=== PATIENT | male | born 1955 | race Hispanic/Latino ===

== ENCOUNTER 2017-12-15 16:59 | Emergency (ER) | payer OTHER ==
[2017-12-15 17:26] VITALS: BP 116/72
--- NOTE | 2017-12-15 19:16 | Emergency Department Report ---
Blank Doc - Documentation Documentation: Patient is a 62-year-old male who is presenting with cough cold congestion for several weeks. Patient states he is out of breath over his O2 sat is within normal limits. Patient also is asking for catheter so he can straight cath himself. He states he has a large prostate but he hasn't urinated today. Patient will have x-ray to rule out atypical pneumonia regarding the catheters patient will be referred to urology
--- NOTE | 2017-12-15 20:05 | Emergency Department Report ---
HPI - General Chief Complaint: Upper Respiratory Infection Time Seen by Provider: 12/15/17 19:04 - HPI HPI: Patient is a 62-year-old male who is presenting with cough cold congestion for several weeks. Patient states he is out of breath . O2 sat is within normal limits. Patient also is asking for catheter so he can straight cath himself. He states he has a large prostate but he has urinated today without any difficulties. Patient reports flulike symptoms for 4 days to include cough sore throats. Pain is 4 out of 10. No relief with over-the- counter medication. He said he is taking lots Imodium right ear for diarrhea and complaining of body aches. Denies any nausea or vomiting or fever or chills. Patient has a history of COPD, asthma. He has a history of hepatitis C. Denies any chest pain and reports shortness of breath with exertion that is not unusual due to asthma and COPD. He said he takes a breathing machine at home. He has no diarrhea today and denies any abdominal pain. Denies any back pain. Denies any urinary burning frequency or urgency. Denies any nausea or vomiting. ED Past Medical Hx - Past Medical History Previous Medical History?: Yes Hx Liver Disease: Yes (Hepatitis C) Hx Asthma: Yes Hx COPD: Yes Additional medical history: BPH - Surgical History Past Surgical History?: No - Family History Family history: hypertension - Social History Smoking Status: Former Smoker Substance Use Type: Cocaine, Non Opiate Pain, Other ED Review of Systems ROS: Stated complaint: FLU LIKE SYMPTOMS Other details as noted in HPI Comment: All other systems reviewed and negative Constitutional: other (she requested straight cath.). denies: chills, fever Eyes: denies: eye pain, eye discharge ENT: throat pain, congestion. denies: ear pain, dental pain, hearing loss Respiratory: cough, shortness of breath, SOB with exertion. denies: orthopnea, SOB at rest, stridor, wheezing Cardiovascular: denies: chest pain, palpitations, edema, syncope Gastrointestinal: denies: abdominal pain, nausea, vomiting, diarrhea, constipation, hematemesis, melena, hematochezia Genitourinary: denies: urgency, dysuria, frequency, hematuria, discharge, testicular pain, testicular mass Musculoskeletal: myalgia. denies: back pain, joint swelling, arthralgia Skin: denies: rash Neurological: denies: headache, numbness, paresthesias, confusion, abnormal gait , vertigo Physical Exam - Physical Exam Vital Signs: Vital Signs 12/15/17 17:23 Temperature 98 F Pulse Rate 103 H Respiratory 16 Rate Blood Pressure 116/72 O2 Sat by Pulse 95 Oximetry General: This is a 62-year-old male well-nourished well-developed in no acute distress. Physical Exam: Head: Normocephalic atraumatic Ears:BIateral TM congested without erythema and loss of bony landmarks. Mj EAC with normal exam. No mastoid bone tenderness. Mouth: Moist, no pharyngeal erythema or exudate . No tonsillar erythema or exudate. UVULA midline and oral airways patent. No peritonsillar abscess Neck: Nontender to palpate, supple, normal range of motion. No adenopathy. No c- spine tenderness. Nose: Bilateral nasal mucosa congested with clear drainage. Maxillary and frontal sinuses tender to palpate. Eyes: Sclerae and conjunctiva without injection. Bilateral pupils equal and reactive to light. Bilateral lids are normal. Normal accommodation.BEOMI Lungs: Clear to auscultate bilaterally, no rhonchi wheezes or rales. Normal work of breathing and no chest wall tenderness CV: S1, S2. Regular rate and rhythm negative murmur. Capillary refill is less than 3 seconds Skin: Clean dry and intact, no rashes or lesions Psych: Normal mood and behavior ED Course Vital Signs 12/15/17 17:23 Temperature 98 F Pulse Rate 103 H Respiratory 16 Rate Blood Pressure 116/72 O2 Sat by Pulse 95 Oximetry Critical care attestation.: If time is entered above; I have spent that time in minutes in the direct care of this critically ill patient, excluding procedure time. ED Disposition Condition: Stable Referrals: PRIMARY CARE, [Primary Care Provider] - 3-5 Days
[2017-12-15] MEDS ORDERED: DUONEB *Not for PRN Use IH ONE (21:24)
[2017-12-15] MEDS ORDERED: DELTASONE PO ONE (21:24)
--- NOTE | 2017-12-15 21:59 | XRay Report ---
FINAL REPORT PROCEDURE: Chest. TECHNIQUE: PA and lateral views. HISTORY: Cough and chills. COMPARISON: No prior studies are available for comparison. FINDINGS: The heart and mediastinum appear normal. The left lung is clear and mildly hyperinflated. There is some lucency in the left lung apex consistent with cystic disease. There is some volume loss in the right lung. The trachea is shifted slightly to the right. There is abnormal opacity in the right upper lobe which could represent pneumonia. There are some cystic cavities in the right upper lobe as well. I do not see a definite mass lesion. A neoplastic process is not entirely excluded however. The right lower lobe and right middle lobe are grossly clear. There are no pleural effusions. There is extensive pleural thickening surrounding the right upper lobe. The soft tissues are unremarkable. The regional skeleton appears intact. IMPRESSION: Abnormal right upper lobe as discussed above. Probable emphysema.
== END 2017-12-16 07:10 | disposition left against medical advice (07) ==
LOC: ED 16:59
DX: R05 Cough (principal); R09.81 Nasal congestion
CPT/HCPCS: 71046; 99283

== ENCOUNTER 2017-12-17 18:56 | Emergency (ER) | payer OTHER | END 2017-12-18 | disposition left against medical advice (07) | LOC: ED 18:56 | DX: Z53.21 Procedure and treatment not carried out due to patient leaving prior to being seen by health care provider (principal) ==

== ENCOUNTER 2017-12-20 08:56 | Emergency (ER) | payer OTHER ==
[2017-12-20 09:06] VITALS: BP 133/93
[2017-12-20 09:37] LABS: Basophils # (Auto) 0.1 K/mm3 (0.0-0.1); Basophils % (Auto) 0.6 % (0.0-1.8); Eosinophils # (Auto) 0.3 K/mm3 (0.0-0.4); Eosinophils % (Auto) 2.2 % (0.0-4.3); Hematocrit 32.1 % (35.5-45.6); Hemoglobin 10.5 gm/dl (11.8-15.2); Lymphocytes % (Auto) 8.3 % (13.4-35.0); Mean Corpuscular HGB Conc 33 % (32-34); Mean Corpuscular Hemoglobin 28 pg (28-32); Mean Corpuscular Volume 84 fl (84-94); Monocytes # (Auto) 0.7 K/mm3 (0.0-0.8); Monocytes % (Auto) 5.6 % (0.0-7.3); Platelet Count 404 K/mm3 (140-440); Red Blood Count 3.82 M/mm3 (3.65-5.03); Red Cell Distribution Width 15.9 % (13.2-15.2)
[2017-12-20 09:50] LABS: BUN/Creatinine Ratio 12; Blood Urea Nitrogen 6 mg/dL (9-20); Calcium 7.8 mg/dL (8.4-10.2); Hemolysis Index 32
--- NOTE | 2017-12-20 10:08 | XRay Report ---
Single view chest: Compared to 12/15/17. History: Shortness of breath. Findings: Normal cardiomediastinal silhouette. Trachea is midline. Fibrosis and scarring with interstitial infiltrates right lung with decrease in volume of right lung compared to left. No significant interval change. Impression: No significant interval change.
== END 2017-12-20 09:30 | disposition left against medical advice (07) ==
LOC: ED 08:56
DX: J45.909 Unspecified asthma, uncomplicated (principal); Z53.21 Procedure and treatment not carried out due to patient leaving prior to being seen by health care provider
CPT/HCPCS: 36415; 71046; 80048; 84484; 85025; 93005; 93010

== ENCOUNTER 2018-01-01 01:57 | Inpatient (IN) | payer OTHER ==
[2018-01-01] MEDS ORDERED: MAGNESIUM SULFATE 2GM/50ML 2 GM/50 ML BAG IV ONE ×2 (02:15→04:07)
[2018-01-01 02:46] LABS: Hematocrit 32.7 % (35.5-45.6); Hemoglobin 10.3 gm/dl (11.8-15.2); Mean Corpuscular HGB Conc 32 % (32-34); Mean Corpuscular Hemoglobin 26 pg (28-32); Mean Corpuscular Volume 83 fl (84-94); Platelet Count 433 K/mm3 (140-440); Red Blood Count 3.95 M/mm3 (3.65-5.03)
--- NOTE | 2018-01-01 02:58 | Emergency Department Report ---
HPI - General Chief Complaint: Dyspnea/Respdistress Time Seen by Provider: 01/01/18 02:12 - HPI HPI: 62-year-old male presents to the emergency department by EMS with complaint of shortness of breath. The patient stays with a friend but does not have his own residence at this current time. EMS was called out earlier today for shortness of breath and he was found to have a pulse ox in the 70s on room air. He was given a breathing treatment but refused transport to the hospital at that time. EMS was then called again is prior to presentation for continued shortness of breath and he was found to have a pulse ox in the 60s on room air. The patient has shortness of breath, wheezing, productive cough. He is a former smoker. He is an IV drug user. He has COPD but does not appear to be oxygen dependent. He does not have any inhaler or breathing machine to use at home. He does not have a primary care physician. Patient was given 125 mg of Solu-Medrol IM and placed on a CPAP in route. ED Past Medical Hx - Past Medical History Previous Medical History?: Yes Hx Liver Disease: Yes (Hepatitis C) Hx Asthma: Yes Hx COPD: Yes - Social History Smoking Status: Former Smoker Substance Use Type: Heroin ED Review of Systems ROS: Stated complaint: BERNADETTE Other details as noted in HPI Comment: All other systems reviewed and negative Constitutional: denies: chills, fever Eyes: denies: eye pain, eye discharge, vision change Respiratory: cough, shortness of breath, SOB with exertion, SOB at rest, wheezing Cardiovascular: denies: chest pain, edema Gastrointestinal: denies: abdominal pain, nausea, diarrhea Genitourinary: denies: urgency, dysuria Musculoskeletal: denies: back pain, joint swelling, arthralgia Skin: denies: rash, lesions Neurological: denies: headache, weakness, paresthesias Physical Exam - Physical Exam Vital Signs: Vital Signs 01/01/18 01/01/18 01/01/18 02:00 02:20 02:37 Pulse Rate 129 H 110 H 98 H Respiratory 34 H 26 H Rate Blood Pressure 153/98 132/88 O2 Sat by Pulse 72 L 99 99 Oximetry Physical Exam: GENERAL: Patient is ill-appearing. HENT: Normocephalic. Atraumatic. Patient has moist mucous membranes. EYES: Extraocular motions are intact. Pupils equal reactive to light bilaterally. NECK: Supple. Trachea is midline. CHEST/LUNGS: Rhonchi and some mild wheezing throughout the chest. There is tachypnea and accessory muscle use. There is a productive sounding cough heard. Conversational dyspnea. There is respiratory distress noted. HEART/CARDIOVASCULAR: Regular. There is mild tachycardia. There is no murmur. ABDOMEN: Abdomen is soft, nontender. Patient has normal bowel sounds. There is no abdominal distention. SKIN: Skin is warm and dry. NEURO: The patient is awake, alert, and oriented. Patient is following commands. Withdraws from painful stimuli. MUSCULOSKELETAL: There is no tenderness or deformity. There is no limitation range of motion. There is no evidence of acute injury. ED Course Vital Signs 01/01/18 01/01/18 01/01/18 02:00 02:20 02:37 Pulse Rate 129 H 110 H 98 H Respiratory 34 H 26 H Rate Blood Pressure 153/98 132/88 O2 Sat by Pulse 72 L 99 99 Oximetry - ABG Interpretation Ph: 7.47 PCO2: 33 PO2: 73 Bicarbonate: 24 Interpretation: normal ED Medical Decision Making - Lab Data Result diagrams: 01/11/18 04:13 01/11/18 04:13 - EKG Data -: EKG Interpreted by Me EKG shows normal: sinus rhythm, axis, intervals, QRS complexes, ST-T waves Rate: tachycardia (108 bpm) - EKG Data When compared to previous EKG there are: previous EKG unavailable Interpretation: normal EKG (with mild tachycardia) - Radiology Data Radiology results: report reviewed, image reviewed interpreted by me: Chest x-ray shows infiltrates throughout the entire right lung as well as to the left lower and lingular lobes. There may be some pulmonary vascular congestion as well. No pneumothorax. EXAM: CT ANGIO CHEST HISTORY: SOB, elevated dimer TECHNIQUE: CTA of the chest was performed after the administration of intravenous contrast. Reconstructions were included in the coronal and sagittal planes. PRIORS: Chest radiograph from 12/31/2017. FINDINGS: Pulmonary arteries and thoracic aorta: The study is adequate for diagnostic purposes. No central or segmental pulmonary embolism. The thoracic aorta is normal in caliber. Lungs and airways: There is a small right pleural effusion. Severe bilateral centrilobular and paraseptal emphysema is seen with numerous large subpleural blebs. Extensive bronchiectasis is seen. Honeycombing is seen in the periphery of the lungs. Patchy left lower lobe, lingular, right middle lobe, right upper lobe and right lower lobe opacities are seen. Mediastinum, heart, pericardium: Multiple enlarged mediastinal and right hilar lymph nodes are seen. The largest lymph node is seen in the subcarinal region measuring 2.8 x 2.0 centimeters. No cardiac chamber enlargement. No pericardial effusion. Thoracic inlet, chest wall, axilla: No chest wall masses. The visualized portions of the thyroid gland demonstrate no focal lesion. No axillary lymphadenopathy. Upper abdomen: The visualized structures demonstrate no specific abnormality. Bones: Degenerative changes are seen in the spine. Subacute or chronic left lateral 10th rib fracture is seen. IMPRESSION: 1. No central or segmental pulmonary embolism. 2. Multifocal bilateral pulmonary consolidative opacities concerning for multifocal pneumonia. 3. Small right pleural effusion. 4. Severe centrilobular and paraseptal emphysema with numerous large subpleural blebs. Additional chronic fibrotic process is suspected. 5. Enlarged mediastinal lymph nodes may be reactive. Transcribed By: MG Dictated By: CHUCK HOUGH MD Electronically Authenticated By: CHUCK HOUGH MD Signed Date/Time: 01/01/18 5053 - Medical Decision Making Patient came in for shortness of breath and hypoxia. Previous diagnosis of pneumonia but it seems to have worsened. He gets hypoxia without BiPAP. Labs show a leukocytosis of 21,000. He was given breathing treatments, antibiotics. Elevated d-dimer so CT angiography was done that did not show any PE but did show multifocal pneumonia as well as some signs of emphysema. Admitted to the hospital for further evaluation and treatment and accepted for admission by the hospitalist, Dr Johnson. - Differential Diagnosis Pneumonia, CHF, COPD, RI, PE Critical Care Time: No Critical care attestation.: If time is entered above; I have spent that time in minutes in the direct care of this critically ill patient, excluding procedure time. ED Disposition Clinical Impression: Respiratory distress, Hypoxia, Acute respiratory failure with hypoxia Sepsis Qualifiers: Sepsis type: sepsis due to unspecified organism Qualified Code(s): A41.9 - Sepsis, unspecified organism Pneumonia Qualifiers: Pneumonia type: due to unspecified organism Laterality: unspecified laterality Lung location: unspecified part of lung Qualified Code(s): J18.9 - Pneumonia, unspecified organism Leukocytosis Qualifiers: Leukocytosis type: unspecified Qualified Code(s): D72.829 - Elevated white blood cell count, unspecified Disposition: 09 OP ADMIT IP TO THIS HOSP Is pt being admited?: Yes Condition: Serious Time of Disposition: 05:24
[2018-01-01] MEDS ORDERED: ROCEPHIN/NS 1 GM/50 ML 1 GM/50 ML BAG IV ONE (03:00)
[2018-01-01 03:01] LABS: BUN/Creatinine Ratio 22; Blood Urea Nitrogen 13 mg/dL (9-20); Calcium 8.3 mg/dL (8.4-10.2); Hemolysis Index 14
[2018-01-01] MEDS ORDERED: ZITHROMAX 500 MG in NACL 0.9% 250ML 250 ML IV ONE (03:01)
[2018-01-01 03:03] LABS: INR 1.07 (0.87-1.13)
[2018-01-01 03:04] LABS: Partial Thromboplastin Time 29.7 Sec. (24.2-36.6)
--- NOTE | 2018-01-01 03:11 | XRay Report ---
FINAL REPORT PROCEDURE: XR CHEST 1V AP TECHNIQUE: Chest radiograph anteroposterior view. CPT 08538 HISTORY: Dyspnea COMPARISON: 12/15/2017 FINDINGS: Heart: Normal. Mediastinum/Vessels: Normal. Lungs/Pleural space: There are right lung infiltrates which have improved since the prior study. There are infiltrates at the left lung base which are new.. There are no effusions or pneumothoraces. Bony thorax: No acute osseous abnormality. Life support devices: None. IMPRESSION: The heart size is normal. There are right lung infiltrates which have improved since the prior study. There are infiltrates at the left lung base which are new.. There are no effusions or pneumothoraces.
[2018-01-01] MEDS ORDERED: cefTRIAXone 1 GM in NACL 0.9% 20 ML IV ONE (03:15)
[2018-01-01 03:30] LABS: Bilirubin,Urine NEG (Negative); Blood,Urine NEG (Negative); Color,Urine Yellow (Yellow); Mucus,Urine FEW /HPF; Protein,Urine <15 mg/dL mg/dL (Negative)
[2018-01-01 04:21] LABS: Band Neutrophils # (Manual) 0.2 K/mm3; Basophils % (Manual) 0 % (0.0-1.8); Eosinophils % (Manual) 1.5 % (0.0-4.3); Monocytes % (Manual) 2.5 % (0.0-7.3); Total Cells Counted 200
[2018-01-01 04:22] LABS: Anisocytosis 1+
[2018-01-01 04:23] LABS: Platelet Estimate Consistent w Auto
[2018-01-01] MEDS ORDERED: PROVENTIL IH ONE (04:28)
[2018-01-01] MEDS ORDERED: NORCO 5/325 PO PRN (06:20)
[2018-01-01] MEDS ORDERED: ZOFRAN IV PRN (06:20)
[2018-01-01] MEDS ORDERED: SODIUM CHLORIDE FLUSH SYRINGE 10 ML IV PRN (06:20)
--- NOTE | 2018-01-01 06:26 | History and Physical Report ---
History of Present Illness Date of examination: 01/01/18 Chief complaint: Couldn't breath History of present illness: 62-year-old man with past medical history significant for COPD on home oxygen, asthma, hep C emphysema presented to the emergency department he couldn't breathe since last night. Patient called EMS yesterday and his saturation was in the 70s but patient refused to come to the hospital. Patient is complaining on and off fever, cough productive of clear sputum. At presentation patient was saturating in the 50s and 60s, patient was put on BiPAP and currently he is saturating in the low 90s. Patient had right-sided pneumonia recently and was given by mouth antibiotics. Chest x-ray in the hospital showed right-sided infiltrates unchanged from previous one and new left -sided infiltrates. WBC count was 21,000, lactic acid level was 3.6, d-dimer was 2356, CTA was done and result is pending. Patient needs to be admitted to ICU. REVIEW OF SYSTEMS: GENERAL: no weight change, no fatigue,+ fever HEAD: no head ache EYES: no blurry vision, no acute visual loss EARS: no hearing loss, no discharge, no earache NOSE: no stuffiness, no sneezing, no discharge MOUTH, THROAT AND NECK: no bleeding gums, no sore throat, no swollen neck CARDIAC: no palpitations, no dyspnea on exertion, no orthopnea, no PND, no edema , no chest pain RESPIRATORY: as stated in the HPI. GI: no decreased appetite, no nausea, no vomiting, no dysphagia, no diarrhea, no constipation, no abdominal pain URINARY: no change in frequency, no urgency, no polyuria, no hematuria, no incontinence MUSCULOSKELETAL: no muscle weakness, no pain, no joint stiffness NEUROLOGIC: no loss of sensation/numbness, no tingling, no tremors, no weakness/ paralysis HEMATOLOGIC: no anemia, no easy bruising SKIN: no rashes ENDOCRINE: no heat/cold intolerance, no polyuria, no polydipsia, no thyroid problems. PSYCHIATRIC: no anxiety, no depression, no suicidal ideations Past History Past Medical History: COPD, other (hep C) Past Surgical History: No surgical history Social history: full code. denies: smoking, alcohol abuse, prescription drug abuse, IV drug use Family history: no significant family history Medications and Allergies Allergies Allergy/AdvReac Type Severity Reaction Status Date / Time No Known Allergies Allergy Verified 12/20/17 09:01 Active Meds: Active Medications Acetaminophen (Tylenol) 650 mg PO Q4H PRN PRN Reason: Pain MILD(1-3)/Fever >100.5/BLACK Acetaminophen/Hydrocodone Bitart ([place] 5/325) 2 each PO Q6H PRN PRN Reason: Pain, Moderate (4-6) Heparin Sodium (Porcine) (Heparin) 5,000 unit SUB-Q Q8HR TAD Vancomycin HCl (Vancomycin/Ns 1 Gm/250 Ml) 1 gm in 250 mls @ 166.667 mls/hr IV Q12H TAD Piperacillin Sod/Tazobactam Sod (Zosyn/Ns 3.375gm/50ml) 3.375 gm in 50 mls @ 100 mls/hr IV Q8HR TAD; Protocol Ondansetron HCl (Zofran) 4 mg IV Q8H PRN PRN Reason: Nausea And Vomiting Pantoprazole Sodium (Protonix) 20 mg PO QDAY TAD Sodium Chloride (Sodium Chloride Flush Syringe 10 Ml) 10 ml IV BID TAD Sodium Chloride (Sodium Chloride Flush Syringe 10 Ml) 10 ml IV PRN PRN PRN Reason: LINE FLUSH Exam - Physical Exam Narrative exam: In respiratory distress. The patient appeared well nourished and normally developed. Vital signs as documented. Head exam is unremarkable. No scleral icterus . Neck is without jugular venous distension, thyromegaly, or carotid bruits. Lungs are bibasilar crepitations. Cardiac exam reveals regular rate and Rhythm. First and second heart sounds normal. No murmurs, rubs or gallops. Abdominal exam reveals normal bowel sounds, no masses, no organomegaly and no aortic enlargement. Extremities are nonedematous and both femoral and pedal pulses are normal. 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 No focal weakness. - Constitutional Vitals: Temp Pulse Resp BP Pulse Ox 96 H 32 H 144/102 99 01/01/18 05:15 01/01/18 05:15 01/01/18 05:15 01/01/18 05:15 Results - Labs CBC & Chem 7: 01/01/18 02:25 01/01/18 02:25 Labs: Laboratory Last Values WBC 21.6 K/mm3 (4.5-11.0) H 01/01/18 02:25 RBC 3.95 M/mm3 (3.65-5.03) 01/01/18 02:25 Hgb 10.3 gm/dl (11.8-15.2) L 01/01/18 02:25 Hct 32.7 % (35.5-45.6) L 01/01/18 02:25 MCV 83 fl (84-94) L 01/01/18 02:25 MCH 26 pg (28-32) L 01/01/18 02:25 MCHC 32 % (32-34) 01/01/18 02:25 RDW 18.0 % (13.2-15.2) H 01/01/18 02:25 Plt Count 433 K/mm3 (140-440) 01/01/18 02:25 Add Manual Diff Complete 01/01/18 02:25 Total Counted 200 01/01/18 02:25 Seg Neuts % (Manual) 87.5 % (40.0-70.0) H 01/01/18 02:25 Band Neutrophils % 1.0 % 01/01/18 02:25 Lymphocytes % (Manual) 7.5 % (13.4-35.0) L 01/01/18 02:25 Reactive Lymphs % (Man) 0 % 01/01/18 02:25 Monocytes % (Manual) 2.5 % (0.0-7.3) 01/01/18 02:25 Eosinophils % (Manual) 1.5 % (0.0-4.3) 01/01/18 02:25 Basophils % (Manual) 0 % (0.0-1.8) 01/01/18 02:25 Metamyelocytes % 0 % 01/01/18 02:25 Myelocytes % 0 % 01/01/18 02:25 Promyelocytes % 0 % 01/01/18 02:25 Blast Cells % 0 % 01/01/18 02:25 Nucleated RBC % Not Reportable 01/01/18 02:25 Seg Neutrophils # Man 18.9 K/mm3 (1.8-7.7) H 01/01/18 02:25 Band Neutrophils # 0.2 K/mm3 01/01/18 02:25 Lymphocytes # (Manual) 1.6 K/mm3 (1.2-5.4) 01/01/18 02:25 Abs React Lymphs (Man) 0.0 K/mm3 01/01/18 02:25 Monocytes # (Manual) 0.5 K/mm3 (0.0-0.8) 01/01/18 02:25 Eosinophils # (Manual) 0.3 K/mm3 (0.0-0.4) 01/01/18 02:25 Basophils # (Manual) 0.0 K/mm3 (0.0-0.1) 01/01/18 02:25 Metamyelocytes # 0.0 K/mm3 01/01/18 02:25 Myelocytes # 0.0 K/mm3 01/01/18 02:25 Promyelocytes # 0.0 K/mm3 01/01/18 02:25 Blast Cells # 0.0 K/mm3 01/01/18 02:25 WBC Morphology Not Reportable 01/01/18 02:25 Hypersegmented Neuts Not Reportable 01/01/18 02:25 Hyposegmented Neuts Not Reportable 01/01/18 02:25 Hypogranular Neuts Not Reportable 01/01/18 02:25 Smudge Cells Not Reportable 01/01/18 02:25 Toxic Granulation Not Reportable 01/01/18 02:25 Toxic Vacuolation Not Reportable 01/01/18 02:25 Dohle Bodies Not Reportable 01/01/18 02:25 Pelger-Huet Anomaly Not Reportable 01/01/18 02:25 Salazar Rods Not Reportable 01/01/18 02:25 Platelet Estimate Consistent w auto 01/01/18 02:25 Clumped Platelets Not Reportable 01/01/18 02:25 Plt Clumps, EDTA Not Reportable 01/01/18 02:25 Large Platelets Not Reportable 01/01/18 02:25 Giant Platelets Not Reportable 01/01/18 02:25 Platelet Satelliting Not Reportable 01/01/18 02:25 Plt Morphology Comment Not Reportable 01/01/18 02:25 RBC Morphology Not Reportable 01/01/18 02:25 Dimorphic RBCs Not Reportable 01/01/18 02:25 Polychromasia Not Reportable 01/01/18 02:25 Hypochromasia Not Reportable 01/01/18 02:25 Poikilocytosis Not Reportable 01/01/18 02:25 Anisocytosis 1+ 01/01/18 02:25 Microcytosis Not Reportable 01/01/18 02:25 Macrocytosis Not Reportable 01/01/18 02:25 Spherocytes Not Reportable 01/01/18 02:25 Pappenheimer Bodies Not Reportable 01/01/18 02:25 Sickle Cells Not Reportable 01/01/18 02:25 Target Cells Not Reportable 01/01/18 02:25 Tear Drop Cells Not Reportable 01/01/18 02:25 Ovalocytes Not Reportable 01/01/18 02:25 Helmet Cells Not Reportable 01/01/18 02:25 [place] Bodies Not Reportable 01/01/18 02:25 Donner Rings Not Reportable 01/01/18 02:25 Adan Cells Not Reportable 01/01/18 02:25 Bite Cells Not Reportable 01/01/18 02:25 Crenated Cell Not Reportable 01/01/18 02:25 Elliptocytes Not Reportable 01/01/18 02:25 Acanthocytes (Spur) Not Reportable 01/01/18 02:25 Rouleaux Not Reportable 01/01/18 02:25 Hemoglobin C Crystals Not Reportable 01/01/18 02:25 Schistocytes Not Reportable 01/01/18 02:25 Malaria parasites Not Reportable 01/01/18 02:25 Abdullahi Bodies Not Reportable 01/01/18 02:25 Hem Pathologist Commnt No 01/01/18 02:25 PT 14.5 Sec. (12.2-14.9) 01/01/18 02:25 INR 1.07 (0.87-1.13) 01/01/18 02:25 APTT 29.7 Sec. (24.2-36.6) 01/01/18 02:25 D-Dimer 2358.22 ng/mlDDU (0-234) H 01/01/18 03:31 POC ABG pH 7.474 (7.35-7.45) H 01/01/18 03:17 POC ABG pCO2 33.2 (35-45) L 01/01/18 03:17 POC ABG pO2 73 (80-105) L 01/01/18 03:17 POC ABG HCO3 24.3 01/01/18 03:17 POC ABG Total CO2 25 01/01/18 03:17 POC ABG O2 Sat 96 01/01/18 03:17 POC ABG Base Excess 1 01/01/18 03:17 FiO2 75 % 01/01/18 03:17 Sodium 135 mmol/L (137-145) L 01/01/18 02:25 Potassium 3.9 mmol/L (3.6-5.0) 01/01/18 02:25 Chloride 99.2 mmol/L (98-107) 01/01/18 02:25 Carbon Dioxide 21 mmol/L (22-30) L 01/01/18 02:25 Anion Gap 19 mmol/L 01/01/18 02:25 BUN 13 mg/dL (9-20) 01/01/18 02:25 Creatinine 0.6 mg/dL (0.8-1.5) L 01/01/18 02:25 Estimated GFR > 60 ml/min 01/01/18 02:25 BUN/Creatinine Ratio 22 % 01/01/18 02:25 Glucose 103 mg/dL (75-100) H 01/01/18 02:25 Lactic Acid 3.60 mmol/L (0.7-2.0) H* 01/01/18 02:36 Calcium 8.3 mg/dL (8.4-10.2) L 01/01/18 02:25 Magnesium 2.20 mg/dL (1.7-2.3) 01/01/18 02:25 Troponin T < 0.010 ng/mL (0.00-0.029) 01/01/18 02:25 NT-Pro-B Natriuret Pep 1069 pg/mL (0-900) H 01/01/18 02:25 Urine Color Yellow (Yellow) 01/01/18 Unknown Urine Turbidity Clear (Clear) 01/01/18 Unknown Urine pH 7.0 (5.0-7.0) 01/01/18 Unknown Ur Specific [place] 1.013 (1.003-1.030) 01/01/18 Unknown Urine Protein <15 mg/dl mg/dL (Negative) 01/01/18 Unknown Urine Glucose (UA) Neg mg/dL (Negative) 01/01/18 Unknown Urine Ketones Neg mg/dL (Negative) 01/01/18 Unknown Urine Blood Neg (Negative) 01/01/18 Unknown Urine Nitrite Neg (Negative) 01/01/18 Unknown Urine Bilirubin Neg (Negative) 01/01/18 Unknown Urine Urobilinogen 4.0 mg/dL (<2.0) 01/01/18 Unknown Ur Leukocyte Esterase Neg (Negative) 01/01/18 Unknown Urine WBC (Auto) 4.0 /HPF (0.0-6.0) 01/01/18 Unknown Urine RBC (Auto) 2.0 /HPF (0.0-6.0) 01/01/18 Unknown Urine Mucus Few /HPF 01/01/18 Unknown Assessment and Plan Assessment and plan: Acute on chronic hypoxic respiratory failure COPD Bilateral pneumonia, recent treatment with antibiotics Sepsis Lactic acidosis GERD Hep C - Patient is on IV vancomycin, Zosyn, DuoNeb's, Solu-Medrol, nebulizer, BiPAP, IV fluids, snack bar cashier consult placed - Patient is on pantoprazole for GERD - Follow CTA DVT prophylaxis - Heparin Disposition - Admit to ICU Advance Directives: Yes VTE prophylaxis?: Chemical Plan of care discussed with patient/family: Yes
[2018-01-01] MEDS: PROTONIX PO SCH ×2 (06:34→11:21)
[2018-01-01] MEDS ORDERED: VANCOMYCIN/NS 1 GM/250 ML 1 GM/250 ML BAG IV SCH (07:00)
[2018-01-01] MEDS: DUONEB *Not for PRN Use IH SCH ×4 (09:05→20:32)
[2018-01-01] MEDS: VANCOMYCIN/0.45 NS 1 GM/250 ML 1 GM/250 ML BAG IV SCH ×2 (09:35→20:25)
[2018-01-01] MEDS: NACL 0.9% 1000 ML 1,000 ML IV SCH ×2 (09:35→21:15)
[2018-01-01] MEDS: SODIUM CHLORIDE FLUSH SYRINGE 10 ML IV SCH ×2 (11:30→23:18)
--- NOTE | 2018-01-01 11:49 | Consultation ---
History of Present Illness Consult date: 01/01/18 Requesting physician: ROBBI COURTNEY Reason for consult: pneumonia, other (Multifocal CAP) History of present illness: PULMONARY/CCM CONSULT NOTE (Full dictation # [id number]) Please see dictated notes for full details Past History Past Medical History: COPD, other (hep C) Past Surgical History: No surgical history Social history: full code. denies: smoking, alcohol abuse, prescription drug abuse, IV drug use Family history: no significant family history Medications and Allergies Allergies Allergy/AdvReac Type Severity Reaction Status Date / Time No Known Allergies Allergy Verified 12/20/17 09:01 Active Meds: Active Medications Acetaminophen (Tylenol) 650 mg PO Q4H PRN PRN Reason: Pain MILD(1-3)/Fever >100.5/BLACK Acetaminophen/Hydrocodone Bitart ([place] 5/325) 2 each PO Q6H PRN PRN Reason: Pain, Moderate (4-6) Albuterol (Proventil) 2.5 mg IH Q4HRT PRN PRN Reason: Shortness Of Breath Albuterol/Ipratropium (Duoneb *Not For Prn Use*) 1 ampul IH QIDRT [facility] Last Admin: 01/01/18 09:05 Dose: 1 ampul Heparin Sodium (Porcine) (Heparin) 5,000 unit SUB-Q Q8HR [facility] Sodium Chloride (Nacl 0.9% 1000 Ml) 1,000 mls @ 100 mls/hr IV DIRECT [facility] Last Admin: 01/01/18 09:35 Dose: 100 mls/hr Vancomycin HCl (Vancomycin/0.45 Ns 1 Gm/250 Ml) 1 gm in 250 mls @ 167.007 mls/ hr IV Q12H [facility] Last Admin: 01/01/18 09:35 Dose: 167.007 mls/hr Piperacillin Sod/Tazobactam Sod (Zosyn/Ns 4.5gm/100ml) 4.5 gm in 100 mls @ 200 mls/hr IV Q8HR [facility] Methylprednisolone Sodium Succinate (Solu-Medrol) 60 mg IV TID [facility] Last Admin: 01/01/18 11:23 Dose: 60 mg Ondansetron HCl (Zofran) 4 mg IV Q8H PRN PRN Reason: Nausea And Vomiting Pantoprazole Sodium (Protonix) 20 mg PO QDAY [facility] Last Admin: 01/01/18 11:21 Dose: 20 mg Sodium Chloride (Sodium Chloride Flush Syringe 10 Ml) 10 ml IV BID [facility] Last Admin: 01/01/18 11:30 Dose: 10 ml Sodium Chloride (Sodium Chloride Flush Syringe 10 Ml) 10 ml IV PRN PRN PRN Reason: LINE FLUSH Physical Examination Vital signs: Vital Signs Pulse Ox 79 L 01/01/18 01:52 Results - Laboratory Findings CBC and BMP: 01/01/18 02:25 01/01/18 02:25 ABG POC ABG pH 7.474 (7.35-7.45) H 01/01/18 03:17 POC ABG pCO2 33.2 (35-45) L 01/01/18 03:17 POC ABG pO2 73 (80-105) L 01/01/18 03:17 POC ABG HCO3 24.3 01/01/18 03:17 POC ABG Total CO2 25 01/01/18 03:17 POC ABG O2 Sat 96 01/01/18 03:17 PT/INR, D-dimer PT 14.5 Sec. (12.2-14.9) 01/01/18 02:25 INR 1.07 (0.87-1.13) 01/01/18 02:25 D-Dimer 2358.22 ng/mlDDU (0-234) H 01/01/18 03:31 Abnormal lab findings: Abnormal Labs 01/01/18 01/01/18 01/01/18 02:25 02:25 02:25 WBC 21.6 H Hgb 10.3 L Hct 32.7 L MCV 83 L MCH 26 L RDW 18.0 H Seg Neuts % (Manual) 87.5 H Lymphocytes % (Manual) 7.5 L Seg Neutrophils # Man 18.9 H D-Dimer POC ABG pH POC ABG pCO2 POC ABG pO2 Sodium 135 L Carbon Dioxide 21 L Creatinine 0.6 L Glucose 103 H Lactic Acid Calcium 8.3 L NT-Pro-B Natriuret Pep 1069 H 01/01/18 01/01/18 01/01/18 02:36 03:17 03:31 WBC Hgb Hct MCV MCH RDW Seg Neuts % (Manual) Lymphocytes % (Manual) Seg Neutrophils # Man D-Dimer 2358.22 H POC ABG pH 7.474 H POC ABG pCO2 33.2 L POC ABG pO2 73 L Sodium Carbon Dioxide Creatinine Glucose Lactic Acid 3.60 H* Calcium NT-Pro-B Natriuret Pep
--- NOTE | 2018-01-01 12:43 | Event Note ---
Date: 01/01/18 Patient seen and examined, admitted with acute on chronic respiratory failure. Will cont current Mx as dictated in HPI. will follow CTA chest
--- NOTE | 2018-01-01 13:40 | Cat Scan Report ---
FINAL REPORT EXAM: CT ANGIO CHEST HISTORY: SOB, elevated dimer TECHNIQUE: CTA of the chest was performed after the administration of intravenous contrast. Reconstructions were included in the coronal and sagittal planes. PRIORS: Chest radiograph from 12/31/2017. FINDINGS: Pulmonary arteries and thoracic aorta: The study is adequate for diagnostic purposes. No central or segmental pulmonary embolism. The thoracic aorta is normal in caliber. Lungs and airways: There is a small right pleural effusion. Severe bilateral centrilobular and paraseptal emphysema is seen with numerous large subpleural blebs. Extensive bronchiectasis is seen. Honeycombing is seen in the periphery of the lungs. Patchy left lower lobe, lingular, right middle lobe, right upper lobe and right lower lobe opacities are seen. Mediastinum, heart, pericardium: Multiple enlarged mediastinal and right hilar lymph nodes are seen. The largest lymph node is seen in the subcarinal region measuring 2.8 x 2.0 centimeters. No cardiac chamber enlargement. No pericardial effusion. Thoracic inlet, chest wall, axilla: No chest wall masses. The visualized portions of the thyroid gland demonstrate no focal lesion. No axillary lymphadenopathy. Upper abdomen: The visualized structures demonstrate no specific abnormality. Bones: Degenerative changes are seen in the spine. Subacute or chronic left lateral 10th rib fracture is seen. IMPRESSION: 1. No central or segmental pulmonary embolism. 2. Multifocal bilateral pulmonary consolidative opacities concerning for multifocal pneumonia. 3. Small right pleural effusion. 4. Severe centrilobular and paraseptal emphysema with numerous large subpleural blebs. Additional chronic fibrotic process is suspected. 5. Enlarged mediastinal lymph nodes may be reactive.
[2018-01-01] MEDS ORDERED: ZOSYN/NS 3.375GM/50ML 3.375 GM/50 ML BAG IV SCH (14:00)
[2018-01-01] MEDS: HEPARIN SUB-Q SCH ×2 (15:01→22:17)
[2018-01-01] MEDS: ZOSYN/NS 4.5GM/100ML 4.5 GM/100 ML VIAL IV SCH ×2 (15:03→22:12)
[2018-01-01] MEDS: PULMICORT IH SCH (19:39)
[2018-01-01] MEDS: BROVANA NEBU IH SCH ×3 (19:39→20:34)
[2018-01-01] MEDS ORDERED: APLISOL ID ONE (20:00)
[2018-01-01] MEDS ORDERED: AMIDATE IV ONE (21:10)
[2018-01-01] MEDS ORDERED: QUELICIN ONE (21:10)
--- NOTE | 2018-01-01 21:17 | Consultation ---
PULMONARY AND CRITICAL CARE CONSULTATION CONSULTING PHYSICIAN: MD Naina. REASON FOR CONSULTATION: Bilateral pneumonia, acute hypoxemic respiratory failure. CHIEF COMPLAINT AND HISTORY OF PRESENT ILLNESS: The patient is a 62-year-old male with a past medical history according to him significant for an abnormal right lung that he was told about in the past and pneumonia. He stated he was treated recently at [facility] about a month ago for the similar symptoms. He was brought into the Emergency Room yesterday secondary to shortness of breath. The EMS was called out. His O2 sats were found to be in the 70s on room air. He was given a breathing treatment. He refused transportation at that time. However, they were called to come back to his house after he again developed increasing shortness of breath, at this time, his O2 sats were in the 60s. He was wheezing. He had a mostly clear phlegm producing cough. Denied any gross or streaky hemoptysis. He does have a 20+ pack year tobacco smoking history, but quit smoking 5 years ago. He apparently is also reported as an IV drug user. Evaluation in the ER was consistent with COPD exacerbation, severe acute hypoxemic respiratory failure with likely a chronic component as the records also mention that he had earlier been thus discharged home on oxygen at a prior admission. He was placed on high flow nasal cannula oxygen at about 80% FIO2, actually 85% FIO2 after he had refused or not tolerated BiPAP and was transferred to the intensive care unit. When I stopped by to see him in the intensive care unit, he was resting peacefully. Still had an intermittent cough. He tells me he has been tested for tuberculosis in the past, but it was negative. This really is as much of the history of presentation as I have, except he denied any night sweats or chills. He denied any new rash, lumps, bumps, lymphadenopathy on his body. He did admit to bilateral lower extremity swelling which he noticed about a few days ago, but is improved now. This is as much again of the history of presentation as I have. PAST MEDICAL HISTORY: COPD, hepatitis C, adult failure to thrive. PAST SURGICAL HISTORY: He denies any. MEDICATIONS: He was on at the time I stopped by to see him, according to the medication administration record were reviewed, pertinent medications included the following: Percocet 2 tablets p.o. q.6h. p.r.n. moderate pain, DuoNeb treatments nebulized q.i.d., heparin 5000 units subcutaneous q.8h., Solu-Medrol 60 mg IV t.i.d. scheduled, Protonix 20 mg p.o. daily, Zofran 4 mg IV q.8h. p.r.n. nausea and vomiting, Zosyn 4.5 grams IV q.8h., as well as vancomycin 1 gram IV q.12 hours. ALLERGIES: No known drug allergies. DIET: He states he has lost about 15 pounds in the past month, unintentionally. FAMILY AND SOCIAL HISTORY: It seems like he has an unclear home leaving standard. He tells us that he is staying with a friend, but refuses to give an address, I think there is an element of homelessness. Otherwise, family history noncontributory. He does have a 20+ pack year tobacco smoking history, but quit smoking 5 years ago. Denies alcohol and then he has the IV drug use history. REVIEW OF SYSTEMS: No loss of consciousness. No new onset seizures. No new onset focal weakness. Denies gross hematochezia or melena. Denies gross hematuria or dysuria. No hematemesis. No palpitations. Complete 13-system review of system was obtained. Pertinent positives and/or negatives are as in body of history above, otherwise they are noncontributory. PHYSICAL EXAMINATION: VITAL SIGNS: On examination, the first temperature I see on him was 97.7 degrees Fahrenheit, pulse was 129 at presentation, respiratory rate 26, blood pressure 153/98, oxygen sats were 72%, presumably on room air. GENERAL: He is an elderly looking male, looks unkempt. He is normocephalic. He is atraumatic. Talking to me in interrupted by coughing spells, in mild to moderate respiratory distress. HEAD, EYES, EARS, NOSE, AND THROAT: He is anicteric, no conjunctival erythema. Oropharynx is a Mallampati #2 oropharynx. Oropharynx is dry. Grossly, no palpable lymph nodes in the supraclavicular or submandibular lymph node chains. No gross jugular venous distention, no thyromegaly. LUNGS: Auscultation of both lung cerda significant for inspiratory rales in the left base, but also really throughout the whole right lung, slightly prolonged expiratory phase. No active wheezing. HEART: Heart sounds 1 and 2 are heard. They were regular in rate and rhythm at the time of my evaluation. No rubs, no murmurs. ABDOMEN: Soft, flat. Bowel sounds are positive, nontender. EXTREMITIES: Without overt digital clubbing, cyanosis, no pedal edema. Dorsalis pedis pulses are palpable bilaterally. NEUROLOGIC: Pupils are equal, round, about 4 mm, reactive to light. Extraocular muscle movements are intact. He moves all 4 extremities. Pulses spontaneously. SKIN: The skin is of Normal turgor. No cellulitis, no rash. LABORATORY DATA: From my review are as follows: White cell count 21,600, hemoglobin 10.3, hematocrit 32.7, platelet count 433, no significant band forms reported. INR 1.07, D-dimer 2358. Arterial blood gas showed a pH of 7.47, pCO2 of 33, pO2 of 73 that was on 75% high flow nasal cannula through the Vapotherm system. Serum sodium 135, potassium 3.9, chloride 99, bicarbonate 21, BUN 13, creatinine 0.6, glucose was 103. Lactic acid level elevated at 3.6 at presentation. Troponin within normal limits. BNP 1069. Urinalysis was unremarkable. Repeat lactate level is now 1.8. Blood cultures no growth to date. Chest x-ray was done. I have reviewed the chest x-ray. I have also reviewed the radiologist's interpretation. Essentially, chronic looking interstitial markings, I cannot rule out superimposed pneumonia, mostly involving the right lung with some obvious fibrotic changes in both lung cerda with traction of the hilum towards the right. No gross pneumothorax. CT angiogram of his chest was done. I have reviewed that he has a significant AP window adenopathy. He has pretracheal lymph nodes. He has a patulous esophagus, this is all of the mediastinal views and he has a right pleural effusion. Lung windows shows severe honeycombing involving the bases bilaterally, really the whole lungs, severe bullous emphysema involving the left upper lobe regions in particular. No gross filling defects consistent with pulmonary emboli, but a lost of bullous/cavitations in the right upper lobe region in particular. ASSESSMENT: 1. Acute likely on chronic hypoxemic respiratory failure. 2. Really if there is a pneumonia, he has a healthcare-associated pneumonia with his history of recent hospitalizations. 3. Diffuse proliferative lung disease. 4. Leukocytosis. 5. Anemia. 6. Hyponatremia, mild. 7. Sepsis syndrome with lactic acidosis. 8. Elevated D-dimer. 9. Elevated BNP. 10. Adult failure to thrive. PLAN: I have a strong feeling that this gentleman has been significantly worked up. I do not want to reproduce or order unnecessary testing. In the interim, I will be trying to get records from, in particular [facility] where he was recently hospitalized according to him, but from our standpoint, we will: 1. Continue supplemental oxygen during the day via the high flow nasal cannula system and at night on BiPAP to keep O2 sats greater than or equal to about %. Aspiration precautions will be maintained. Sputum will be sent for Gram stain cultures and sensitivities. I will place a PPD skin test, with no immediate intent for isolation or airborne precautions, I should say. 2. We will continue empiric healthcare-associated pneumonia coverage. Anti-infectives will ultimately be deescalated based on results of clinical and microbiologic data. 3. I will get a 2D echocardiogram to better understand his cardiac function, especially in light of the elevated BNP and to see if there is going to be any benefit for diuretics in this gentleman. 4. I will complete the venous thromboembolic disorder workup by getting bilateral lower extremity Dopplers, especially with his history of leg swelling. 5. He is up and he has been placed on GI and DVT prophylaxis and that is appropriate. 6. We will continue systemic steroids. I will reduce the dose, make it a q.8h. administration. I will also be adding long acting bronchodilators as well as inhaled corticosteroids for COPD. Flu and pneumonia vaccination will be per protocol. Thank you very much for the consult Dr. Johnson. We will watch him in the ICU overnight and see if his O2 sats improved. If they continued to worsen, he remains a full code at this point in time. We will follow along. We will make further recommendations as picture progresses/becomes clearer. At this time, we spent about 35-40 minutes of critical care time without overlap and excluding any procedural time that may be necessary. JOB# [id number] MELVIN/LILIYA ROSENBAUM
[2018-01-02 04:36] LABS: Hematocrit 25.9 % (35.5-45.6); Hemoglobin 8.4 gm/dl (11.8-15.2); Mean Corpuscular HGB Conc 33 % (32-34); Mean Corpuscular Hemoglobin 27 pg (28-32); Mean Corpuscular Volume 82 fl (84-94); Platelet Count 258 K/mm3 (140-440); Red Blood Count 3.14 M/mm3 (3.65-5.03); Red Cell Distribution Width 17.4 % (13.2-15.2)
[2018-01-02 04:39] LABS: Alanine Aminotransferase 10 units/L (7-56); Albumin 1.7 g/dL (3.9-5); BUN/Creatinine Ratio 40; Blood Urea Nitrogen 20 mg/dL (9-20); Calcium 7.5 mg/dL (8.4-10.2); Hemolysis Index 5
[2018-01-02 06:08] LABS: Anisocytosis 1+; Band Neutrophils # (Manual) 0.3 K/mm3; Basophils % (Manual) 0 % (0.0-1.8); Eosinophils % (Manual) 0 % (0.0-4.3); Hypochromasia 1+; Monocytes % (Manual) 0 % (0.0-7.3); Total Cells Counted 100
[2018-01-02 06:09] LABS: Ovalocytes Few
[2018-01-02] MEDS: ZOSYN/NS 4.5GM/100ML 4.5 GM/100 ML VIAL IV SCH ×3 (06:35→22:33)
[2018-01-02] MEDS: HEPARIN SUB-Q SCH ×3 (06:35→22:42)
[2018-01-02] MEDS: NACL 0.9% 1000 ML 1,000 ML IV SCH ×2 (06:42→20:47)
[2018-01-02] MEDS: DUONEB *Not for PRN Use IH SCH ×4 (09:51→19:29)
[2018-01-02] MEDS: PULMICORT IH SCH ×2 (09:52→19:28)
[2018-01-02] MEDS: BROVANA NEBU IH SCH ×2 (09:52→19:28)
[2018-01-02] MEDS: PROTONIX PO SCH (10:38)
--- NOTE | 2018-01-02 10:38 | Progress Note ---
Assessment and Plan Acute on chronic hypoxic respiratory failure - from COPD exacerbation and bilateral pneumonia - on IV vancomycin, Zosyn, DuoNeb's, Solu-Medrol, nebulizer - Enroller following Severe COPD with exacerbation - Will provide scheduled nebulizers and breathing treatment - Placed on empiric steroid and antibiotic - will follow sputum culture, chest x-ray/CTA chest showed bilateral infiltrates - Continue to Provide high flow supplemental oxygen with Vapotherm to keep oxygen with saturation above 92% - We'll place on sliding scale of insulin as patient will be on empiric steroid Bilateral pneumonia, recent treatment with antibiotics - Continue empiric antibiotics for now, follow culture Sepsis, due to bilateral pneumonia - Continue abx, trend lactate Lactic acidosis, due to sepsis - IV fluid, treat underlying cause History of GERD - pantoprazole for GERD History of hepatitis C - UDS negative - We'll follow LFT DVT prophylaxis - Heparin Brief history: 62-year-old man with past medical history significant for COPD on home oxygen, hep C presented to the emergency with worsening shortness of breath. At presentation patient was saturating in the 50s and 60s, patient was put on BiPAP. Patient had right-sided pneumonia recently and was given by mouth antibiotics. Chest x-ray in the hospital showed right-sided infiltrates unchanged from previous one and new left-sided infiltrates. WBC count was 21, 000, lactic acid level was 3.6, d-dimer was 2356, CTA was done and showed multifocal bilateral pneumonia. Patient was admitted to ICU. Radiological test: Chest x-ray: Right lung infiltrates which have improved since the prior study, there are infiltrates in the left lung base which are new, no effusions or pneumothorax CTA chest: Difficult bilateral pulmonary consultation concerning for multifocal pneumonia, small right pleural effusion, severe centrilobular and paraseptal emphysema with numerous large subpleural blebs, and large mediastinal lymph node may be reactive. Lower extremity venous Doppler, negative for any acute DVT Hospitalist Physical exam: GENERAL: Lean and thin white male lying on bed appeared to be in no discomfort. HEENT: Normocephalic. Atraumatic. No conjunctival congestion or icterus. Patient has moist mucous membranes. NECK: Supple. Trachea midline. CHEST/LUNGS: Diminished breath sound auscultated bilaterally with rhonchi. HEART/CARDIOVASCULAR: Regular in rate and rhythm. S1 and S2 positive. ABDOMEN: Abdomen is soft, nontender. Patient has normal bowel sounds. SKIN: There is no rash. Warm and dry. NEURO: No focal motor deficit. Follows command. MUSCULOSKELETAL: No joint effusion or tenderness. EXTRIMITY: No edema, no cyanosis or clubbing. PSYCH: Cooperative. Subjective Date of service: 01/02/18 Interval history: Patient seen and examined Complains of difficulty breathing He states that he wants to get out of here, and needed help to arrange home oxygen for him so that he can leave the hospital Objective - Constitutional Vitals: Vital Signs - 12hr 01/01/18 01/01/18 01/01/18 22:41 22:51 23:00 Temperature Pulse Rate 84 82 77 Pulse Rate [ Right Dorsalis Pedis] Respiratory 13 27 H 26 H Rate Blood Pressure 128/88 128/88 130/89 O2 Sat by Pulse 93 96 95 Oximetry 01/01/18 01/01/18 01/01/18 23:11 23:21 23:27 Temperature Pulse Rate 80 81 82 Pulse Rate [ Right Dorsalis Pedis] Respiratory 18 27 H 22 Rate Blood Pressure 130/89 130/89 130/89 O2 Sat by Pulse 94 92 96 Oximetry 01/01/18 01/01/18 01/01/18 23:31 23:41 23:43 Temperature Pulse Rate 79 75 75 Pulse Rate [ Right Dorsalis Pedis] Respiratory 23 18 24 Rate Blood Pressure 130/89 130/89 O2 Sat by Pulse 96 96 95 Oximetry 01/01/18 01/02/18 01/02/18 23:51 00:00 00:11 Temperature 97.9 F Pulse Rate 84 71 75 Pulse Rate [ Right Dorsalis Pedis] Respiratory 21 24 23 Rate Blood Pressure 130/89 133/91 133/91 O2 Sat by Pulse 97 96 98 Oximetry 01/02/18 01/02/18 01/02/18 00:21 00:31 00:41 Temperature Pulse Rate 76 80 77 Pulse Rate [ Right Dorsalis Pedis] Respiratory 22 17 20 Rate Blood Pressure 133/91 133/91 133/91 O2 Sat by Pulse 96 96 98 Oximetry 01/02/18 01/02/18 01/02/18 00:51 01:00 01:11 Temperature Pulse Rate 77 76 76 Pulse Rate [ Right Dorsalis Pedis] Respiratory 19 20 21 Rate Blood Pressure 133/91 130/89 130/89 O2 Sat by Pulse 98 99 97 Oximetry 01/02/18 01/02/18 01/02/18 01:21 01:31 01:41 Temperature Pulse Rate 76 73 79 Pulse Rate [ Right Dorsalis Pedis] Respiratory 20 20 20 Rate Blood Pressure 130/89 130/89 130/89 O2 Sat by Pulse 97 98 98 Oximetry 01/02/18 01/02/18 01/02/18 01:51 02:00 02:11 Temperature Pulse Rate 64 71 65 Pulse Rate [ Right Dorsalis Pedis] Respiratory 20 22 21 Rate Blood Pressure 130/89 125/80 125/80 O2 Sat by Pulse 98 99 99 Oximetry 01/02/18 01/02/18 01/02/18 02:21 02:31 02:41 Temperature Pulse Rate 74 73 74 Pulse Rate [ Right Dorsalis Pedis] Respiratory 19 19 20 Rate Blood Pressure 125/80 125/80 125/80 O2 Sat by Pulse 98 99 99 Oximetry 01/02/18 01/02/18 01/02/18 02:51 03:00 03:11 Temperature Pulse Rate 66 62 66 Pulse Rate [ Right Dorsalis Pedis] Respiratory 19 18 22 Rate Blood Pressure 125/80 120/72 120/72 O2 Sat by Pulse 99 99 100 Oximetry 01/02/18 01/02/18 01/02/18 03:21 03:31 03:41 Temperature Pulse Rate 66 60 79 Pulse Rate [ Right Dorsalis Pedis] Respiratory 18 19 24 Rate Blood Pressure 120/72 120/72 120/72 O2 Sat by Pulse 98 99 96 Oximetry 01/02/18 01/02/18 01/02/18 03:51 04:00 04:11 Temperature 97.1 F L Pulse Rate 69 70 70 Pulse Rate [ Right Dorsalis Pedis] Respiratory 21 21 19 Rate Blood Pressure 120/72 124/80 124/80 O2 Sat by Pulse 94 95 95 Oximetry 01/02/18 01/02/18 01/02/18 04:21 04:31 04:41 Temperature Pulse Rate 75 74 63 Pulse Rate [ Right Dorsalis Pedis] Respiratory 19 20 19 Rate Blood Pressure 124/80 124/80 124/80 O2 Sat by Pulse 95 94 96 Oximetry 01/02/18 01/02/18 01/02/18 04:51 05:00 05:11 Temperature Pulse Rate 62 65 69 Pulse Rate [ Right Dorsalis Pedis] Respiratory 20 19 18 Rate Blood Pressure 124/80 120/78 120/78 O2 Sat by Pulse 97 98 97 Oximetry 01/02/18 01/02/18 01/02/18 05:21 05:31 05:41 Temperature Pulse Rate 68 63 71 Pulse Rate [ Right Dorsalis Pedis] Respiratory 19 17 20 Rate Blood Pressure 120/78 120/78 120/78 O2 Sat by Pulse 97 97 96 Oximetry 01/02/18 01/02/18 01/02/18 05:51 06:01 06:11 Temperature Pulse Rate 68 66 72 Pulse Rate [ Right Dorsalis Pedis] Respiratory 19 20 20 Rate Blood Pressure 120/78 122/76 122/76 O2 Sat by Pulse 96 94 96 Oximetry 01/02/18 01/02/18 01/02/18 06:21 06:31 06:41 Temperature Pulse Rate 63 94 H 91 H Pulse Rate [ Right Dorsalis Pedis] Respiratory 19 34 H 33 H Rate Blood Pressure 122/76 122/76 122/76 O2 Sat by Pulse 96 80 L 74 L Oximetry 01/02/18 01/02/18 01/02/18 06:51 07:00 07:11 Temperature Pulse Rate 91 H 87 82 Pulse Rate [ Right Dorsalis Pedis] Respiratory 21 26 H 23 Rate Blood Pressure 122/76 134/88 134/88 O2 Sat by Pulse 76 L 76 L 71 L Oximetry 01/02/18 01/02/18 01/02/18 07:21 07:31 07:41 Temperature Pulse Rate 84 83 85 Pulse Rate [ Right Dorsalis Pedis] Respiratory 31 H 26 H 26 H Rate Blood Pressure 134/88 134/88 134/88 O2 Sat by Pulse 73 L 78 L 78 L Oximetry 01/02/18 01/02/18 01/02/18 07:51 08:00 08:01 Temperature Pulse Rate 89 82 Pulse Rate [ 92 H Right Dorsalis Pedis] Respiratory 21 19 14 Rate Blood Pressure 134/88 136/91 O2 Sat by Pulse 75 L 90 77 L Oximetry 01/02/18 01/02/18 08:02 08:11 Temperature 97.5 F L Pulse Rate 87 Pulse Rate [ Right Dorsalis Pedis] Respiratory 13 Rate Blood Pressure 136/91 O2 Sat by Pulse 85 Oximetry - Labs CBC & Chem 7: 01/02/18 03:44 01/02/18 03:44 Labs: Abnormal lab results 01/01/18 01/02/18 01/02/18 Range/Units 14:01 03:44 03:44 RBC 3.14 L (3.65-5.03) M/mm3 Hgb 8.4 L (11.8-15.2) gm/dl Hct 25.9 L D (35.5-45.6) % MCV 82 L (84-94) fl MCH 27 L (28-32) pg RDW 17.4 H (13.2-15.2) % Seg Neuts % (Manual) 91.0 H (40.0-70.0) % Lymphocytes % (Manual) 6.0 L (13.4-35.0) % Seg Neutrophils # Man 10.0 H (1.8-7.7) K/mm3 Lymphocytes # (Manual) 0.7 L (1.2-5.4) K/mm3 Creatinine 0.5 L (0.8-1.5) mg/dL Glucose 137 H (75-100) mg/dL Calcium 7.5 L (8.4-10.2) mg/dL C-Reactive Protein 20.70 H (0.00-1.30) mg/dL Total Protein 5.5 L (6.3-8.2) g/dL Albumin 1.7 L (3.9-5) g/dL
[2018-01-02] MEDS: SODIUM CHLORIDE FLUSH SYRINGE 10 ML IV SCH ×2 (10:39→22:47)
[2018-01-02] MEDS: VANCOMYCIN/0.45 NS 1 GM/250 ML 1 GM/250 ML BAG IV SCH ×2 (10:40→20:31)
--- NOTE | 2018-01-02 11:15 | Progress Note ---
Assessment and Plan Acute hypoxic respiratory failure Health care associated pneumonia right upper lobe cavitary lung disease/bronchiectasis Sepsis/Lactic acidosis Protein calorie malnutrition Diffuse proliferative lung disease Polysubstance abuse -Supplemental oxygen to keep O2 sats 88-90 -Steroids -VTE prophylaxis -Bronchodilators -Airway clearance - will follow sputum culture -with his history place PPD...patient states he was recently at [facility] for similar problems and was in airborne isolation and sputum was negative. Will obtain records - IV fluids -PPI, history of GERD and currently on steroids -Home oxygen evaluation prior to discharge Subjective Date of service: 01/02/18 Principal diagnosis: Acute hypoxic respiratory failure, health care associated pneumonia, sepsis Interval history: F/UP for acute hypoxic respiratory failure on high flow oxygen, health managed care analyst pneumonia, sepsis 62-year-old man with past medical history significant for COPD on home oxygen, hep C presented to the emergency with worsening shortness of breath. At presentation patient was saturating in the 50s and 60s, patient was put on BiPAP. Patient had right-sided pneumonia recently and was given by mouth antibiotics. Chest x-ray in the hospital showed right-sided infiltrates unchanged from previous one and new left-sided infiltrates. WBC count was 21, 000, lactic acid level was 3.6, d-dimer was 2356, CTA was done and showed multifocal bilateral pneumonia. Patient was admitted to ICU Chest x-ray: Right lung infiltrates which have improved since the prior study, there are infiltrates in the left lung base which are new, no effusions or pneumothorax CTA chest: Difficult bilateral pulmonary consultation concerning for multifocal pneumonia, small right pleural effusion, severe centrilobular and paraseptal emphysema with numerous large subpleural blebs, and large mediastinal lymph node may be reactive. Lower extremity venous Doppler, negative for any acute DVT Patient seen and examined. Vitals, labs, medications, chart reviewed. Discussed with RN Objective - Exam Narrative Exam: In moderate respiratory distress, on high flow oxygen. The patient appeared chronically ill looking Vital signs as documented. Head exam is unremarkable. No scleral icterus . Neck is without jugular venous distension, thyromegaly, or carotid bruits. Lungs are bibasilar crepitations. Cardiac exam reveals regular rate and Rhythm. First and second heart sounds normal. No murmurs, rubs or gallops. Abdominal exam reveals normal bowel sounds, no masses, no organomegaly and no aortic enlargement. Extremities are nonedematous and both femoral and pedal pulses are normal. SHELF STOCKER: Alert and oriented 3. No focal weakness. Vital Signs - 12hr 01/01/18 01/01/18 01/01/18 23:21 23:27 23:31 Temperature Pulse Rate 81 82 79 Pulse Rate [ Right Dorsalis Pedis] Respiratory 27 H 22 23 Rate Blood Pressure 130/89 130/89 130/89 O2 Sat by Pulse 92 96 96 Oximetry 01/01/18 01/01/18 01/01/18 23:41 23:43 23:51 Temperature Pulse Rate 75 75 84 Pulse Rate [ Right Dorsalis Pedis] Respiratory 18 24 21 Rate Blood Pressure 130/89 130/89 O2 Sat by Pulse 96 95 97 Oximetry 01/02/18 01/02/18 01/02/18 00:00 00:11 00:21 Temperature 97.9 F Pulse Rate 71 75 76 Pulse Rate [ Right Dorsalis Pedis] Respiratory 24 23 22 Rate Blood Pressure 133/91 133/91 133/91 O2 Sat by Pulse 96 98 96 Oximetry 01/02/18 01/02/18 01/02/18 00:31 00:41 00:51 Temperature Pulse Rate 80 77 77 Pulse Rate [ Right Dorsalis Pedis] Respiratory 17 20 19 Rate Blood Pressure 133/91 133/91 133/91 O2 Sat by Pulse 96 98 98 Oximetry 01/02/18 01/02/18 01/02/18 01:00 01:11 01:21 Temperature Pulse Rate 76 76 76 Pulse Rate [ Right Dorsalis Pedis] Respiratory 20 21 20 Rate Blood Pressure 130/89 130/89 130/89 O2 Sat by Pulse 99 97 97 Oximetry 01/02/18 01/02/18 01/02/18 01:31 01:41 01:51 Temperature Pulse Rate 73 79 64 Pulse Rate [ Right Dorsalis Pedis] Respiratory 20 20 20 Rate Blood Pressure 130/89 130/89 130/89 O2 Sat by Pulse 98 98 98 Oximetry 01/02/18 01/02/18 01/02/18 02:00 02:11 02:21 Temperature Pulse Rate 71 65 74 Pulse Rate [ Right Dorsalis Pedis] Respiratory 22 21 19 Rate Blood Pressure 125/80 125/80 125/80 O2 Sat by Pulse 99 99 98 Oximetry 01/02/18 01/02/18 01/02/18 02:31 02:41 02:51 Temperature Pulse Rate 73 74 66 Pulse Rate [ Right Dorsalis Pedis] Respiratory 19 20 19 Rate Blood Pressure 125/80 125/80 125/80 O2 Sat by Pulse 99 99 99 Oximetry 01/02/18 01/02/18 01/02/18 03:00 03:11 03:21 Temperature Pulse Rate 62 66 66 Pulse Rate [ Right Dorsalis Pedis] Respiratory 18 22 18 Rate Blood Pressure 120/72 120/72 120/72 O2 Sat by Pulse 99 100 98 Oximetry 01/02/18 01/02/18 01/02/18 03:31 03:41 03:51 Temperature Pulse Rate 60 79 69 Pulse Rate [ Right Dorsalis Pedis] Respiratory 19 24 21 Rate Blood Pressure 120/72 120/72 120/72 O2 Sat by Pulse 99 96 94 Oximetry 01/02/18 01/02/18 01/02/18 04:00 04:11 04:21 Temperature 97.1 F L Pulse Rate 70 70 75 Pulse Rate [ Right Dorsalis Pedis] Respiratory 21 19 19 Rate Blood Pressure 124/80 124/80 124/80 O2 Sat by Pulse 95 95 95 Oximetry 01/02/18 01/02/18 01/02/18 04:31 04:41 04:51 Temperature Pulse Rate 74 63 62 Pulse Rate [ Right Dorsalis Pedis] Respiratory 20 19 20 Rate Blood Pressure 124/80 124/80 124/80 O2 Sat by Pulse 94 96 97 Oximetry 01/02/18 01/02/18 01/02/18 05:00 05:11 05:21 Temperature Pulse Rate 65 69 68 Pulse Rate [ Right Dorsalis Pedis] Respiratory 19 18 19 Rate Blood Pressure 120/78 120/78 120/78 O2 Sat by Pulse 98 97 97 Oximetry 01/02/18 01/02/18 01/02/18 05:31 05:41 05:51 Temperature Pulse Rate 63 71 68 Pulse Rate [ Right Dorsalis Pedis] Respiratory 17 20 19 Rate Blood Pressure 120/78 120/78 120/78 O2 Sat by Pulse 97 96 96 Oximetry 01/02/18 01/02/18 01/02/18 06:01 06:11 06:21 Temperature Pulse Rate 66 72 63 Pulse Rate [ Right Dorsalis Pedis] Respiratory 20 20 19 Rate Blood Pressure 122/76 122/76 122/76 O2 Sat by Pulse 94 96 96 Oximetry 01/02/18 01/02/18 01/02/18 06:31 06:41 06:51 Temperature Pulse Rate 94 H 91 H 91 H Pulse Rate [ Right Dorsalis Pedis] Respiratory 34 H 33 H 21 Rate Blood Pressure 122/76 122/76 122/76 O2 Sat by Pulse 80 L 74 L 76 L Oximetry 01/02/18 01/02/18 01/02/18 07:00 07:11 07:21 Temperature Pulse Rate 87 82 84 Pulse Rate [ Right Dorsalis Pedis] Respiratory 26 H 23 31 H Rate Blood Pressure 134/88 134/88 134/88 O2 Sat by Pulse 76 L 71 L 73 L Oximetry 01/02/18 01/02/18 01/02/18 07:31 07:41 07:51 Temperature Pulse Rate 83 85 89 Pulse Rate [ Right Dorsalis Pedis] Respiratory 26 H 26 H 21 Rate Blood Pressure 134/88 134/88 134/88 O2 Sat by Pulse 78 L 78 L 75 L Oximetry 01/02/18 01/02/18 01/02/18 08:00 08:01 08:02 Temperature 97.5 F L Pulse Rate 82 Pulse Rate [ 92 H Right Dorsalis Pedis] Respiratory 19 14 Rate Blood Pressure 136/91 O2 Sat by Pulse 90 77 L Oximetry 01/02/18 08:11 Temperature Pulse Rate 87 Pulse Rate [ Right Dorsalis Pedis] Respiratory 13 Rate Blood Pressure 136/91 O2 Sat by Pulse 85 Oximetry CBC and BMP: 01/02/18 03:44 01/02/18 03:44 ABG, PT/INR, D-dimer: ABG POC ABG pH 7.474 (7.35-7.45) H 01/01/18 03:17 POC ABG pCO2 33.2 (35-45) L 01/01/18 03:17 POC ABG pO2 73 (80-105) L 01/01/18 03:17 POC ABG HCO3 24.3 01/01/18 03:17 POC ABG Total CO2 25 01/01/18 03:17 POC ABG O2 Sat 96 01/01/18 03:17 PT/INR, D-dimer PT 14.5 Sec. (12.2-14.9) 01/01/18 02:25 INR 1.07 (0.87-1.13) 01/01/18 02:25 D-Dimer 2358.22 ng/mlDDU (0-234) H 01/01/18 03:31 Abnormal lab findings: Abnormal Labs 01/01/18 01/01/18 01/01/18 02:25 02:25 02:25 WBC 21.6 H RBC Hgb 10.3 L Hct 32.7 L MCV 83 L MCH 26 L RDW 18.0 H Seg Neuts % (Manual) 87.5 H Lymphocytes % (Manual) 7.5 L Seg Neutrophils # Man 18.9 H Lymphocytes # (Manual) D-Dimer POC ABG pH POC ABG pCO2 POC ABG pO2 Sodium 135 L Carbon Dioxide 21 L Creatinine 0.6 L Glucose 103 H Lactic Acid Calcium 8.3 L C-Reactive Protein NT-Pro-B Natriuret Pep 1069 H Total Protein Albumin 01/01/18 01/01/18 01/01/18 02:36 03:17 03:31 WBC RBC Hgb Hct MCV MCH RDW Seg Neuts % (Manual) Lymphocytes % (Manual) Seg Neutrophils # Man Lymphocytes # (Manual) D-Dimer 2358.22 H POC ABG pH 7.474 H POC ABG pCO2 33.2 L POC ABG pO2 73 L Sodium Carbon Dioxide Creatinine Glucose Lactic Acid 3.60 H* Calcium C-Reactive Protein NT-Pro-B Natriuret Pep Total Protein Albumin 01/01/18 01/02/18 01/02/18 14:01 03:44 03:44 WBC RBC 3.14 L Hgb 8.4 L Hct 25.9 L D MCV 82 L MCH 27 L RDW 17.4 H Seg Neuts % (Manual) 91.0 H Lymphocytes % (Manual) 6.0 L Seg Neutrophils # Man 10.0 H Lymphocytes # (Manual) 0.7 L D-Dimer POC ABG pH POC ABG pCO2 POC ABG pO2 Sodium Carbon Dioxide Creatinine 0.5 L Glucose 137 H Lactic Acid Calcium 7.5 L C-Reactive Protein 20.70 H NT-Pro-B Natriuret Pep Total Protein 5.5 L Albumin 1.7 L
--- NOTE | 2018-01-02 12:53 | Vascular Lab Report ---
LOWER EXTREMITY VENOUS DUPLEX: REASON FOR EXAM: Bilateral lower extremity pain and hypoxia. COMMENTS ON THE RIGHT: All veins visualized are freely compressible without evidence of internal echogenicity. Flow is spontaneous and phasic throughout. COMMENTS ON THE LEFT: All veins visualized are freely compressible without evidence of internal echogenicity. Flow is spontaneous and phasic throughout. IMPRESSION: No evidence of acute or chronic deep venous thrombosis in either lower extremity.
[2018-01-03] MEDS: ZOSYN/NS 4.5GM/100ML 4.5 GM/100 ML VIAL IV SCH ×3 (05:51→23:06)
[2018-01-03] MEDS: HEPARIN SUB-Q SCH ×3 (05:51→23:07)
[2018-01-03] MEDS: NACL 0.9% 1000 ML 1,000 ML IV SCH (06:32)
[2018-01-03] MEDS: DUONEB *Not for PRN Use IH SCH ×4 (07:47→20:25)
[2018-01-03] MEDS: BROVANA NEBU IH SCH ×2 (07:47→20:28)
[2018-01-03] MEDS: PULMICORT IH SCH ×2 (07:47→20:25)
[2018-01-03] MEDS ORDERED: MORPHINE IV PRN (08:07)
[2018-01-03] MEDS: VANCOMYCIN/0.45 NS 1 GM/250 ML 1 GM/250 ML BAG IV SCH ×2 (09:19→20:28)
[2018-01-03] MEDS: PROTONIX PO SCH (09:23)
[2018-01-03] MEDS: NORVASC PO SCH (09:23)
[2018-01-03] MEDS: HABITROL TD SCH (09:24)
[2018-01-03] MEDS: SODIUM CHLORIDE FLUSH SYRINGE 10 ML IV SCH ×2 (09:25→23:07)
--- NOTE | 2018-01-03 10:21 | Progress Note ---
Assessment and Plan Acute on chronic hypoxic respiratory failure - from COPD exacerbation and bilateral pneumonia - on IV vancomycin, Zosyn, DuoNeb's, Solu-Medrol, nebulizer - [place] following, placed on BiPAP today Severe COPD with exacerbation - Will provide scheduled nebulizers and breathing treatment - Placed on empiric steroid and antibiotic - will follow sputum culture, chest x-ray/CTA chest showed bilateral infiltrates - Continue to support respiratory effort with BiPAP - We'll place on sliding scale of insulin as patient will be on empiric steroid Bilateral pneumonia, recent treatment with antibiotics - Continue empiric antibiotics for now, follow culture Sepsis, due to bilateral pneumonia - Continue abx, trend lactate Lactic acidosis, due to sepsis - IV fluid, treat underlying cause History of GERD - pantoprazole for GERD History of hepatitis C - normal LFT DVT prophylaxis - Heparin Brief history: 62-year-old man with past medical history significant for COPD on home oxygen, hep C presented to the emergency with worsening shortness of breath. At presentation patient was saturating in the 50s and 60s, patient was put on BiPAP. Patient had right-sided pneumonia recently and was given by mouth antibiotics. Chest x-ray in the hospital showed right-sided infiltrates unchanged from previous one and new left-sided infiltrates. WBC count was 21, 000, lactic acid level was 3.6, d-dimer was 2356, CTA was done and showed multifocal bilateral pneumonia. Patient was admitted to ICU. Radiological test: Chest x-ray: Right lung infiltrates which have improved since the prior study, there are infiltrates in the left lung base which are new, no effusions or pneumothorax CTA chest: Difficult bilateral pulmonary consultation concerning for multifocal pneumonia, small right pleural effusion, severe centrilobular and paraseptal emphysema with numerous large subpleural blebs, and large mediastinal lymph node may be reactive. Lower extremity venous Doppler, negative for any acute DVT Hospitalist Physical exam: GENERAL: Lean and thin white male lying on bed appeared to be in moderate discomfort. HEENT: Normocephalic. Atraumatic. No conjunctival congestion or icterus. Patient with BiPAP mask NECK: Supple. Trachea midline. CHEST/LUNGS: Diminished breath sound auscultated bilaterally with rhonchi. HEART/CARDIOVASCULAR: Regular in rate and rhythm. S1 and S2 positive. ABDOMEN: Abdomen is soft, nontender. Patient has normal bowel sounds. SKIN: There is no rash. Warm and dry. NEURO: No focal motor deficit. Follows command. MUSCULOSKELETAL: No joint effusion or tenderness. EXTRIMITY: No edema, no cyanosis or clubbing. PSYCH: Cooperative. Subjective Date of service: 01/03/18 Principal diagnosis: Acute hypoxic respiratory failure, health care associated pneumonia, sepsis Interval history: Patient seen and examined Placed on BiPAP this morning with 100% FiO2 Continue to have difficulty breathing Objective - Constitutional Vitals: Vital Signs - 12hr 01/02/18 01/02/18 01/02/18 22:00 22:42 22:51 Temperature Pulse Rate 81 86 82 Pulse Rate [ Anterior Bilateral Throughout] Pulse Rate [ From Monitor] Pulse Rate [ Posterior Left Lower Lobe] Pulse Rate [ Right Dorsalis Pedis] Respiratory 31 H 25 H Rate Respiratory Rate [Anterior Bilateral Throughout] Respiratory Rate [Posterior Left Lower Lobe] Blood Pressure 147/100 147/100 O2 Sat by Pulse 95 94 Oximetry 01/02/18 01/03/18 01/03/18 23:00 00:00 00:15 Temperature 97.1 F L Pulse Rate 90 63 Pulse Rate [ Anterior Bilateral Throughout] Pulse Rate [ 63 From Monitor] Pulse Rate [ Posterior Left Lower Lobe] Pulse Rate [ Right Dorsalis Pedis] Respiratory 24 25 H 25 H Rate Respiratory Rate [Anterior Bilateral Throughout] Respiratory Rate [Posterior Left Lower Lobe] Blood Pressure 139/117 153/94 O2 Sat by Pulse 94 95 95 Oximetry 01/03/18 01/03/18 01/03/18 01:00 03:00 04:00 Temperature 97.6 F Pulse Rate 74 70 68 Pulse Rate [ Anterior Bilateral Throughout] Pulse Rate [ From Monitor] Pulse Rate [ Posterior Left Lower Lobe] Pulse Rate [ Right Dorsalis Pedis] Respiratory 28 H 21 20 Rate Respiratory Rate [Anterior Bilateral Throughout] Respiratory Rate [Posterior Left Lower Lobe] Blood Pressure 151/97 146/92 152/94 O2 Sat by Pulse 95 98 94 Oximetry 01/03/18 01/03/18 01/03/18 05:00 05:58 06:00 Temperature Pulse Rate 63 62 Pulse Rate [ Anterior Bilateral Throughout] Pulse Rate [ 61 From Monitor] Pulse Rate [ Posterior Left Lower Lobe] Pulse Rate [ Right Dorsalis Pedis] Respiratory 20 22 24 Rate Respiratory Rate [Anterior Bilateral Throughout] Respiratory Rate [Posterior Left Lower Lobe] Blood Pressure 157/95 152/101 O2 Sat by Pulse 98 97 94 Oximetry 01/03/18 01/03/18 01/03/18 07:00 07:48 08:00 Temperature 97.5 F L Pulse Rate 68 93 H 84 Pulse Rate [ Anterior Bilateral Throughout] Pulse Rate [ From Monitor] Pulse Rate [ Posterior Left Lower Lobe] Pulse Rate [ 86 Right Dorsalis Pedis] Respiratory 20 38 H 43 H Rate Respiratory Rate [Anterior Bilateral Throughout] Respiratory Rate [Posterior Left Lower Lobe] Blood Pressure 146/92 146/92 155/108 O2 Sat by Pulse 97 91 94 Oximetry 01/03/18 01/03/18 01/03/18 08:01 08:03 09:00 Temperature Pulse Rate 84 Pulse Rate [ 87 Anterior Bilateral Throughout] Pulse Rate [ From Monitor] Pulse Rate [ 87 70 Posterior Left Lower Lobe] Pulse Rate [ Right Dorsalis Pedis] Respiratory 29 H Rate Respiratory 43 H Rate [Anterior Bilateral Throughout] Respiratory 36 H 40 H Rate [Posterior Left Lower Lobe] Blood Pressure 157/112 O2 Sat by Pulse 74 L Oximetry 01/03/18 01/03/18 09:23 10:00 Temperature Pulse Rate 85 82 Pulse Rate [ Anterior Bilateral Throughout] Pulse Rate [ From Monitor] Pulse Rate [ Posterior Left Lower Lobe] Pulse Rate [ Right Dorsalis Pedis] Respiratory 28 H Rate Respiratory Rate [Anterior Bilateral Throughout] Respiratory Rate [Posterior Left Lower Lobe] Blood Pressure 157/112 157/112 O2 Sat by Pulse 77 L Oximetry - Labs CBC & Chem 7: 01/02/18 03:44 01/02/18 03:44
--- NOTE | 2018-01-03 11:31 | Progress Note ---
Assessment and Plan Acute hypoxic respiratory failure Health care associated pneumonia Right upper lobe cavitary lung disease/bronchiectasis Sepsis/Lactic acidosis Protein calorie malnutrition Diffuse proliferative lung disease Polysubstance abuse -Supplemental oxygen to keep O2 sats 88-90 -Steroids, antibiotics -HIV screen -VTE prophylaxis -Bronchodilators -Airway clearance - will follow sputum culture -with his history place PPD...patient states he was recently at [facility] for similar problems and was in airborne isolation and sputum was negative. Will obtain records - IV fluids -PPI, history of GERD and currently on steroids -Home oxygen evaluation prior to discharge Subjective Date of service: 01/03/18 Principal diagnosis: Acute hypoxic respiratory failure, health care associated pneumonia, sepsis Interval history: F/UP for acute hypoxic respiratory failure on high flow oxygen, health care rep pneumonia, sepsis 62-year-old man with past medical history significant for COPD on home oxygen, hep C presented to the emergency with worsening shortness of breath. At presentation patient was saturating in the 50s and 60s, patient was put on BiPAP. Patient had right-sided pneumonia recently and was given by mouth antibiotics. Chest x-ray in the hospital showed right-sided infiltrates unchanged from previous one and new left-sided infiltrates. WBC count was 21, 000, lactic acid level was 3.6, d-dimer was 2356, CTA was done and showed multifocal bilateral pneumonia. Patient was admitted to ICU Chest x-ray: Right lung infiltrates which have improved since the prior study, there are infiltrates in the left lung base which are new, no effusions or pneumothorax CTA chest: Difficult bilateral pulmonary consultation concerning for multifocal pneumonia, small right pleural effusion, severe centrilobular and paraseptal emphysema with numerous large subpleural blebs, and large mediastinal lymph node may be reactive. Lower extremity venous Doppler, negative for any acute DVT Patient seen and examined. Vitals, labs, medications, chart reviewed. Discussed with RN He states he was in [facility] in the 90s and had a positive PPD, negative chest Xray and was treated for LTBI. Remains hypoxic with coughing or minimal movement No hemotysis Objective - Exam Narrative Exam: In moderate respiratory distress, on high flow oxygen. The patient appeared chronically ill looking Vital signs as documented. Head exam is unremarkable. No scleral icterus . Neck is without jugular venous distension, thyromegaly, or carotid bruits. Lungs are bibasilar crepitations. Cardiac exam reveals regular rate and Rhythm. First and second heart sounds normal. No murmurs, rubs or gallops. Abdominal exam reveals normal bowel sounds, no masses, no organomegaly and no aortic enlargement. Extremities are nonedematous and both femoral and pedal pulses are normal. 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 No focal weakness. Vital Signs - 12hr 01/02/18 01/02/18 01/02/18 22:42 22:51 23:00 Temperature Pulse Rate 86 82 90 Pulse Rate [ Anterior Bilateral Throughout] Pulse Rate [ From Monitor] Pulse Rate [ Posterior Left Lower Lobe] Pulse Rate [ Right Dorsalis Pedis] Respiratory 25 H 24 Rate Respiratory Rate [Anterior Bilateral Throughout] Respiratory Rate [Posterior Left Lower Lobe] Blood Pressure 147/100 139/117 O2 Sat by Pulse 94 94 Oximetry 01/03/18 01/03/18 01/03/18 00:00 00:15 01:00 Temperature 97.1 F L Pulse Rate 63 74 Pulse Rate [ Anterior Bilateral Throughout] Pulse Rate [ 63 From Monitor] Pulse Rate [ Posterior Left Lower Lobe] Pulse Rate [ Right Dorsalis Pedis] Respiratory 25 H 25 H 28 H Rate Respiratory Rate [Anterior Bilateral Throughout] Respiratory Rate [Posterior Left Lower Lobe] Blood Pressure 153/94 151/97 O2 Sat by Pulse 95 95 95 Oximetry 01/03/18 01/03/18 01/03/18 03:00 04:00 05:00 Temperature 97.6 F Pulse Rate 70 68 63 Pulse Rate [ Anterior Bilateral Throughout] Pulse Rate [ From Monitor] Pulse Rate [ Posterior Left Lower Lobe] Pulse Rate [ Right Dorsalis Pedis] Respiratory 21 20 20 Rate Respiratory Rate [Anterior Bilateral Throughout] Respiratory Rate [Posterior Left Lower Lobe] Blood Pressure 146/92 152/94 157/95 O2 Sat by Pulse 98 94 98 Oximetry 01/03/18 01/03/18 01/03/18 05:58 06:00 07:00 Temperature Pulse Rate 62 68 Pulse Rate [ Anterior Bilateral Throughout] Pulse Rate [ 61 From Monitor] Pulse Rate [ Posterior Left Lower Lobe] Pulse Rate [ Right Dorsalis Pedis] Respiratory 22 24 20 Rate Respiratory Rate [Anterior Bilateral Throughout] Respiratory Rate [Posterior Left Lower Lobe] Blood Pressure 152/101 146/92 O2 Sat by Pulse 97 94 97 Oximetry 03/11/18 03/11/18 03/11/18 07:48 08:00 08:01 Temperature 97.5 F L Pulse Rate 93 H 84 Pulse Rate [ Anterior Bilateral Throughout] Pulse Rate [ From Monitor] Pulse Rate [ 87 Posterior Left Lower Lobe] Pulse Rate [ 86 Right Dorsalis Pedis] Respiratory 38 H 43 H Rate Respiratory Rate [Anterior Bilateral Throughout] Respiratory 36 H Rate [Posterior Left Lower Lobe] Blood Pressure 146/92 155/108 O2 Sat by Pulse 91 94 Oximetry 01/03/18 01/03/18 01/03/18 08:03 09:00 09:23 Temperature Pulse Rate 84 85 Pulse Rate [ 87 Anterior Bilateral Throughout] Pulse Rate [ From Monitor] Pulse Rate [ 70 Posterior Left Lower Lobe] Pulse Rate [ Right Dorsalis Pedis] Respiratory 29 H Rate Respiratory 43 H Rate [Anterior Bilateral Throughout] Respiratory 40 H Rate [Posterior Left Lower Lobe] Blood Pressure 157/112 157/112 O2 Sat by Pulse 74 L Oximetry 01/03/18 01/03/18 10:00 11:00 Temperature Pulse Rate 82 92 H Pulse Rate [ Anterior Bilateral Throughout] Pulse Rate [ From Monitor] Pulse Rate [ Posterior Left Lower Lobe] Pulse Rate [ Right Dorsalis Pedis] Respiratory 28 H 26 H Rate Respiratory Rate [Anterior Bilateral Throughout] Respiratory Rate [Posterior Left Lower Lobe] Blood Pressure 157/112 161/119 O2 Sat by Pulse 77 L 80 L Oximetry CBC and BMP: 01/05/18 05:35 01/05/18 05:35 ABG, PT/INR, D-dimer: ABG POC ABG pH 7.474 (7.35-7.45) H 01/01/18 03:17 POC ABG pCO2 33.2 (35-45) L 01/01/18 03:17 POC ABG pO2 73 (80-105) L 01/01/18 03:17 POC ABG HCO3 24.3 01/01/18 03:17 POC ABG Total CO2 25 01/01/18 03:17 POC ABG O2 Sat 96 01/01/18 03:17 PT/INR, D-dimer PT 14.5 Sec. (12.2-14.9) 01/01/18 02:25 INR 1.07 (0.87-1.13) 01/01/18 02:25 D-Dimer 2358.22 ng/mlDDU (0-234) H 01/01/18 03:31 Abnormal lab findings: Abnormal Labs 01/01/18 01/01/18 01/01/18 02:25 02:25 02:25 WBC 21.6 H RBC Hgb 10.3 L Hct 32.7 L MCV 83 L MCH 26 L RDW 18.0 H Seg Neuts % (Manual) 87.5 H Lymphocytes % (Manual) 7.5 L Seg Neutrophils # Man 18.9 H Lymphocytes # (Manual) D-Dimer POC ABG pH POC ABG pCO2 POC ABG pO2 Sodium 135 L Carbon Dioxide 21 L Creatinine 0.6 L Glucose 103 H Lactic Acid Calcium 8.3 L C-Reactive Protein NT-Pro-B Natriuret Pep 1069 H Total Protein Albumin 01/01/18 01/01/18 01/01/18 02:36 03:17 03:31 WBC RBC Hgb Hct MCV MCH RDW Seg Neuts % (Manual) Lymphocytes % (Manual) Seg Neutrophils # Man Lymphocytes # (Manual) D-Dimer 2358.22 H POC ABG pH 7.474 H POC ABG pCO2 33.2 L POC ABG pO2 73 L Sodium Carbon Dioxide Creatinine Glucose Lactic Acid 3.60 H* Calcium C-Reactive Protein NT-Pro-B Natriuret Pep Total Protein Albumin 01/01/18 01/02/18 01/02/18 14:01 03:44 03:44 WBC RBC 3.14 L Hgb 8.4 L Hct 25.9 L D MCV 82 L MCH 27 L RDW 17.4 H Seg Neuts % (Manual) 91.0 H Lymphocytes % (Manual) 6.0 L Seg Neutrophils # Man 10.0 H Lymphocytes # (Manual) 0.7 L D-Dimer POC ABG pH POC ABG pCO2 POC ABG pO2 Sodium Carbon Dioxide Creatinine 0.5 L Glucose 137 H Lactic Acid Calcium 7.5 L C-Reactive Protein 20.70 H NT-Pro-B Natriuret Pep Total Protein 5.5 L Albumin 1.7 L
[2018-01-03] MEDS: MORPHINE IV PRN (20:29)
[2018-01-04] MEDS: MORPHINE IV PRN ×5 (00:02→21:32)
[2018-01-04] MEDS: PROVENTIL IH PRN (02:29)
[2018-01-04] MEDS: ZOSYN/NS 4.5GM/100ML 4.5 GM/100 ML VIAL IV SCH ×3 (06:27→21:46)
[2018-01-04] MEDS: HEPARIN SUB-Q SCH ×3 (06:28→21:32)
[2018-01-04] MEDS: BROVANA NEBU IH SCH ×2 (08:28→19:32)
[2018-01-04] MEDS: DUONEB *Not for PRN Use IH SCH ×4 (08:28→20:00)
[2018-01-04] MEDS: PULMICORT IH SCH ×2 (08:28→19:32)
[2018-01-04] MEDS: HABITROL TD SCH (10:21)
[2018-01-04] MEDS: NORVASC PO SCH (10:21)
[2018-01-04] MEDS: PROTONIX PO SCH (10:21)
[2018-01-04] MEDS: VANCOMYCIN/0.45 NS 1 GM/250 ML 1 GM/250 ML BAG IV SCH ×2 (10:26→19:38)
[2018-01-04] MEDS: SODIUM CHLORIDE FLUSH SYRINGE 10 ML IV SCH ×2 (10:31→21:55)
[2018-01-04 10:48] LABS: BUN/Creatinine Ratio 36; Blood Urea Nitrogen 18 mg/dL (9-20); Calcium 8.3 mg/dL (8.4-10.2); Hemolysis Index 54
--- NOTE | 2018-01-04 11:28 | Progress Note ---
Assessment and Plan Acute on chronic hypoxic respiratory failure - from COPD exacerbation and bilateral pneumonia - on IV vancomycin, Zosyn, DuoNeb's, Solu-Medrol, nebulizer - [employer] following, placed on BiPAP, now on 70% Fio2 Severe COPD with exacerbation - Will provide scheduled nebulizers and breathing treatment - Placed on empiric steroid and antibiotic - will follow sputum culture, chest x-ray/CTA chest showed bilateral infiltrates - Continue to support respiratory effort with BiPAP - We'll cont on sliding scale of insulin as patient will be on empiric steroid Bilateral pneumonia, recent treatment with antibiotics - Continue empiric antibiotics for now, follow culture Sepsis, due to bilateral pneumonia - Continue abx, trend lactate Lactic acidosis, due to sepsis - IV fluid, treat underlying cause History of GERD - pantoprazole for GERD History of hepatitis C - normal LFT DVT prophylaxis - Heparin Brief history: 62-year-old man with past medical history significant for COPD on home oxygen, hep C presented to the emergency with worsening shortness of breath. At presentation patient was saturating in the 50s and 60s, patient was put on BiPAP. Patient had right-sided pneumonia recently and was given by mouth antibiotics. Chest x-ray in the hospital showed right-sided infiltrates unchanged from previous one and new left-sided infiltrates. WBC count was 21, 000, lactic acid level was 3.6, d-dimer was 2356, CTA was done and showed multifocal bilateral pneumonia. Patient was admitted to ICU. Radiological test: Chest x-ray: Right lung infiltrates which have improved since the prior study, there are infiltrates in the left lung base which are new, no effusions or pneumothorax CTA chest: Difficult bilateral pulmonary consultation concerning for multifocal pneumonia, small right pleural effusion, severe centrilobular and paraseptal emphysema with numerous large subpleural blebs, and large mediastinal lymph node may be reactive. Lower extremity venous Doppler, negative for any acute DVT Hospitalist Physical exam: GENERAL: Lean and thin white male lying on bed appeared to be in moderate discomfort. HEENT: Normocephalic. Atraumatic. No conjunctival congestion or icterus. Patient with BiPAP mask NECK: Supple. Trachea midline. CHEST/LUNGS: Diminished breath sound auscultated bilaterally with rhonchi. HEART/CARDIOVASCULAR: Regular in rate and rhythm. S1 and S2 positive. ABDOMEN: Abdomen is soft, nontender. Patient has normal bowel sounds. SKIN: There is no rash. Warm and dry. NEURO: No focal motor deficit. Follows command. MUSCULOSKELETAL: No joint effusion or tenderness. EXTRIMITY: No edema, no cyanosis or clubbing. PSYCH: Cooperative. Subjective Date of service: 01/04/18 Principal diagnosis: Acute hypoxic respiratory failure, health care associated pneumonia, sepsis Interval history: Patient seen and examined Still on continuous BiPAP this morning with 70% FiO2 Continue to have difficulty breathing will transfer to telemetry today Objective - Constitutional Vitals: Vital Signs - 12hr 01/03/18 01/04/18 01/04/18 23:51 00:00 00:02 Temperature 97.6 F Pulse Rate 93 H Pulse Rate [ From Monitor] Pulse Rate [ Posterior Left Lower Lobe] Respiratory 30 H 32 H Rate Respiratory Rate [Posterior Left Lower Lobe] Blood Pressure 153/99 O2 Sat by Pulse 84 Oximetry 01/04/18 01/04/18 01/04/18 01:00 02:00 02:30 Temperature Pulse Rate 85 82 Pulse Rate [ From Monitor] Pulse Rate [ 93 H Posterior Left Lower Lobe] Respiratory 21 22 Rate Respiratory 26 H Rate [Posterior Left Lower Lobe] Blood Pressure 142/98 151/104 O2 Sat by Pulse 94 93 Oximetry 01/04/18 01/04/18 01/04/18 03:00 04:00 05:00 Temperature 97.8 F Pulse Rate 87 79 81 Pulse Rate [ 88 From Monitor] Pulse Rate [ Posterior Left Lower Lobe] Respiratory 23 21 Rate Respiratory Rate [Posterior Left Lower Lobe] Blood Pressure 152/102 146/98 150/101 O2 Sat by Pulse 96 97 95 Oximetry 01/04/18 01/04/18 01/04/18 06:01 07:00 08:23 Temperature Pulse Rate 88 86 97 H Pulse Rate [ From Monitor] Pulse Rate [ Posterior Left Lower Lobe] Respiratory 24 20 Rate Respiratory Rate [Posterior Left Lower Lobe] Blood Pressure 150/101 167/102 146/105 O2 Sat by Pulse 87 86 91 Oximetry 01/04/18 10:21 Temperature Pulse Rate 91 H Pulse Rate [ From Monitor] Pulse Rate [ Posterior Left Lower Lobe] Respiratory Rate Respiratory Rate [Posterior Left Lower Lobe] Blood Pressure 156/104 O2 Sat by Pulse Oximetry - Labs CBC & Chem 7: 01/04/18 17:16 01/04/18 10:03 Labs: Abnormal lab results 03/12/18 Range/Units 10:03 Sodium 134 L (137-145) mmol/L Carbon Dioxide 19 L (22-30) mmol/L Creatinine 0.5 L (0.8-1.5) mg/dL Glucose 111 H (75-100) mg/dL Calcium 8.3 L (8.4-10.2) mg/dL
--- NOTE | 2018-01-04 12:36 | Progress Note ---
Assessment and Plan Acute likely on chronic hypoxemic respiratory failure. Healthcare-associated pneumonia Diffuse proliferative lung disease. Leukocytosis. Anemia. Hyponatremia, mild. Sepsis syndrome with elevated lactic acidosis. Elevated D-dimer. Elevated BNP. Adult failure to thrive. - continue HFNC with BIPAP qhs - continue to wean FiO2 for sats > 90% (increased to 75% FiO2 now) - continue empiric AB's but consult ID for de-escalation and other input - still awaiting records from prior hospital but has had TB worked up before per patient and been treated for latent TB - continue GI & VTE prophylaxuis - PT/OT as tolerated - continue other care per attedning / other consultants ....LTAC evaluation appropriate as i suspect this will be a prolonged recovery prior to reaching FiO2 levels that he can be discharged on ....OK to trtansfer to telemetry floor if bed available next to nursing station ....35' Subjective Date of service: 01/04/18 Principal diagnosis: Acute hypoxic respiratory failure, health care associated pneumonia, sepsis Interval history: Patient seen today for: Acute hypoxic respiratory failure, health care associated pneumonia, sepsis Seen and examined at bedside; 24-hour events reviewed; nursing and respiratory care staff consulted; no adverse overnight events reported to me; remains on HFNC at 70%; denies acute chest pains; still SOB; No hemoptysis; No N/V/F/C Objective Vital Signs - 12hr 01/04/18 01/04/18 01/04/18 01:00 02:00 02:30 Temperature Pulse Rate 85 82 Pulse Rate [ From Monitor] Pulse Rate [ 93 H Posterior Left Lower Lobe] Respiratory 21 22 Rate Respiratory 26 H Rate [Posterior Left Lower Lobe] Blood Pressure 142/98 151/104 O2 Sat by Pulse 94 93 Oximetry 01/04/18 01/04/18 01/04/18 03:00 04:00 05:00 Temperature 97.8 F Pulse Rate 87 79 81 Pulse Rate [ 88 From Monitor] Pulse Rate [ Posterior Left Lower Lobe] Respiratory 23 21 Rate Respiratory Rate [Posterior Left Lower Lobe] Blood Pressure 152/102 146/98 150/101 O2 Sat by Pulse 96 97 95 Oximetry 01/04/18 01/04/18 01/04/18 06:01 07:00 08:23 Temperature Pulse Rate 88 86 97 H Pulse Rate [ From Monitor] Pulse Rate [ Posterior Left Lower Lobe] Respiratory 24 20 Rate Respiratory Rate [Posterior Left Lower Lobe] Blood Pressure 150/101 167/102 146/105 O2 Sat by Pulse 87 86 91 Oximetry 01/04/18 01/04/18 01/04/18 10:21 11:00 11:08 Temperature Pulse Rate 91 H Pulse Rate [ From Monitor] Pulse Rate [ 98 H 100 H Posterior Left Lower Lobe] Respiratory Rate Respiratory 28 H 28 H Rate [Posterior Left Lower Lobe] Blood Pressure 156/104 O2 Sat by Pulse Oximetry Constitutional: alert, appears uncomfortable Eyes: non-icteric ENT: oropharynx moist, other (mallampatti 2) Neck: supple, no lymphadenopathy, no JVD, other (no thyromegaly) Effort: very labored Ascultation: Bilateral: diminished breath sounds, rhonchi Percussion: Bilateral: not dull Cardiovascular: regular rate and rhythm, other (no rubs/murmurs) Gastrointestinal: normoactive bowel sounds, soft, non-tender, non-distended, other (no HSM) Integumentary: rash Extremities: no cyanosis, no edema, pink and warm, pulses normal Neurologic: normal mental status, non-focal exam, pupils equal and round, CN II- XII normal Psychiatric: anxious CBC and BMP: 01/05/18 05:35 01/05/18 05:35 ABG, PT/INR, D-dimer: ABG POC ABG pH 7.474 (7.35-7.45) H 01/01/18 03:17 POC ABG pCO2 33.2 (35-45) L 01/01/18 03:17 POC ABG pO2 73 (80-105) L 01/01/18 03:17 POC ABG HCO3 24.3 01/01/18 03:17 POC ABG Total CO2 25 01/01/18 03:17 POC ABG O2 Sat 96 01/01/18 03:17 PT/INR, D-dimer PT 14.5 Sec. (12.2-14.9) 01/01/18 02:25 INR 1.07 (0.87-1.13) 01/01/18 02:25 D-Dimer 2358.22 ng/mlDDU (0-234) H 01/01/18 03:31 Abnormal lab findings: Abnormal Labs 01/01/18 01/01/18 01/01/18 02:25 02:25 02:25 WBC 21.6 H RBC Hgb 10.3 L Hct 32.7 L MCV 83 L MCH 26 L RDW 18.0 H Seg Neuts % (Manual) 87.5 H Lymphocytes % (Manual) 7.5 L Seg Neutrophils # Man 18.9 H Lymphocytes # (Manual) D-Dimer POC ABG pH POC ABG pCO2 POC ABG pO2 Sodium 135 L Carbon Dioxide 21 L Creatinine 0.6 L Glucose 103 H Lactic Acid Calcium 8.3 L C-Reactive Protein NT-Pro-B Natriuret Pep 1069 H Total Protein Albumin 01/01/18 01/01/18 01/01/18 02:36 03:17 03:31 WBC RBC Hgb Hct MCV MCH RDW Seg Neuts % (Manual) Lymphocytes % (Manual) Seg Neutrophils # Man Lymphocytes # (Manual) D-Dimer 2358.22 H POC ABG pH 7.474 H POC ABG pCO2 33.2 L POC ABG pO2 73 L Sodium Carbon Dioxide Creatinine Glucose Lactic Acid 3.60 H* Calcium C-Reactive Protein NT-Pro-B Natriuret Pep Total Protein Albumin 01/01/18 01/02/18 01/02/18 14:01 03:44 03:44 WBC RBC 3.14 L Hgb 8.4 L Hct 25.9 L D MCV 82 L MCH 27 L RDW 17.4 H Seg Neuts % (Manual) 91.0 H Lymphocytes % (Manual) 6.0 L Seg Neutrophils # Man 10.0 H Lymphocytes # (Manual) 0.7 L D-Dimer POC ABG pH POC ABG pCO2 POC ABG pO2 Sodium Carbon Dioxide Creatinine 0.5 L Glucose 137 H Lactic Acid Calcium 7.5 L C-Reactive Protein 20.70 H NT-Pro-B Natriuret Pep Total Protein 5.5 L Albumin 1.7 L 01/04/18 10:03 WBC RBC Hgb Hct MCV MCH RDW Seg Neuts % (Manual) Lymphocytes % (Manual) Seg Neutrophils # Man Lymphocytes # (Manual) D-Dimer POC ABG pH POC ABG pCO2 POC ABG pO2 Sodium 134 L Carbon Dioxide 19 L Creatinine 0.5 L Glucose 111 H Lactic Acid Calcium 8.3 L C-Reactive Protein NT-Pro-B Natriuret Pep Total Protein Albumin CT scan - chest: image reviewed Allied health notes reviewed: nursing
[2018-01-04 18:35] LABS: Hemoglobin TNR gm/dl (11.8-15.2); Red Blood Count TNR M/mm3 (3.65-5.03)
[2018-01-04 18:39] LABS: Basophils # (Auto) TNR K/mm3 (0.0-0.1); Basophils % (Auto) TNR % (0.0-1.8); Eosinophils # (Auto) TNR K/mm3 (0.0-0.4); Eosinophils % (Auto) TNR % (0.0-4.3); Hematocrit TNR % (35.5-45.6); Lymphocytes # (Auto) TNR K/mm3 (1.2-5.4); Lymphocytes % (Auto) TNR % (13.4-35.0); Mean Corpuscular HGB Conc TNR % (32-34); Mean Corpuscular Hemoglobin TNR pg (28-32); Mean Corpuscular Volume TNR fl (84-94); Mean Platelet Volume TNR fl (6-12); Monocytes # (Auto) TNR K/mm3 (0.0-0.8); Monocytes % (Auto) TNR % (0.0-7.3); Platelet Count TNR K/mm3 (140-440); Red Cell Distribution Width TNR % (13.2-15.2)
[2018-01-05] MEDS: MORPHINE IV PRN ×3 (02:12→13:27)
[2018-01-05] MEDS: HEPARIN SUB-Q SCH ×3 (05:58→22:36)
[2018-01-05 06:03] LABS: Hematocrit 31.2 % (35.5-45.6); Hemoglobin 9.7 gm/dl (11.8-15.2); Mean Corpuscular HGB Conc 31 % (32-34); Mean Corpuscular Volume 82 fl (84-94); Platelet Count 287 K/mm3 (140-440); Red Cell Distribution Width 17.8 % (13.2-15.2)
[2018-01-05] MEDS: ZOSYN/NS 4.5GM/100ML 4.5 GM/100 ML VIAL IV SCH ×3 (06:09→22:34)
[2018-01-05 06:13] LABS: Mean Corpuscular Hemoglobin 25 pg (28-32)
[2018-01-05 06:29] LABS: BUN/Creatinine Ratio 40; Blood Urea Nitrogen 20 mg/dL (9-20); Calcium 8.5 mg/dL (8.4-10.2); Hemolysis Index 4
[2018-01-05 06:57] LABS: Band Neutrophils # (Manual) 1.4 K/mm3; Basophils % (Manual) 0 % (0.0-1.8); Eosinophils % (Manual) 0 % (0.0-4.3); Total Cells Counted 100
[2018-01-05 06:58] LABS: Anisocytosis 1+; Hypochromasia 1+
[2018-01-05] MEDS: NORVASC PO SCH (09:24)
[2018-01-05] MEDS: PROTONIX PO SCH (09:24)
[2018-01-05] MEDS: HABITROL TD SCH (09:25)
[2018-01-05] MEDS: DUONEB *Not for PRN Use IH SCH ×4 (10:06→19:47)
[2018-01-05] MEDS: PULMICORT IH SCH ×2 (10:07→19:47)
[2018-01-05] MEDS: BROVANA NEBU IH SCH ×2 (10:07→19:47)
--- NOTE | 2018-01-05 10:08 | Consultation ---
History of Present Illness Consult date: 01/05/18 Consult reason: atrial fibrillation History of present illness: This is a 62yr old male who is admitted with COPD exacerbation, Pneumonia and acute respiratory failure. A cardiac consultation is requested for rapid atrial fibrillation that has since spontaneously reverted to a sinus rhythm. Patient is currently on Bipap therapy. He denies chest pain. There is no reported history of arrhythmias. Past History Past Medical History: COPD Social history: full code Family history: no significant family history Medications and Allergies Allergies Allergy/AdvReac Type Severity Reaction Status Date / Time No Known Allergies Allergy Verified 12/20/17 09:01 Active Meds: Active Medications Acetaminophen (Tylenol) 650 mg PO Q4H PRN PRN Reason: Pain MILD(1-3)/Fever >100.5/BLACK Acetaminophen/Hydrocodone Bitart ([place] 5/325) 2 each PO Q6H PRN PRN Reason: Pain, Moderate (4-6) Albuterol (Proventil) 2.5 mg IH Q4HRT PRN PRN Reason: Shortness Of Breath Last Admin: 01/04/18 02:29 Dose: 2.5 mg Albuterol/Ipratropium (Duoneb *Not For Prn Use*) 1 ampul IH QIDRT [facility] Last Admin: 01/04/18 20:00 Dose: Not Given Amlodipine Besylate (Norvasc) 10 mg PO QDAY [facility] Last Admin: 01/05/18 09:24 Dose: 10 mg Arformoterol Tartrate (Brovana Nebu) 15 mcg IH Q12HRT [facility] Last Admin: 01/04/18 19:32 Dose: 15 mcg Budesonide (Pulmicort) 0.5 mg IH Q12HRT [facility] Last Admin: 01/04/18 19:32 Dose: 0.5 mg Heparin Sodium (Porcine) (Heparin) 5,000 unit SUB-Q Q8HR [facility] Last Admin: 01/05/18 05:58 Dose: 5,000 unit Vancomycin HCl (Vancomycin/0.45 Ns 1 Gm/250 Ml) 1 gm in 250 mls @ 167.007 mls/ hr IV Q12H [facility] Stop: 01/07/18 23:59 Last Admin: 01/04/18 19:38 Dose: 167 mls/hr Piperacillin Sod/Tazobactam Sod (Zosyn/Ns 4.5gm/100ml) 4.5 gm in 100 mls @ 200 mls/hr IV Q8HR [facility] Stop: 01/07/18 23:59 Last Admin: 01/05/18 06:09 Dose: 200 mls/hr Methylprednisolone Sodium Succinate (Solu-Medrol) 60 mg IV Q8H [facility] Last Admin: 01/05/18 05:56 Dose: 60 mg Morphine Sulfate (Morphine) 2 mg IV Q3H PRN PRN Reason: Pain, Moderate (4-6) Last Admin: 01/05/18 09:24 Dose: 2 mg Nicotine (Habitrol) 14 mg TD QDAY [facility] Last Admin: 01/05/18 09:25 Dose: 14 mg Ondansetron HCl (Zofran) 4 mg IV Q8H PRN PRN Reason: Nausea And Vomiting Pantoprazole Sodium (Protonix) 20 mg PO QDAY [facility] Last Admin: 01/05/18 09:24 Dose: 20 mg Sodium Chloride (Sodium Chloride Flush Syringe 10 Ml) 10 ml IV BID [facility] Last Admin: 01/04/18 21:55 Dose: 10 ml Sodium Chloride (Sodium Chloride Flush Syringe 10 Ml) 10 ml IV PRN PRN PRN Reason: LINE FLUSH Physical Examination Vital Signs Pulse Ox 79 L 01/01/18 01:52 General appearance: mild distress HEENT: Positive: PERRL Cardiac: Positive: Tachycardia Neuro: Positive: Grossly Intact Results 01/05/18 05:35 01/05/18 05:35 CBC 01/04/18 01/05/18 Range/Units 17:16 05:35 WBC TNR 15.9 H RBC TNR 3.80 Hgb TNR 9.7 L Hct TNR 31.2 L Plt Count TNR 287 Lymph # TNR Coffee # TNR Eos # TNR Baso # TNR Comprehensive Metabolic Panel 01/04/18 01/05/18 Range/Units 10:03 05:35 Sodium 134 L 140 (137-145) mmol/L Potassium 3.7 3.8 (3.6-5.0) mmol/L Chloride 98.8 98.9 (98-107) mmol/L Carbon Dioxide 19 L 31 H D (22-30) mmol/L BUN 18 20 (9-20) mg/dL Creatinine 0.5 L 0.5 L (0.8-1.5) mg/dL Glucose 111 H 134 H (75-100) mg/dL Calcium 8.3 L 8.5 (8.4-10.2) mg/dL Assessment and Plan Acute respiratory failure Pneumonia COPD exacerbation Paroxysmal Atrial fibrillation spontaneously reverted to sinus rhythm
[2018-01-05] MEDS: VANCOMYCIN/0.45 NS 1 GM/250 ML 1 GM/250 ML BAG IV SCH ×2 (10:50→21:00)
[2018-01-05] MEDS: CARDIZEM CD PO SCH (12:04)
[2018-01-05] MEDS: SODIUM CHLORIDE FLUSH SYRINGE 10 ML IV SCH ×2 (13:30→22:20)
--- NOTE | 2018-01-05 18:05 | Consultation ---
History of Present Illness - Reason for Consult Consult date: 01/05/18 cavitary pneumonia, r/o TB Requesting physician: DEIRDRE RIOS - History of Present Illness 62 years old male with history for COPD on home oxygen, asthma, hep C, emphysema and treated latetnt TB in 2000; admitted on 01/01/2018 due to 24 hours history of progressive shortness of breath. Patient reports his been coughing for about 6 weeks. He denies any sick contacts, recent travels, upper respiratory symptoms. Upon arrival of EMS the day of admission, his saturation was in the 70s but patient refused to come to the hospital. Patient is complaining on and off fever. Of note, patient came to the ED on 12/15/2017 was found to have pneumonia and was sent home on oral antibiotics. In the ED, initial temperature 99.7, heart rate 129, respiration 26, O2 sat 79% , blood pressure 153/98. Initial white count 21.6. Hemoglobin 10.3. Platelets 433. Creatinine 0.6. D-dimer was 2356. Lactic acid 3.6. CRP 20. Patient was saturating in the 50s and 60s, patient was put on BiPAP. Chest x- ray showed new left lung infiltrate. Right lung infiltrate improving. CTA showed multifocal bilateral consolidation with a small right pleural effusion. Also demonstrated severe centri-lobular emphysema and enlargement mediastinum, numerous large subpleural blebs and extensive bronchiectasis. Microbiology: Blood cultures: 01/01 ngtd Respiratory cultures: 01/01 Staph Current Antimicrobials: Vancomycin 01/01 Zosyn 01/01 Previous Antimicrobials: Past History Past Medical History: COPD Past Surgical History: No surgical history Social history: full code Family history: no significant family history Medications and Allergies Allergies Allergy/AdvReac Type Severity Reaction Status Date / Time No Known Allergies Allergy Verified 12/20/17 09:01 Active Meds: Active Medications Acetaminophen (Tylenol) 650 mg PO Q4H PRN PRN Reason: Pain MILD(1-3)/Fever >100.5/BLACK Acetaminophen/Hydrocodone Bitart ([place] 5/325) 2 each PO Q6H PRN PRN Reason: Pain, Moderate (4-6) Albuterol (Proventil) 2.5 mg IH Q4HRT PRN PRN Reason: Shortness Of Breath Last Admin: 01/04/18 02:29 Dose: 2.5 mg Albuterol/Ipratropium (Duoneb *Not For Prn Use*) [address] [facility] Last Admin: 01/05/18 17:02 Dose: 1 ampul Arformoterol Tartrate (Brovana Nebu) [address] [facility] Last Admin: 01/05/18 10:07 Dose: 15 mcg Budesonide (Pulmicort) 0.[address] [facility] Last Admin: 01/05/18 10:07 Dose: 0.5 mg Diltiazem HCl (Cardizem Cd) [address] [facility] Last Admin: 01/05/18 12:04 Dose: 120 mg Heparin Sodium (Porcine) (Heparin) 5,000 unit SUB-Q Q8HR [facility] Last Admin: 01/05/18 13:20 Dose: 5,000 unit Vancomycin HCl (Vancomycin/0.45 Ns 1 Gm/250 Ml) 1 gm in 250 mls @ 167.007 mls/ hr IV Q12H [facility] Stop: 01/07/18 23:59 Last Admin: 01/05/18 10:50 Dose: 167 mls/hr Piperacillin Sod/Tazobactam Sod (Zosyn/Ns 4.5gm/100ml) 4.5 gm in 100 mls @ 200 mls/hr IV Q8HR [facility] Stop: 01/07/18 23:59 Last Admin: 01/05/18 13:21 Dose: 200 mls/hr Methylprednisolone Sodium Succinate (Solu-Medrol) [address] [facility] Last Admin: 01/05/18 12:03 Dose: 60 mg Morphine Sulfate (Morphine) 2 mg IV Q3H PRN PRN Reason: Pain, Moderate (4-6) Last Admin: 01/05/18 13:27 Dose: 2 mg Nicotine (Habitrol) [address] [facility] Last Admin: 01/05/18 09:25 Dose: 14 mg Ondansetron HCl (Zofran) 4 mg IV Q8H PRN PRN Reason: Nausea And Vomiting Pantoprazole Sodium (Protonix) [address] [facility] Last Admin: 01/05/18 09:24 Dose: 20 mg Sodium Chloride (Sodium Chloride Flush Syringe 10 Ml) [address] [facility] Last Admin: 01/05/18 13:30 Dose: 10 ml Sodium Chloride (Sodium Chloride Flush Syringe 10 Ml) 10 ml IV PRN PRN PRN Reason: LINE FLUSH Review of Systems All systems: negative (as per HPI drinks of 10 point review of systems negative) Physical Examination - Physical Exam Narrative exam: General appearance: Alert in moderate respiratory distress Eyes: anicteric sclerae, moist conjunctivae; no lid-lag; PERRLA HENT: Atraumatic; oropharynx clear. Neck: Trachea midline; supple, no thyromegaly or lymphadenopathy Lungs: distant BS with scattered crackles CV: ` Tachycardic Abdomen: Soft, non-tender. Extremities: No peripheral edema or extremity lymphadenopathy Skin: Normal temperature, turgor and texture; no rash, ulcers or subcutaneous nodules Psych: Appropriate affect, alert and oriented to person, place and time. Neuro: alert and oriented x 3. Moving all extermities Lines: No CVL / PICC - Constitutional Vitals: Vital Signs Temp Pulse Resp BP Pulse Ox 98.4 F 100 H 20 138/74 91 01/05/18 04:20 01/05/18 16:00 01/05/18 16:00 01/05/18 04:20 01/05/18 13:53 Temperature -Last 24 Hours Temperature 98.4 F Temperature 98.7 F Temperature 97.8 F Results - Labs CBC & Chem 7: 01/05/18 05:35 01/05/18 05:35 Labs: Abnormal lab results 01/05/18 01/05/18 Range/Units 05:35 05:35 WBC 15.9 H (4.5-11.0) K/mm3 Hgb 9.7 L (11.8-15.2) gm/dl Hct 31.2 L (35.5-45.6) % MCV 82 L (84-94) fl MCH 25 L (28-32) pg MCHC 31 L (32-34) % RDW 17.8 H (13.2-15.2) % Seg Neuts % (Manual) 83.0 H (40.0-70.0) % Lymphocytes % (Manual) 4.0 L (13.4-35.0) % Seg Neutrophils # Man 13.2 H (1.8-7.7) K/mm3 Lymphocytes # (Manual) 0.6 L (1.2-5.4) K/mm3 Carbon Dioxide 31 H D (22-30) mmol/L Creatinine 0.5 L (0.8-1.5) mg/dL Glucose 134 H (75-100) mg/dL Assessment and Plan Assessment: 1) Sepsis: Present on admission, manifested by tachycardia, leukocytosis, increased lactate. Etiology most likely pneumonia. 2) Acute on chronic respiratory failure 3) Bilateral multifocal pneumonia/bronchiectasis: Likely necrotizing pneumonia due to a Staph. Doubt TB, however will rule it out in view of history of latent TB. -Sputum + Staph -CTA showed multifocal bilateral consolidation with a small right pleural effusion. Also demonstrated severe centri-lobular emphysema and enlargement mediastinum, numerous large subpleural blebs and extensive bronchiectasis. 4) History for COPD on home oxygen 5) Hep C 6) history of treated latetnt TB in 2000 Plan: -follow-up blood cultures and respiratory cultures -obtain C-reactive protein (CRP) -contact isolation until MRSA is r/o -airborne isolation until TB is r/o -Quantiferon TB gold STAT -HIV test -AFB in sputum x 3 -Continue vancomycin and Zosyn Thank you for your consultation, will follow up with you. Vika Rice MD Infectious Diseases Specialist [facility] M [phone] O [phone]
--- NOTE | 2018-01-05 20:30 | Progress Note ---
Assessment and Plan Acute hypoxic respiratory failure Health care associated pneumonia Right upper lobe cavitary lung disease/bronchiectasis Sepsis/Lactic acidosis Protein calorie malnutrition Diffuse proliferative lung disease Polysubstance abuse -Supplemental oxygen to keep O2 sats 88-90 -Steroids, antibiotics -VTE prophylaxis -Bronchodilators -Airway clearance - will follow sputum culture - IV fluids -PPI, history of GERD and currently on steroids -Home oxygen evaluation prior to discharge Subjective Date of service: 01/05/18 Principal diagnosis: Acute hypoxic respiratory failure, health care associated pneumonia, sepsis Interval history: F/UP for acute hypoxic respiratory failure on high flow oxygen, health care associated pneumonia, sepsis, bronchiectasis and bullous lung disease Patient seen and examined. Vitals, labs, medications, chart reviewed. ID consult note reviewed Discussed with RN Remains hypoxic with coughing or minimal movement No hemotysis Objective - Exam Narrative Exam: In moderate respiratory distress, on high flow oxygen. The patient appeared chronically ill looking Vital signs as documented. Head exam is unremarkable. No scleral icterus . Neck is without jugular venous distension, thyromegaly, or carotid bruits. Lungs are bibasilar crepitations. Cardiac exam reveals regular rate and Rhythm. First and second heart sounds normal. No murmurs, rubs or gallops. Abdominal exam reveals normal bowel sounds, no masses, no organomegaly and no aortic enlargement. Extremities are nonedematous and both femoral and pedal pulses are normal. NATURAL SCIENCES DEPARTMENT CHAIR: Alert and oriented 3. No focal weakness. Vital Signs - 12hr 01/05/18 01/05/18 01/05/18 10:00 11:46 13:51 Temperature 97.4 F L Pulse Rate 112 H Pulse Rate [ 112 H From Monitor] Pulse Rate [ 87 Posterior Left Lower Lobe] Pulse Rate [ 76 Posterior Right Lower Lobe] Respiratory 28 H 22 Rate Respiratory 20 Rate [Posterior Left Lower Lobe] Respiratory 20 Rate [Posterior Right Lower Lobe] Blood Pressure 126/79 O2 Sat by Pulse Oximetry 01/05/18 01/05/18 01/05/18 13:53 16:00 16:01 Temperature 97.8 F Pulse Rate 73 Pulse Rate [ From Monitor] Pulse Rate [ 95 H Posterior Left Lower Lobe] Pulse Rate [ 100 H Posterior Right Lower Lobe] Respiratory 20 Rate Respiratory 24 Rate [Posterior Left Lower Lobe] Respiratory 20 Rate [Posterior Right Lower Lobe] Blood Pressure 138/81 O2 Sat by Pulse 91 79 L Oximetry 01/05/18 19:26 Temperature 98.2 F Pulse Rate 93 H Pulse Rate [ From Monitor] Pulse Rate [ Posterior Left Lower Lobe] Pulse Rate [ Posterior Right Lower Lobe] Respiratory 18 Rate Respiratory Rate [Posterior Left Lower Lobe] Respiratory Rate [Posterior Right Lower Lobe] Blood Pressure 138/77 O2 Sat by Pulse 68 L Oximetry Constitutional: alert, appears uncomfortable Eyes: non-icteric ENT: oropharynx moist, other (mallampatti 2) Neck: supple, no lymphadenopathy, no JVD, other (no thyromegaly) Effort: very labored Ascultation: Bilateral: diminished breath sounds, rhonchi Percussion: Bilateral: not dull Cardiovascular: regular rate and rhythm, other (no rubs/murmurs) Gastrointestinal: normoactive bowel sounds, soft, non-tender, non-distended, other (no HSM) Integumentary: rash Extremities: no cyanosis, no edema, pink and warm, pulses normal Neurologic: normal mental status, non-focal exam, pupils equal and round, CN II- XII normal Psychiatric: anxious CBC and BMP: 01/12/18 07:00 01/12/18 07:00 ABG, PT/INR, D-dimer: ABG POC ABG pH 7.474 (7.35-7.45) H 01/01/18 03:17 POC ABG pCO2 33.2 (35-45) L 01/01/18 03:17 POC ABG pO2 73 (80-105) L 01/01/18 03:17 POC ABG HCO3 24.3 01/01/18 03:17 POC ABG Total CO2 25 01/01/18 03:17 POC ABG O2 Sat 96 01/01/18 03:17 PT/INR, D-dimer PT 14.5 Sec. (12.2-14.9) 01/01/18 02:25 INR 1.07 (0.87-1.13) 01/01/18 02:25 D-Dimer 2358.22 ng/mlDDU (0-234) H 01/01/18 03:31 Abnormal lab findings: Abnormal Labs 01/01/18 01/01/18 01/01/18 02:25 02:25 02:25 WBC 21.6 H RBC Hgb 10.3 L Hct 32.7 L MCV 83 L MCH 26 L MCHC RDW 18.0 H Seg Neuts % (Manual) 87.5 H Lymphocytes % (Manual) 7.5 L Seg Neutrophils # Man 18.9 H Lymphocytes # (Manual) D-Dimer POC ABG pH POC ABG pCO2 POC ABG pO2 Sodium 135 L Carbon Dioxide 21 L Creatinine 0.6 L Glucose 103 H Lactic Acid Calcium 8.3 L C-Reactive Protein NT-Pro-B Natriuret Pep 1069 H Total Protein Albumin 01/01/18 01/01/18 01/01/18 02:36 03:17 03:31 WBC RBC Hgb Hct MCV MCH MCHC RDW Seg Neuts % (Manual) Lymphocytes % (Manual) Seg Neutrophils # Man Lymphocytes # (Manual) D-Dimer 2358.22 H POC ABG pH 7.474 H POC ABG pCO2 33.2 L POC ABG pO2 73 L Sodium Carbon Dioxide Creatinine Glucose Lactic Acid 3.60 H* Calcium C-Reactive Protein NT-Pro-B Natriuret Pep Total Protein Albumin 01/01/18 01/02/18 01/02/18 14:01 03:44 03:44 WBC RBC 3.14 L Hgb 8.4 L Hct 25.9 L D MCV 82 L MCH 27 L MCHC RDW 17.4 H Seg Neuts % (Manual) 91.0 H Lymphocytes % (Manual) 6.0 L Seg Neutrophils # Man 10.0 H Lymphocytes # (Manual) 0.7 L D-Dimer POC ABG pH POC ABG pCO2 POC ABG pO2 Sodium Carbon Dioxide Creatinine 0.5 L Glucose 137 H Lactic Acid Calcium 7.5 L C-Reactive Protein 20.70 H NT-Pro-B Natriuret Pep Total Protein 5.5 L Albumin 1.7 L 01/04/18 01/05/18 01/05/18 10:03 05:35 05:35 WBC 15.9 H RBC Hgb 9.7 L Hct 31.2 L MCV 82 L MCH 25 L MCHC 31 L RDW 17.8 H Seg Neuts % (Manual) 83.0 H Lymphocytes % (Manual) 4.0 L Seg Neutrophils # Man 13.2 H Lymphocytes # (Manual) 0.6 L D-Dimer POC ABG pH POC ABG pCO2 POC ABG pO2 Sodium 134 L Carbon Dioxide 19 L 31 H D Creatinine 0.5 L 0.5 L Glucose 111 H 134 H Lactic Acid Calcium 8.3 L C-Reactive Protein NT-Pro-B Natriuret Pep Total Protein Albumin Allied health notes reviewed: nursing
--- NOTE | 2018-01-06 05:26 | Progress Note ---
Assessment and Plan Assessment and plan: Acute on chronic hypoxic respiratory failure - from COPD exacerbation and bilateral pneumonia - on IV vancomycin, Zosyn, DuoNeb's, Solu-Medrol, nebulizer - Embosser Operator following, now off BiPAP, now on 70% Fio2 but on high flow oxygen - Placed on Isolation Severe COPD with exacerbation - Will provide scheduled nebulizers and breathing treatment - Placed on empiric steroid and antibiotic - will follow sputum culture, chest x-ray/CTA chest showed bilateral infiltrates - Continue to support respiratory effort with BiPAP - We'll cont on sliding scale of insulin as patient will be on empiric steroid Bilateral pneumonia, recent treatment with antibiotics - Continue empiric antibiotics for now, follow culture - POSSIBLE NARCOTIZING PNA, r/o TB - Culture growing staff Aurus possible MRSA- Start contact isolation Sepsis, due to bilateral pneumonia - Continue abx, trend lactate Lactic acidosis, due to sepsis - IV fluid, treat underlying cause Sepsis - Continue abx Severe-Moderate Protien calorie Malnutrition - Windows And Doors Installer consult History of GERD - pantoprazole for GERD History of hepatitis C - normal LFT Hx of latent TB in 2000 DVT prophylaxis - Heparin The high probability of a clinically significant, sudden or life threatening deterioration of the [pulmonary] system(s) required my full and direct attention , intervention and personal management. The aggregate critical care time was [35 ] minutes. This time is in addition to time spent performing reported procedures but includes the following: [x] Data Review and interpretation [x] Patient assessment and monitoring of vital signs [x] Documentation [x] Medication orders and management History Interval history: Patient seen and examined, this morning, still in moderate respiratory distress. Hospitalist Physical - Physical exam Narrative exam: GENERAL: Cachetic and thin white male lying on bed appeared to be in moderate discomfort. HEENT: Normocephalic. Atraumatic. No conjunctival congestion or icterus. Patient with BiPAP mask NECK: Supple. Trachea midline. CHEST/LUNGS: Diminished breath sound auscultated bilaterally with rhonchi, increased wob. HEART/CARDIOVASCULAR: Regular in rate and rhythm. S1 and S2 positive. ABDOMEN: Abdomen is soft, nontender. Patient has normal bowel sounds. SKIN: Warm and dry. NEURO: No focal motor deficit. Follows command. MUSCULOSKELETAL: No joint effusion or tenderness. EXTRIMITY: No edema, no cyanosis or clubbing. PSYCH: Cooperative. - Constitutional Vitals: Temp Pulse Resp BP Pulse Ox 98.1 F 78 18 133/81 93 01/06/18 04:02 01/06/18 04:02 01/06/18 04:02 01/06/18 04:02 01/06/18 04:02 General appearance: Present: mild distress Results - Labs CBC & Chem 7: 01/05/18 05:35 01/05/18 05:35 Labs: Laboratory Last Values WBC 15.9 K/mm3 (4.5-11.0) H 01/05/18 05:35 RBC 3.80 M/mm3 (3.65-5.03) 01/05/18 05:35 Hgb 9.7 gm/dl (11.8-15.2) L 01/05/18 05:35 Hct 31.2 % (35.5-45.6) L 01/05/18 05:35 MCV 82 fl (84-94) L 01/05/18 05:35 MCH 25 pg (28-32) L 01/05/18 05:35 MCHC 31 % (32-34) L 01/05/18 05:35 RDW 17.8 % (13.2-15.2) H 01/05/18 05:35 Plt Count 287 K/mm3 (140-440) 01/05/18 05:35 Lymph % (Auto) TNR 01/04/18 17:16 Nicholas % (Auto) TNR 01/04/18 17:16 Eos % (Auto) TNR 01/04/18 17:16 Baso % (Auto) TNR 01/04/18 17:16 Lymph # TNR 01/04/18 17:16 Nicholas # TNR 01/04/18 17:16 Eos # TNR 01/04/18 17:16 Baso # TNR 01/04/18 17:16 Add Manual Diff Complete 01/05/18 05:35 Total Counted 100 01/05/18 05:35 Seg Neutrophils % Director Distribution 01/05/18 05:35 Seg Neuts % (Manual) 83.0 % (40.0-70.0) H 01/05/18 05:35 Band Neutrophils % 9.0 % 01/05/18 05:35 Lymphocytes % (Manual) 4.0 % (13.4-35.0) L 01/05/18 05:35 Reactive Lymphs % (Man) 0 % 01/05/18 05:35 Monocytes % (Manual) 4.0 % (0.0-7.3) 01/05/18 05:35 Eosinophils % (Manual) 0 % (0.0-4.3) 01/05/18 05:35 Basophils % (Manual) 0 % (0.0-1.8) 01/05/18 05:35 Metamyelocytes % 0 % 01/05/18 05:35 Myelocytes % 0 % 01/05/18 05:35 Promyelocytes % 0 % 01/05/18 05:35 Blast Cells % 0 % 01/05/18 05:35 Nucleated RBC % Not Reportable 01/05/18 05:35 Seg Neutrophils # TNR 01/04/18 17:16 Seg Neutrophils # Man 13.2 K/mm3 (1.8-7.7) H 01/05/18 05:35 Band Neutrophils # 1.4 K/mm3 01/05/18 05:35 Lymphocytes # (Manual) 0.6 K/mm3 (1.2-5.4) L 01/05/18 05:35 Abs React Lymphs (Man) 0.0 K/mm3 01/05/18 05:35 Monocytes # (Manual) 0.6 K/mm3 (0.0-0.8) 01/05/18 05:35 Eosinophils # (Manual) 0.0 K/mm3 (0.0-0.4) 01/05/18 05:35 Basophils # (Manual) 0.0 K/mm3 (0.0-0.1) 01/05/18 05:35 Metamyelocytes # 0.0 K/mm3 01/05/18 05:35 Myelocytes # 0.0 K/mm3 01/05/18 05:35 Promyelocytes # 0.0 K/mm3 01/05/18 05:35 Blast Cells # 0.0 K/mm3 01/05/18 05:35 WBC Morphology Not Reportable 01/05/18 05:35 Hypersegmented Neuts Not Reportable 01/05/18 05:35 Hyposegmented Neuts Not Reportable 01/05/18 05:35 Hypogranular Neuts Not Reportable 01/05/18 05:35 Smudge Cells Not Reportable 01/05/18 05:35 Toxic Granulation Not Reportable 01/05/18 05:35 Toxic Vacuolation Not Reportable 01/05/18 05:35 Dohle Bodies Not Reportable 01/05/18 05:35 Pelger-Huet Anomaly Not Reportable 01/05/18 05:35 Salazar Rods Not Reportable 01/05/18 05:35 Platelet Estimate Appears normal 01/05/18 05:35 Clumped Platelets Not Reportable 01/05/18 05:35 Plt Clumps, EDTA Not Reportable 01/05/18 05:35 Large Platelets Not Reportable 01/05/18 05:35 Giant Platelets Not Reportable 01/05/18 05:35 Platelet Satelliting Not Reportable 01/05/18 05:35 Plt Morphology Comment Not Reportable 01/05/18 05:35 RBC Morphology Not Reportable 01/05/18 05:35 Dimorphic RBCs Not Reportable 01/05/18 05:35 Polychromasia Not Reportable 01/05/18 05:35 Hypochromasia 1+ 01/05/18 05:35 Poikilocytosis Not Reportable 01/05/18 05:35 Anisocytosis 1+ 01/05/18 05:35 Microcytosis Not Reportable 01/05/18 05:35 Macrocytosis Not Reportable 01/05/18 05:35 Spherocytes Not Reportable 01/05/18 05:35 Pappenheimer Bodies Not Reportable 01/05/18 05:35 Sickle Cells Not Reportable 01/05/18 05:35 Target Cells Not Reportable 01/05/18 05:35 Tear Drop Cells Not Reportable 01/05/18 05:35 Ovalocytes Not Reportable 01/05/18 05:35 Helmet Cells Not Reportable 01/05/18 05:35 [place] Bodies Not Reportable 01/05/18 05:35 Marlow Rings Not Reportable 01/05/18 05:35 Adan Cells Not Reportable 01/05/18 05:35 Bite Cells Not Reportable 01/05/18 05:35 Crenated Cell Not Reportable 01/05/18 05:35 Elliptocytes Not Reportable 01/05/18 05:35 Acanthocytes (Spur) Not Reportable 01/05/18 05:35 Rouleaux Not Reportable 01/05/18 05:35 Hemoglobin C Crystals Not Reportable 01/05/18 05:35 Schistocytes Not Reportable 01/05/18 05:35 Malaria parasites Not Reportable 01/05/18 05:35 Abdullahi Bodies Not Reportable 01/05/18 05:35 Hem Pathologist Commnt No 01/05/18 05:35 PT 14.5 Sec. (12.2-14.9) 01/01/18 02:25 INR 1.07 (0.87-1.13) 01/01/18 02:25 APTT 29.7 Sec. (24.2-36.6) 01/01/18 02:25 D-Dimer 2358.22 ng/mlDDU (0-234) H 01/01/18 03:31 POC ABG pH 7.474 (7.35-7.45) H 01/01/18 03:17 POC ABG pCO2 33.2 (35-45) L 01/01/18 03:17 POC ABG pO2 73 (80-105) L 01/01/18 03:17 POC ABG HCO3 24.3 01/01/18 03:17 POC ABG Total CO2 25 01/01/18 03:17 POC ABG O2 Sat 96 01/01/18 03:17 POC ABG Base Excess 1 01/01/18 03:17 FiO2 75 % 01/01/18 03:17 Sodium 140 mmol/L (137-145) 01/05/18 05:35 Potassium 3.8 mmol/L (3.6-5.0) 01/05/18 05:35 Chloride 98.9 mmol/L (98-107) 01/05/18 05:35 Carbon Dioxide 31 mmol/L (22-30) H D 01/05/18 05:35 Anion Gap 14 mmol/L 01/05/18 05:35 BUN 20 mg/dL (9-20) 01/05/18 05:35 Creatinine 0.5 mg/dL (0.8-1.5) L 01/05/18 05:35 Estimated GFR > 60 ml/min 01/05/18 05:35 BUN/Creatinine Ratio 40 % 01/05/18 05:35 Glucose 134 mg/dL (75-100) H 01/05/18 05:35 Lactic Acid 1.80 mmol/L (0.7-2.0) 01/01/18 06:43 Calcium 8.5 mg/dL (8.4-10.2) 01/05/18 05:35 Magnesium 2.20 mg/dL (1.7-2.3) 01/01/18 02:25 Total Bilirubin 0.30 mg/dL (0.1-1.2) 01/02/18 03:44 AST 17 units/L (5-40) 01/02/18 03:44 ALT 10 units/L (7-56) 01/02/18 03:44 Alkaline Phosphatase 110 units/L (35-129) 01/02/18 03:44 Troponin T < 0.010 ng/mL (0.00-0.029) 01/01/18 02:25 C-Reactive Protein 2.40 mg/dL (0.00-1.30) H 01/05/18 19:56 NT-Pro-B Natriuret Pep 1069 pg/mL (0-900) H 01/01/18 02:25 Total Protein 5.5 g/dL (6.3-8.2) L 01/02/18 03:44 Albumin 1.7 g/dL (3.9-5) L 01/02/18 03:44 Albumin/Globulin Ratio 0.4 % 01/02/18 03:44 Urine Color Yellow (Yellow) 01/01/18 Unknown Urine Turbidity Clear (Clear) 01/01/18 Unknown Urine pH 7.0 (5.0-7.0) 01/01/18 Unknown Ur Specific [place] 1.013 (1.003-1.030) 01/01/18 Unknown Urine Protein <15 mg/dl mg/dL (Negative) 01/01/18 Unknown Urine Glucose (UA) Neg mg/dL (Negative) 01/01/18 Unknown Urine Ketones Neg mg/dL (Negative) 01/01/18 Unknown Urine Blood Neg (Negative) 01/01/18 Unknown Urine Nitrite Neg (Negative) 01/01/18 Unknown Urine Bilirubin Neg (Negative) 01/01/18 Unknown Urine Urobilinogen 4.0 mg/dL (<2.0) 01/01/18 Unknown Ur Leukocyte Esterase Neg (Negative) 01/01/18 Unknown Urine WBC (Auto) 4.0 /HPF (0.0-6.0) 01/01/18 Unknown Urine RBC (Auto) 2.0 /HPF (0.0-6.0) 01/01/18 Unknown Urine Mucus Few /HPF 01/01/18 Unknown Vancomycin Trough 12.0 ug/mL (5.0-20.0) 01/03/18 19:01
[2018-01-06] MEDS: ZOSYN/NS 4.5GM/100ML 4.5 GM/100 ML VIAL IV SCH ×3 (05:33→23:10)
[2018-01-06] MEDS: HEPARIN SUB-Q SCH ×3 (06:50→23:02)
[2018-01-06] MEDS: PULMICORT IH SCH ×2 (09:34→22:20)
[2018-01-06] MEDS: DUONEB *Not for PRN Use IH SCH ×4 (09:34→22:21)
[2018-01-06] MEDS: BROVANA NEBU IH SCH ×2 (09:34→22:20)
--- NOTE | 2018-01-06 10:49 | Progress Note ---
Assessment and Plan Acute respiratory failure Pneumonia COPD exacerbation Paroxysmal Atrial fibrillation triggered by respiratory insufficiency spontaneously reverted to sinus rhythm CHADS-VASc score is zero Recommendations: Continue diltiazem for suppression of Afib. No indication for anticoagulation. Subjective Date of service: 01/06/18 Principal diagnosis: Acute hypoxic respiratory failure, health care associated pneumonia, sepsis Interval history: No reported events on telemetry overnight. Sinus rhythm on telemetry. Objective Vital Signs Temp Pulse Pulse Pulse Pulse Pulse Resp 01/06/18 07:35 98.5 F 66 20 01/06/18 04:02 98.1 F 78 18 01/06/18 01:21 87 26 H 01/05/18 23:44 98.3 F 87 18 01/05/18 22:00 81 98 H 24 01/05/18 21:09 83 24 01/05/18 19:57 88 01/05/18 19:47 82 01/05/18 19:26 98.2 F 93 H 18 01/05/18 16:01 97.8 F 73 20 01/05/18 16:00 95 H 100 H 01/05/18 13:53 01/05/18 13:51 87 76 01/05/18 11:46 97.4 F L 22 Resp Resp Resp BP Pulse Ox 01/06/18 07:35 135/79 89 01/06/18 04:02 133/81 93 01/06/18 01:21 93 01/05/18 23:44 127/81 84 01/05/18 22:00 96 01/05/18 21:09 93 01/05/18 19:57 20 01/05/18 19:47 20 84 01/05/18 19:26 138/77 68 L 01/05/18 16:01 138/81 79 L 01/05/18 16:00 24 20 01/05/18 13:53 91 01/05/18 13:51 20 20 01/05/18 11:46 126/79 - Physical Examination Cardiac: Positive: Reg Rate and Rhythm - Allied health notes Allied health notes reviewed: nursing
[2018-01-06] MEDS: HABITROL TD SCH (11:14)
[2018-01-06] MEDS: VANCOMYCIN/0.45 NS 1 GM/250 ML 1 GM/250 ML BAG IV SCH (11:14)
[2018-01-06] MEDS: SODIUM CHLORIDE FLUSH SYRINGE 10 ML IV SCH (11:15)
[2018-01-06] MEDS: PROTONIX PO SCH (11:15)
[2018-01-06] MEDS: CARDIZEM CD PO SCH (11:16)
[2018-01-06] MEDS ORDERED: XANAX PO PRN (12:52)
[2018-01-06] MEDS ORDERED: IMODIUM PO PRN (12:52)
--- NOTE | 2018-01-06 12:54 | Progress Note ---
Assessment and Plan Acute likely on chronic hypoxemic respiratory failure. Healthcare-associated pneumonia Diffuse proliferative lung disease. Leukocytosis. Anemia. Hyponatremia, mild. Sepsis syndrome with elevated lactic acidosis. Elevated D-dimer. Elevated BNP. Adult failure to thrive. - still awaiting records from prior hospital but has had TB worked up before per patient and been treated for latent TB (will search for records with the alternate name he has provided me) - continue HFNC with BIPAP qhs - continue to wean FiO2 for sats > 90% (increased to 75% FiO2 now) - continue empiric AB's per ID finput - continue GI & VTE prophylaxuis - PT/OT as tolerated - continue other care per attending / other consultants ....LTAC evaluation appropriate as i suspect this will be a prolonged recovery prior to reaching FiO2 levels that he can be discharged on ....wtacjh closely as can decompensate acutely ....35' Subjective Date of service: 01/06/18 Principal diagnosis: Acute hypoxic respiratory failure, health care associated pneumonia, sepsis Interval history: Patient seen today for: Acute hypoxic respiratory failure, health care associated pneumonia, sepsis Seen and examined at bedside; 24-hour events reviewed; nursing and respiratory care staff consulted; no adverse overnight events reported to me; remains with significant hypoxemia and SOB; interrupted sentences when he gets agitated; states that he has been ruled out for TB recently but used a different name; No acute chest pains or palpitations Objective Vital Signs - 12hr 01/06/18 01/06/18 01/06/18 01:21 04:02 07:35 Temperature 98.1 F 98.5 F Pulse Rate 87 78 66 Respiratory 26 H 18 20 Rate Blood Pressure 133/81 135/79 O2 Sat by Pulse 93 93 89 Oximetry 01/06/18 11:16 Temperature Pulse Rate 88 Respiratory Rate Blood Pressure 143/84 O2 Sat by Pulse Oximetry Constitutional: alert, appears uncomfortable Eyes: non-icteric ENT: oropharynx moist, other (mallampatti 2) Neck: supple, no lymphadenopathy, no JVD, other (no thyromegaly) Effort: very labored Ascultation: Bilateral: diminished breath sounds, rales (inspiratory) Percussion: Bilateral: not dull Cardiovascular: regular rate and rhythm, other (no rubs/murmurs) Gastrointestinal: normoactive bowel sounds, soft, non-tender, non-distended, other (no HSM) Integumentary: rash Extremities: no cyanosis, no edema, pink and warm, pulses normal Neurologic: normal mental status, non-focal exam, pupils equal and round, CN II- XII normal Psychiatric: anxious CBC and BMP: 01/08/18 08:33 01/08/18 08:33 ABG, PT/INR, D-dimer: ABG POC ABG pH 7.474 (7.35-7.45) H 01/01/18 03:17 POC ABG pCO2 33.2 (35-45) L 01/01/18 03:17 POC ABG pO2 73 (80-105) L 01/01/18 03:17 POC ABG HCO3 24.3 01/01/18 03:17 POC ABG Total CO2 25 01/01/18 03:17 POC ABG O2 Sat 96 01/01/18 03:17 PT/INR, D-dimer PT 14.5 Sec. (12.2-14.9) 01/01/18 02:25 INR 1.07 (0.87-1.13) 01/01/18 02:25 D-Dimer 2358.22 ng/mlDDU (0-234) H 01/01/18 03:31 Abnormal lab findings: Abnormal Labs 01/01/18 01/01/18 01/01/18 02:25 02:25 02:25 WBC 21.6 H RBC Hgb 10.3 L Hct 32.7 L MCV 83 L MCH 26 L MCHC RDW 18.0 H Seg Neuts % (Manual) 87.5 H Lymphocytes % (Manual) 7.5 L Seg Neutrophils # Man 18.9 H Lymphocytes # (Manual) D-Dimer POC ABG pH POC ABG pCO2 POC ABG pO2 Sodium 135 L Carbon Dioxide 21 L Creatinine 0.6 L Glucose 103 H Lactic Acid Calcium 8.3 L C-Reactive Protein NT-Pro-B Natriuret Pep 1069 H Total Protein Albumin 01/01/18 01/01/18 01/01/18 02:36 03:17 03:31 WBC RBC Hgb Hct MCV MCH MCHC RDW Seg Neuts % (Manual) Lymphocytes % (Manual) Seg Neutrophils # Man Lymphocytes # (Manual) D-Dimer 2358.22 H POC ABG pH 7.474 H POC ABG pCO2 33.2 L POC ABG pO2 73 L Sodium Carbon Dioxide Creatinine Glucose Lactic Acid 3.60 H* Calcium C-Reactive Protein NT-Pro-B Natriuret Pep Total Protein Albumin 01/01/18 01/02/18 01/02/18 14:01 03:44 03:44 WBC RBC 3.14 L Hgb 8.4 L Hct 25.9 L D MCV 82 L MCH 27 L MCHC RDW 17.4 H Seg Neuts % (Manual) 91.0 H Lymphocytes % (Manual) 6.0 L Seg Neutrophils # Man 10.0 H Lymphocytes # (Manual) 0.7 L D-Dimer POC ABG pH POC ABG pCO2 POC ABG pO2 Sodium Carbon Dioxide Creatinine 0.5 L Glucose 137 H Lactic Acid Calcium 7.5 L C-Reactive Protein 20.70 H NT-Pro-B Natriuret Pep Total Protein 5.5 L Albumin 1.7 L 01/04/18 01/05/18 01/05/18 10:03 05:35 05:35 WBC 15.9 H RBC Hgb 9.7 L Hct 31.2 L MCV 82 L MCH 25 L MCHC 31 L RDW 17.8 H Seg Neuts % (Manual) 83.0 H Lymphocytes % (Manual) 4.0 L Seg Neutrophils # Man 13.2 H Lymphocytes # (Manual) 0.6 L D-Dimer POC ABG pH POC ABG pCO2 POC ABG pO2 Sodium 134 L Carbon Dioxide 19 L 31 H D Creatinine 0.5 L 0.5 L Glucose 111 H 134 H Lactic Acid Calcium 8.3 L C-Reactive Protein NT-Pro-B Natriuret Pep Total Protein Albumin 01/05/18 19:56 WBC RBC Hgb Hct MCV MCH MCHC RDW Seg Neuts % (Manual) Lymphocytes % (Manual) Seg Neutrophils # Man Lymphocytes # (Manual) D-Dimer POC ABG pH POC ABG pCO2 POC ABG pO2 Sodium Carbon Dioxide Creatinine Glucose Lactic Acid Calcium C-Reactive Protein 2.40 H NT-Pro-B Natriuret Pep Total Protein Albumin Chest x-ray: image reviewed (bibasilar predominant fibrosis) Allied health notes reviewed: nursing
--- NOTE | 2018-01-06 15:48 | Progress Note ---
Assessment and Plan Assessment: 1) Sepsis: not better. Etiology most likely pneumonia. CRP=2.4 2) Acute on chronic respiratory failure: worsening 3) Bilateral multifocal pneumonia/bronchiectasis: Likely necrotizing pneumonia due to a Staph. Doubt TB, however will rule it out in view of history of latent TB. -Sputum + Staph -CTA showed multifocal bilateral consolidation with a small right pleural effusion. Also demonstrated severe centri-lobular emphysema and enlargement mediastinum, numerous large subpleural blebs and extensive bronchiectasis. 4) History for COPD on home oxygen 5) Hep C 6) history of treated latetnt TB in 2000 Plan: -follow-up blood cultures and respiratory cultures -contact isolation until MRSA is r/o -airborne isolation until TB is r/o -Quantiferon TB gold STAT - pending -HIV test - pending -AFB in sputum x 3 - pending -Continue vancomycin and Zosyn for now -close monitoring - may need to be transferred to ICU Thank you for your consultation, will follow up with you. Viak Rice MD Infectious Diseases Specialist [facility] M [phone] O [phone] Subjective Date of service: 01/06/18 Principal diagnosis: Acute hypoxic respiratory failure, health care associated pneumonia, sepsis Interval history: C/o worsening SOB, on NR mask 100%, No fever. Microbiology: Blood cultures: 01/01 ngtd Respiratory cultures: 01/01 Staph Current Antimicrobials: Vancomycin 01/01 Zosyn 01/01 Previous Antimicrobials: Objective - Exam Narrative Exam: General appearance: Alert in moderate respiratory distress anxious on NRM Eyes: anicteric sclerae, moist conjunctivae; no lid-lag; PERRLA HENT: Atraumatic; oropharynx clear. Neck: Trachea midline; supple, no thyromegaly or lymphadenopathy Lungs: distant BS with scattered crackles CV: tachycardic Abdomen: Soft, non-tender. Extremities: No peripheral edema or extremity lymphadenopathy Skin: Normal temperature, turgor and texture; no rash, ulcers or subcutaneous nodules Psych: Appropriate affect, alert and oriented to person, place and time. Neuro: alert and oriented x 3. Moving all extermities Lines: No CVL / PICC - Constitutional Vitals: Vital Signs Temp Pulse Resp BP Pulse Ox 98.5 F 88 20 143/84 89 01/06/18 07:35 01/06/18 11:16 01/06/18 07:35 01/06/18 11:16 01/06/18 07:35 Temperature -Last 24 Hours Temperature 98.5 F Temperature 98.1 F Temperature 98.3 F Temperature 98.2 F Temperature 97.8 F - Labs CBC & Chem 7: 01/05/18 05:35 01/05/18 05:35 Labs: Abnormal lab results 01/05/18 Range/Units 19:56 C-Reactive Protein 2.40 H (0.00-1.30) mg/dL
[2018-01-06] MEDS: FLAGYL PO SCH ×2 (17:15→23:03)
[2018-01-06] MEDS ORDERED: ATIVAN ONE (19:53)
[2018-01-06] MEDS ORDERED: ATIVAN IV PRN (19:54)
[2018-01-06] MEDS ORDERED: HALDOL IM STA (20:50)
[2018-01-06] MEDS ORDERED: DUONEB *Not for PRN Use IH (21:16)
--- NOTE | 2018-01-06 21:23 | Emergency Department Report ---
HPI - General Chief Complaint: Dyspnea/Respdistress Time Seen by Provider: 01/01/18 02:12 - HPI HPI: I was asked by hospitalist Dr. Arroyo to intubate patient. I evaluated Mr. Carlos. He was in severe respiratory distress with profound hypoxia. 54% on room air. Procedure note endotracheal intubation Consent unnecessary due to emergent conditions. However patient did consent to intubation. I used a Errol 4-0 blade. I passed 7.5 ETT through the vocal cords under direct visualization. Positive color change. Oxygenation did improve. Equal breath sounds auscultated. ED Past Medical Hx - Past Medical History Previous Medical History?: Yes Hx Congestive Heart Failure: No Hx Diabetes: No Hx Liver Disease: Yes (Hepatitis C) Hx Asthma: No Hx COPD: Yes Hx Tuberculosis: Yes (x 3) Hx HIV: No - Social History Smoking Status: Former Smoker ED Review of Systems ROS: Stated complaint: BERNADETTE Other details as noted in HPI Constitutional: denies: chills, fever Eyes: denies: eye pain, eye discharge, vision change Respiratory: cough, shortness of breath, SOB with exertion, SOB at rest, wheezing Cardiovascular: denies: chest pain, edema Gastrointestinal: denies: abdominal pain, nausea, diarrhea Genitourinary: denies: urgency, dysuria Musculoskeletal: denies: back pain, joint swelling, arthralgia Skin: denies: rash, lesions Neurological: denies: headache, weakness, paresthesias Physical Exam - Physical Exam Vital Signs: Vital Signs 01/01/18 01/01/18 01/01/18 01:52 02:00 02:16 Temperature Pulse Rate 127 H 117 H Respiratory 26 H 24 Rate Blood Pressure 153/98 153/98 Blood Pressure [Right] O2 Sat by Pulse 79 L 91 99 Oximetry 01/01/18 01/01/18 01/01/18 02:20 02:37 02:45 Temperature Pulse Rate 110 H 98 H 108 H Respiratory 34 H 26 H 21 Rate Blood Pressure 132/88 107/70 Blood Pressure [Right] O2 Sat by Pulse 99 99 99 Oximetry 01/01/18 01/01/18 01/01/18 03:00 03:07 03:15 Temperature Pulse Rate 110 H 107 H Respiratory 36 H 24 24 Rate Blood Pressure 116/66 108/73 Blood Pressure [Right] O2 Sat by Pulse 97 100 Oximetry 01/01/18 01/01/18 01/01/18 03:31 03:45 04:00 Temperature Pulse Rate 108 H 105 H 105 H Respiratory 32 H 27 H 32 H Rate Blood Pressure 101/67 107/74 112/77 Blood Pressure [Right] O2 Sat by Pulse 96 99 94 Oximetry 01/01/18 01/01/18 01/01/18 04:15 04:30 04:45 Temperature Pulse Rate 97 H 92 H 89 Respiratory 28 H 23 21 Rate Blood Pressure 116/83 122/82 128/91 Blood Pressure [Right] O2 Sat by Pulse 100 99 98 Oximetry 01/01/18 01/01/18 01/01/18 05:00 05:15 05:52 Temperature Pulse Rate 87 96 H Respiratory 27 H 32 H Rate Blood Pressure 128/91 144/102 144/102 Blood Pressure [Right] O2 Sat by Pulse 100 99 97 Oximetry 01/01/18 01/01/18 01/01/18 06:00 06:15 06:31 Temperature Pulse Rate 94 H 92 H 88 Respiratory 33 H 28 H 25 H Rate Blood Pressure 118/77 130/96 130/96 Blood Pressure [Right] O2 Sat by Pulse 92 94 99 Oximetry 01/01/18 01/01/18 01/01/18 06:45 07:01 07:11 Temperature Pulse Rate 114 H 93 H 89 Respiratory 39 H 27 H 27 H Rate Blood Pressure 130/96 130/96 130/96 Blood Pressure [Right] O2 Sat by Pulse 72 L 93 97 Oximetry 01/01/18 01/01/18 01/01/18 07:21 07:30 07:31 Temperature 97.7 F Pulse Rate 90 85 91 H Respiratory 29 H 26 H 20 Rate Blood Pressure 130/96 125/93 Blood Pressure 134/91 [Right] O2 Sat by Pulse 98 97 97 Oximetry 01/01/18 01/01/18 01/01/18 07:40 07:52 08:01 Temperature Pulse Rate 84 86 102 H Respiratory 23 22 Rate Blood Pressure 125/93 Blood Pressure [Right] O2 Sat by Pulse 98 83 L Oximetry ED Course Vital Signs 01/01/18 01/01/18 01/01/18 01:52 02:00 02:16 Temperature Pulse Rate 127 H 117 H Respiratory 26 H 24 Rate Blood Pressure 153/98 153/98 Blood Pressure [Right] O2 Sat by Pulse 79 L 91 99 Oximetry 01/01/18 01/01/18 01/01/18 02:20 02:37 02:45 Temperature Pulse Rate 110 H 98 H 108 H Respiratory 34 H 26 H 21 Rate Blood Pressure 132/88 107/70 Blood Pressure [Right] O2 Sat by Pulse 99 99 99 Oximetry 01/01/18 01/01/18 01/01/18 03:00 03:07 03:15 Temperature Pulse Rate 110 H 107 H Respiratory 36 H 24 24 Rate Blood Pressure 116/66 108/73 Blood Pressure [Right] O2 Sat by Pulse 97 100 Oximetry 01/01/18 01/01/18 01/01/18 03:31 03:45 04:00 Temperature Pulse Rate 108 H 105 H 105 H Respiratory 32 H 27 H 32 H Rate Blood Pressure 101/67 107/74 112/77 Blood Pressure [Right] O2 Sat by Pulse 96 99 94 Oximetry 01/01/18 01/01/18 01/01/18 04:15 04:30 04:45 Temperature Pulse Rate 97 H 92 H 89 Respiratory 28 H 23 21 Rate Blood Pressure 116/83 122/82 128/91 Blood Pressure [Right] O2 Sat by Pulse 100 99 98 Oximetry 01/01/18 01/01/18 01/01/18 05:00 05:15 05:52 Temperature Pulse Rate 87 96 H Respiratory 27 H 32 H Rate Blood Pressure 128/91 144/102 144/102 Blood Pressure [Right] O2 Sat by Pulse 100 99 97 Oximetry 01/01/18 01/01/18 01/01/18 06:00 06:15 06:31 Temperature Pulse Rate 94 H 92 H 88 Respiratory 33 H 28 H 25 H Rate Blood Pressure 118/77 130/96 130/96 Blood Pressure [Right] O2 Sat by Pulse 92 94 99 Oximetry 01/01/18 01/01/18 01/01/18 06:45 07:01 07:11 Temperature Pulse Rate 114 H 93 H 89 Respiratory 39 H 27 H 27 H Rate Blood Pressure 130/96 130/96 130/96 Blood Pressure [Right] O2 Sat by Pulse 72 L 93 97 Oximetry 01/01/18 01/01/18 01/01/18 07:21 07:30 07:31 Temperature 97.7 F Pulse Rate 90 85 91 H Respiratory 29 H 26 H 20 Rate Blood Pressure 130/96 125/93 Blood Pressure 134/91 [Right] O2 Sat by Pulse 98 97 97 Oximetry 01/01/18 01/01/18 01/01/18 07:40 07:52 08:01 Temperature Pulse Rate 84 86 102 H Respiratory 23 22 Rate Blood Pressure 125/93 Blood Pressure [Right] O2 Sat by Pulse 98 83 L Oximetry ED Medical Decision Making - Lab Data Result diagrams: 01/05/18 05:35 01/05/18 05:35 Critical care attestation.: If time is entered above; I have spent that time in minutes in the direct care of this critically ill patient, excluding procedure time. ED Disposition Clinical Impression: Acute respiratory failure with hypoxia Disposition: OP ADMIT IP TO THIS HOSP Is pt being admited?: Yes Does the pt Need Aspirin: No Condition: Serious
--- NOTE | 2018-01-06 21:36 | Event Note ---
Date: 01/06/18 Code met was called at 2030 hrs Patient very tachypneic and Hypoxic. Dx Acute resp failure Intubaated under supervision of Dr Taylor Patient to be transferred to CCU Duonebs q3 prn ordered IV Solumedrol 125 one dose given
--- NOTE | 2018-01-06 21:59 | XRay Report ---
FINAL REPORT PROCEDURE: XR CHEST 1V AP TECHNIQUE: Chest radiograph anteroposterior view. CPT 82971 HISTORY: intubation COMPARISON: 01/01/2018 FINDINGS: Heart: Normal. Mediastinum/Vessels: Normal. Lungs/Pleural space: Extensive pneumonia involving bilateral lungs are identified predominantly mid and lower portions. Left lung involvement appears to have increased in the interval. Emphysematous changes are noted with bullous formation involving predominantly bilateral upper lobes.. There are no obvious pleural effusions. Bony thorax: No acute osseous abnormality. Life support devices: An endotracheal tube is identified terminating about 5.7 centimeters above the clement.. IMPRESSION: Extensive bilateral pneumonia. Interval increase in left lung consolidation Endotracheal tube is terminating about 5.7 centimeters above the clement..
[2018-01-06] MEDS: DIPRIVAN 10 MG/ML 1,000 MG/100 ML BOTTLE IV SCH (22:10)
[2018-01-06] MEDS ORDERED: ARTIFICIAL TEARS OPHTH OINT OU PRN (22:24)
[2018-01-06] MEDS ORDERED: VASELINE LIP THERAPY TP PRN (22:24)
--- NOTE | 2018-01-06 22:50 | Progress Note ---
Assessment and Plan Assessment and plan: Acute on chronic hypoxic respiratory failure - from COPD exacerbation and bilateral pneumonia - on IV vancomycin, Zosyn, DuoNeb's, Solu-Medrol, nebulizer - Railroad Signal And Switch Operator following, now off BiPAP, now on 70% Fio2 but on high flow oxygen - Placed on Isolation Severe COPD with exacerbation - Will provide scheduled nebulizers and breathing treatment - Placed on empiric steroid and antibiotic - will follow sputum culture, chest x-ray/CTA chest showed bilateral infiltrates - Continue to support respiratory effort with BiPAP - We'll cont on sliding scale of insulin as patient will be on empiric steroid Bilateral pneumonia, recent treatment with antibiotics - Continue empiric antibiotics for now, follow culture - POSSIBLE NARCOTIZING PNA, r/o TB - Culture growing staff Aurus possible MRSA- Start contact isolation Sepsis, due to bilateral pneumonia - Continue abx, trend lactate Lactic acidosis, due to sepsis - IV fluid, treat underlying cause Sepsis - Continue abx Severe-Moderate Protien calorie Malnutrition - Senior Project Engineer consult History of GERD - pantoprazole for GERD History of hepatitis C - normal LFT Hx of latent TB in 2000 DVT prophylaxis - Heparin The high probability of a clinically significant, sudden or life threatening deterioration of the [pulmonary] system(s) required my full and direct attention , intervention and personal management. The aggregate critical care time was [35 ] minutes. This time is in addition to time spent performing reported procedures but includes the following: [x] Data Review and interpretation [x] Patient assessment and monitoring of vital signs [x] Documentation [x] Medication orders and management History Interval history: Patient seen and examined, this morning, still in moderate respiratory distress. Now on NRB. very upset about not having his diarrhea treated. also asking for anxiety meds Hospitalist Physical - Physical exam Narrative exam: GENERAL: Cachetic and thin white male lying on bed appeared to be in moderate discomfort. HEENT: Normocephalic. Atraumatic. No conjunctival congestion or icterus. Patient with BiPAP mask NECK: Supple. Trachea midline. CHEST/LUNGS: Diminished breath sound auscultated bilaterally with rhonchi, increased wob. HEART/CARDIOVASCULAR: Regular in rate and rhythm. S1 and S2 positive. ABDOMEN: Abdomen is soft, nontender. Patient has normal bowel sounds. SKIN: Warm and dry. NEURO: No focal motor deficit. Follows command. MUSCULOSKELETAL: No joint effusion or tenderness. EXTRIMITY: No edema, no cyanosis or clubbing. PSYCH: Cooperative. - Constitutional Vitals: Temp Pulse Resp BP Pulse Ox 98.3 F 108 H 18 158/97 87 01/06/18 19:43 01/06/18 19:43 01/06/18 19:43 01/06/18 19:43 01/06/18 20:00 General appearance: Present: mild distress Results - Labs CBC & Chem 7: 01/05/18 05:35 01/07/18 03:43 Labs: Laboratory Last Values WBC 15.9 K/mm3 (4.5-11.0) H 01/05/18 05:35 RBC 3.80 M/mm3 (3.65-5.03) 01/05/18 05:35 Hgb 9.7 gm/dl (11.8-15.2) L 01/05/18 05:35 Hct 31.2 % (35.5-45.6) L 01/05/18 05:35 MCV 82 fl (84-94) L 01/05/18 05:35 MCH 25 pg (28-32) L 01/05/18 05:35 MCHC 31 % (32-34) L 01/05/18 05:35 RDW 17.8 % (13.2-15.2) H 01/05/18 05:35 Plt Count 287 K/mm3 (140-440) 01/05/18 05:35 Lymph % (Auto) TNR 01/04/18 17:16 [place] % (Auto) TNR 01/04/18 17:16 Eos % (Auto) TNR 01/04/18 17:16 Baso % (Auto) TNR 01/04/18 17:16 Lymph # TNR 01/04/18 17:16 [place] # TNR 01/04/18 17:16 Eos # TNR 01/04/18 17:16 Baso # TNR 01/04/18 17:16 Add Manual Diff Complete 01/05/18 05:35 Total Counted 100 01/05/18 05:35 Seg Neutrophils % House Furnishings Supervisor 01/05/18 05:35 Seg Neuts % (Manual) 83.0 % (40.0-70.0) H 01/05/18 05:35 Band Neutrophils % 9.0 % 01/05/18 05:35 Lymphocytes % (Manual) 4.0 % (13.4-35.0) L 01/05/18 05:35 Reactive Lymphs % (Man) 0 % 01/05/18 05:35 Monocytes % (Manual) 4.0 % (0.0-7.3) 01/05/18 05:35 Eosinophils % (Manual) 0 % (0.0-4.3) 01/05/18 05:35 Basophils % (Manual) 0 % (0.0-1.8) 01/05/18 05:35 Metamyelocytes % 0 % 01/05/18 05:35 Myelocytes % 0 % 01/05/18 05:35 Promyelocytes % 0 % 01/05/18 05:35 Blast Cells % 0 % 01/05/18 05:35 Nucleated RBC % Not Reportable 01/05/18 05:35 Seg Neutrophils # TNR 01/04/18 17:16 Seg Neutrophils # Man 13.2 K/mm3 (1.8-7.7) H 01/05/18 05:35 Band Neutrophils # 1.4 K/mm3 01/05/18 05:35 Lymphocytes # (Manual) 0.6 K/mm3 (1.2-5.4) L 01/05/18 05:35 Abs React Lymphs (Man) 0.0 K/mm3 01/05/18 05:35 Monocytes # (Manual) 0.6 K/mm3 (0.0-0.8) 01/05/18 05:35 Eosinophils # (Manual) 0.0 K/mm3 (0.0-0.4) 01/05/18 05:35 Basophils # (Manual) 0.0 K/mm3 (0.0-0.1) 01/05/18 05:35 Metamyelocytes # 0.0 K/mm3 01/05/18 05:35 Myelocytes # 0.0 K/mm3 01/05/18 05:35 Promyelocytes # 0.0 K/mm3 01/05/18 05:35 Blast Cells # 0.0 K/mm3 01/05/18 05:35 WBC Morphology Not Reportable 01/05/18 05:35 Hypersegmented Neuts Not Reportable 01/05/18 05:35 Hyposegmented Neuts Not Reportable 01/05/18 05:35 Hypogranular Neuts Not Reportable 01/05/18 05:35 Smudge Cells Not Reportable 01/05/18 05:35 Toxic Granulation Not Reportable 01/05/18 05:35 Toxic Vacuolation Not Reportable 01/05/18 05:35 Dohle Bodies Not Reportable 01/05/18 05:35 Pelger-Huet Anomaly Not Reportable 01/05/18 05:35 Salazar Rods Not Reportable 01/05/18 05:35 Platelet Estimate Appears normal 01/05/18 05:35 Clumped Platelets Not Reportable 01/05/18 05:35 Plt Clumps, EDTA Not Reportable 01/05/18 05:35 Large Platelets Not Reportable 01/05/18 05:35 Giant Platelets Not Reportable 01/05/18 05:35 Platelet Satelliting Not Reportable 01/05/18 05:35 Plt Morphology Comment Not Reportable 01/05/18 05:35 RBC Morphology Not Reportable 01/05/18 05:35 Dimorphic RBCs Not Reportable 01/05/18 05:35 Polychromasia Not Reportable 01/05/18 05:35 Hypochromasia 1+ 01/05/18 05:35 Poikilocytosis Not Reportable 01/05/18 05:35 Anisocytosis 1+ 01/05/18 05:35 Microcytosis Not Reportable 01/05/18 05:35 Macrocytosis Not Reportable 01/05/18 05:35 Spherocytes Not Reportable 01/05/18 05:35 Pappenheimer Bodies Not Reportable 01/05/18 05:35 Sickle Cells Not Reportable 01/05/18 05:35 Target Cells Not Reportable 01/05/18 05:35 Tear Drop Cells Not Reportable 01/05/18 05:35 Ovalocytes Not Reportable 01/05/18 05:35 Helmet Cells Not Reportable 01/05/18 05:35 [place] Bodies Not Reportable 01/05/18 05:35 [place] Rings Not Reportable 01/05/18 05:35 [place] Cells Not Reportable 01/05/18 05:35 Bite Cells Not Reportable 01/05/18 05:35 Crenated Cell Not Reportable 01/05/18 05:35 Elliptocytes Not Reportable 01/05/18 05:35 Acanthocytes (Spur) Not Reportable 01/05/18 05:35 Rouleaux Not Reportable 01/05/18 05:35 Hemoglobin C Crystals Not Reportable 01/05/18 05:35 Schistocytes Not Reportable 01/05/18 05:35 Malaria parasites Not Reportable 01/05/18 05:35 [place] Bodies Not Reportable 01/05/18 05:35 Hem Pathologist Commnt No 01/05/18 05:35 PT 14.5 Sec. (12.2-14.9) 01/01/18 02:25 INR 1.07 (0.87-1.13) 01/01/18 02:25 APTT 29.7 Sec. (24.2-36.6) 01/01/18 02:25 D-Dimer 2358.22 ng/mlDDU (0-234) H 01/01/18 03:31 POC ABG pH 7.474 (7.35-7.45) H 01/01/18 03:17 POC ABG pCO2 33.2 (35-45) L 01/01/18 03:17 POC ABG pO2 73 (80-105) L 01/01/18 03:17 POC ABG HCO3 24.3 01/01/18 03:17 POC ABG Total CO2 25 01/01/18 03:17 POC ABG O2 Sat 96 01/01/18 03:17 POC ABG Base Excess 1 01/01/18 03:17 FiO2 75 % 01/01/18 03:17 Sodium 140 mmol/L (137-145) 01/05/18 05:35 Potassium 3.8 mmol/L (3.6-5.0) 01/05/18 05:35 Chloride 98.9 mmol/L (98-107) 01/05/18 05:35 Carbon Dioxide 31 mmol/L (22-30) H D 01/05/18 05:35 Anion Gap 14 mmol/L 01/05/18 05:35 BUN 20 mg/dL (9-20) 01/05/18 05:35 Creatinine 0.5 mg/dL (0.8-1.5) L 01/05/18 05:35 Estimated GFR > 60 ml/min 01/05/18 05:35 BUN/Creatinine Ratio 40 % 01/05/18 05:35 Glucose 134 mg/dL (75-100) H 01/05/18 05:35 Lactic Acid 1.80 mmol/L (0.7-2.0) 01/01/18 06:43 Calcium 8.5 mg/dL (8.4-10.2) 01/05/18 05:35 Magnesium 2.20 mg/dL (1.7-2.3) 01/01/18 02:25 Total Bilirubin 0.30 mg/dL (0.1-1.2) 01/02/18 03:44 AST 17 units/L (5-40) 01/02/18 03:44 ALT 10 units/L (7-56) 01/02/18 03:44 Alkaline Phosphatase 110 units/L (35-129) 01/02/18 03:44 Troponin T < 0.010 ng/mL (0.00-0.029) 01/01/18 02:25 C-Reactive Protein 2.40 mg/dL (0.00-1.30) H 01/05/18 19:56 NT-Pro-B Natriuret Pep 1069 pg/mL (0-900) H 01/01/18 02:25 Total Protein 5.5 g/dL (6.3-8.2) L 01/02/18 03:44 Albumin 1.7 g/dL (3.9-5) L 01/02/18 03:44 Albumin/Globulin Ratio 0.4 % 01/02/18 03:44 Urine Color Yellow (Yellow) 01/01/18 Unknown Urine Turbidity Clear (Clear) 01/01/18 Unknown Urine pH 7.0 (5.0-7.0) 01/01/18 Unknown Ur Specific [place] 1.013 (1.003-1.030) 01/01/18 Unknown Urine Protein <15 mg/dl mg/dL (Negative) 01/01/18 Unknown Urine Glucose (UA) Neg mg/dL (Negative) 01/01/18 Unknown Urine Ketones Neg mg/dL (Negative) 01/01/18 Unknown Urine Blood Neg (Negative) 01/01/18 Unknown Urine Nitrite Neg (Negative) 01/01/18 Unknown Urine Bilirubin Neg (Negative) 01/01/18 Unknown Urine Urobilinogen 4.0 mg/dL (<2.0) 01/01/18 Unknown Ur Leukocyte Esterase Neg (Negative) 01/01/18 Unknown Urine WBC (Auto) 4.0 /HPF (0.0-6.0) 01/01/18 Unknown Urine RBC (Auto) 2.0 /HPF (0.0-6.0) 01/01/18 Unknown Urine Mucus Few /HPF 01/01/18 Unknown Vancomycin Trough 12.0 ug/mL (5.0-20.0) 01/03/18 19:01
[2018-01-06] MEDS: fentaNYL DRIP Premix 2,000 MCG/100 ML BAG IV SCH (23:02)
[2018-01-07 01:26] LABS: Creatine Kinase MB 3.7 ng/mL (0.0-4.0)
[2018-01-07] MEDS: PROVENTIL IH PRN (01:36)
--- NOTE | 2018-01-07 03:06 | XRay Report ---
FINAL REPORT EXAM: XR CHEST 1V AP HISTORY: follow up respiratory failure TECHNIQUE: A portable semi-erect view the chest was obtained and compared to the study 01/06/2018. FINDINGS: There is stable extensive airspace disease in both lungs with slight sparing of the left apex. The heart size is normal. Underlying congestion cannot be excluded. There are bullous changes in the right upper lobe. The tip of the ET tube is in good position above the clement there are EKG leads overlying the chest wall. The bones soft tissues are unchanged IMPRESSION: Emphysema with bullous changes in the right upper lobe. Stable bilateral pneumonic infiltrates. Underlying congestion cannot be excluded.
[2018-01-07 04:44] LABS: BUN/Creatinine Ratio 60; Blood Urea Nitrogen 24 mg/dL (9-20); Calcium 7.6 mg/dL (8.4-10.2); Hemolysis Index 48
[2018-01-07] MEDS: HEPARIN SUB-Q SCH ×3 (05:54→23:18)
[2018-01-07] MEDS: DIPRIVAN 10 MG/ML 1,000 MG/100 ML BOTTLE IV SCH ×3 (05:55→20:35)
[2018-01-07] MEDS: ZOSYN/NS 4.5GM/100ML 4.5 GM/100 ML VIAL IV SCH ×3 (05:56→23:23)
[2018-01-07] MEDS ORDERED: KCL 40 MEQ in NACL 0.9% 500 ML 500 ML IV SCH (08:00)
[2018-01-07] MEDS: DUONEB *Not for PRN Use IH SCH ×4 (08:02→21:53)
[2018-01-07] MEDS: BROVANA NEBU IH SCH ×2 (08:02→21:53)
[2018-01-07] MEDS: PULMICORT IH SCH ×2 (08:02→21:52)
[2018-01-07] MEDS: VANCOMYCIN/0.45 NS 1 GM/250 ML 1 GM/250 ML BAG IV SCH ×3 (08:07→21:10)
[2018-01-07] MEDS: SODIUM CHLORIDE FLUSH SYRINGE 10 ML IV SCH ×3 (08:08→23:55)
[2018-01-07] MEDS: FLAGYL PO SCH ×3 (08:08→23:42)
[2018-01-07] MEDS: fentaNYL DRIP Premix 2,000 MCG/100 ML BAG IV SCH ×2 (08:31→23:19)
[2018-01-07 08:55] LABS: Hematocrit 28.5 % (35.5-45.6); Hemoglobin 8.9 gm/dl (11.8-15.2); Mean Corpuscular HGB Conc 31 % (32-34); Mean Corpuscular Volume 82 fl (84-94); Platelet Count 197 K/mm3 (140-440); Red Blood Count 3.48 M/mm3 (3.65-5.03); Red Cell Distribution Width 18.6 % (13.2-15.2)
[2018-01-07 08:59] LABS: Mean Corpuscular Hemoglobin 26 pg (28-32)
[2018-01-07 09:11] LABS: Creatine Kinase MB 4.8 ng/mL (0.0-4.0)
--- NOTE | 2018-01-07 09:26 | Progress Note ---
Assessment and Plan Assessment and plan: 62-year-old man with past medical history significant for COPD on home oxygen, asthma, hep C emphysema presented to the emergency department he couldn't breathe since last night. Patient called EMS yesterday and his saturation was in the 70s but patient refused to come to the hospital. Patient is complaining on and off fever, cough productive of clear sputum. At presentation patient was saturating in the 50s and 60s, patient was put on BiPAP and currently he is saturating in the low 90s. Patient had right-sided pneumonia recently and was given by mouth antibiotics. Chest x-ray in the hospital showed right-sided infiltrates unchanged from previous one and new left -sided infiltrates. WBC count was 21,000, lactic acid level was 3.6, d-dimer was 2356, CTA was done and result is pending. Patient needs to be admitted to ICU. He was initially admitted to the intensive care unit and subsequently transferred to the medical floor but unfortunately did not improve and transferred back to the ICU on mechanical ventilation Acute on chronic hypoxic respiratory failure - Bilateral mechanical ventilation. Management per occasional babysitter - From COPD exacerbation and bilateral pneumonia - on IV vancomycin, Zosyn, DuoNeb's, Solu-Medrol, nebulizer - Zoning Administrator following the anxious side - Placed on Isolation Severe COPD with exacerbation - Will provide scheduled nebulizers and breathing treatment - Placed on empiric steroid and antibiotic - will follow sputum culture, chest x-ray/CTA chest showed bilateral infiltrates - Continue to support respiratory effort - We'll cont on sliding scale of insulin as patient will be on empiric steroid Bilateral pneumonia, recent treatment with antibiotics - Continue empiric antibiotics for now, follow culture - POSSIBLE NARCOTIZING PNA, r/o TB - Culture growing staff Aurus possible MRSA- contact isolation Sepsis, due to bilateral pneumonia - Continue abx, trend lactate\ - Rule out tuberculosis, AFB 3 pending, reported to firm goat pending. -Contact isolation for MRSA sputum growing staph aureus awaiting final. Lactic acidosis, due to sepsis - IV fluid, treat underlying cause Sepsis - Continue abx Severe-Moderate Protien calorie Malnutrition - Legislative Aide consult History of GERD - pantoprazole for GERD History of hepatitis C - normal LFT Hx of latent TB in 2000 DVT prophylaxis - Heparin The high probability of a clinically significant, sudden or life threatening deterioration of the [pulmonary] system(s) required my full and direct attention , intervention and personal management. The aggregate critical care time was [35 ] minutes. This time is in addition to time spent performing reported procedures but includes the following: [x] Data Review and interpretation [x] Patient assessment and monitoring of vital signs [x] Documentation [x] Medication orders and management History Interval history: Patient seen and examined, currently on mechanical ventilation following worsening respiratory distress yesterday. Hospitalist Physical - Physical exam Narrative exam: GENERAL: Cachetic on mechanical ventilation HEENT: Normocephalic. Atraumatic. No conjunctival congestion or icterus. NECK: Supple. Trachea midline. CHEST/LUNGS: ETT HEART/CARDIOVASCULAR: Regular in rate and rhythm. S1 and S2 positive. ABDOMEN: Abdomen is soft, nontender. Patient has normal bowel sounds. SKIN: Warm and dry. NEURO: sedated MUSCULOSKELETAL: No joint effusion or tenderness. EXTRIMITY: No edema, no cyanosis or clubbing. PSYCH: SEDATED - Constitutional Vitals: Temp Pulse Resp BP Pulse Ox 97.5 F L 79 18 91/58 93 01/07/18 08:27 01/07/18 08:02 01/07/18 08:02 01/07/18 08:00 01/07/18 08:00 General appearance: Present: mild distress Results - Labs CBC & Chem 7: 01/08/18 08:33 01/07/18 03:43 Labs: Laboratory Last Values WBC 14.8 K/mm3 (4.5-11.0) H 01/07/18 08:40 RBC 3.48 M/mm3 (3.65-5.03) L 01/07/18 08:40 Hgb 8.9 gm/dl (11.8-15.2) L 01/07/18 08:40 Hct 28.5 % (35.5-45.6) L 01/07/18 08:40 MCV 82 fl (84-94) L 01/07/18 08:40 MCH 26 pg (28-32) L 01/07/18 08:40 MCHC 31 % (32-34) L 01/07/18 08:40 RDW 18.6 % (13.2-15.2) H 01/07/18 08:40 Plt Count 197 K/mm3 (140-440) 01/07/18 08:40 Lymph % (Auto) TNR 01/04/18 17:16 Bell % (Auto) TNR 01/04/18 17:16 Eos % (Auto) TNR 01/04/18 17:16 Baso % (Auto) TNR 01/04/18 17:16 Lymph # TNR 01/04/18 17:16 Bell # TNR 01/04/18 17:16 Eos # TNR 01/04/18 17:16 Baso # TNR 01/04/18 17:16 Add Manual Diff Complete 01/05/18 05:35 Total Counted 100 01/05/18 05:35 Seg Neutrophils % Evp Managing Director 01/07/18 08:40 Seg Neuts % (Manual) 83.0 % (40.0-70.0) H 01/05/18 05:35 Band Neutrophils % 9.0 % 01/05/18 05:35 Lymphocytes % (Manual) 4.0 % (13.4-35.0) L 01/05/18 05:35 Reactive Lymphs % (Man) 0 % 01/05/18 05:35 Monocytes % (Manual) 4.0 % (0.0-7.3) 01/05/18 05:35 Eosinophils % (Manual) 0 % (0.0-4.3) 01/05/18 05:35 Basophils % (Manual) 0 % (0.0-1.8) 01/05/18 05:35 Metamyelocytes % 0 % 01/05/18 05:35 Myelocytes % 0 % 01/05/18 05:35 Promyelocytes % 0 % 01/05/18 05:35 Blast Cells % 0 % 01/05/18 05:35 Nucleated RBC % Not Reportable 01/05/18 05:35 Seg Neutrophils # TNR 01/04/18 17:16 Seg Neutrophils # Man 13.2 K/mm3 (1.8-7.7) H 01/05/18 05:35 Band Neutrophils # 1.4 K/mm3 01/05/18 05:35 Lymphocytes # (Manual) 0.6 K/mm3 (1.2-5.4) L 01/05/18 05:35 Abs React Lymphs (Man) 0.0 K/mm3 01/05/18 05:35 Monocytes # (Manual) 0.6 K/mm3 (0.0-0.8) 01/05/18 05:35 Eosinophils # (Manual) 0.0 K/mm3 (0.0-0.4) 01/05/18 05:35 Basophils # (Manual) 0.0 K/mm3 (0.0-0.1) 01/05/18 05:35 Metamyelocytes # 0.0 K/mm3 01/05/18 05:35 Myelocytes # 0.0 K/mm3 01/05/18 05:35 Promyelocytes # 0.0 K/mm3 01/05/18 05:35 Blast Cells # 0.0 K/mm3 01/05/18 05:35 WBC Morphology Not Reportable 01/05/18 05:35 Hypersegmented Neuts Not Reportable 01/05/18 05:35 Hyposegmented Neuts Not Reportable 01/05/18 05:35 Hypogranular Neuts Not Reportable 01/05/18 05:35 Smudge Cells Not Reportable 01/05/18 05:35 Toxic Granulation Not Reportable 01/05/18 05:35 Toxic Vacuolation Not Reportable 01/05/18 05:35 Dohle Bodies Not Reportable 01/05/18 05:35 Pelger-Huet Anomaly Not Reportable 01/05/18 05:35 Salazar Rods Not Reportable 01/05/18 05:35 Platelet Estimate Appears normal 01/05/18 05:35 Clumped Platelets Not Reportable 01/05/18 05:35 Plt Clumps, EDTA Not Reportable 01/05/18 05:35 Large Platelets Not Reportable 01/05/18 05:35 Giant Platelets Not Reportable 01/05/18 05:35 Platelet Satelliting Not Reportable 01/05/18 05:35 Plt Morphology Comment Not Reportable 01/05/18 05:35 RBC Morphology Not Reportable 01/05/18 05:35 Dimorphic RBCs Not Reportable 01/05/18 05:35 Polychromasia Not Reportable 01/05/18 05:35 Hypochromasia 1+ 01/05/18 05:35 Poikilocytosis Not Reportable 01/05/18 05:35 Anisocytosis 1+ 01/05/18 05:35 Microcytosis Not Reportable 01/05/18 05:35 Macrocytosis Not Reportable 01/05/18 05:35 Spherocytes Not Reportable 01/05/18 05:35 Pappenheimer Bodies Not Reportable 01/05/18 05:35 Sickle Cells Not Reportable 01/05/18 05:35 Target Cells Not Reportable 01/05/18 05:35 Tear Drop Cells Not Reportable 01/05/18 05:35 Ovalocytes Not Reportable 01/05/18 05:35 Helmet Cells Not Reportable 01/05/18 05:35 Laura-Hancock Bodies Not Reportable 01/05/18 05:35 [place] Rings Not Reportable 01/05/18 05:35 Adan Cells Not Reportable 01/05/18 05:35 Bite Cells Not Reportable 01/05/18 05:35 Crenated Cell Not Reportable 01/05/18 05:35 Elliptocytes Not Reportable 01/05/18 05:35 Acanthocytes (Spur) Not Reportable 01/05/18 05:35 Rouleaux Not Reportable 01/05/18 05:35 Hemoglobin C Crystals Not Reportable 01/05/18 05:35 Schistocytes Not Reportable 01/05/18 05:35 Malaria parasites Not Reportable 01/05/18 05:35 Abdullahi Bodies Not Reportable 01/05/18 05:35 Hem Pathologist Commnt No 01/05/18 05:35 PT 14.5 Sec. (12.2-14.9) 01/01/18 02:25 INR 1.07 (0.87-1.13) 01/01/18 02:25 APTT 29.7 Sec. (24.2-36.6) 01/01/18 02:25 D-Dimer 2358.22 ng/mlDDU (0-234) H 01/01/18 03:31 POC ABG pH 7.458 (7.35-7.45) H 01/07/18 04:15 POC ABG pCO2 48.7 (35-45) H 01/07/18 04:15 POC ABG pO2 81 (80-105) 01/07/18 04:15 POC ABG HCO3 34.5 01/07/18 04:15 POC ABG Total CO2 36 01/07/18 04:15 POC ABG O2 Sat 96 01/07/18 04:15 POC ABG Base Excess 11 01/07/18 04:15 FiO2 100 % 01/07/18 04:15 Sodium 139 mmol/L (137-145) 01/07/18 03:43 Potassium 3.4 mmol/L (3.6-5.0) L 01/07/18 03:43 Chloride 98.7 mmol/L (98-107) 01/07/18 03:43 Carbon Dioxide 29 mmol/L (22-30) 01/07/18 03:43 Anion Gap 15 mmol/L 01/07/18 03:43 BUN 24 mg/dL (9-20) H 01/07/18 03:43 Creatinine 0.4 mg/dL (0.8-1.5) L 01/07/18 03:43 Estimated GFR > 60 ml/min 01/07/18 03:43 BUN/Creatinine Ratio 60 % 01/07/18 03:43 Glucose 156 mg/dL (75-100) H 01/07/18 03:43 Lactic Acid 1.80 mmol/L (0.7-2.0) 01/01/18 06:43 Calcium 7.6 mg/dL (8.4-10.2) L 01/07/18 03:43 Magnesium 2.20 mg/dL (1.7-2.3) 01/01/18 02:25 Total Bilirubin 0.30 mg/dL (0.1-1.2) 01/02/18 03:44 AST 17 units/L (5-40) 01/02/18 03:44 ALT 10 units/L (7-56) 01/02/18 03:44 Alkaline Phosphatase 110 units/L (35-129) 01/02/18 03:44 Total Creatine Kinase 42 units/L (55-170) L 01/07/18 08:40 CK-MB (CK-2) 4.8 ng/mL (0.0-4.0) H 01/07/18 08:40 CK-MB (CK-2) Rel Index 11.4 (0-4) H 01/07/18 08:40 Troponin T < 0.010 ng/mL (0.00-0.029) 01/01/18 02:25 C-Reactive Protein 2.40 mg/dL (0.00-1.30) H 01/05/18 19:56 NT-Pro-B Natriuret Pep 1069 pg/mL (0-900) H 01/01/18 02:25 Total Protein 5.5 g/dL (6.3-8.2) L 01/02/18 03:44 Albumin 1.7 g/dL (3.9-5) L 01/02/18 03:44 Albumin/Globulin Ratio 0.4 % 01/02/18 03:44 Urine Color Yellow (Yellow) 01/01/18 Unknown Urine Turbidity Clear (Clear) 01/01/18 Unknown Urine pH 7.0 (5.0-7.0) 01/01/18 Unknown Ur Specific [place] 1.013 (1.003-1.030) 01/01/18 Unknown Urine Protein <15 mg/dl mg/dL (Negative) 01/01/18 Unknown Urine Glucose (UA) Neg mg/dL (Negative) 01/01/18 Unknown Urine Ketones Neg mg/dL (Negative) 01/01/18 Unknown Urine Blood Neg (Negative) 01/01/18 Unknown Urine Nitrite Neg (Negative) 01/01/18 Unknown Urine Bilirubin Neg (Negative) 01/01/18 Unknown Urine Urobilinogen 4.0 mg/dL (<2.0) 01/01/18 Unknown Ur Leukocyte Esterase Neg (Negative) 01/01/18 Unknown Urine WBC (Auto) 4.0 /HPF (0.0-6.0) 01/01/18 Unknown Urine RBC (Auto) 2.0 /HPF (0.0-6.0) 01/01/18 Unknown Urine Mucus Few /HPF 01/01/18 Unknown Vancomycin Trough 12.0 ug/mL (5.0-20.0) 01/03/18 19:01 - Imaging and Cardiology Chest x-ray: image reviewed (extensive alveolar disease)
--- NOTE | 2018-01-07 10:10 | Progress Note ---
Assessment and Plan Acute respiratory failure Pneumonia COPD exacerbation Paroxysmal Atrial fibrillation triggered by respiratory insufficiency spontaneously reverted to sinus rhythm CHADS-VASc score is zero. No indication for anticoagulation. Recommend: Continue diltiazem for suppression of Afib. Subjective Date of service: 01/07/18 Principal diagnosis: Acute hypoxic respiratory failure, health care associated pneumonia, sepsis Interval history: Patient transferred to CCU overnight for respiratory distress. Currently, he is intubated on mechanical ventilation. Objective Vital Signs Temp Pulse Pulse Pulse Resp Resp Resp 01/07/18 09:15 76 13 01/07/18 09:00 77 14 01/07/18 08:45 80 14 01/07/18 08:30 78 13 01/07/18 08:27 97.5 F L 01/07/18 08:15 79 17 01/07/18 08:02 79 18 01/07/18 08:00 80 15 01/07/18 07:45 72 13 01/07/18 07:30 72 16 01/07/18 07:15 76 16 01/07/18 07:01 73 16 01/07/18 06:45 74 14 01/07/18 06:30 75 15 01/07/18 06:15 75 14 01/07/18 06:00 76 14 01/07/18 05:45 76 13 01/07/18 05:30 74 12 01/07/18 05:15 76 14 01/07/18 05:00 77 14 01/07/18 04:45 76 17 01/07/18 04:39 75 15 01/07/18 04:15 75 14 01/07/18 04:10 73 01/07/18 04:00 97.0 F L 74 14 01/07/18 03:45 74 14 01/07/18 03:30 73 14 01/07/18 03:15 74 13 01/07/18 03:00 76 15 01/07/18 02:45 76 14 01/07/18 02:30 76 15 01/07/18 02:15 76 15 01/07/18 02:00 74 15 01/07/18 01:52 74 17 01/07/18 01:45 74 12 01/07/18 01:36 72 17 01/07/18 01:30 76 15 01/07/18 01:15 75 16 01/07/18 01:00 75 14 01/07/18 00:45 77 15 01/07/18 00:30 78 14 01/07/18 00:15 77 15 01/07/18 00:00 97.1 F L 83 14 01/06/18 23:45 86 16 01/06/18 23:32 91 H 18 01/06/18 23:30 90 14 01/06/18 23:28 01/06/18 23:15 92 H 17 01/06/18 23:00 100 H 21 01/06/18 22:45 97 H 18 01/06/18 22:30 106 H 18 01/06/18 22:25 97 H 01/06/18 22:15 111 H 21 01/06/18 22:00 128 H 19 01/06/18 21:46 125 H 29 H 01/06/18 21:30 130 H 21 01/06/18 20:00 01/06/18 19:43 98.3 F 108 H 18 01/06/18 17:06 84 26 H 01/06/18 15:50 98 H 98 H 26 H 26 H 01/06/18 15:30 102 H 24 01/06/18 12:50 96 H 98 H 22 26 H 01/06/18 12:30 98 H 26 H 01/06/18 11:16 88 01/06/18 11:11 97.4 F L 85 24 01/06/18 10:10 98 H 96 H 20 22 BP Pulse Ox 01/07/18 09:15 91/59 98 01/07/18 09:00 96/59 98 01/07/18 08:45 89/59 98 01/07/18 08:30 92/56 96 01/07/18 08:27 01/07/18 08:15 90/58 94 01/07/18 08:02 01/07/18 08:00 91/58 93 01/07/18 07:45 98/69 93 01/07/18 07:30 107/69 80 L 01/07/18 07:15 100/70 93 01/07/18 07:01 100/70 93 01/07/18 06:45 103/65 94 01/07/18 06:30 100/70 94 01/07/18 06:15 101/64 93 01/07/18 06:00 102/67 95 03/15/18 05:45 92/60 95 15/18 05:30 88/55 95 1518 05:15 113/73 94 18 05:00 111/70 93 1518 04:45 114/72 95 1518 04:39 95 1518 04:15 114/71 95 18 04:10 107/72 97 01/07/18 04:00 112/73 97 01/07/18 03:45 107/72 97 18 03:30 109/69 97 1518 03:15 108/67 97 01/07/18 03:00 110/71 97 01/07/18 02:45 107/68 97 01/07/18 02:30 111/71 97 01/07/18 02:15 108/71 96 01/07/18 02:00 103/71 99 18 01:52 01/07/18 01:45 103/71 98 01/07/18 01:36 01/07/18 01:30 109/69 98 1518 01:15 106/69 98 18 01:00 106/70 97 1518 00:45 107/67 96 18 00:30 106/75 97 18 00:15 121/76 95 1518 00:00 105/67 96 01/06/18 23:45 105/67 95 14/18 23:32 103/69 95 14/18 23:30 103/69 95 14/18 23:28 91 14/18 23:15 105/68 95 0314/18 23:00 145/89 88 14/18 22:45 114/78 93 0314/18 22:30 130/84 95 14/18 22:25 114/78 94 14/18 22:15 148/92 93 14/18 22:00 202/118 89 0314/18 21:46 202/118 82 L 1418 21:30 91 14/18 20:00 87 1418 19:43 158/97 57 L 18 17:06 129/75 89 03/14/18 15:50 03/14/18 15:30 01/06/18 12:50 01/06/18 12:30 01/06/18 11:16 143/84 01/06/18 11:11 143/84 94 01/06/18 10:10 - Physical Examination General: Other (intubated on mechanical ventilation) Cardiac: Positive: Reg Rate and Rhythm - Labs and Meds Cardiac Enzymes 01/07/18 01/07/18 Range/Units 00:33 08:40 CK-MB (CK-2) 3.7 4.8 H (0.0-4.0) ng/mL CBC 01/07/18 Range/Units 08:40 WBC 14.8 H (4.5-11.0) K/mm3 RBC 3.48 L (3.65-5.03) M/mm3 Hgb 8.9 L (11.8-15.2) gm/dl Hct 28.5 L (35.5-45.6) % Plt Count 197 (140-440) K/mm3 Comprehensive Metabolic Panel 01/07/18 Range/Units 03:43 Sodium 139 (137-145) mmol/L Potassium 3.4 L (3.6-5.0) mmol/L Chloride 98.7 (98-107) mmol/L Carbon Dioxide 29 (22-30) mmol/L BUN 24 H (9-20) mg/dL Creatinine 0.4 L (0.8-1.5) mg/dL Glucose 156 H (75-100) mg/dL Calcium 7.6 L (8.4-10.2) mg/dL - Allied health notes Allied health notes reviewed: nursing
--- NOTE | 2018-01-07 11:07 | Progress Note ---
Assessment and Plan Acute likely on chronic hypoxemic respiratory failure. Healthcare-associated pneumonia Diffuse proliferative lung disease. Leukocytosis. Anemia. Hyponatremia, mild. Sepsis syndrome with elevated lactic acidosis. Elevated D-dimer. Elevated BNP. Adult failure to thrive. - still awaiting records from prior hospital but has had TB worked up before per patient and been treated for latent TB (will search for records with the alternate name he has provided me) - continue full AC support acutely (AC/450/08/03) - continue to wean FiO2 for sats > 90% - continue bronchodilators and pulmonary toilet - continue aspiration precautions / addressed VAP bundle - continue empiric AB's per ID input - continue GI & VTE prophylaxis - continue mobility protocol for pressure ulcer prophylaxis - PT/OT as tolerated - continue other care per attending / other consultants ....LTAC evaluation appropriate as i suspect this will be a prolonged recovery prior to reaching FiO2 levels that he can be discharged on .... he is critically ill on life sustaining interventions including MVS and at high risk for further deterioration including ....35' Subjective Date of service: 01/07/18 Principal diagnosis: Acute hypoxic respiratory failure, health care associated pneumonia, sepsis Interval history: Patient seen today for: Acute hypoxic respiratory failure, health care associated pneumonia, sepsis Seen and examined at bedside; 24-hour events reviewed; nursing and respiratory care staff consulted; decompensated and was intubated overnight; now on MVS; sedated to RASS -1; studies from OSH reveal AFB smears -ve X 2 sets but under another name; No N/V/F/C; no new issues otherwise Objective Vital Signs - 12hr 01/06/18 01/06/18 01/06/18 23:15 23:28 23:30 Temperature Pulse Rate 92 H 90 Pulse Rate [ Anterior Bilateral Throughout] Respiratory 17 14 Rate Respiratory Rate [Anterior Bilateral Throughout] Blood Pressure 105/68 103/69 O2 Sat by Pulse 95 91 95 Oximetry 01/06/18 01/06/18 01/07/18 23:32 23:45 00:00 Temperature 97.1 F L Pulse Rate 91 H 86 83 Pulse Rate [ Anterior Bilateral Throughout] Respiratory 18 16 14 Rate Respiratory Rate [Anterior Bilateral Throughout] Blood Pressure 103/69 105/67 105/67 O2 Sat by Pulse 95 95 96 Oximetry 01/07/18 01/07/18 01/07/18 00:15 00:30 00:45 Temperature Pulse Rate 77 78 77 Pulse Rate [ Anterior Bilateral Throughout] Respiratory 15 14 15 Rate Respiratory Rate [Anterior Bilateral Throughout] Blood Pressure 121/76 106/75 107/67 O2 Sat by Pulse 95 97 96 Oximetry 01/07/18 01/07/18 01/07/18 01:00 01:15 01:30 Temperature Pulse Rate 75 75 76 Pulse Rate [ Anterior Bilateral Throughout] Respiratory 14 16 15 Rate Respiratory Rate [Anterior Bilateral Throughout] Blood Pressure 106/70 106/69 109/69 O2 Sat by Pulse 97 98 98 Oximetry 01/07/18 01/07/18 01/07/18 01:36 01:45 01:52 Temperature Pulse Rate 74 Pulse Rate [ 72 74 Anterior Bilateral Throughout] Respiratory 12 Rate Respiratory 17 17 Rate [Anterior Bilateral Throughout] Blood Pressure 103/71 O2 Sat by Pulse 98 Oximetry 01/07/18 01/07/18 01/07/18 02:00 02:15 02:30 Temperature Pulse Rate 74 76 76 Pulse Rate [ Anterior Bilateral Throughout] Respiratory 15 15 15 Rate Respiratory Rate [Anterior Bilateral Throughout] Blood Pressure 103/71 108/71 111/71 O2 Sat by Pulse 99 96 97 Oximetry 01/07/18 01/07/18 01/07/18 02:45 03:00 03:15 Temperature Pulse Rate 76 76 74 Pulse Rate [ Anterior Bilateral Throughout] Respiratory 14 15 13 Rate Respiratory Rate [Anterior Bilateral Throughout] Blood Pressure 107/68 110/71 108/67 O2 Sat by Pulse 97 97 97 Oximetry 01/07/18 01/07/18 01/07/18 03:30 03:45 04:00 Temperature 97.0 F L Pulse Rate 73 74 74 Pulse Rate [ Anterior Bilateral Throughout] Respiratory 14 14 14 Rate Respiratory Rate [Anterior Bilateral Throughout] Blood Pressure 109/69 107/72 112/73 O2 Sat by Pulse 97 97 97 Oximetry 01/07/18 01/07/18 01/07/18 04:10 04:15 04:39 Temperature Pulse Rate 73 75 75 Pulse Rate [ Anterior Bilateral Throughout] Respiratory 14 15 Rate Respiratory Rate [Anterior Bilateral Throughout] Blood Pressure 107/72 114/71 O2 Sat by Pulse 97 95 95 Oximetry 01/07/18 01/07/18 01/07/18 04:45 05:00 05:15 Temperature Pulse Rate 76 77 76 Pulse Rate [ Anterior Bilateral Throughout] Respiratory 17 14 14 Rate Respiratory Rate [Anterior Bilateral Throughout] Blood Pressure 114/72 111/70 113/73 O2 Sat by Pulse 95 93 94 Oximetry 01/07/18 01/07/18 01/07/18 05:30 05:45 06:00 Temperature Pulse Rate 74 76 76 Pulse Rate [ Anterior Bilateral Throughout] Respiratory 12 13 14 Rate Respiratory Rate [Anterior Bilateral Throughout] Blood Pressure 88/55 92/60 102/67 O2 Sat by Pulse 95 95 95 Oximetry 01/07/18 01/07/18 01/07/18 06:15 06:30 06:45 Temperature Pulse Rate 75 75 74 Pulse Rate [ Anterior Bilateral Throughout] Respiratory 14 15 14 Rate Respiratory Rate [Anterior Bilateral Throughout] Blood Pressure 101/64 100/70 103/65 O2 Sat by Pulse 93 94 94 Oximetry 01/07/18 01/07/18 01/07/18 07:01 07:15 07:30 Temperature Pulse Rate 73 76 72 Pulse Rate [ Anterior Bilateral Throughout] Respiratory 16 16 16 Rate Respiratory Rate [Anterior Bilateral Throughout] Blood Pressure 100/70 100/70 107/69 O2 Sat by Pulse 93 93 80 L Oximetry 01/07/18 01/07/18 01/07/18 07:45 08:00 08:02 Temperature Pulse Rate 72 80 Pulse Rate [ 79 Anterior Bilateral Throughout] Respiratory 13 15 Rate Respiratory 18 Rate [Anterior Bilateral Throughout] Blood Pressure 98/69 91/58 O2 Sat by Pulse 93 93 Oximetry 01/07/18 01/07/18 01/07/18 08:15 08:27 08:30 Temperature 97.5 F L Pulse Rate 79 78 Pulse Rate [ Anterior Bilateral Throughout] Respiratory 17 13 Rate Respiratory Rate [Anterior Bilateral Throughout] Blood Pressure 90/58 92/56 O2 Sat by Pulse 94 96 Oximetry 01/07/18 01/07/18 01/07/18 08:45 09:00 09:15 Temperature Pulse Rate 80 77 76 Pulse Rate [ Anterior Bilateral Throughout] Respiratory 14 14 13 Rate Respiratory Rate [Anterior Bilateral Throughout] Blood Pressure 89/59 96/59 91/59 O2 Sat by Pulse 98 98 98 Oximetry Constitutional: appears uncomfortable, other (sedated to RASS -1) Eyes: non-icteric ENT: oropharynx moist, other (mallampatti 2) Neck: supple, no lymphadenopathy, no JVD, other (no thyromegaly) Effort: mildly labored Ascultation: Bilateral: diminished breath sounds, rales Percussion: Bilateral: not dull Cardiovascular: regular rate and rhythm, other (no rubs/murmurs) Gastrointestinal: normoactive bowel sounds, soft, non-tender, non-distended, other (no HSM) Integumentary: rash Extremities: no cyanosis, no edema, pink and warm, pulses normal Neurologic: normal mental status, non-focal exam, pupils equal and round, CN II- XII normal Psychiatric: other (sedated) CBC and BMP: 01/08/18 08:33 01/08/18 08:33 ABG, PT/INR, D-dimer: ABG POC ABG pH 7.458 (7.35-7.45) H 01/07/18 04:15 POC ABG pCO2 48.7 (35-45) H 01/07/18 04:15 POC ABG pO2 81 (80-105) 01/07/18 04:15 POC ABG HCO3 34.5 01/07/18 04:15 POC ABG Total CO2 36 01/07/18 04:15 POC ABG O2 Sat 96 01/07/18 04:15 PT/INR, D-dimer PT 14.5 Sec. (12.2-14.9) 01/01/18 02:25 INR 1.07 (0.87-1.13) 01/01/18 02:25 D-Dimer 2358.22 ng/mlDDU (0-234) H 01/01/18 03:31 Abnormal lab findings: Abnormal Labs 01/01/18 01/01/18 01/01/18 02:25 02:25 02:25 WBC 21.6 H RBC Hgb 10.3 L Hct 32.7 L MCV 83 L MCH 26 L MCHC RDW 18.0 H Seg Neuts % (Manual) 87.5 H Lymphocytes % (Manual) 7.5 L Seg Neutrophils # Man 18.9 H Lymphocytes # (Manual) D-Dimer POC ABG pH POC ABG pCO2 POC ABG pO2 Sodium 135 L Potassium Carbon Dioxide 21 L BUN Creatinine 0.6 L Glucose 103 H Lactic Acid Calcium 8.3 L Total Creatine Kinase CK-MB (CK-2) CK-MB (CK-2) Rel Index C-Reactive Protein NT-Pro-B Natriuret Pep 1069 H Total Protein Albumin 01/01/18 01/01/18 01/01/18 02:36 03:17 03:31 WBC RBC Hgb Hct MCV MCH MCHC RDW Seg Neuts % (Manual) Lymphocytes % (Manual) Seg Neutrophils # Man Lymphocytes # (Manual) D-Dimer 2358.22 H POC ABG pH 7.474 H POC ABG pCO2 33.2 L POC ABG pO2 73 L Sodium Potassium Carbon Dioxide BUN Creatinine Glucose Lactic Acid 3.60 H* Calcium Total Creatine Kinase CK-MB (CK-2) CK-MB (CK-2) Rel Index C-Reactive Protein NT-Pro-B Natriuret Pep Total Protein Albumin 01/01/18 01/02/18 01/02/18 14:01 03:44 03:44 WBC RBC 3.14 L Hgb 8.4 L Hct 25.9 L D MCV 82 L MCH 27 L MCHC RDW 17.4 H Seg Neuts % (Manual) 91.0 H Lymphocytes % (Manual) 6.0 L Seg Neutrophils # Man 10.0 H Lymphocytes # (Manual) 0.7 L D-Dimer POC ABG pH POC ABG pCO2 POC ABG pO2 Sodium Potassium Carbon Dioxide BUN Creatinine 0.5 L Glucose 137 H Lactic Acid Calcium 7.5 L Total Creatine Kinase CK-MB (CK-2) CK-MB (CK-2) Rel Index C-Reactive Protein 20.70 H NT-Pro-B Natriuret Pep Total Protein 5.5 L Albumin 1.7 L 01/04/18 01/05/18 01/05/18 10:03 05:35 05:35 WBC 15.9 H RBC Hgb 9.7 L Hct 31.2 L MCV 82 L MCH 25 L MCHC 31 L RDW 17.8 H Seg Neuts % (Manual) 83.0 H Lymphocytes % (Manual) 4.0 L Seg Neutrophils # Man 13.2 H Lymphocytes # (Manual) 0.6 L D-Dimer POC ABG pH POC ABG pCO2 POC ABG pO2 Sodium 134 L Potassium Carbon Dioxide 19 L 31 H D BUN Creatinine 0.5 L 0.5 L Glucose 111 H 134 H Lactic Acid Calcium 8.3 L Total Creatine Kinase CK-MB (CK-2) CK-MB (CK-2) Rel Index C-Reactive Protein NT-Pro-B Natriuret Pep Total Protein Albumin 01/05/18 01/06/18 01/07/18 19:56 22:53 00:33 WBC RBC Hgb Hct MCV MCH MCHC RDW Seg Neuts % (Manual) Lymphocytes % (Manual) Seg Neutrophils # Man Lymphocytes # (Manual) D-Dimer POC ABG pH POC ABG pCO2 58.0 H POC ABG pO2 67 L Sodium Potassium Carbon Dioxide BUN Creatinine Glucose Lactic Acid Calcium Total Creatine Kinase 50 L CK-MB (CK-2) CK-MB (CK-2) Rel Index 7.4 H C-Reactive Protein 2.40 H NT-Pro-B Natriuret Pep Total Protein Albumin 01/07/18 01/07/18 01/07/18 03:43 04:15 08:40 WBC RBC Hgb Hct MCV MCH MCHC RDW Seg Neuts % (Manual) Lymphocytes % (Manual) Seg Neutrophils # Man Lymphocytes # (Manual) D-Dimer POC ABG pH 7.458 H POC ABG pCO2 48.7 H POC ABG pO2 Sodium Potassium 3.4 L Carbon Dioxide BUN 24 H Creatinine 0.4 L Glucose 156 H Lactic Acid Calcium 7.6 L Total Creatine Kinase 42 L CK-MB (CK-2) 4.8 H CK-MB (CK-2) Rel Index 11.4 H C-Reactive Protein NT-Pro-B Natriuret Pep Total Protein Albumin 01/07/18 08:40 WBC 14.8 H RBC 3.48 L Hgb 8.9 L Hct 28.5 L MCV 82 L MCH 26 L MCHC 31 L RDW 18.6 H Seg Neuts % (Manual) Lymphocytes % (Manual) Seg Neutrophils # Man Lymphocytes # (Manual) D-Dimer POC ABG pH POC ABG pCO2 POC ABG pO2 Sodium Potassium Carbon Dioxide BUN Creatinine Glucose Lactic Acid Calcium Total Creatine Kinase CK-MB (CK-2) CK-MB (CK-2) Rel Index C-Reactive Protein NT-Pro-B Natriuret Pep Total Protein Albumin Chest x-ray: image reviewed (ETT in good position; chronic fibrotic changes) Allied health notes reviewed: nursing
[2018-01-07] MEDS: HABITROL TD SCH (12:00)
[2018-01-07 14:54] LABS: Basophils # (Auto) 0.1 K/mm3 (0.0-0.1); Monocytes # (Auto) 0.4 K/mm3 (0.0-0.8); Monocytes % (Auto) 2.8 % (0.0-7.3)
[2018-01-07] MEDS: CARDIZEM CD PO SCH (15:22)
[2018-01-07 15:23] LABS: Anisocytosis 1+; Band Neutrophils # (Manual) 0.1 K/mm3; Hypochromasia 1+; Macrocytosis Few; Ovalocytes Few; Platelet Estimate Consistent w Auto; Target Cells Rare
[2018-01-07] MEDS: PROTONIX FEEDTUBE SCH (15:23)
--- NOTE | 2018-01-07 16:46 | Progress Note ---
Assessment and Plan Assessment: 1) Sepsis: not better. Etiology most likely pneumonia. CRP=2.4 2) Acute on chronic respiratory failure: worsening now intubated 3) Bilateral multifocal pneumonia/bronchiectasis: Likely necrotizing pneumonia due to a Staph. Doubt TB, however will rule it out in view of history of latent TB. -Sputum + Staph -CTA showed multifocal bilateral consolidation with a small right pleural effusion. Also demonstrated severe centri-lobular emphysema and enlargement mediastinum, numerous large subpleural blebs and extensive bronchiectasis. 4) History for COPD on home oxygen 5) Hep C 6) history of treated latetnt TB in 2000 Plan: -follow-up blood cultures and respiratory cultures -contact isolation until MRSA is r/o -airborne isolation until TB is r/o -Quantiferon TB gold STAT - pending -HIV test - pending -AFB in sputum x 3 - pending -Continue vancomycin and Zosyn for now - day 7 Thank you for your consultation, will follow up with you. Vika Rice MD Infectious Diseases Specialist [facility] M [phone] O [phone] Subjective Date of service: 01/07/18 Principal diagnosis: Acute hypoxic respiratory failure, health care associated pneumonia, sepsis Interval history: Pt is now intubated on the vent fiO2 90%, p5. No fever. Microbiology: Blood cultures: 01/01 ngtd Respiratory cultures: 01/01 Staph Current Antimicrobials: Vancomycin 01/01 Zosyn 01/01 Previous Antimicrobials: Objective - Exam Narrative Exam: General appearance: sedated on the vent in NAD Eyes: anicteric sclerae, moist conjunctivae; no lid-lag; PERRLA HENT: Atraumatic; oropharynx +ETT +NGT Neck: Trachea midline; supple, no thyromegaly or lymphadenopathy Lungs: distant BS with scattered crackles CV: tachycardic Abdomen: Soft, non-tender. Extremities: No peripheral edema or extremity lymphadenopathy Skin: Normal temperature, turgor and texture; no rash, ulcers or subcutaneous nodules Psych: sedated. Neuro: sedated Lines: - Constitutional Vitals: Vital Signs Temp Pulse Resp BP Pulse Ox 97.1 F L 70 14 88/58 96 01/07/18 12:27 01/07/18 15:00 01/07/18 15:00 01/07/18 15:00 01/07/18 15:00 Temperature -Last 24 Hours Temperature 97.1 F Temperature 97.5 F Temperature 97.0 F Temperature 97.1 F Temperature 98.3 F - Labs CBC & Chem 7: 01/07/18 08:40 01/07/18 03:43 Labs: Abnormal lab results 01/06/18 01/07/18 01/07/18 Range/Units 22:53 00:33 03:43 WBC (4.5-11.0) K/mm3 RBC (3.65-5.03) M/mm3 Hgb (11.8-15.2) gm/dl Hct (35.5-45.6) % MCV (84-94) fl MCH (28-32) pg MCHC (32-34) % RDW (13.2-15.2) % Seg Neuts % (Manual) (40.0-70.0) % Lymphocytes % (Manual) (13.4-35.0) % Seg Neutrophils # (1.8-7.7) K/mm3 Seg Neutrophils # Man (1.8-7.7) K/mm3 Lymphocytes # (Manual) (1.2-5.4) K/mm3 POC ABG pH (7.35-7.45) POC ABG pCO2 58.0 H (35-45) POC ABG pO2 67 L (80-105) Potassium 3.4 L (3.6-5.0) mmol/L BUN 24 H (9-20) mg/dL Creatinine 0.4 L (0.8-1.5) mg/dL Glucose 156 H (75-100) mg/dL Calcium 7.6 L (8.4-10.2) mg/dL Total Creatine Kinase 50 L (55-170) units/L CK-MB (CK-2) (0.0-4.0) ng/mL CK-MB (CK-2) Rel Index 7.4 H (0-4) 01/07/18 01/07/18 01/07/18 Range/Units 04:15 08:40 08:40 WBC 14.8 H (4.5-11.0) K/mm3 RBC 3.48 L (3.65-5.03) M/mm3 Hgb 8.9 L (11.8-15.2) gm/dl Hct 28.5 L (35.5-45.6) % MCV 82 L (84-94) fl MCH 26 L (28-32) pg MCHC 31 L (32-34) % RDW 18.6 H (13.2-15.2) % Seg Neuts % (Manual) 96 H (40.0-70.0) % Lymphocytes % (Manual) 3 L (13.4-35.0) % Seg Neutrophils # 13.7 H (1.8-7.7) K/mm3 Seg Neutrophils # Man 14.2 H (1.8-7.7) K/mm3 Lymphocytes # (Manual) 0.4 L (1.2-5.4) K/mm3 POC ABG pH 7.458 H (7.35-7.45) POC ABG pCO2 48.7 H (35-45) POC ABG pO2 (80-105) Potassium (3.6-5.0) mmol/L BUN (9-20) mg/dL Creatinine (0.8-1.5) mg/dL Glucose (75-100) mg/dL Calcium (8.4-10.2) mg/dL Total Creatine Kinase 42 L (55-170) units/L CK-MB (CK-2) 4.8 H (0.0-4.0) ng/mL CK-MB (CK-2) Rel Index 11.4 H (0-4)
[2018-01-07] MEDS ORDERED: AMIDATE IV ONE (21:00)
[2018-01-07] MEDS ORDERED: QUELICIN ONE (21:00)
[2018-01-07] MEDS ORDERED: VERSED IV ONE (21:00)
--- NOTE | 2018-01-07 21:49 | XRay Report ---
FINAL REPORT EXAM: XR ABDOMEN 1V AP HISTORY: dobbhoff tube placement TECHNIQUE: KUB was performed. Comparison: Chest x-ray 01/07/2018 and 01/06/2018 FINDINGS: A weighted tip feeding tube is present, with the tip past the GE junction in the region of the gastric body. Recommend advancing the feeding tube slowly approximately 11 centimeters with the patient in the right lateral decubitus position and repeating the KUB. There are dense bilateral infiltrates superimposed on emphysema. IMPRESSION: Weighted feeding tube tip projects in the region the gastric body. Should be advanced approximately 11 centimeters with the patient in the right lateral decubitus position and repeat KUB performed. Dense bilateral infiltrates superimposed on emphysema.
--- NOTE | 2018-01-07 22:10 | XRay Report ---
FINAL REPORT PROCEDURE: XR CHEST 1V AP TECHNIQUE: Chest radiograph anteroposterior view. CPT 10804 HISTORY: EET placement COMPARISON: 01/07/2018 FINDINGS: Heart: Normal. Mediastinum/Vessels: Normal. Lungs/Pleural space: Extensive interstitial and alveolar opacification of bilateral lungs is again noted without significant interval change. Emphysematous changes with the bullous formation are again noted involving bilateral upper lobes. Pleural spaces are clear.. Bony thorax: No acute osseous abnormality. Life support devices: Endotracheal tube is noted terminating about 5.6 centimeter above the clement. A feeding tube is terminating in the stomach.. IMPRESSION: Extensive bilateral interstitial and alveolar opacities are again identified without significant interval change consistent with pneumonia. Any superimposed changes of CHF cannot be excluded..
[2018-01-08] MEDS: SODIUM CHLORIDE FLUSH SYRINGE 10 ML IV SCH ×3 (00:32→20:24)
--- NOTE | 2018-01-08 03:08 | XRay Report ---
FINAL REPORT EXAM: XR ABDOMEN 1V AP HISTORY: dobbhobb tube placement TECHNIQUE: An AP view of the upper abdomen was obtained for evaluation of Dobhoff placement. FINDINGS: The tip of the Dobhoff tube is in the mid body of the stomach. The bowel gas pattern otherwise is nondiagnostic. Free air is not seen. The lungs reveal extensive airspace disease bilaterally. IMPRESSION: Tip of the Dobhoff tube in the mid body of the stomach.
[2018-01-08] MEDS: fentaNYL DRIP Premix 2,000 MCG/100 ML BAG IV SCH ×2 (05:33→13:23)
[2018-01-08] MEDS: DIPRIVAN 10 MG/ML 1,000 MG/100 ML BOTTLE IV SCH ×3 (05:35→20:25)
[2018-01-08] MEDS: HEPARIN SUB-Q SCH ×3 (05:47→22:29)
[2018-01-08] MEDS: ZOSYN/NS 4.5GM/100ML 4.5 GM/100 ML VIAL IV SCH ×3 (05:47→21:50)
[2018-01-08] MEDS: FLAGYL PO SCH ×2 (05:49→14:07)
[2018-01-08] MEDS ORDERED: SIMPLE SYRUP FEEDTUBE PRN ×2 (07:46)
[2018-01-08] MEDS ORDERED: PANCREAZE DR 10,500 UNIT FEEDTUBE PRN (07:46)
[2018-01-08] MEDS ORDERED: SODIUM BICARBONATE FEEDTUBE PRN (07:46)
[2018-01-08] MEDS: VANCOMYCIN/0.45 NS 1 GM/250 ML 1 GM/250 ML BAG IV SCH (08:18)
[2018-01-08] MEDS: DUONEB *Not for PRN Use IH SCH ×4 (08:31→20:42)
[2018-01-08] MEDS: BROVANA NEBU IH SCH ×2 (08:31→20:44)
[2018-01-08] MEDS: PULMICORT IH SCH ×2 (08:32→20:42)
[2018-01-08 08:52] LABS: Hematocrit 30.2 % (35.5-45.6); Hemoglobin 9.4 gm/dl (11.8-15.2); Mean Corpuscular HGB Conc 31 % (32-34); Mean Corpuscular Hemoglobin 26 pg (28-32); Mean Corpuscular Volume 84 fl (84-94); Platelet Count 161 K/mm3 (140-440); Red Blood Count 3.59 M/mm3 (3.65-5.03); Red Cell Distribution Width 19.5 % (13.2-15.2)
[2018-01-08 09:01] LABS: BUN/Creatinine Ratio 56; Blood Urea Nitrogen 28 mg/dL (9-20); Calcium 7.8 mg/dL (8.4-10.2); Hemolysis Index 20
--- NOTE | 2018-01-08 09:02 | Progress Note ---
Assessment and Plan Assessment and plan: 62-year-old man with past medical history significant for COPD on home oxygen, asthma, hep C emphysema presented to the emergency department he couldn't breathe since last night. Patient called EMS yesterday and his saturation was in the 70s but patient refused to come to the hospital. Patient is complaining on and off fever, cough productive of clear sputum. At presentation patient was saturating in the 50s and 60s, patient was put on BiPAP and currently he is saturating in the low 90s. Patient had right-sided pneumonia recently and was given by mouth antibiotics. Chest x-ray in the hospital showed right-sided infiltrates unchanged from previous one and new left -sided infiltrates. WBC count was 21,000, lactic acid level was 3.6, d-dimer was 2356, CTA was done and result is pending. Patient needs to be admitted to ICU. He was initially admitted to the intensive care unit and subsequently transferred to the medical floor but unfortunately did not improve and transferred back to the ICU on mechanical ventilation Acute on chronic hypoxic respiratory failure - Bilateral mechanical ventilation. Management per crime scene investigator - From COPD exacerbation and bilateral pneumonia - on IV vancomycin, Zosyn, DuoNeb's, Solu-Medrol, nebulizer - Lamination Spinner following the anxious side - Placed on Isolation Severe COPD with exacerbation - Will provide scheduled nebulizers and breathing treatment - Placed on empiric steroid and antibiotic - will follow sputum culture, chest x-ray/CTA chest showed bilateral infiltrates - Continue to support respiratory effort - We'll cont on sliding scale of insulin as patient will be on empiric steroid Bilateral pneumonia, recent treatment with antibiotics with diffused proliferative lung disease - Continue empiric antibiotics for now, follow culture - POSSIBLE NARCOTIZING PNA, r/o TB - Culture growing staff Aurus possible MRSA- contact isolation Sepsis, due to bilateral pneumonia - Continue abx, trend lactate\ - Rule out tuberculosis, AFB 3 pending, reported to firm goat pending. -Contact isolation for MRSA sputum growing staph aureus awaiting final. Hyponatremia - Likely secondary to the Pneumonia. continue to Monitor. Lactic acidosis, due to sepsis - IV fluid, treat underlying cause Elevated D.dimer Severe-Moderate Protien calorie Malnutrition - Mental Hygienist consult History of GERD - pantoprazole for GERD History of hepatitis C - normal LFT Hx of latent TB in 2000 DVT prophylaxis - Heparin The high probability of a clinically significant, sudden or life threatening deterioration of the [pulmonary] system(s) required my full and direct attention , intervention and personal management. The aggregate critical care time was [35 ] minutes. This time is in addition to time spent performing reported procedures but includes the following: [x] Data Review and interpretation [x] Patient assessment and monitoring of vital signs [x] Documentation [x] Medication orders and management will BENEFIT FROM LTCA. History Interval history: Patient seen and examined, currently on mechanical ventilation due to worsening respiratory failure, self extubated and is reintubated,. Bronch being done. Hospitalist Physical - Physical exam Narrative exam: GENERAL: Cachetic on mechanical ventilation HEENT: Normocephalic. Atraumatic. No conjunctival congestion or icterus. NECK: Supple. Trachea midline. CHEST/LUNGS: ETT HEART/CARDIOVASCULAR: Regular in rate and rhythm. S1 and S2 positive. ABDOMEN: Abdomen is soft, nontender. Patient has normal bowel sounds. SKIN: Warm and dry. NEURO: sedated MUSCULOSKELETAL: No joint effusion or tenderness. EXTRIMITY: No edema, no cyanosis or clubbing. PSYCH: SEDATED - Constitutional Vitals: Temp Pulse Resp BP Pulse Ox 96.8 F L 78 16 123/81 95 01/08/18 08:00 01/08/18 08:39 01/08/18 08:39 01/08/18 08:34 01/08/18 08:34 General appearance: Present: mild distress Results - Labs CBC & Chem 7: 01/08/18 08:33 01/08/18 08:33 Labs: Laboratory Last Values WBC 10.4 K/mm3 (4.5-11.0) 01/08/18 08:33 RBC 3.59 M/mm3 (3.65-5.03) L 01/08/18 08:33 Hgb 9.4 gm/dl (11.8-15.2) L 01/08/18 08:33 Hct 30.2 % (35.5-45.6) L 01/08/18 08:33 MCV 84 fl (84-94) 01/08/18 08:33 MCH 26 pg (28-32) L 01/08/18 08:33 MCHC 31 % (32-34) L 01/08/18 08:33 RDW 19.5 % (13.2-15.2) H 01/08/18 08:33 Plt Count 161 K/mm3 (140-440) 01/08/18 08:33 Lymph % (Auto) TNR 01/04/18 17:16 [place] % (Auto) 2.8 % (0.0-7.3) 01/07/18 08:40 Eos % (Auto) 0.0 % (0.0-4.3) 01/07/18 08:40 Baso % (Auto) TNR 01/04/18 17:16 Lymph # TNR 01/04/18 17:16 [place] # 0.4 K/mm3 (0.0-0.8) 01/07/18 08:40 Eos # 0.0 K/mm3 (0.0-0.4) 01/07/18 08:40 Baso # 0.1 K/mm3 (0.0-0.1) 01/07/18 08:40 Add Manual Diff Complete 01/07/18 08:40 Total Counted 100 01/05/18 05:35 Seg Neutrophils % Clinical Reimbursement Specialist 01/07/18 08:40 Seg Neuts % (Manual) 96 % (40.0-70.0) H 01/07/18 08:40 Band Neutrophils % 1 % 01/07/18 08:40 Lymphocytes % (Manual) 3 % (13.4-35.0) L 01/07/18 08:40 Reactive Lymphs % (Man) 0 % 01/05/18 05:35 Monocytes % (Manual) 4.0 % (0.0-7.3) 01/05/18 05:35 Eosinophils % (Manual) 0 % (0.0-4.3) 01/05/18 05:35 Basophils % (Manual) 0 % (0.0-1.8) 01/05/18 05:35 Metamyelocytes % 0 % 01/05/18 05:35 Myelocytes % 0 % 01/05/18 05:35 Promyelocytes % 0 % 01/05/18 05:35 Blast Cells % 0 % 01/05/18 05:35 Nucleated RBC % Not Reportable 01/07/18 08:40 Seg Neutrophils # 13.7 K/mm3 (1.8-7.7) H 01/07/18 08:40 Seg Neutrophils # Man 14.2 K/mm3 (1.8-7.7) H 01/07/18 08:40 Band Neutrophils # 0.1 K/mm3 01/07/18 08:40 Lymphocytes # (Manual) 0.4 K/mm3 (1.2-5.4) L 01/07/18 08:40 Abs React Lymphs (Man) 0.0 K/mm3 01/05/18 05:35 Monocytes # (Manual) 0.6 K/mm3 (0.0-0.8) 01/05/18 05:35 Eosinophils # (Manual) 0.0 K/mm3 (0.0-0.4) 01/05/18 05:35 Basophils # (Manual) 0.0 K/mm3 (0.0-0.1) 01/05/18 05:35 Metamyelocytes # 0.0 K/mm3 01/05/18 05:35 Myelocytes # 0.0 K/mm3 01/05/18 05:35 Promyelocytes # 0.0 K/mm3 01/05/18 05:35 Blast Cells # 0.0 K/mm3 01/05/18 05:35 WBC Morphology Not Reportable 01/07/18 08:40 Hypersegmented Neuts Not Reportable 01/07/18 08:40 Hyposegmented Neuts Not Reportable 01/07/18 08:40 Hypogranular Neuts Not Reportable 01/07/18 08:40 Smudge Cells Not Reportable 01/07/18 08:40 Toxic Granulation Not Reportable 01/07/18 08:40 Toxic Vacuolation Not Reportable 01/07/18 08:40 Dohle Bodies Not Reportable 01/07/18 08:40 Pelger-Huet Anomaly Not Reportable 01/07/18 08:40 Salazar Rods Not Reportable 01/07/18 08:40 Platelet Estimate Consistent w auto 01/07/18 08:40 Clumped Platelets Not Reportable 01/07/18 08:40 Plt Clumps, EDTA Not Reportable 01/07/18 08:40 Large Platelets Not Reportable 01/07/18 08:40 Giant Platelets Not Reportable 01/07/18 08:40 Platelet Satelliting Not Reportable 01/07/18 08:40 Plt Morphology Comment Not Reportable 01/07/18 08:40 RBC Morphology Not Reportable 01/07/18 08:40 Dimorphic RBCs Not Reportable 01/07/18 08:40 Polychromasia Not Reportable 01/07/18 08:40 Hypochromasia 1+ 01/07/18 08:40 Poikilocytosis Not Reportable 01/07/18 08:40 Anisocytosis 1+ 01/07/18 08:40 Microcytosis Few 01/07/18 08:40 Macrocytosis Few 01/07/18 08:40 Spherocytes Not Reportable 01/07/18 08:40 Pappenheimer Bodies Not Reportable 01/07/18 08:40 Sickle Cells Not Reportable 01/07/18 08:40 Target Cells Rare 01/07/18 08:40 Tear Drop Cells Not Reportable 01/07/18 08:40 Ovalocytes Few 01/07/18 08:40 Helmet Cells Not Reportable 01/07/18 08:40 [place] Bodies Not Reportable 01/07/18 08:40 [place] Rings Not Reportable 01/07/18 08:40 Adan Cells Not Reportable 01/07/18 08:40 Bite Cells Not Reportable 01/07/18 08:40 Crenated Cell Not Reportable 01/07/18 08:40 Elliptocytes Not Reportable 01/07/18 08:40 Acanthocytes (Spur) Not Reportable 01/07/18 08:40 Rouleaux Not Reportable 01/07/18 08:40 Hemoglobin C Crystals Not Reportable 01/07/18 08:40 Schistocytes Not Reportable 01/07/18 08:40 Malaria parasites Not Reportable 01/07/18 08:40 Abdullahi Bodies Not Reportable 01/07/18 08:40 Hem Pathologist Commnt No 01/07/18 08:40 PT 14.5 Sec. (12.2-14.9) 01/01/18 02:25 INR 1.07 (0.87-1.13) 01/01/18 02:25 APTT 29.7 Sec. (24.2-36.6) 01/01/18 02:25 D-Dimer 2358.22 ng/mlDDU (0-234) H 01/01/18 03:31 POC ABG pH 7.458 (7.35-7.45) H 01/07/18 04:15 POC ABG pCO2 48.7 (35-45) H 01/07/18 04:15 POC ABG pO2 81 (80-105) 01/07/18 04:15 POC ABG HCO3 34.5 01/07/18 04:15 POC ABG Total CO2 36 01/07/18 04:15 POC ABG O2 Sat 96 01/07/18 04:15 POC ABG Base Excess 11 01/07/18 04:15 FiO2 100 % 01/07/18 04:15 Sodium 139 mmol/L (137-145) 01/07/18 03:43 Potassium 3.4 mmol/L (3.6-5.0) L 01/07/18 03:43 Chloride 98.7 mmol/L (98-107) 01/07/18 03:43 Carbon Dioxide 29 mmol/L (22-30) 01/07/18 03:43 Anion Gap 15 mmol/L 01/07/18 03:43 BUN 24 mg/dL (9-20) H 01/07/18 03:43 Creatinine 0.4 mg/dL (0.8-1.5) L 01/07/18 03:43 Estimated GFR > 60 ml/min 01/07/18 03:43 BUN/Creatinine Ratio 60 % 01/07/18 03:43 Glucose 156 mg/dL (75-100) H 01/07/18 03:43 Lactic Acid 1.80 mmol/L (0.7-2.0) 01/01/18 06:43 Calcium 7.6 mg/dL (8.4-10.2) L 01/07/18 03:43 Magnesium 2.20 mg/dL (1.7-2.3) 01/01/18 02:25 Total Bilirubin 0.30 mg/dL (0.1-1.2) 01/02/18 03:44 AST 17 units/L (5-40) 01/02/18 03:44 ALT 10 units/L (7-56) 01/02/18 03:44 Alkaline Phosphatase 110 units/L (35-129) 01/02/18 03:44 Total Creatine Kinase 42 units/L (55-170) L 01/07/18 08:40 CK-MB (CK-2) 4.8 ng/mL (0.0-4.0) H 01/07/18 08:40 CK-MB (CK-2) Rel Index 11.4 (0-4) H 01/07/18 08:40 Troponin T < 0.010 ng/mL (0.00-0.029) 01/01/18 02:25 C-Reactive Protein 2.40 mg/dL (0.00-1.30) H 01/05/18 19:56 NT-Pro-B Natriuret Pep 1069 pg/mL (0-900) H 01/01/18 02:25 Total Protein 5.5 g/dL (6.3-8.2) L 01/02/18 03:44 Albumin 1.7 g/dL (3.9-5) L 01/02/18 03:44 Albumin/Globulin Ratio 0.4 % 01/02/18 03:44 Urine Color Yellow (Yellow) 01/01/18 Unknown Urine Turbidity Clear (Clear) 01/01/18 Unknown Urine pH 7.0 (5.0-7.0) 01/01/18 Unknown Ur Specific [place] 1.013 (1.003-1.030) 01/01/18 Unknown Urine Protein <15 mg/dl mg/dL (Negative) 01/01/18 Unknown Urine Glucose (UA) Neg mg/dL (Negative) 01/01/18 Unknown Urine Ketones Neg mg/dL (Negative) 01/01/18 Unknown Urine Blood Neg (Negative) 01/01/18 Unknown Urine Nitrite Neg (Negative) 01/01/18 Unknown Urine Bilirubin Neg (Negative) 01/01/18 Unknown Urine Urobilinogen 4.0 mg/dL (<2.0) 01/01/18 Unknown Ur Leukocyte Esterase Neg (Negative) 01/01/18 Unknown Urine WBC (Auto) 4.0 /HPF (0.0-6.0) 01/01/18 Unknown Urine RBC (Auto) 2.0 /HPF (0.0-6.0) 01/01/18 Unknown Urine Mucus Few /HPF 01/01/18 Unknown Vancomycin Trough 12.0 ug/mL (5.0-20.0) 01/03/18 19:01
--- NOTE | 2018-01-08 10:15 | Progress Note ---
Assessment and Plan Acute respiratory failure Pneumonia COPD exacerbation Paroxysmal Atrial fibrillation triggered by respiratory insufficiency spontaneously reverted to sinus rhythm CHADS-VASc score is zero. No indication for anticoagulation. Subjective Date of service: 01/08/18 Principal diagnosis: Acute hypoxic respiratory failure, health care associated pneumonia, sepsis Interval history: Patient remains intubated on mechanical ventilation. Objective Vital Signs Temp Pulse Pulse Pulse Pulse Pulse Pulse 01/08/18 09:00 83 01/08/18 08:45 81 01/08/18 08:39 78 01/08/18 08:34 80 01/08/18 08:31 81 01/08/18 08:25 81 01/08/18 08:15 78 01/08/18 08:00 96.8 F L 82 01/08/18 07:45 82 01/08/18 07:30 79 01/08/18 07:15 82 01/08/18 07:00 79 01/08/18 06:45 78 01/08/18 06:30 77 01/08/18 06:15 76 01/08/18 06:00 76 01/08/18 05:45 78 01/08/18 05:30 80 01/08/18 05:15 78 01/08/18 05:06 79 01/08/18 05:00 79 01/08/18 04:45 81 01/08/18 04:30 80 01/08/18 04:15 79 01/08/18 04:00 98.4 F 80 01/08/18 03:45 80 01/08/18 03:30 80 01/08/18 03:15 79 01/08/18 03:00 80 01/08/18 02:45 82 01/08/18 02:30 81 01/08/18 02:15 81 01/08/18 02:00 81 01/08/18 01:45 82 01/08/18 01:30 80 01/08/18 01:15 81 01/08/18 01:04 83 01/08/18 01:00 85 01/08/18 00:45 93 H 01/08/18 00:30 86 01/08/18 00:15 87 01/08/18 00:03 90 90 90 90 01/08/18 00:00 91 H 01/07/18 23:57 97.3 F L 01/07/18 23:53 90 01/07/18 23:45 89 01/07/18 23:30 78 01/07/18 23:15 84 01/07/18 23:00 83 01/07/18 22:45 86 01/07/18 22:30 89 01/07/18 22:15 88 01/07/18 22:11 87 01/07/18 22:04 86 01/07/18 22:00 87 112 H 112 H 112 H 01/07/18 21:45 89 01/07/18 21:30 97 H 01/07/18 21:15 113 H 01/07/18 21:00 93 H 01/07/18 20:45 107 H 01/07/18 20:31 96 H 01/07/18 20:19 98.4 F 01/07/18 20:15 124 H 01/07/18 20:00 98.4 F 76 01/07/18 19:45 76 01/07/18 19:30 79 01/07/18 19:15 77 01/07/18 19:00 75 01/07/18 18:45 76 01/07/18 18:30 76 01/07/18 18:15 74 01/07/18 18:00 76 18 17:45 77 01/07/18 17:30 77 01/07/18 17:15 79 01/07/18 17:00 83 01/07/18 16:45 79 18 16:30 79 18 16:15 77 01/07/18 16:00 97.6 F 89 01/07/18 15:45 79 18 15:35 18 15:30 73 1518 15:15 67 18 15:00 70 18 14:45 70 18 14:30 68 18 14:15 73 18 14:00 72 18 13:45 74 18 13:30 74 18 13:15 73 18 13:00 75 76 01/07/18 12:50 73 01/07/18 12:45 77 01/07/18 12:30 74 01/07/18 12:27 97.1 F L 03/15/18 12:15 70 01/07/18 12:00 73 01/07/18 11:45 74 01/07/18 11:31 76 01/07/18 11:15 74 01/07/18 11:00 77 18 10:45 77 18 10:30 75 01/07/18 10:15 76 Pulse Resp Resp BP Pulse Ox 01/08/18 09:00 13 115/79 01/08/18 08:45 16 123/81 97 01/08/18 08:39 16 01/08/18 08:34 123/81 95 01/08/18 08:31 14 123/81 95 01/08/18 08:25 15 01/08/18 08:15 15 123/81 96 01/08/18 08:00 16 123/81 95 01/08/18 07:45 16 117/77 94 01/08/18 07:30 15 117/77 01/08/18 07:15 15 120/79 95 01/08/18 07:00 13 120/79 95 01/08/18 06:45 14 119/76 95 18 06:30 13 119/76 100 01/08/18 06:15 14 126/85 94 01/08/18 06:00 12 126/85 90 01/08/18 05:45 14 108/75 95 01/08/18 05:30 14 108/75 01/08/18 05:15 14 109/78 95 01/08/18 05:06 109/78 93 01/08/18 05:00 15 113/77 91 01/08/18 04:45 14 113/77 94 01/08/18 04:30 14 113/77 94 18 04:15 14 111/76 95 01/08/18 04:00 16 111/76 95 18 03:45 15 111/75 95 01/08/18 03:30 15 111/75 92 18 03:15 13 110/75 93 1618 03:00 14 110/75 93 18 02:45 14 103/74 93 1618 02:30 15 103/74 93 18 02:15 13 103/67 92 18 02:00 15 103/67 91 03/16/18 01:45 16 101/65 93 03/16/18 01:30 17 101/65 03/16/18 01:15 14 93/65 95 16/18 01:04 93/65 93 16/18 01:00 14 93/65 16/18 00:45 15 88/61 93 16/18 00:30 16 88/61 16/18 00:15 14 86/44 91 1618 00:03 90 15 91 1618 00:00 14 87/44 91 1518 23:57 1518 23:53 14 87/50 91 1518 23:45 16 88/49 91 1518 23:30 17 101/64 91 1518 23:15 13 96/62 93 1518 23:00 14 96/63 93 1518 22:45 15 88/60 93 1518 22:30 14 95/62 93 18 22:15 15 97/57 93 1518 22:11 93/60 93 1518 22:04 20 18 22:00 112 H 13 95/61 97 1518 21:45 13 102/63 94 1518 21:30 17 116/74 89 18 21:15 17 173/97 83 L 01/07/18 21:00 15 160/95 91 1518 20:45 19 153/92 79 L 01/07/18 20:31 12 120/72 77 L 01/07/18 20:19 18 20:15 41 H 104/72 93 1518 20:00 15 104/72 94 15/18 19:45 14 92/65 94 1518 19:30 16 110/72 94 15/18 19:15 14 100/66 92 1518 19:00 16 103/65 93 15/18 18:45 13 96/66 92 1518 18:30 14 92/65 93 15/18 18:15 13 99/63 91 0315/18 18:00 15 100/61 91 1518 17:45 13 96/63 91 03/15/18 17:30 15 104/69 89 01/07/18 17:15 15 101/66 91 01/07/18 17:00 14 112/79 90 01/07/18 16:45 15 103/64 92 01/07/18 16:30 15 105/67 92 01/07/18 16:15 16 104/64 89 01/07/18 16:00 19 106/65 82 L 01/07/18 15:45 16 101/64 90 01/07/18 15:35 15 01/07/18 15:30 14 104/64 97 01/07/18 15:15 13 97/61 97 01/07/18 15:00 14 88/58 96 01/07/18 14:45 14 86/58 97 01/07/18 14:30 14 103/64 97 01/07/18 14:15 15 103/65 98 01/07/18 14:00 13 101/62 97 01/07/18 13:45 13 97/64 97 01/07/18 13:30 14 100/63 97 01/07/18 13:15 14 96/62 97 01/07/18 13:00 15 18 102/69 95 01/07/18 12:50 16 01/07/18 12:45 15 113/72 97 01/07/18 12:30 14 111/69 99 01/07/18 12:27 01/07/18 12:15 14 104/68 98 01/07/18 12:00 14 97/61 90 01/07/18 11:45 13 97/59 96 01/07/18 11:31 14 97/59 98 01/07/18 11:15 13 97/59 97 01/07/18 11:00 14 95/63 94 01/07/18 10:45 14 111/69 97 01/07/18 10:30 15 114/72 97 01/07/18 10:15 12 102/68 97 - Physical Examination General: Other (intubated on mechanical ventilation) Cardiac: Positive: Reg Rate and Rhythm - Labs and Meds CBC 01/07/18 01/08/18 Range/Units 08:40 08:33 WBC 10.4 (4.5-11.0) K/mm3 RBC 3.59 L (3.65-5.03) M/mm3 Hgb 9.4 L (11.8-15.2) gm/dl Hct 30.2 L (35.5-45.6) % Plt Count 161 (140-440) K/mm3 [place] # 0.4 (0.0-0.8) K/mm3 Eos # 0.0 (0.0-0.4) K/mm3 Baso # 0.1 (0.0-0.1) K/mm3 Comprehensive Metabolic Panel 01/08/18 Range/Units 08:33 Sodium 146 H D (137-145) mmol/L Potassium 4.3 D (3.6-5.0) mmol/L Chloride 106.7 (98-107) mmol/L Carbon Dioxide 32 H (22-30) mmol/L BUN 28 H (9-20) mg/dL Creatinine 0.5 L (0.8-1.5) mg/dL Glucose 155 H (75-100) mg/dL Calcium 7.8 L (8.4-10.2) mg/dL - Allied health notes Allied health notes reviewed: nursing
[2018-01-08] MEDS: PROTONIX FEEDTUBE SCH (10:22)
[2018-01-08] MEDS: HABITROL TD SCH (10:22)
[2018-01-08] MEDS: CARDIZEM CD PO SCH (10:23)
[2018-01-08] MEDS ORDERED: XYLOCAINE 2% INFILTRATI ONE (11:27)
[2018-01-08] MEDS ORDERED: NACL 0.9% IR ONE (11:29)
--- NOTE | 2018-01-08 12:56 | Progress Note ---
Assessment and Plan Acute likely on chronic hypoxemic respiratory failure. Healthcare-associated pneumonia Diffuse proliferative lung disease. Leukocytosis. Anemia. Hyponatremia, mild. Sepsis syndrome with elevated lactic acidosis. Elevated D-dimer. Elevated BNP. Adult failure to thrive. - still awaiting records from prior hospital but has had TB worked up before per patient and been treated for latent TB (will search for records with the alternate name he has provided me) - continue full AC support acutely (AC/450//) - continue to wean FiO2 for sats > 90% - continue bronchodilators and pulmonary toilet - continue aspiration precautions / addressed VAP bundle - continue empiric AB's per ID input - continue GI & VTE prophylaxis - continue mobility protocol for pressure ulcer prophylaxis - PT/OT as tolerated - continue other care per attending / other consultants ....LTAC evaluation appropriate as i suspect this will be a prolonged recovery prior to reaching FiO2 levels that he can be discharged on .... he is critically ill on life sustaining interventions including MVS and at high risk for further deterioration including ....35' Subjective Date of service: 01/08/18 Principal diagnosis: Acute hypoxic respiratory failure, health care associated pneumonia, sepsis Interval history: Patient seen today for: Acute hypoxic respiratory failure, health care associated pneumonia, sepsis Seen and examined at bedside; 24-hour events reviewed; nursing and respiratory care staff consulted; decompensated and was intubated overnight; now on MVS; sedated to RASS -1; now s/p bronchoscopy; sedated; self extubated and re- intubated overnight; No N/V/F/C Objective Vital Signs - 12hr 01/08/18 01/08/18 01/08/18 01:00 01:04 01:15 Temperature Pulse Rate 85 83 81 Pulse Rate [ Anterior Bilateral Throughout] Respiratory 14 14 Rate Respiratory Rate [Anterior Bilateral Throughout] Blood Pressure 93/65 93/65 93/65 O2 Sat by Pulse 93 95 Oximetry 01/08/18 01/08/18 01/08/18 01:30 01:45 02:00 Temperature Pulse Rate 80 82 81 Pulse Rate [ Anterior Bilateral Throughout] Respiratory 17 16 15 Rate Respiratory Rate [Anterior Bilateral Throughout] Blood Pressure 101/65 101/65 103/67 O2 Sat by Pulse 93 91 Oximetry 01/08/18 01/08/18 01/08/18 02:15 02:30 02:45 Temperature Pulse Rate 81 81 82 Pulse Rate [ Anterior Bilateral Throughout] Respiratory 13 15 14 Rate Respiratory Rate [Anterior Bilateral Throughout] Blood Pressure 103/67 103/74 103/74 O2 Sat by Pulse 92 93 93 Oximetry 01/08/18 01/08/18 01/08/18 03:00 03:15 03:30 Temperature Pulse Rate 80 79 80 Pulse Rate [ Anterior Bilateral Throughout] Respiratory 14 13 15 Rate Respiratory Rate [Anterior Bilateral Throughout] Blood Pressure 110/75 110/75 111/75 O2 Sat by Pulse 93 93 92 Oximetry 01/08/18 01/08/18 01/08/18 03:45 04:00 04:15 Temperature 98.4 F Pulse Rate 80 80 79 Pulse Rate [ Anterior Bilateral Throughout] Respiratory 15 16 14 Rate Respiratory Rate [Anterior Bilateral Throughout] Blood Pressure 111/75 111/76 111/76 O2 Sat by Pulse 95 95 95 Oximetry 01/08/18 01/08/18 01/08/18 04:30 04:45 05:00 Temperature Pulse Rate 80 81 79 Pulse Rate [ Anterior Bilateral Throughout] Respiratory 14 14 15 Rate Respiratory Rate [Anterior Bilateral Throughout] Blood Pressure 113/77 113/77 113/77 O2 Sat by Pulse 94 94 91 Oximetry 01/08/18 01/08/18 01/08/18 05:06 05:15 05:30 Temperature Pulse Rate 79 78 80 Pulse Rate [ Anterior Bilateral Throughout] Respiratory 14 14 Rate Respiratory Rate [Anterior Bilateral Throughout] Blood Pressure 109/78 109/78 108/75 O2 Sat by Pulse 93 95 Oximetry 01/08/18 01/08/18 01/08/18 05:45 06:00 06:15 Temperature Pulse Rate 78 76 76 Pulse Rate [ Anterior Bilateral Throughout] Respiratory 14 12 14 Rate Respiratory Rate [Anterior Bilateral Throughout] Blood Pressure 108/75 126/85 126/85 O2 Sat by Pulse 95 90 94 Oximetry 01/08/18 01/08/18 01/08/18 06:30 06:45 07:00 Temperature Pulse Rate 77 78 79 Pulse Rate [ Anterior Bilateral Throughout] Respiratory 13 14 13 Rate Respiratory Rate [Anterior Bilateral Throughout] Blood Pressure 119/76 119/76 120/79 O2 Sat by Pulse 100 95 95 Oximetry 01/08/18 01/08/18 01/08/18 07:15 07:30 07:45 Temperature Pulse Rate 82 79 82 Pulse Rate [ Anterior Bilateral Throughout] Respiratory 15 15 16 Rate Respiratory Rate [Anterior Bilateral Throughout] Blood Pressure 120/79 117/77 117/77 O2 Sat by Pulse 95 94 Oximetry 01/08/18 01/08/18 01/08/18 08:00 08:15 08:25 Temperature 96.8 F L Pulse Rate 82 78 Pulse Rate [ 81 Anterior Bilateral Throughout] Respiratory 16 15 Rate Respiratory 15 Rate [Anterior Bilateral Throughout] Blood Pressure 123/81 123/81 O2 Sat by Pulse 95 96 Oximetry 01/08/18 01/08/18 01/08/18 08:31 08:34 08:39 Temperature Pulse Rate 81 80 Pulse Rate [ 78 Anterior Bilateral Throughout] Respiratory 14 Rate Respiratory 16 Rate [Anterior Bilateral Throughout] Blood Pressure 123/81 123/81 O2 Sat by Pulse 95 95 Oximetry 01/08/18 01/08/18 01/08/18 08:45 09:00 09:15 Temperature Pulse Rate 81 83 83 Pulse Rate [ Anterior Bilateral Throughout] Respiratory 16 13 14 Rate Respiratory Rate [Anterior Bilateral Throughout] Blood Pressure 123/81 115/79 115/79 O2 Sat by Pulse 97 99 Oximetry 01/08/18 01/08/18 01/08/18 09:31 09:45 10:00 Temperature Pulse Rate 84 87 85 Pulse Rate [ Anterior Bilateral Throughout] Respiratory 14 13 14 Rate Respiratory Rate [Anterior Bilateral Throughout] Blood Pressure 115/79 115/79 118/79 O2 Sat by Pulse 97 97 Oximetry 01/08/18 01/08/18 01/08/18 10:15 10:23 10:31 Temperature Pulse Rate 84 86 86 Pulse Rate [ Anterior Bilateral Throughout] Respiratory 14 13 Rate Respiratory Rate [Anterior Bilateral Throughout] Blood Pressure 118/79 118/79 118/79 O2 Sat by Pulse 96 96 Oximetry 01/08/18 01/08/18 01/08/18 10:45 11:00 11:54 Temperature Pulse Rate 86 87 84 Pulse Rate [ Anterior Bilateral Throughout] Respiratory 13 13 Rate Respiratory Rate [Anterior Bilateral Throughout] Blood Pressure 118/79 113/76 113/76 O2 Sat by Pulse 96 95 Oximetry Constitutional: appears uncomfortable, other (sedated to RASS -1) Eyes: non-icteric ENT: oropharynx moist, other (mallampatti 2) Neck: supple, no lymphadenopathy, no JVD, other (no thyromegaly) Effort: mildly labored Ascultation: Bilateral: diminished breath sounds, rales, rhonchi Percussion: Bilateral: not dull Cardiovascular: regular rate and rhythm, other (no rubs/murmurs) Gastrointestinal: normoactive bowel sounds, soft, non-tender, non-distended, other (no HSM) Integumentary: rash Extremities: no cyanosis, no edema, pink and warm, pulses normal Neurologic: normal mental status, non-focal exam, pupils equal and round, CN II- XII normal Psychiatric: other (sedated) CBC and BMP: 01/08/18 08:33 01/08/18 08:33 ABG, PT/INR, D-dimer: ABG POC ABG pH 7.429 (7.35-7.45) 01/08/18 05:12 POC ABG pCO2 51.8 (35-45) H 01/08/18 05:12 POC ABG pO2 65 (80-105) L 01/08/18 05:12 POC ABG HCO3 34.3 01/08/18 05:12 POC ABG Total CO2 36 01/08/18 05:12 POC ABG O2 Sat 92 01/08/18 05:12 PT/INR, D-dimer PT 14.5 Sec. (12.2-14.9) 01/01/18 02:25 INR 1.07 (0.87-1.13) 01/01/18 02:25 D-Dimer 2358.22 ng/mlDDU (0-234) H 01/01/18 03:31 Abnormal lab findings: Abnormal Labs 01/01/18 01/01/18 01/01/18 02:25 02:25 02:25 WBC 21.6 H RBC Hgb 10.3 L Hct 32.7 L MCV 83 L MCH 26 L MCHC RDW 18.0 H Seg Neuts % (Manual) 87.5 H Lymphocytes % (Manual) 7.5 L Seg Neutrophils # Seg Neutrophils # Man 18.9 H Lymphocytes # (Manual) D-Dimer POC ABG pH POC ABG pCO2 POC ABG pO2 Sodium 135 L Potassium Carbon Dioxide 21 L BUN Creatinine 0.6 L Glucose 103 H Lactic Acid Calcium 8.3 L Total Creatine Kinase CK-MB (CK-2) CK-MB (CK-2) Rel Index C-Reactive Protein NT-Pro-B Natriuret Pep 1069 H Total Protein Albumin 01/01/18 01/01/18 01/01/18 02:36 03:17 03:31 WBC RBC Hgb Hct MCV MCH MCHC RDW Seg Neuts % (Manual) Lymphocytes % (Manual) Seg Neutrophils # Seg Neutrophils # Man Lymphocytes # (Manual) D-Dimer 2358.22 H POC ABG pH 7.474 H POC ABG pCO2 33.2 L POC ABG pO2 73 L Sodium Potassium Carbon Dioxide BUN Creatinine Glucose Lactic Acid 3.60 H* Calcium Total Creatine Kinase CK-MB (CK-2) CK-MB (CK-2) Rel Index C-Reactive Protein NT-Pro-B Natriuret Pep Total Protein Albumin 01/01/18 01/02/18 01/02/18 14:01 03:44 03:44 WBC RBC 3.14 L Hgb 8.4 L Hct 25.9 L D MCV 82 L MCH 27 L MCHC RDW 17.4 H Seg Neuts % (Manual) 91.0 H Lymphocytes % (Manual) 6.0 L Seg Neutrophils # Seg Neutrophils # Man 10.0 H Lymphocytes # (Manual) 0.7 L D-Dimer POC ABG pH POC ABG pCO2 POC ABG pO2 Sodium Potassium Carbon Dioxide BUN Creatinine 0.5 L Glucose 137 H Lactic Acid Calcium 7.5 L Total Creatine Kinase CK-MB (CK-2) CK-MB (CK-2) Rel Index C-Reactive Protein 20.70 H NT-Pro-B Natriuret Pep Total Protein 5.5 L Albumin 1.7 L 01/04/18 01/05/18 01/05/18 10:03 05:35 05:35 WBC 15.9 H RBC Hgb 9.7 L Hct 31.2 L MCV 82 L MCH 25 L MCHC 31 L RDW 17.8 H Seg Neuts % (Manual) 83.0 H Lymphocytes % (Manual) 4.0 L Seg Neutrophils # Seg Neutrophils # Man 13.2 H Lymphocytes # (Manual) 0.6 L D-Dimer POC ABG pH POC ABG pCO2 POC ABG pO2 Sodium 134 L Potassium Carbon Dioxide 19 L 31 H D BUN Creatinine 0.5 L 0.5 L Glucose 111 H 134 H Lactic Acid Calcium 8.3 L Total Creatine Kinase CK-MB (CK-2) CK-MB (CK-2) Rel Index C-Reactive Protein NT-Pro-B Natriuret Pep Total Protein Albumin 01/05/18 01/06/18 01/07/18 19:56 22:53 00:33 WBC RBC Hgb Hct MCV MCH MCHC RDW Seg Neuts % (Manual) Lymphocytes % (Manual) Seg Neutrophils # Seg Neutrophils # Man Lymphocytes # (Manual) D-Dimer POC ABG pH POC ABG pCO2 58.0 H POC ABG pO2 67 L Sodium Potassium Carbon Dioxide BUN Creatinine Glucose Lactic Acid Calcium Total Creatine Kinase 50 L CK-MB (CK-2) CK-MB (CK-2) Rel Index 7.4 H C-Reactive Protein 2.40 H NT-Pro-B Natriuret Pep Total Protein Albumin 01/07/18 01/07/18 01/07/18 03:43 04:15 08:40 WBC RBC Hgb Hct MCV MCH MCHC RDW Seg Neuts % (Manual) Lymphocytes % (Manual) Seg Neutrophils # Seg Neutrophils # Man Lymphocytes # (Manual) D-Dimer POC ABG pH 7.458 H POC ABG pCO2 48.7 H POC ABG pO2 Sodium Potassium 3.4 L Carbon Dioxide BUN 24 H Creatinine 0.4 L Glucose 156 H Lactic Acid Calcium 7.6 L Total Creatine Kinase 42 L CK-MB (CK-2) 4.8 H CK-MB (CK-2) Rel Index 11.4 H C-Reactive Protein NT-Pro-B Natriuret Pep Total Protein Albumin 01/07/18 01/08/18 01/08/18 08:40 05:12 08:33 WBC 14.8 H RBC 3.48 L 3.59 L Hgb 8.9 L 9.4 L Hct 28.5 L 30.2 L MCV 82 L MCH 26 L 26 L MCHC 31 L 31 L RDW 18.6 H 19.5 H Seg Neuts % (Manual) 96 H Lymphocytes % (Manual) 3 L Seg Neutrophils # 13.7 H Seg Neutrophils # Man 14.2 H Lymphocytes # (Manual) 0.4 L D-Dimer POC ABG pH POC ABG pCO2 51.8 H POC ABG pO2 65 L Sodium Potassium Carbon Dioxide BUN Creatinine Glucose Lactic Acid Calcium Total Creatine Kinase CK-MB (CK-2) CK-MB (CK-2) Rel Index C-Reactive Protein NT-Pro-B Natriuret Pep Total Protein Albumin 01/08/18 08:33 WBC RBC Hgb Hct MCV MCH MCHC RDW Seg Neuts % (Manual) Lymphocytes % (Manual) Seg Neutrophils # Seg Neutrophils # Man Lymphocytes # (Manual) D-Dimer POC ABG pH POC ABG pCO2 POC ABG pO2 Sodium 146 H D Potassium Carbon Dioxide 32 H BUN 28 H Creatinine 0.5 L Glucose 155 H Lactic Acid Calcium 7.8 L Total Creatine Kinase CK-MB (CK-2) CK-MB (CK-2) Rel Index C-Reactive Protein NT-Pro-B Natriuret Pep Total Protein Albumin Allied health notes reviewed: nursing
--- NOTE | 2018-01-08 13:02 | Procedure Note ---
Date of procedure: 01/08/18 Pre-op diagnosis: Acute hypoxemic respiratory failure on MVS; Cavitary pneumonia ; R/O Pulm TB Post-op diagnosis: same Procedure: FIBEROPTIC BRONCHOSCOPY WITH BAL (Full dictation # [id number]) Please see dictated notes for full details
--- NOTE | 2018-01-08 13:39 | Progress Note ---
Assessment and Plan Assessment: 1) Sepsis: better. Etiology most likely pneumonia. CRP=2.4 2) Acute on chronic respiratory failure: intubated 3) Bilateral multifocal pneumonia/bronchiectasis: Likely necrotizing pneumonia due to a Staph. Doubt TB, however will rule it out in view of history of latent TB. -Sputum normal resp jones. Corrected report NO Staph seen -CTA showed multifocal bilateral consolidation with a small right pleural effusion. Also demonstrated severe centri-lobular emphysema and enlargement mediastinum, numerous large subpleural blebs and extensive bronchiectasis. 4) History for COPD on home oxygen 5) Hep C 6) history of treated latetnt TB in 2000 Plan: -follow-up BAL -stop contact isolation- no evidence of MRSA -continue airborne isolation until TB is r/o -Quantiferon TB gold STAT - pending -HIV test - pending -AFB in sputum x 3 - pending -stop vancomycin - no evidence of MRSA -continue Zosyn for now - day 8 I am rounding on Thursday Thank you for your consultation, will follow up with you. Vika Rice MD Infectious Diseases Specialist [facility] ([facility] M [phone] O [phone] Subjective Date of service: 01/08/18 Principal diagnosis: Acute hypoxic respiratory failure, health care associated pneumonia, sepsis Interval history: Pt intubated on the vent fiO2 100%, p5. No fever. Microbiology: Blood cultures: 01/01 ngtd Respiratory cultures: 01/01 normal resp jones. Corrected report NO Staph seen Current Antimicrobials: Vancomycin 01/01 Zosyn 01/01 Previous Antimicrobials: Objective - Exam Narrative Exam: General appearance: sedated on the vent in NAD Eyes: anicteric sclerae, moist conjunctivae; no lid-lag; PERRLA HENT: Atraumatic; oropharynx +ETT +NGT Neck: Trachea midline; supple, no thyromegaly or lymphadenopathy Lungs: distant BS with scattered crackles CV: tachycardic Abdomen: Soft, non-tender. Extremities: No peripheral edema or extremity lymphadenopathy Skin: Normal temperature, turgor and texture; no rash, ulcers or subcutaneous nodules Psych: sedated. Neuro: sedated Lines: - Constitutional Vitals: Vital Signs Temp Pulse Resp BP Pulse Ox 96.8 F L 92 H 12 112/68 93 01/08/18 08:00 01/08/18 13:00 01/08/18 13:00 01/08/18 13:00 01/08/18 13:00 Temperature -Last 24 Hours Temperature 96.8 F Temperature 98.4 F Temperature 97.3 F Temperature 98.4 F Temperature 98.4 F Temperature 97.6 F - Labs CBC & Chem 7: 01/08/18 08:33 01/08/18 08:33 Labs: Abnormal lab results 01/07/18 01/08/18 01/08/18 Range/Units 08:40 05:12 08:33 RBC 3.59 L (3.65-5.03) M/mm3 Hgb 9.4 L (11.8-15.2) gm/dl Hct 30.2 L (35.5-45.6) % MCH 26 L (28-32) pg MCHC 31 L (32-34) % RDW 19.5 H (13.2-15.2) % Seg Neuts % (Manual) 96 H (40.0-70.0) % Lymphocytes % (Manual) 3 L (13.4-35.0) % Seg Neutrophils # 13.7 H (1.8-7.7) K/mm3 Seg Neutrophils # Man 14.2 H (1.8-7.7) K/mm3 Lymphocytes # (Manual) 0.4 L (1.2-5.4) K/mm3 POC ABG pCO2 51.8 H (35-45) POC ABG pO2 65 L (80-105) Sodium (137-145) mmol/L Carbon Dioxide (22-30) mmol/L BUN (9-20) mg/dL Creatinine (0.8-1.5) mg/dL Glucose (75-100) mg/dL Calcium (8.4-10.2) mg/dL 01/08/18 Range/Units 08:33 RBC (3.65-5.03) M/mm3 Hgb (11.8-15.2) gm/dl Hct (35.5-45.6) % MCH (28-32) pg MCHC (32-34) % RDW (13.2-15.2) % Seg Neuts % (Manual) (40.0-70.0) % Lymphocytes % (Manual) (13.4-35.0) % Seg Neutrophils # (1.8-7.7) K/mm3 Seg Neutrophils # Man (1.8-7.7) K/mm3 Lymphocytes # (Manual) (1.2-5.4) K/mm3 POC ABG pCO2 (35-45) POC ABG pO2 (80-105) Sodium 146 H D (137-145) mmol/L Carbon Dioxide 32 H (22-30) mmol/L BUN 28 H (9-20) mg/dL Creatinine 0.5 L (0.8-1.5) mg/dL Glucose 155 H (75-100) mg/dL Calcium 7.8 L (8.4-10.2) mg/dL
--- NOTE | 2018-01-08 14:21 | Operative Report ---
PROCEDURE: Fiberoptic bronchoscopy with bronchioalveolar lavage. INDICATIONS: Acute respiratory failure, on mechanical ventilator in a patient with a cavitary pneumonia and suspicions of Mycobacterium pulmonary tuberculosis. CONSENT: This is a 2-physician consent. The patient had been informed earlier but at this point, the patient is intubated. There was a 2-physician consent. COMPLICATIONS: No immediate procedural complications. SEDATION: The patient was on a propofol drip and fentanyl drip during the procedure and also received about 6 mL of topical 2% lidocaine in total at the clement. DESCRIPTION OF PROCEDURE: After informed and witnessed consent as well as premedication, fiberoptic bronchoscope was passed through the Bodai valve and advanced into the distal trachea. There was a lot of architectural distortion from the level of the mid trachea. I could see that the trachea was deviated to the right side. Topical lidocaine was applied at the clement. The right mainstem bronchus was entered. It was difficult to really tell which was which, but I believe I did locate the right upper lobe opening. There were about 3 major divisions upon entering the right upper lobe. The patient was desaturated during this procedure, get into as low as 82, so at various times, I had to come out of the airway. Fiberoptic bronchoscope was wedged in the segment of the right upper lobe and sequential aliquots of bronchoalveolar lavage samples were taken from here. Then, a fiberoptic bronchoscope was advanced into, what I believe was, the right middle lobe and I did again take sequential aliquots of bronchoalveolar lavage samples from here. Minimal secretion within the endobronchial tree. Fiberoptic bronchoscope was withdrawn to the clement and a quick left lung endobronchial survey was done. This was limited. I did not get really good images, but I did not encounter any endobronchial lesion. Fiberoptic bronchoscope was withdrawn back to the clement. A quick secondary survey was done on the right bronchial tree. There was no significant bleeding or exudation noted. Fiberoptic bronchoscope was then withdrawn through the Bodai valve. The patient tolerated the procedure well. No immediate procedural complications. RECOMMENDATIONS: 1. A portable chest x-ray will be ordered to rule out any acute pneumothorax or other event as there was some coughing earlier and during the procedure. 2. Samples will be sent for AFB smears and cultures, cytology, as well as for routine respiratory cultures. JOB# [id number] MELVIN/LILIYA
--- NOTE | 2018-01-08 16:03 | XRay Report ---
FINAL REPORT EXAM: XR CHEST 1V AP HISTORY: Right arm PICC placement TECHNIQUE: Frontal chest x-ray was performed Comparison: Earlier same day, 01/06/2018, CTA chest 01/01/2018 FINDINGS: Patient remains intubated with endotracheal tube tip well above the clement. Feeding tube is present with tip not imaged. Right PICC line has been placed with tip in the region of the cavoatrial junction, in adequate position for use. Extensive bullous emphysema with fibrosis and extensive interstitial and alveolar opacities. Overall, aeration is not significantly changed from earlier same day. IMPRESSION: Interval placement right PICC line with tip at the cavoatrial junction, okay for use. Patient remains intubated. Endotracheal tube tip projects well above the clement. Weighted feeding tube is present with the tip not imaged but well past the GE junction. Extensive bullous emphysema, fibrosis, and consolidative infiltrates. Unchanged aeration.
[2018-01-09] MEDS: FLAGYL PO SCH ×4 (00:08→21:40)
[2018-01-09] MEDS: SODIUM CHLORIDE FLUSH SYRINGE 10 ML IV SCH ×3 (00:09→21:39)
--- NOTE | 2018-01-09 00:56 | XRay Report ---
FINAL REPORT PROCEDURE: XR CHEST 1V AP TECHNIQUE: Chest radiograph anteroposterior view. CPT 98691 HISTORY: ETT PLACEMENT AND FEEDING TUBE PLACEMENT COMPARISON: Earlier the same date FINDINGS: Heart: Normal. Mediastinum/Vessels: Normal. Lungs/Pleural space: Fibrosis with emphysema in both lungs is again noted. Mild scattered infiltrates both lungs. No effusion or pneumothorax.. Bony thorax: No acute osseous abnormality. Life support devices: The endotracheal tube ends 4 centimeter above the clement. A nasogastric tube ends below the hemidiaphragms. Right PICC catheter ends in the SVC. IMPRESSION: Emphysema with fibrosis are identified. Slight infiltrates bilateral lungs. No effusion or pneumothorax. Tubes and lines are properly positioned.
[2018-01-09] MEDS: fentaNYL DRIP Premix 2,000 MCG/100 ML BAG IV SCH ×2 (05:11→16:45)
[2018-01-09] MEDS: ZOSYN/NS 4.5GM/100ML 4.5 GM/100 ML VIAL IV SCH ×3 (05:12→21:30)
[2018-01-09] MEDS: HEPARIN SUB-Q SCH ×3 (05:13→21:25)
[2018-01-09] MEDS: DIPRIVAN 10 MG/ML 1,000 MG/100 ML BOTTLE IV SCH ×2 (05:31→21:28)
[2018-01-09] MEDS: PULMICORT IH SCH ×2 (07:10→19:30)
[2018-01-09] MEDS: BROVANA NEBU IH SCH ×2 (07:10→19:30)
--- NOTE | 2018-01-09 08:42 | XRay Report ---
FINAL REPORT EXAM: XR CHEST 1V AP HISTORY: follow up respiratory failure TECHNIQUE: AP portable view(s) of the chest obtained. PRIORS: 01/08/2018 FINDINGS: Endotracheal tube terminates approximately 7 cm from the clement. Enteric tube projects over the stomach. Right upper extremity PICC is unchanged. The no pneumothorax. Diffuse reticular opacities are unchanged. IMPRESSION: No pneumothorax or significant change compared to 01/08/2018.
[2018-01-09] MEDS: DUONEB *Not for PRN Use IH SCH ×4 (09:09→19:30)
[2018-01-09] MEDS: PROTONIX FEEDTUBE SCH (09:57)
[2018-01-09] MEDS: HABITROL TD SCH (09:57)
[2018-01-09] MEDS: CARDIZEM CD PO SCH (09:58)
--- NOTE | 2018-01-09 12:38 | Progress Note ---
Assessment and Plan Assessment and plan: Acute on chronic hypoxic respiratory failure - Bilateral mechanical ventilation. Management per explosive operator grenade - Etiology is secondary to COPD exacerbation and bilateral pneumonia - on IV vancomycin, Zosyn, DuoNeb's, Solu-Medrol, nebulizer - Continue on Isolation Severe COPD with exacerbation - Continue scheduled nebulizers and breathing treatment - Continue empiric steroid and antibiotic - will follow sputum culture, chest x-ray/CTA chest showed bilateral infiltrates - Continue to support respiratory effort - We'll cont on sliding scale of insulin as patient will be on empiric steroid Bilateral pneumonia - Continue empiric antibiotics for now, follow culture - POSSIBLE NARCOTIZING PNA, r/o TB - Culture growing staff Aurus possible MRSA- contact isolation Sepsis -Etiology secondary to bilateral pneumonia - Continue abx, trend lactate\ - Rule out tuberculosis, AFB 3 pending, reported to firm goat pending. -Contact isolation for MRSA sputum growing staph aureus awaiting final. Hyponatremia - Etiology secondary to SIDH from the Pneumonia. Continue to Monitor. Lactic acidosis, due to sepsis - IV fluid, treat underlying cause Severe-Moderate Protein calorie Malnutrition - Pawn Shop Keeper consulted History of GERD - pantoprazole for GERD History of hepatitis C - normal LFT Hx of latent TB in 2000 DVT prophylaxis - Heparin The high probability of a clinically significant, sudden or life threatening deterioration of the [pulmonary] system(s) required my full and direct attention , intervention and personal management. The aggregate critical care time was [32 ] minutes. This time is in addition to time spent performing reported procedures but includes the following: [x] Data Review and interpretation [x] Patient assessment and monitoring of vital signs [x] Documentation [x] Medication orders and management History Interval history: No new issues overnight Hospitalist Physical - Constitutional Vitals: Temp Pulse Resp BP Pulse Ox 96.8 F L 111 H 13 142/82 87 01/09/18 08:00 01/09/18 12:00 01/09/18 12:00 01/09/18 12:00 01/09/18 12:00 General appearance: Present: no acute distress - EENT Eyes: Present: PERRL, EOM intact ENT: hearing intact, clear oral mucosa, dentition normal - Neck Neck: Present: supple, normal ROM - Respiratory Respiratory effort: normal Respiratory: bilateral: CTA - Cardiovascular Rhythm: regular Heart Sounds: Present: S1 & S2. Absent: gallop, rub - Extremities Extremities: no ischemia, No edema, Full ROM - Abdominal General gastrointestinal: soft, non-tender, non-distended, normal bowel sounds - Integumentary Integumentary: Present: clear, warm, dry - Neurologic Neurologic: CNII-XII intact, moves all extremities Results - Labs CBC & Chem 7: 01/08/18 08:33 01/08/18 08:33 Labs: Laboratory Last Values WBC 10.4 K/mm3 (4.5-11.0) 01/08/18 08:33 RBC 3.59 M/mm3 (3.65-5.03) L 01/08/18 08:33 Hgb 9.4 gm/dl (11.8-15.2) L 01/08/18 08:33 Hct 30.2 % (35.5-45.6) L 01/08/18 08:33 MCV 84 fl (84-94) 01/08/18 08:33 MCH 26 pg (28-32) L 01/08/18 08:33 MCHC 31 % (32-34) L 01/08/18 08:33 RDW 19.5 % (13.2-15.2) H 01/08/18 08:33 Plt Count 161 K/mm3 (140-440) 01/08/18 08:33 Lymph % (Auto) TNR 01/04/18 17:16 [place] % (Auto) 2.8 % (0.0-7.3) 01/07/18 08:40 Eos % (Auto) 0.0 % (0.0-4.3) 01/07/18 08:40 Baso % (Auto) TNR 01/04/18 17:16 Lymph # TNR 01/04/18 17:16 [place] # 0.4 K/mm3 (0.0-0.8) 01/07/18 08:40 Eos # 0.0 K/mm3 (0.0-0.4) 01/07/18 08:40 Baso # 0.1 K/mm3 (0.0-0.1) 01/07/18 08:40 Add Manual Diff Complete 01/07/18 08:40 Total Counted 100 01/05/18 05:35 Seg Neutrophils % Deliverer Outside 01/07/18 08:40 Seg Neuts % (Manual) 96 % (40.0-70.0) H 01/07/18 08:40 Band Neutrophils % 1 % 01/07/18 08:40 Lymphocytes % (Manual) 3 % (13.4-35.0) L 01/07/18 08:40 Reactive Lymphs % (Man) 0 % 01/05/18 05:35 Monocytes % (Manual) 4.0 % (0.0-7.3) 01/05/18 05:35 Eosinophils % (Manual) 0 % (0.0-4.3) 01/05/18 05:35 Basophils % (Manual) 0 % (0.0-1.8) 01/05/18 05:35 Metamyelocytes % 0 % 01/05/18 05:35 Myelocytes % 0 % 01/05/18 05:35 Promyelocytes % 0 % 01/05/18 05:35 Blast Cells % 0 % 01/05/18 05:35 Nucleated RBC % Not Reportable 01/07/18 08:40 Seg Neutrophils # 13.7 K/mm3 (1.8-7.7) H 01/07/18 08:40 Seg Neutrophils # Man 14.2 K/mm3 (1.8-7.7) H 01/07/18 08:40 Band Neutrophils # 0.1 K/mm3 01/07/18 08:40 Lymphocytes # (Manual) 0.4 K/mm3 (1.2-5.4) L 01/07/18 08:40 Abs React Lymphs (Man) 0.0 K/mm3 01/05/18 05:35 Monocytes # (Manual) 0.6 K/mm3 (0.0-0.8) 01/05/18 05:35 Eosinophils # (Manual) 0.0 K/mm3 (0.0-0.4) 01/05/18 05:35 Basophils # (Manual) 0.0 K/mm3 (0.0-0.1) 01/05/18 05:35 Metamyelocytes # 0.0 K/mm3 01/05/18 05:35 Myelocytes # 0.0 K/mm3 01/05/18 05:35 Promyelocytes # 0.0 K/mm3 01/05/18 05:35 Blast Cells # 0.0 K/mm3 01/05/18 05:35 WBC Morphology Not Reportable 01/07/18 08:40 Hypersegmented Neuts Not Reportable 01/07/18 08:40 Hyposegmented Neuts Not Reportable 01/07/18 08:40 Hypogranular Neuts Not Reportable 01/07/18 08:40 Smudge Cells Not Reportable 01/07/18 08:40 Toxic Granulation Not Reportable 01/07/18 08:40 Toxic Vacuolation Not Reportable 01/07/18 08:40 Dohle Bodies Not Reportable 01/07/18 08:40 Pelger-Huet Anomaly Not Reportable 01/07/18 08:40 Salazar Rods Not Reportable 01/07/18 08:40 Platelet Estimate Consistent w auto 01/07/18 08:40 Clumped Platelets Not Reportable 01/07/18 08:40 Plt Clumps, EDTA Not Reportable 01/07/18 08:40 Large Platelets Not Reportable 01/07/18 08:40 Giant Platelets Not Reportable 01/07/18 08:40 Platelet Satelliting Not Reportable 01/07/18 08:40 Plt Morphology Comment Not Reportable 01/07/18 08:40 RBC Morphology Not Reportable 01/07/18 08:40 Dimorphic RBCs Not Reportable 01/07/18 08:40 Polychromasia Not Reportable 01/07/18 08:40 Hypochromasia 1+ 01/07/18 08:40 Poikilocytosis Not Reportable 01/07/18 08:40 Anisocytosis 1+ 01/07/18 08:40 Microcytosis Few 01/07/18 08:40 Macrocytosis Few 01/07/18 08:40 Spherocytes Not Reportable 01/07/18 08:40 Pappenheimer Bodies Not Reportable 01/07/18 08:40 Sickle Cells Not Reportable 01/07/18 08:40 Target Cells Rare 01/07/18 08:40 Tear Drop Cells Not Reportable 01/07/18 08:40 Ovalocytes Few 01/07/18 08:40 Helmet Cells Not Reportable 01/07/18 08:40 [place] Bodies Not Reportable 01/07/18 08:40 [place] Rings Not Reportable 01/07/18 08:40 [place] Cells Not Reportable 01/07/18 08:40 Bite Cells Not Reportable 01/07/18 08:40 Crenated Cell Not Reportable 01/07/18 08:40 Elliptocytes Not Reportable 01/07/18 08:40 Acanthocytes (Spur) Not Reportable 01/07/18 08:40 Rouleaux Not Reportable 01/07/18 08:40 Hemoglobin C Crystals Not Reportable 01/07/18 08:40 Schistocytes Not Reportable 01/07/18 08:40 Malaria parasites Not Reportable 01/07/18 08:40 Abdullahi Bodies Not Reportable 01/07/18 08:40 Hem Pathologist Commnt No 01/07/18 08:40 PT 14.5 Sec. (12.2-14.9) 01/01/18 02:25 INR 1.07 (0.87-1.13) 01/01/18 02:25 APTT 29.7 Sec. (24.2-36.6) 01/01/18 02:25 D-Dimer 2358.22 ng/mlDDU (0-234) H 01/01/18 03:31 POC ABG pH 7.450 (7.35-7.45) 01/09/18 04:50 POC ABG pCO2 51.5 (35-45) H 01/09/18 04:50 POC ABG pO2 59 (80-105) L 01/09/18 04:50 POC ABG HCO3 35.9 01/09/18 04:50 POC ABG Total CO2 37 01/09/18 04:50 POC ABG O2 Sat 91 01/09/18 04:50 POC ABG Base Excess 12 01/09/18 04:50 FiO2 100 % 01/09/18 04:50 Sodium 146 mmol/L (137-145) H D 01/08/18 08:33 Potassium 4.3 mmol/L (3.6-5.0) D 01/08/18 08:33 Chloride 106.7 mmol/L (98-107) 01/08/18 08:33 Carbon Dioxide 32 mmol/L (22-30) H 01/08/18 08:33 Anion Gap 12 mmol/L 01/08/18 08:33 BUN 28 mg/dL (9-20) H 01/08/18 08:33 Creatinine 0.5 mg/dL (0.8-1.5) L 01/08/18 08:33 Estimated GFR > 60 ml/min 01/08/18 08:33 BUN/Creatinine Ratio 56 % 01/08/18 08:33 Glucose 155 mg/dL (75-100) H 01/08/18 08:33 Lactic Acid 1.80 mmol/L (0.7-2.0) 01/01/18 06:43 Calcium 7.8 mg/dL (8.4-10.2) L 01/08/18 08:33 Magnesium 2.20 mg/dL (1.7-2.3) 01/01/18 02:25 Total Bilirubin 0.30 mg/dL (0.1-1.2) 01/02/18 03:44 AST 17 units/L (5-40) 01/02/18 03:44 ALT 10 units/L (7-56) 01/02/18 03:44 Alkaline Phosphatase 110 units/L (35-129) 01/02/18 03:44 Total Creatine Kinase 42 units/L (55-170) L 01/07/18 08:40 CK-MB (CK-2) 4.8 ng/mL (0.0-4.0) H 01/07/18 08:40 CK-MB (CK-2) Rel Index 11.4 (0-4) H 01/07/18 08:40 Troponin T < 0.010 ng/mL (0.00-0.029) 01/01/18 02:25 C-Reactive Protein 2.40 mg/dL (0.00-1.30) H 01/05/18 19:56 NT-Pro-B Natriuret Pep 1069 pg/mL (0-900) H 01/01/18 02:25 Total Protein 5.5 g/dL (6.3-8.2) L 01/02/18 03:44 Albumin 1.7 g/dL (3.9-5) L 01/02/18 03:44 Albumin/Globulin Ratio 0.4 % 01/02/18 03:44 Urine Color Yellow (Yellow) 01/01/18 Unknown Urine Turbidity Clear (Clear) 01/01/18 Unknown Urine pH 7.0 (5.0-7.0) 01/01/18 Unknown Ur Specific [place] 1.013 (1.003-1.030) 01/01/18 Unknown Urine Protein <15 mg/dl mg/dL (Negative) 01/01/18 Unknown Urine Glucose (UA) Neg mg/dL (Negative) 01/01/18 Unknown Urine Ketones Neg mg/dL (Negative) 01/01/18 Unknown Urine Blood Neg (Negative) 01/01/18 Unknown Urine Nitrite Neg (Negative) 01/01/18 Unknown Urine Bilirubin Neg (Negative) 01/01/18 Unknown Urine Urobilinogen 4.0 mg/dL (<2.0) 01/01/18 Unknown Ur Leukocyte Esterase Neg (Negative) 01/01/18 Unknown Urine WBC (Auto) 4.0 /HPF (0.0-6.0) 01/01/18 Unknown Urine RBC (Auto) 2.0 /HPF (0.0-6.0) 01/01/18 Unknown Urine Mucus Few /HPF 01/01/18 Unknown Vancomycin Trough 12.0 ug/mL (5.0-20.0) 01/03/18 19:01 HIV 1&2 Antibody Rapid Non react (Non React) 01/08/18 08:33 HIV P24 Antigen Non react (Non React) 01/08/18 08:33
--- NOTE | 2018-01-09 14:38 | Progress Note ---
Assessment and Plan Acute likely on chronic hypoxemic respiratory failure. Healthcare-associated pneumonia Diffuse proliferative lung disease. Leukocytosis. Anemia. Hyponatremia, mild. Sepsis syndrome with elevated lactic acidosis. Elevated D-dimer. Elevated BNP. Adult failure to thrive. - Await bronchoscopy AFB smears and cultures - continue full AC support acutely (AC/500/08/08) - continue to wean FiO2 for sats > 90% - continue bronchodilators and pulmonary toilet - continue aspiration precautions / addressed VAP bundle - continue empiric AB's per ID input - continue GI & VTE prophylaxis - continue mobility protocol for pressure ulcer prophylaxis - PT/OT as tolerated - continue other care per attending / other consultants ....LTAC evaluation appropriate as i suspect this will be a prolonged recovery prior to reaching FiO2 levels that he can be discharged on .... he is critically ill on life sustaining interventions including MVS and at high risk for further deterioration including ....35' Subjective Date of service: 01/09/18 Principal diagnosis: Acute hypoxic respiratory failure, health care associated pneumonia, sepsis Interval history: Patient seen today for: Acute hypoxic respiratory failure, health care associated pneumonia, sepsis Seen and examined at bedside; 24-hour events reviewed; nursing and respiratory care staff consulted; decompensated and was intubated overnight; now on MVS; poorly oxygenating still; Peep increased to 10 overnight; sedated but still with significant patient-ventilator dys-synchrony Objective Vital Signs - 12hr 01/09/18 01/09/18 01/09/18 02:46 03:00 03:16 Temperature Pulse Rate 95 H 95 H 92 H Pulse Rate [ From Monitor] Respiratory 14 16 15 Rate Blood Pressure 119/80 108/82 108/82 O2 Sat by Pulse 93 92 92 Oximetry 01/09/18 01/09/18 01/09/18 03:28 03:30 03:46 Temperature 99.8 F H Pulse Rate 92 H 90 Pulse Rate [ From Monitor] Respiratory 15 15 Rate Blood Pressure 108/82 108/82 O2 Sat by Pulse 92 92 Oximetry 01/09/18 01/09/18 01/09/18 04:00 04:16 04:30 Temperature Pulse Rate 93 H 92 H 90 Pulse Rate [ From Monitor] Respiratory 16 15 15 Rate Blood Pressure 115/85 115/85 115/85 O2 Sat by Pulse 92 92 92 Oximetry 01/09/18 01/09/18 01/09/18 04:45 04:46 05:00 Temperature Pulse Rate 80 118 H 95 H Pulse Rate [ From Monitor] Respiratory 25 H 16 Rate Blood Pressure 115/85 115/85 110/80 O2 Sat by Pulse 93 93 92 Oximetry 01/09/18 01/09/18 01/09/18 05:16 05:30 05:46 Temperature Pulse Rate 92 H 84 86 Pulse Rate [ From Monitor] Respiratory 17 14 14 Rate Blood Pressure 110/80 110/80 110/80 O2 Sat by Pulse 91 89 88 Oximetry 01/09/18 01/09/18 01/09/18 06:00 06:16 06:30 Temperature Pulse Rate 100 H 113 H 101 H Pulse Rate [ From Monitor] Respiratory 16 12 19 Rate Blood Pressure 110/80 117/82 117/82 O2 Sat by Pulse 85 87 84 Oximetry 01/09/18 01/09/18 01/09/18 06:46 07:00 07:16 Temperature Pulse Rate 92 H 120 H 94 H Pulse Rate [ From Monitor] Respiratory 17 16 13 Rate Blood Pressure 117/82 164/105 164/105 O2 Sat by Pulse 87 74 L 87 Oximetry 01/09/18 01/09/18 01/09/18 07:30 07:46 08:00 Temperature 96.8 F L Pulse Rate 104 H 95 H 88 Pulse Rate [ 92 H From Monitor] Respiratory 15 14 14 Rate Blood Pressure 164/105 164/105 159/92 O2 Sat by Pulse 82 L 84 88 Oximetry 01/09/18 01/09/18 01/09/18 08:16 08:30 08:46 Temperature Pulse Rate 85 89 107 H Pulse Rate [ From Monitor] Respiratory 16 17 22 Rate Blood Pressure 132/80 159/92 159/92 O2 Sat by Pulse 82 L 88 87 Oximetry 01/09/18 01/09/18 01/09/18 09:00 09:16 09:30 Temperature Pulse Rate 96 H 100 H 99 H Pulse Rate [ From Monitor] Respiratory 13 17 17 Rate Blood Pressure 160/90 160/90 154/90 O2 Sat by Pulse 85 85 85 Oximetry 01/09/18 01/09/18 01/09/18 09:46 09:58 10:00 Temperature Pulse Rate 104 H 98 H 104 H Pulse Rate [ 104 H From Monitor] Respiratory 27 H 13 Rate Blood Pressure 154/90 154/90 178/104 O2 Sat by Pulse 92 83 L Oximetry 01/09/18 01/09/18 01/09/18 10:16 10:30 10:46 Temperature Pulse Rate 111 H 113 H 110 H Pulse Rate [ From Monitor] Respiratory 16 16 11 L Rate Blood Pressure 178/104 134/86 134/86 O2 Sat by Pulse 80 L 85 85 Oximetry 01/09/18 01/09/18 01/09/18 11:00 11:16 11:30 Temperature Pulse Rate 111 H 108 H 110 H Pulse Rate [ From Monitor] Respiratory 9 L 14 15 Rate Blood Pressure 135/89 135/89 135/85 O2 Sat by Pulse 86 86 86 Oximetry 01/09/18 01/09/18 01/09/18 11:46 12:00 12:16 Temperature 97.6 F Pulse Rate 109 H 111 H 108 H Pulse Rate [ 111 H From Monitor] Respiratory 9 L 13 9 L Rate Blood Pressure 135/85 142/82 142/82 O2 Sat by Pulse 86 87 87 Oximetry 01/09/18 01/09/18 01/09/18 12:30 12:46 13:00 Temperature Pulse Rate 109 H 111 H 109 H Pulse Rate [ From Monitor] Respiratory 15 9 L 13 Rate Blood Pressure 146/106 146/106 128/86 O2 Sat by Pulse 86 87 89 Oximetry Constitutional: appears uncomfortable, other (sedated to RASS -1) Eyes: non-icteric ENT: oropharynx moist, other (mallampatti 2) Neck: supple, no lymphadenopathy, no JVD, other (no thyromegaly) Effort: mildly labored Ascultation: Bilateral: diminished breath sounds, rales Percussion: Bilateral: not dull Cardiovascular: regular rate and rhythm, other (no rubs/murmurs) Gastrointestinal: normoactive bowel sounds, soft, non-tender, non-distended, other (no HSM) Integumentary: rash Extremities: no cyanosis, no edema, pink and warm, pulses normal Neurologic: normal mental status, non-focal exam, pupils equal and round, CN II- XII normal Psychiatric: other (sedated) CBC and BMP: 01/10/18 06:20 01/10/18 06:20 ABG, PT/INR, D-dimer: ABG POC ABG pH 7.450 (7.35-7.45) 01/09/18 04:50 POC ABG pCO2 51.5 (35-45) H 01/09/18 04:50 POC ABG pO2 59 (80-105) L 01/09/18 04:50 POC ABG HCO3 35.9 01/09/18 04:50 POC ABG Total CO2 37 01/09/18 04:50 POC ABG O2 Sat 91 01/09/18 04:50 PT/INR, D-dimer PT 14.5 Sec. (12.2-14.9) 01/01/18 02:25 INR 1.07 (0.87-1.13) 01/01/18 02:25 D-Dimer 2358.22 ng/mlDDU (0-234) H 01/01/18 03:31 Abnormal lab findings: Abnormal Labs 01/01/18 01/01/18 01/01/18 02:25 02:25 02:25 WBC 21.6 H RBC Hgb 10.3 L Hct 32.7 L MCV 83 L MCH 26 L MCHC RDW 18.0 H Seg Neuts % (Manual) 87.5 H Lymphocytes % (Manual) 7.5 L Seg Neutrophils # Seg Neutrophils # Man 18.9 H Lymphocytes # (Manual) D-Dimer POC ABG pH POC ABG pCO2 POC ABG pO2 Sodium 135 L Potassium Carbon Dioxide 21 L BUN Creatinine 0.6 L Glucose 103 H Lactic Acid Calcium 8.3 L Total Creatine Kinase CK-MB (CK-2) CK-MB (CK-2) Rel Index C-Reactive Protein NT-Pro-B Natriuret Pep 1069 H Total Protein Albumin 01/01/18 01/01/18 01/01/18 02:36 03:17 03:31 WBC RBC Hgb Hct MCV MCH MCHC RDW Seg Neuts % (Manual) Lymphocytes % (Manual) Seg Neutrophils # Seg Neutrophils # Man Lymphocytes # (Manual) D-Dimer 2358.22 H POC ABG pH 7.474 H POC ABG pCO2 33.2 L POC ABG pO2 73 L Sodium Potassium Carbon Dioxide BUN Creatinine Glucose Lactic Acid 3.60 H* Calcium Total Creatine Kinase CK-MB (CK-2) CK-MB (CK-2) Rel Index C-Reactive Protein NT-Pro-B Natriuret Pep Total Protein Albumin 01/01/18 01/02/18 01/02/18 14:01 03:44 03:44 WBC RBC 3.14 L Hgb 8.4 L Hct 25.9 L D MCV 82 L MCH 27 L MCHC RDW 17.4 H Seg Neuts % (Manual) 91.0 H Lymphocytes % (Manual) 6.0 L Seg Neutrophils # Seg Neutrophils # Man 10.0 H Lymphocytes # (Manual) 0.7 L D-Dimer POC ABG pH POC ABG pCO2 POC ABG pO2 Sodium Potassium Carbon Dioxide BUN Creatinine 0.5 L Glucose 137 H Lactic Acid Calcium 7.5 L Total Creatine Kinase CK-MB (CK-2) CK-MB (CK-2) Rel Index C-Reactive Protein 20.70 H NT-Pro-B Natriuret Pep Total Protein 5.5 L Albumin 1.7 L 01/04/18 01/05/18 01/05/18 10:03 05:35 05:35 WBC 15.9 H RBC Hgb 9.7 L Hct 31.2 L MCV 82 L MCH 25 L MCHC 31 L RDW 17.8 H Seg Neuts % (Manual) 83.0 H Lymphocytes % (Manual) 4.0 L Seg Neutrophils # Seg Neutrophils # Man 13.2 H Lymphocytes # (Manual) 0.6 L D-Dimer POC ABG pH POC ABG pCO2 POC ABG pO2 Sodium 134 L Potassium Carbon Dioxide 19 L 31 H D BUN Creatinine 0.5 L 0.5 L Glucose 111 H 134 H Lactic Acid Calcium 8.3 L Total Creatine Kinase CK-MB (CK-2) CK-MB (CK-2) Rel Index C-Reactive Protein NT-Pro-B Natriuret Pep Total Protein Albumin 01/05/18 01/06/18 01/07/18 19:56 22:53 00:33 WBC RBC Hgb Hct MCV MCH MCHC RDW Seg Neuts % (Manual) Lymphocytes % (Manual) Seg Neutrophils # Seg Neutrophils # Man Lymphocytes # (Manual) D-Dimer POC ABG pH POC ABG pCO2 58.0 H POC ABG pO2 67 L Sodium Potassium Carbon Dioxide BUN Creatinine Glucose Lactic Acid Calcium Total Creatine Kinase 50 L CK-MB (CK-2) CK-MB (CK-2) Rel Index 7.4 H C-Reactive Protein 2.40 H NT-Pro-B Natriuret Pep Total Protein Albumin 01/07/18 01/07/18 01/07/18 03:43 04:15 08:40 WBC RBC Hgb Hct MCV MCH MCHC RDW Seg Neuts % (Manual) Lymphocytes % (Manual) Seg Neutrophils # Seg Neutrophils # Man Lymphocytes # (Manual) D-Dimer POC ABG pH 7.458 H POC ABG pCO2 48.7 H POC ABG pO2 Sodium Potassium 3.4 L Carbon Dioxide BUN 24 H Creatinine 0.4 L Glucose 156 H Lactic Acid Calcium 7.6 L Total Creatine Kinase 42 L CK-MB (CK-2) 4.8 H CK-MB (CK-2) Rel Index 11.4 H C-Reactive Protein NT-Pro-B Natriuret Pep Total Protein Albumin 01/07/18 01/08/18 01/08/18 08:40 05:12 08:33 WBC 14.8 H RBC 3.48 L 3.59 L Hgb 8.9 L 9.4 L Hct 28.5 L 30.2 L MCV 82 L MCH 26 L 26 L MCHC 31 L 31 L RDW 18.6 H 19.5 H Seg Neuts % (Manual) 96 H Lymphocytes % (Manual) 3 L Seg Neutrophils # 13.7 H Seg Neutrophils # Man 14.2 H Lymphocytes # (Manual) 0.4 L D-Dimer POC ABG pH POC ABG pCO2 51.8 H POC ABG pO2 65 L Sodium Potassium Carbon Dioxide BUN Creatinine Glucose Lactic Acid Calcium Total Creatine Kinase CK-MB (CK-2) CK-MB (CK-2) Rel Index C-Reactive Protein NT-Pro-B Natriuret Pep Total Protein Albumin 01/08/18 01/09/18 08:33 04:50 WBC RBC Hgb Hct MCV MCH MCHC RDW Seg Neuts % (Manual) Lymphocytes % (Manual) Seg Neutrophils # Seg Neutrophils # Man Lymphocytes # (Manual) D-Dimer POC ABG pH POC ABG pCO2 51.5 H POC ABG pO2 59 L Sodium 146 H D Potassium Carbon Dioxide 32 H BUN 28 H Creatinine 0.5 L Glucose 155 H Lactic Acid Calcium 7.8 L Total Creatine Kinase CK-MB (CK-2) CK-MB (CK-2) Rel Index C-Reactive Protein NT-Pro-B Natriuret Pep Total Protein Albumin Chest x-ray: image reviewed (persistent pulmonary fibrosis and traction deviation to right side) Allied health notes reviewed: nursing
[2018-01-10] MEDS: fentaNYL DRIP Premix 2,000 MCG/100 ML BAG IV SCH ×3 (02:54→17:56)
--- NOTE | 2018-01-10 05:00 | XRay Report ---
FINAL REPORT EXAM: XR CHEST 1V AP HISTORY: follow up respiratory failure TECHNIQUE: AP portable view(s) of the chest obtained. PRIORS: 01/09/2018 FINDINGS: Endotracheal tube terminates approximately 7 cm from the clement. Enteric tube terminates in the region of the stomach. Right upper extremity PICC tip projects over the mid SVC. No mediastinal shift. Cardiac silhouette is not enlarged. No pneumothorax. Bilateral airspace disease and diffuse reticulation are not significantly changed. IMPRESSION: Satisfactory appearance of patient's support apparatus without pneumothorax or significant change compared to 01/09/2018.
[2018-01-10] MEDS: DIPRIVAN 10 MG/ML 1,000 MG/100 ML BOTTLE IV SCH ×3 (05:08→22:00)
[2018-01-10] MEDS: HEPARIN SUB-Q SCH ×3 (05:11→22:00)
[2018-01-10] MEDS: ZOSYN/NS 4.5GM/100ML 4.5 GM/100 ML VIAL IV SCH ×3 (05:14→21:59)
[2018-01-10] MEDS: FLAGYL PO SCH ×3 (05:25→21:59)
[2018-01-10 07:11] LABS: Hematocrit 29.6 % (35.5-45.6); Hemoglobin 9.1 gm/dl (11.8-15.2); Mean Corpuscular HGB Conc 31 % (32-34); Mean Corpuscular Hemoglobin 26 pg (28-32); Mean Corpuscular Volume 85 fl (84-94); Platelet Count 128 K/mm3 (140-440); Red Blood Count 3.47 M/mm3 (3.65-5.03)
[2018-01-10 07:20] LABS: BUN/Creatinine Ratio 66; Blood Urea Nitrogen 46 mg/dL (9-20); Calcium 8.1 mg/dL (8.4-10.2); Hemolysis Index 3
[2018-01-10 07:42] LABS: Red Cell Distribution Width 20.7 % (13.2-15.2)
[2018-01-10] MEDS: BROVANA NEBU IH SCH ×2 (08:17→20:16)
[2018-01-10] MEDS: DUONEB *Not for PRN Use IH SCH ×4 (08:17→20:16)
[2018-01-10] MEDS: PULMICORT IH SCH ×2 (08:17→20:16)
[2018-01-10 08:44] LABS: Anisocytosis 1+; Basophils % (Manual) 0 % (0.0-1.8); Eosinophils % (Manual) 0 % (0.0-4.3); Monocytes % (Manual) 0 % (0.0-7.3); Ovalocytes 1+; Stomatocytes 1+; Total Cells Counted 100
[2018-01-10] MEDS: CARDIZEM CD PO SCH (09:10)
[2018-01-10] MEDS: PROTONIX FEEDTUBE SCH (09:10)
[2018-01-10] MEDS: HABITROL TD SCH (09:11)
[2018-01-10] MEDS: SODIUM CHLORIDE FLUSH SYRINGE 10 ML IV SCH ×2 (09:13→22:00)
--- NOTE | 2018-01-10 11:26 | Progress Note ---
Assessment and Plan Assessment and plan: Acute on chronic hypoxic respiratory failure - Bilateral mechanical ventilation. Management per complaint operator - Etiology is secondary to COPD exacerbation and bilateral pneumonia - on IV vancomycin, Zosyn, DuoNeb's, Solu-Medrol, nebulizer - Continue on Isolation Severe COPD with exacerbation - Continue scheduled nebulizers and breathing treatment - Continue empiric steroid and antibiotic - will follow sputum culture, chest x-ray/CTA chest showed bilateral infiltrates - Continue to support respiratory effort - We'll cont on sliding scale of insulin as patient will be on empiric steroids Bilateral pneumonia -Continue antibiotics per ID - POSSIBLE NARCOTIZING PNA, r/o TB -01/01 Culture grew staff Aureus -01/08 BAL grew Klebsiella pneumoniae Sepsis -Etiology secondary to bilateral pneumonia -Continue abx, trend lactate -Blood cultures no growth to date -Rule out tuberculosis, AFB 3 pending, reported to firm goat pending. -01/08 BAL grew Klebsiella pneumoniae Hyponatremia - Etiology secondary to SIADH from the Pneumonia. Continue to Monitor. Lactic acidosis, due to sepsis - IV fluid, treat underlying cause Severe-Moderate Protein calorie Malnutrition - Photographic Laboratory Supervisor consulted History of GERD - pantoprazole for GERD History of hepatitis C - normal LFT Hx of latent TB in 2000 DVT prophylaxis - Heparin The high probability of a clinically significant, sudden or life threatening deterioration of the [pulmonary] system(s) required my full and direct attention , intervention and personal management. The aggregate critical care time was [32 ] minutes. This time is in addition to time spent performing reported procedures but includes the following: [x] Data Review and interpretation [x] Patient assessment and monitoring of vital signs [x] Documentation [x] Medication orders and management History Interval history: No new issues overnight Hospitalist Physical - Constitutional Vitals: Temp Pulse Resp BP Pulse Ox 98.5 F 112 H 17 114/65 92 01/10/18 08:00 01/10/18 10:00 01/10/18 10:00 01/10/18 10:00 01/10/18 10:00 General appearance: Present: no acute distress - EENT Eyes: Present: PERRL, EOM intact ENT: hearing intact, clear oral mucosa, dentition normal - Neck Neck: Present: supple, normal ROM - Respiratory Respiratory effort: normal Respiratory: bilateral: diminished, rhonchi, wheezing - Cardiovascular Rhythm: regular Heart Sounds: Present: S1 & S2. Absent: gallop, rub - Extremities Extremities: no ischemia, No edema, Full ROM - Abdominal General gastrointestinal: soft, non-tender, non-distended, normal bowel sounds - Integumentary Integumentary: Present: clear, warm, dry - Neurologic Neurologic: CNII-XII intact, moves all extremities Results - Labs CBC & Chem 7: 01/10/18 06:20 01/10/18 06:20 Labs: Laboratory Last Values WBC 15.4 K/mm3 (4.5-11.0) H 01/10/18 06:20 RBC 3.47 M/mm3 (3.65-5.03) L 01/10/18 06:20 Hgb 9.1 gm/dl (11.8-15.2) L 01/10/18 06:20 Hct 29.6 % (35.5-45.6) L 01/10/18 06:20 MCV 85 fl (84-94) 01/10/18 06:20 MCH 26 pg (28-32) L 01/10/18 06:20 MCHC 31 % (32-34) L 01/10/18 06:20 RDW 20.7 % (13.2-15.2) H 01/10/18 06:20 Plt Count 128 K/mm3 (140-440) L 01/10/18 06:20 Lymph % (Auto) TNR 01/04/18 17:16 [place] % (Auto) 2.8 % (0.0-7.3) 01/07/18 08:40 Eos % (Auto) 0.0 % (0.0-4.3) 01/07/18 08:40 Baso % (Auto) TNR 01/04/18 17:16 Lymph # TNR 01/04/18 17:16 [place] # 0.4 K/mm3 (0.0-0.8) 01/07/18 08:40 Eos # 0.0 K/mm3 (0.0-0.4) 01/07/18 08:40 Baso # 0.1 K/mm3 (0.0-0.1) 01/07/18 08:40 Add Manual Diff Complete 01/10/18 06:20 Total Counted 100 01/10/18 06:20 Seg Neutrophils % Paste Thinner 01/10/18 06:20 Seg Neuts % (Manual) 100.0 % (40.0-70.0) H 01/10/18 06:20 Band Neutrophils % 0 % 01/10/18 06:20 Lymphocytes % (Manual) 0 % (13.4-35.0) L 01/10/18 06:20 Reactive Lymphs % (Man) 0 % 01/10/18 06:20 Monocytes % (Manual) 0 % (0.0-7.3) 01/10/18 06:20 Eosinophils % (Manual) 0 % (0.0-4.3) 01/10/18 06:20 Basophils % (Manual) 0 % (0.0-1.8) 01/10/18 06:20 Metamyelocytes % 0 % 01/10/18 06:20 Myelocytes % 0 % 01/10/18 06:20 Promyelocytes % 0 % 01/10/18 06:20 Blast Cells % 0 % 01/10/18 06:20 Nucleated RBC % Not Reportable 01/10/18 06:20 Seg Neutrophils # 13.7 K/mm3 (1.8-7.7) H 01/07/18 08:40 Seg Neutrophils # Man 15.4 K/mm3 (1.8-7.7) H 01/10/18 06:20 Band Neutrophils # 0.0 K/mm3 01/10/18 06:20 Lymphocytes # (Manual) 0.0 K/mm3 (1.2-5.4) L 01/10/18 06:20 Abs React Lymphs (Man) 0.0 K/mm3 01/10/18 06:20 Monocytes # (Manual) 0.0 K/mm3 (0.0-0.8) 01/10/18 06:20 Eosinophils # (Manual) 0.0 K/mm3 (0.0-0.4) 01/10/18 06:20 Basophils # (Manual) 0.0 K/mm3 (0.0-0.1) 01/10/18 06:20 Metamyelocytes # 0.0 K/mm3 01/10/18 06:20 Myelocytes # 0.0 K/mm3 01/10/18 06:20 Promyelocytes # 0.0 K/mm3 01/10/18 06:20 Blast Cells # 0.0 K/mm3 01/10/18 06:20 WBC Morphology Not Reportable 01/10/18 06:20 Hypersegmented Neuts Not Reportable 01/10/18 06:20 Hyposegmented Neuts Not Reportable 01/10/18 06:20 Hypogranular Neuts Not Reportable 01/10/18 06:20 Smudge Cells Not Reportable 01/10/18 06:20 Toxic Granulation Not Reportable 01/10/18 06:20 Toxic Vacuolation Not Reportable 01/10/18 06:20 Dohle Bodies Not Reportable 01/10/18 06:20 Pelger-Huet Anomaly Not Reportable 01/10/18 06:20 Salazar Rods Not Reportable 01/10/18 06:20 Platelet Estimate Appears normal 01/10/18 06:20 Clumped Platelets Not Reportable 01/10/18 06:20 Plt Clumps, EDTA Not Reportable 01/10/18 06:20 Large Platelets Not Reportable 01/10/18 06:20 Giant Platelets Not Reportable 01/10/18 06:20 Platelet Satelliting Not Reportable 01/10/18 06:20 Plt Morphology Comment Not Reportable 01/10/18 06:20 RBC Morphology Not Reportable 01/10/18 06:20 Dimorphic RBCs Not Reportable 01/10/18 06:20 Polychromasia Not Reportable 01/10/18 06:20 Hypochromasia Not Reportable 01/10/18 06:20 Poikilocytosis Not Reportable 01/10/18 06:20 Anisocytosis 1+ 01/10/18 06:20 Microcytosis Not Reportable 01/10/18 06:20 Macrocytosis Not Reportable 01/10/18 06:20 Spherocytes Not Reportable 01/10/18 06:20 Pappenheimer Bodies Not Reportable 01/10/18 06:20 Sickle Cells Not Reportable 01/10/18 06:20 Target Cells Not Reportable 01/10/18 06:20 Tear Drop Cells Not Reportable 01/10/18 06:20 Ovalocytes 1+ 01/10/18 06:20 Stomatocytes 1+ 01/10/18 06:20 Helmet Cells Not Reportable 01/10/18 06:20 Laura-[place] Bodies Not Reportable 01/10/18 06:20 [place] Rings Not Reportable 01/10/18 06:20 Adan Cells Not Reportable 01/10/18 06:20 Bite Cells Not Reportable 01/10/18 06:20 Crenated Cell Not Reportable 01/10/18 06:20 Elliptocytes Not Reportable 01/10/18 06:20 Acanthocytes (Spur) Not Reportable 01/10/18 06:20 Rouleaux Not Reportable 01/10/18 06:20 Hemoglobin C Crystals Not Reportable 01/10/18 06:20 Schistocytes Not Reportable 01/10/18 06:20 Malaria parasites Not Reportable 01/10/18 06:20 Abdullahi Bodies Not Reportable 01/10/18 06:20 Hem Pathologist Commnt No 01/10/18 06:20 PT 14.5 Sec. (12.2-14.9) 01/01/18 02:25 INR 1.07 (0.87-1.13) 01/01/18 02:25 APTT 29.7 Sec. (24.2-36.6) 01/01/18 02:25 D-Dimer 2358.22 ng/mlDDU (0-234) H 01/01/18 03:31 POC ABG pH 7.350 (7.35-7.45) 01/10/18 04:21 POC ABG pCO2 68.7 (35-45) H 01/10/18 04:21 POC ABG pO2 57 (80-105) L 01/10/18 04:21 POC ABG HCO3 37.9 01/10/18 04:21 POC ABG Total CO2 40 01/10/18 04:21 POC ABG O2 Sat 86 01/10/18 04:21 POC ABG Base Excess 12 01/10/18 04:21 FiO2 100 % 01/10/18 04:21 Sodium 151 mmol/L (137-145) H 01/10/18 06:20 Potassium 4.6 mmol/L (3.6-5.0) 01/10/18 06:20 Chloride 109.8 mmol/L (98-107) H 01/10/18 06:20 Carbon Dioxide 34 mmol/L (22-30) H 01/10/18 06:20 Anion Gap 12 mmol/L 01/10/18 06:20 BUN 46 mg/dL (9-20) H 01/10/18 06:20 Creatinine 0.7 mg/dL (0.8-1.5) L 01/10/18 06:20 Estimated GFR > 60 ml/min 01/10/18 06:20 BUN/Creatinine Ratio 66 % 01/10/18 06:20 Glucose 232 mg/dL (75-100) H 01/10/18 06:20 Lactic Acid 1.80 mmol/L (0.7-2.0) 01/01/18 06:43 Calcium 8.1 mg/dL (8.4-10.2) L 01/10/18 06:20 Magnesium 2.20 mg/dL (1.7-2.3) 01/01/18 02:25 Total Bilirubin 0.30 mg/dL (0.1-1.2) 01/02/18 03:44 AST 17 units/L (5-40) 01/02/18 03:44 ALT 10 units/L (7-56) 01/02/18 03:44 Alkaline Phosphatase 110 units/L (35-129) 01/02/18 03:44 Total Creatine Kinase 42 units/L (55-170) L 01/07/18 08:40 CK-MB (CK-2) 4.8 ng/mL (0.0-4.0) H 01/07/18 08:40 CK-MB (CK-2) Rel Index 11.4 (0-4) H 01/07/18 08:40 Troponin T < 0.010 ng/mL (0.00-0.029) 01/01/18 02:25 C-Reactive Protein 2.40 mg/dL (0.00-1.30) H 01/05/18 19:56 NT-Pro-B Natriuret Pep 1069 pg/mL (0-900) H 01/01/18 02:25 Total Protein 5.5 g/dL (6.3-8.2) L 01/02/18 03:44 Albumin 1.7 g/dL (3.9-5) L 01/02/18 03:44 Albumin/Globulin Ratio 0.4 % 01/02/18 03:44 Urine Color Yellow (Yellow) 01/01/18 Unknown Urine Turbidity Clear (Clear) 01/01/18 Unknown Urine pH 7.0 (5.0-7.0) 01/01/18 Unknown Ur Specific [place] 1.013 (1.003-1.030) 01/01/18 Unknown Urine Protein <15 mg/dl mg/dL (Negative) 01/01/18 Unknown Urine Glucose (UA) Neg mg/dL (Negative) 01/01/18 Unknown Urine Ketones Neg mg/dL (Negative) 01/01/18 Unknown Urine Blood Neg (Negative) 01/01/18 Unknown Urine Nitrite Neg (Negative) 01/01/18 Unknown Urine Bilirubin Neg (Negative) 01/01/18 Unknown Urine Urobilinogen 4.0 mg/dL (<2.0) 01/01/18 Unknown Ur Leukocyte Esterase Neg (Negative) 01/01/18 Unknown Urine WBC (Auto) 4.0 /HPF (0.0-6.0) 01/01/18 Unknown Urine RBC (Auto) 2.0 /HPF (0.0-6.0) 01/01/18 Unknown Urine Mucus Few /HPF 01/01/18 Unknown Vancomycin Trough 12.0 ug/mL (5.0-20.0) 01/03/18 19:01 HIV 1&2 Antibody Rapid Non react (Non React) 01/08/18 08:33 HIV P24 Antigen Non react (Non React) 01/08/18 08:33
[2018-01-10] MEDS: TYLENOL PO PRN (13:41)
--- NOTE | 2018-01-10 14:12 | Progress Note ---
Assessment and Plan Acute likely on chronic hypoxemic respiratory failure. Healthcare-associated pneumonia Diffuse proliferative lung disease. Leukocytosis. Anemia. Hyponatremia, mild. Sepsis syndrome with elevated lactic acidosis. Elevated D-dimer. Elevated BNP. Adult failure to thrive. - Await bronchoscopy AFB smears and cultures - continue full AC support acutely (AC/500/08/08) - continue to wean FiO2 for sats > 90% - continue bronchodilators and pulmonary toilet - continue aspiration precautions / addressed VAP bundle - continue empiric AB's per ID input - continue GI & VTE prophylaxis - continue mobility protocol for pressure ulcer prophylaxis - PT/OT as tolerated - continue other care per attending / other consultants ....LTAC evaluation appropriate as i suspect this will be a prolonged recovery prior to reaching FiO2 levels that he can be discharged on .... he is critically ill on life sustaining interventions including MVS and at high risk for further deterioration including ....35' Subjective Date of service: 01/10/18 Principal diagnosis: Acute hypoxic respiratory failure, health care associated pneumonia, sepsis Interval history: Patient seen today for: Acute hypoxic respiratory failure, health care associated pneumonia, sepsis Seen and examined at bedside; 24-hour events reviewed; nursing and respiratory care staff consulted; decompensated and was intubated overnight; now on MVS; Objective Vital Signs - 12hr 01/10/18 01/10/18 01/10/18 02:15 02:30 02:45 Temperature Pulse Rate 118 H 118 H 116 H Pulse Rate [ Anterior Bilateral Throughout] Pulse Rate [ From Monitor] Pulse Rate [ Left Dorsalis Pedis] Pulse Rate [ Left Radial] Pulse Rate [ Right Dorsalis Pedis] Pulse Rate [ Right Radial] Respiratory 13 15 14 Rate Respiratory Rate [Anterior Bilateral Throughout] Blood Pressure 118/74 122/73 122/73 O2 Sat by Pulse 92 92 88 Oximetry 01/10/18 01/10/18 01/10/18 03:00 03:13 03:15 Temperature 99.6 F Pulse Rate 115 H 116 H Pulse Rate [ Anterior Bilateral Throughout] Pulse Rate [ From Monitor] Pulse Rate [ Left Dorsalis Pedis] Pulse Rate [ Left Radial] Pulse Rate [ Right Dorsalis Pedis] Pulse Rate [ Right Radial] Respiratory 17 14 Rate Respiratory Rate [Anterior Bilateral Throughout] Blood Pressure 107/71 107/71 O2 Sat by Pulse 89 89 Oximetry 01/10/18 01/10/18 01/10/18 03:30 03:45 04:00 Temperature Pulse Rate 113 H 114 H 112 H Pulse Rate [ Anterior Bilateral Throughout] Pulse Rate [ 111 H From Monitor] Pulse Rate [ 111 H Left Dorsalis Pedis] Pulse Rate [ 111 H Left Radial] Pulse Rate [ 111 H Right Dorsalis Pedis] Pulse Rate [ 111 H Right Radial] Respiratory 16 14 16 Rate Respiratory Rate [Anterior Bilateral Throughout] Blood Pressure 111/75 111/75 119/77 O2 Sat by Pulse 89 88 89 Oximetry 01/10/18 01/10/18 01/10/18 04:04 04:15 04:30 Temperature Pulse Rate 112 H 113 H 110 H Pulse Rate [ Anterior Bilateral Throughout] Pulse Rate [ From Monitor] Pulse Rate [ Left Dorsalis Pedis] Pulse Rate [ Left Radial] Pulse Rate [ Right Dorsalis Pedis] Pulse Rate [ Right Radial] Respiratory 13 14 Rate Respiratory Rate [Anterior Bilateral Throughout] Blood Pressure 111/75 119/77 119/76 O2 Sat by Pulse 88 88 89 Oximetry 01/10/18 01/10/18 01/10/18 04:45 05:00 05:15 Temperature Pulse Rate 111 H 117 H 107 H Pulse Rate [ Anterior Bilateral Throughout] Pulse Rate [ From Monitor] Pulse Rate [ Left Dorsalis Pedis] Pulse Rate [ Left Radial] Pulse Rate [ Right Dorsalis Pedis] Pulse Rate [ Right Radial] Respiratory 15 13 14 Rate Respiratory Rate [Anterior Bilateral Throughout] Blood Pressure 119/76 86/54 85/52 O2 Sat by Pulse 88 88 88 Oximetry 01/10/18 01/10/18 01/10/18 05:21 05:30 05:45 Temperature Pulse Rate 101 H 102 H Pulse Rate [ Anterior Bilateral Throughout] Pulse Rate [ 105 H From Monitor] Pulse Rate [ 105 H Left Dorsalis Pedis] Pulse Rate [ 105 H Left Radial] Pulse Rate [ 105 H Right Dorsalis Pedis] Pulse Rate [ 105 H Right Radial] Respiratory 13 14 13 Rate Respiratory Rate [Anterior Bilateral Throughout] Blood Pressure 104/66 104/66 O2 Sat by Pulse 90 90 92 Oximetry 01/10/18 01/10/18 01/10/18 06:00 06:15 06:30 Temperature Pulse Rate 103 H 100 H 102 H Pulse Rate [ Anterior Bilateral Throughout] Pulse Rate [ From Monitor] Pulse Rate [ Left Dorsalis Pedis] Pulse Rate [ Left Radial] Pulse Rate [ Right Dorsalis Pedis] Pulse Rate [ Right Radial] Respiratory 13 13 13 Rate Respiratory Rate [Anterior Bilateral Throughout] Blood Pressure 111/69 111/69 114/73 O2 Sat by Pulse 92 93 92 Oximetry 01/10/18 01/10/18 01/10/18 07:00 07:30 08:00 Temperature 98.5 F Pulse Rate 102 H 102 H 98 H Pulse Rate [ Anterior Bilateral Throughout] Pulse Rate [ 98 H From Monitor] Pulse Rate [ Left Dorsalis Pedis] Pulse Rate [ Left Radial] Pulse Rate [ Right Dorsalis Pedis] Pulse Rate [ Right Radial] Respiratory 14 14 13 Rate Respiratory Rate [Anterior Bilateral Throughout] Blood Pressure 117/70 111/74 114/66 O2 Sat by Pulse 92 92 92 Oximetry 01/10/18 01/10/18 01/10/18 08:13 08:17 08:27 Temperature Pulse Rate 101 H Pulse Rate [ 99 H 100 H Anterior Bilateral Throughout] Pulse Rate [ From Monitor] Pulse Rate [ Left Dorsalis Pedis] Pulse Rate [ Left Radial] Pulse Rate [ Right Dorsalis Pedis] Pulse Rate [ Right Radial] Respiratory Rate Respiratory 18 17 Rate [Anterior Bilateral Throughout] Blood Pressure 114/66 O2 Sat by Pulse 93 Oximetry 01/10/18 01/10/18 01/10/18 08:30 09:00 09:10 Temperature Pulse Rate 100 H 102 H 100 H Pulse Rate [ Anterior Bilateral Throughout] Pulse Rate [ From Monitor] Pulse Rate [ Left Dorsalis Pedis] Pulse Rate [ Left Radial] Pulse Rate [ Right Dorsalis Pedis] Pulse Rate [ Right Radial] Respiratory 15 12 Rate Respiratory Rate [Anterior Bilateral Throughout] Blood Pressure 109/68 115/67 115/67 O2 Sat by Pulse 93 92 Oximetry 01/10/18 01/10/18 01/10/18 09:30 10:00 10:30 Temperature Pulse Rate 103 H 112 H 115 H Pulse Rate [ Anterior Bilateral Throughout] Pulse Rate [ From Monitor] Pulse Rate [ Left Dorsalis Pedis] Pulse Rate [ Left Radial] Pulse Rate [ Right Dorsalis Pedis] Pulse Rate [ Right Radial] Respiratory 15 17 14 Rate Respiratory Rate [Anterior Bilateral Throughout] Blood Pressure 111/71 114/65 110/65 O2 Sat by Pulse 90 92 92 Oximetry 01/10/18 01/10/18 01/10/18 11:00 11:30 11:40 Temperature Pulse Rate 116 H 116 H 115 H Pulse Rate [ Anterior Bilateral Throughout] Pulse Rate [ From Monitor] Pulse Rate [ Left Dorsalis Pedis] Pulse Rate [ Left Radial] Pulse Rate [ Right Dorsalis Pedis] Pulse Rate [ Right Radial] Respiratory 14 14 Rate Respiratory Rate [Anterior Bilateral Throughout] Blood Pressure 105/67 106/67 106/67 O2 Sat by Pulse 92 92 93 Oximetry 01/10/18 01/10/18 01/10/18 11:42 11:49 12:00 Temperature 100.9 F H Pulse Rate 116 H Pulse Rate [ 117 H 114 H Anterior Bilateral Throughout] Pulse Rate [ 116 H From Monitor] Pulse Rate [ Left Dorsalis Pedis] Pulse Rate [ Left Radial] Pulse Rate [ Right Dorsalis Pedis] Pulse Rate [ Right Radial] Respiratory 17 Rate Respiratory 16 17 Rate [Anterior Bilateral Throughout] Blood Pressure 122/71 O2 Sat by Pulse 90 Oximetry 01/10/18 01/10/18 01/10/18 12:30 13:00 13:30 Temperature Pulse Rate 115 H 113 H 114 H Pulse Rate [ Anterior Bilateral Throughout] Pulse Rate [ From Monitor] Pulse Rate [ Left Dorsalis Pedis] Pulse Rate [ Left Radial] Pulse Rate [ Right Dorsalis Pedis] Pulse Rate [ Right Radial] Respiratory 15 13 15 Rate Respiratory Rate [Anterior Bilateral Throughout] Blood Pressure 111/75 123/74 123/74 O2 Sat by Pulse 91 91 91 Oximetry Constitutional: appears uncomfortable, other (sedated to RASS -1) Eyes: non-icteric ENT: oropharynx moist, other (mallampatti 2) Neck: supple, no lymphadenopathy, no JVD, other (no thyromegaly) Effort: mildly labored Ascultation: Bilateral: diminished breath sounds, rales, rhonchi Percussion: Bilateral: not dull Cardiovascular: regular rate and rhythm, other (no rubs/murmurs) Gastrointestinal: normoactive bowel sounds, soft, non-tender, non-distended, other (no HSM) Integumentary: rash Extremities: no cyanosis, no edema, pink and warm, pulses normal Neurologic: normal mental status, non-focal exam, pupils equal and round, CN II- XII normal Psychiatric: other (sedated) CBC and BMP: 01/10/18 06:20 01/10/18 06:20 ABG, PT/INR, D-dimer: ABG POC ABG pH 7.350 (7.35-7.45) 01/10/18 04:21 POC ABG pCO2 68.7 (35-45) H 01/10/18 04:21 POC ABG pO2 57 (80-105) L 01/10/18 04:21 POC ABG HCO3 37.9 01/10/18 04:21 POC ABG Total CO2 40 01/10/18 04:21 POC ABG O2 Sat 86 01/10/18 04:21 PT/INR, D-dimer PT 14.5 Sec. (12.2-14.9) 01/01/18 02:25 INR 1.07 (0.87-1.13) 01/01/18 02:25 D-Dimer 2358.22 ng/mlDDU (0-234) H 01/01/18 03:31 Abnormal lab findings: Abnormal Labs 01/01/18 01/01/18 01/01/18 02:25 02:25 02:25 WBC 21.6 H RBC Hgb 10.3 L Hct 32.7 L MCV 83 L MCH 26 L MCHC RDW 18.0 H Plt Count Seg Neuts % (Manual) 87.5 H Lymphocytes % (Manual) 7.5 L Seg Neutrophils # Seg Neutrophils # Man 18.9 H Lymphocytes # (Manual) D-Dimer POC ABG pH POC ABG pCO2 POC ABG pO2 Sodium 135 L Potassium Chloride Carbon Dioxide 21 L BUN Creatinine 0.6 L Glucose 103 H Lactic Acid Calcium 8.3 L Total Creatine Kinase CK-MB (CK-2) CK-MB (CK-2) Rel Index C-Reactive Protein NT-Pro-B Natriuret Pep 1069 H Total Protein Albumin 01/01/18 01/01/18 01/01/18 02:36 03:17 03:31 WBC RBC Hgb Hct MCV MCH MCHC RDW Plt Count Seg Neuts % (Manual) Lymphocytes % (Manual) Seg Neutrophils # Seg Neutrophils # Man Lymphocytes # (Manual) D-Dimer 2358.22 H POC ABG pH 7.474 H POC ABG pCO2 33.2 L POC ABG pO2 73 L Sodium Potassium Chloride Carbon Dioxide BUN Creatinine Glucose Lactic Acid 3.60 H* Calcium Total Creatine Kinase CK-MB (CK-2) CK-MB (CK-2) Rel Index C-Reactive Protein NT-Pro-B Natriuret Pep Total Protein Albumin 01/01/18 01/02/18 01/02/18 14:01 03:44 03:44 WBC RBC 3.14 L Hgb 8.4 L Hct 25.9 L D MCV 82 L MCH 27 L MCHC RDW 17.4 H Plt Count Seg Neuts % (Manual) 91.0 H Lymphocytes % (Manual) 6.0 L Seg Neutrophils # Seg Neutrophils # Man 10.0 H Lymphocytes # (Manual) 0.7 L D-Dimer POC ABG pH POC ABG pCO2 POC ABG pO2 Sodium Potassium Chloride Carbon Dioxide BUN Creatinine 0.5 L Glucose 137 H Lactic Acid Calcium 7.5 L Total Creatine Kinase CK-MB (CK-2) CK-MB (CK-2) Rel Index C-Reactive Protein 20.70 H NT-Pro-B Natriuret Pep Total Protein 5.5 L Albumin 1.7 L 01/04/18 01/05/18 01/05/18 10:03 05:35 05:35 WBC 15.9 H RBC Hgb 9.7 L Hct 31.2 L MCV 82 L MCH 25 L MCHC 31 L RDW 17.8 H Plt Count Seg Neuts % (Manual) 83.0 H Lymphocytes % (Manual) 4.0 L Seg Neutrophils # Seg Neutrophils # Man 13.2 H Lymphocytes # (Manual) 0.6 L D-Dimer POC ABG pH POC ABG pCO2 POC ABG pO2 Sodium 134 L Potassium Chloride Carbon Dioxide 19 L 31 H D BUN Creatinine 0.5 L 0.5 L Glucose 111 H 134 H Lactic Acid Calcium 8.3 L Total Creatine Kinase CK-MB (CK-2) CK-MB (CK-2) Rel Index C-Reactive Protein NT-Pro-B Natriuret Pep Total Protein Albumin 01/05/18 01/06/18 01/07/18 19:56 22:53 00:33 WBC RBC Hgb Hct MCV MCH MCHC RDW Plt Count Seg Neuts % (Manual) Lymphocytes % (Manual) Seg Neutrophils # Seg Neutrophils # Man Lymphocytes # (Manual) D-Dimer POC ABG pH POC ABG pCO2 58.0 H POC ABG pO2 67 L Sodium Potassium Chloride Carbon Dioxide BUN Creatinine Glucose Lactic Acid Calcium Total Creatine Kinase 50 L CK-MB (CK-2) CK-MB (CK-2) Rel Index 7.4 H C-Reactive Protein 2.40 H NT-Pro-B Natriuret Pep Total Protein Albumin 01/07/18 01/07/18 01/07/18 03:43 04:15 08:40 WBC RBC Hgb Hct MCV MCH MCHC RDW Plt Count Seg Neuts % (Manual) Lymphocytes % (Manual) Seg Neutrophils # Seg Neutrophils # Man Lymphocytes # (Manual) D-Dimer POC ABG pH 7.458 H POC ABG pCO2 48.7 H POC ABG pO2 Sodium Potassium 3.4 L Chloride Carbon Dioxide BUN 24 H Creatinine 0.4 L Glucose 156 H Lactic Acid Calcium 7.6 L Total Creatine Kinase 42 L CK-MB (CK-2) 4.8 H CK-MB (CK-2) Rel Index 11.4 H C-Reactive Protein NT-Pro-B Natriuret Pep Total Protein Albumin 01/07/18 01/08/18 01/08/18 08:40 05:12 08:33 WBC 14.8 H RBC 3.48 L 3.59 L Hgb 8.9 L 9.4 L Hct 28.5 L 30.2 L MCV 82 L MCH 26 L 26 L MCHC 31 L 31 L RDW 18.6 H 19.5 H Plt Count Seg Neuts % (Manual) 96 H Lymphocytes % (Manual) 3 L Seg Neutrophils # 13.7 H Seg Neutrophils # Man 14.2 H Lymphocytes # (Manual) 0.4 L D-Dimer POC ABG pH POC ABG pCO2 51.8 H POC ABG pO2 65 L Sodium Potassium Chloride Carbon Dioxide BUN Creatinine Glucose Lactic Acid Calcium Total Creatine Kinase CK-MB (CK-2) CK-MB (CK-2) Rel Index C-Reactive Protein NT-Pro-B Natriuret Pep Total Protein Albumin 01/08/18 01/09/18 01/10/18 08:33 04:50 04:21 WBC RBC Hgb Hct MCV MCH MCHC RDW Plt Count Seg Neuts % (Manual) Lymphocytes % (Manual) Seg Neutrophils # Seg Neutrophils # Man Lymphocytes # (Manual) D-Dimer POC ABG pH POC ABG pCO2 51.5 H 68.7 H POC ABG pO2 59 L 57 L Sodium 146 H D Potassium Chloride Carbon Dioxide 32 H BUN 28 H Creatinine 0.5 L Glucose 155 H Lactic Acid Calcium 7.8 L Total Creatine Kinase CK-MB (CK-2) CK-MB (CK-2) Rel Index C-Reactive Protein NT-Pro-B Natriuret Pep Total Protein Albumin 01/10/18 01/10/18 06:20 06:20 WBC 15.4 H RBC 3.47 L Hgb 9.1 L Hct 29.6 L MCV MCH 26 L MCHC 31 L RDW 20.7 H Plt Count 128 L Seg Neuts % (Manual) 100.0 H Lymphocytes % (Manual) 0 L Seg Neutrophils # Seg Neutrophils # Man 15.4 H Lymphocytes # (Manual) 0.0 L D-Dimer POC ABG pH POC ABG pCO2 POC ABG pO2 Sodium 151 H Potassium Chloride 109.8 H Carbon Dioxide 34 H BUN 46 H Creatinine 0.7 L Glucose 232 H Lactic Acid Calcium 8.1 L Total Creatine Kinase CK-MB (CK-2) CK-MB (CK-2) Rel Index C-Reactive Protein NT-Pro-B Natriuret Pep Total Protein Albumin Allied health notes reviewed: nursing
[2018-01-11] MEDS: fentaNYL DRIP Premix 2,000 MCG/100 ML BAG IV SCH ×2 (01:03→10:06)
[2018-01-11 04:24] LABS: Hematocrit 30.9 % (35.5-45.6); Hemoglobin 9.4 gm/dl (11.8-15.2); Mean Corpuscular HGB Conc 30 % (32-34); Mean Corpuscular Hemoglobin 26 pg (28-32); Mean Corpuscular Volume 87 fl (84-94); Platelet Count 112 K/mm3 (140-440); Red Blood Count 3.57 M/mm3 (3.65-5.03)
[2018-01-11 04:33] LABS: Red Cell Distribution Width 21.6 % (13.2-15.2)
[2018-01-11 04:49] LABS: BUN/Creatinine Ratio 70; Blood Urea Nitrogen 49 mg/dL (9-20); Calcium 8.2 mg/dL (8.4-10.2); Hemolysis Index 2
[2018-01-11 05:23] LABS: Anisocytosis 1+; Band Neutrophils # (Manual) 0.3 K/mm3; Basophils % (Manual) 0 % (0.0-1.8); Eosinophils % (Manual) 0 % (0.0-4.3); Monocytes % (Manual) 0 % (0.0-7.3); Platelet Estimate Appears Decreased; Total Cells Counted 100
--- NOTE | 2018-01-11 06:27 | XRay Report ---
FINAL REPORT EXAM: XR CHEST 1V AP HISTORY: follow up respiratory failure TECHNIQUE: A portable semi-upright view the chest was obtained and compared to the previous study of 01/10/2018. FINDINGS: The tip of the ET tube is 6.1 cc above the clement. The Dobhoff tube is coursing into the stomach. There is a right-sided PICC line with tip in the distal superior vena cava. The heart size is normal. There is stable bilateral diffuse airspace disease. Pleural fluid is not seen. The bones soft tissues otherwise are unchanged. IMPRESSION: Stable bilateral airspace disease. Satisfactory position of all tubes and lines.
[2018-01-11] MEDS: HEPARIN SUB-Q SCH ×3 (06:57→21:58)
[2018-01-11] MEDS: FLAGYL PO SCH (06:58)
[2018-01-11] MEDS: DUONEB *Not for PRN Use IH SCH ×4 (08:23→20:40)
[2018-01-11] MEDS: PULMICORT IH SCH ×2 (08:23→19:58)
[2018-01-11] MEDS: BROVANA NEBU IH SCH ×2 (08:23→19:58)
--- NOTE | 2018-01-11 09:43 | Progress Note ---
Assessment and Plan Acute hypoxic respiratory failure Health care associated pneumonia Right upper lobe cavitary lung disease/bronchiectasis Sepsis/Lactic acidosis Protein calorie malnutrition Diffuse proliferative lung disease Polysubstance abuse -VAP bundle -Will need early tracheostomy to facilitate weaning. Discussed with case management/case management social worker to locate family to discuss goals of care and update re care needs -Supplemental oxygen to keep O2 sats 88-90 -Steroids, antibiotics -VTE prophylaxis -Bronchodilators -Airway clearance -Follow up AFB smear results Subjective Date of service: 01/11/18 Principal diagnosis: Acute hypoxic respiratory failure, health care associated pneumonia, sepsis Interval history: F/UP for acute hypoxic respiratory failure on high flow oxygen, health care associated pneumonia, sepsis, bronchiectasis and bullous lung disease Patient seen and examined. Vitals, labs, medications, chart reviewed. Fevers this morning, low grade Discussed with RN/RT Remains hypoxic on full ventilatory support Propofol and fentanyl for agitation/sedation Poor glycemic control Discussed in ICU rounds Objective - Exam Narrative Exam: GENERAL: Cachetic on mechanical ventilation HEENT: Normocephalic. Atraumatic. No conjunctival congestion or icterus. NECK: Supple. Trachea midline. CHEST/LUNGS: ETT HEART/CARDIOVASCULAR: Regular in rate and rhythm. S1 and S2 positive. ABDOMEN: Abdomen is soft, nontender. Patient has normal bowel sounds. SKIN: Warm and dry. NEURO: sedated MUSCULOSKELETAL: No joint effusion or tenderness. EXTRIMITY: No edema, no cyanosis or clubbing. PSYCH: SEDATED Vital Signs - 12hr 01/10/18 01/10/18 01/10/18 22:00 22:30 23:00 Temperature Pulse Rate 118 H 125 H 129 H Pulse Rate [ Anterior Bilateral Throughout] Pulse Rate [ From Monitor] Respiratory 14 15 16 Rate Respiratory Rate [Anterior Bilateral Throughout] Respiratory 17 Rate [ Generalized] Blood Pressure 145/89 128/76 136/69 O2 Sat by Pulse 88 86 86 Oximetry 01/10/18 01/10/18 01/10/18 23:18 23:19 23:30 Temperature Pulse Rate 132 H 129 H 131 H Pulse Rate [ Anterior Bilateral Throughout] Pulse Rate [ From Monitor] Respiratory 18 15 Rate Respiratory Rate [Anterior Bilateral Throughout] Respiratory Rate [ Generalized] Blood Pressure 136/69 136/69 126/74 O2 Sat by Pulse 87 87 86 Oximetry 01/10/18 01/11/18 01/11/18 23:38 00:00 00:30 Temperature 99.1 F Pulse Rate 131 H 131 H Pulse Rate [ Anterior Bilateral Throughout] Pulse Rate [ 132 H From Monitor] Respiratory 16 18 Rate Respiratory Rate [Anterior Bilateral Throughout] Respiratory Rate [ Generalized] Blood Pressure 124/74 126/73 O2 Sat by Pulse 88 88 Oximetry 01/11/18 01/11/18 01/11/18 01:00 01:30 02:00 Temperature Pulse Rate 130 H 130 H 129 H Pulse Rate [ Anterior Bilateral Throughout] Pulse Rate [ 132 H From Monitor] Respiratory 15 18 14 Rate Respiratory Rate [Anterior Bilateral Throughout] Respiratory Rate [ Generalized] Blood Pressure 131/74 125/73 127/71 O2 Sat by Pulse 88 87 87 Oximetry 01/11/18 01/11/18 01/11/18 02:30 03:00 03:01 Temperature 98.5 F Pulse Rate 128 H 128 H Pulse Rate [ Anterior Bilateral Throughout] Pulse Rate [ From Monitor] Respiratory 17 15 Rate Respiratory Rate [Anterior Bilateral Throughout] Respiratory Rate [ Generalized] Blood Pressure 121/73 128/73 O2 Sat by Pulse 88 88 Oximetry 01/11/18 01/11/18 01/11/18 03:30 03:58 04:00 Temperature Pulse Rate 126 H 124 H 125 H Pulse Rate [ Anterior Bilateral Throughout] Pulse Rate [ 132 H From Monitor] Respiratory 13 15 Rate Respiratory Rate [Anterior Bilateral Throughout] Respiratory Rate [ Generalized] Blood Pressure 130/74 130/74 130/76 O2 Sat by Pulse 85 85 85 Oximetry 01/11/18 01/11/18 01/11/18 04:30 05:00 05:30 Temperature Pulse Rate 123 H 123 H 122 H Pulse Rate [ Anterior Bilateral Throughout] Pulse Rate [ From Monitor] Respiratory 24 22 23 Rate Respiratory Rate [Anterior Bilateral Throughout] Respiratory Rate [ Generalized] Blood Pressure 124/74 129/74 126/77 O2 Sat by Pulse 86 87 87 Oximetry 01/11/18 01/11/18 01/11/18 06:00 06:30 07:00 Temperature Pulse Rate 123 H 124 H 124 H Pulse Rate [ Anterior Bilateral Throughout] Pulse Rate [ 132 H From Monitor] Respiratory 19 20 25 H Rate Respiratory Rate [Anterior Bilateral Throughout] Respiratory Rate [ Generalized] Blood Pressure 133/75 133/80 132/79 O2 Sat by Pulse 87 87 86 Oximetry 01/11/18 01/11/18 01/11/18 07:24 07:30 07:40 Temperature 101 F H Pulse Rate 124 H Pulse Rate [ Anterior Bilateral Throughout] Pulse Rate [ 123 H From Monitor] Respiratory 16 20 Rate Respiratory Rate [Anterior Bilateral Throughout] Respiratory Rate [ Generalized] Blood Pressure 129/72 O2 Sat by Pulse 88 88 Oximetry 01/11/18 01/11/18 01/11/18 07:46 08:00 08:14 Temperature 101.0 F H Pulse Rate 124 H 124 H 124 H Pulse Rate [ 90 Anterior Bilateral Throughout] Pulse Rate [ 123 H From Monitor] Respiratory 30 H 21 Rate Respiratory 25 H Rate [Anterior Bilateral Throughout] Respiratory Rate [ Generalized] Blood Pressure 129/72 129/75 128/75 O2 Sat by Pulse 88 88 88 Oximetry 01/11/18 08:23 Temperature Pulse Rate Pulse Rate [ 124 H Anterior Bilateral Throughout] Pulse Rate [ From Monitor] Respiratory Rate Respiratory 25 H Rate [Anterior Bilateral Throughout] Respiratory Rate [ Generalized] Blood Pressure O2 Sat by Pulse Oximetry Constitutional: appears uncomfortable, other (sedated to RASS -1) Eyes: non-icteric ENT: oropharynx moist, other (mallampatti 2) Neck: supple, no lymphadenopathy, no JVD, other (no thyromegaly) Effort: mildly labored Ascultation: Bilateral: diminished breath sounds, rales, rhonchi Percussion: Bilateral: not dull Cardiovascular: regular rate and rhythm, other (no rubs/murmurs) Gastrointestinal: normoactive bowel sounds, soft, non-tender, non-distended, other (no HSM) Integumentary: rash Extremities: no cyanosis, no edema, pink and warm, pulses normal Neurologic: normal mental status, non-focal exam, pupils equal and round, CN II- XII normal Psychiatric: other (sedated) CBC and BMP: 01/12/18 07:00 01/12/18 07:00 ABG, PT/INR, D-dimer: ABG POC ABG pH 7.331 (7.35-7.45) L 01/11/18 05:08 POC ABG pCO2 74.0 (35-45) H 01/11/18 05:08 POC ABG pO2 52 (80-105) L 01/11/18 05:08 POC ABG HCO3 39.1 01/11/18 05:08 POC ABG Total CO2 41 01/11/18 05:08 POC ABG O2 Sat 82 01/11/18 05:08 PT/INR, D-dimer PT 14.5 Sec. (12.2-14.9) 01/01/18 02:25 INR 1.07 (0.87-1.13) 01/01/18 02:25 D-Dimer 2358.22 ng/mlDDU (0-234) H 01/01/18 03:31 Abnormal lab findings: Abnormal Labs 01/01/18 01/01/18 01/01/18 02:25 02:25 02:25 WBC 21.6 H RBC Hgb 10.3 L Hct 32.7 L MCV 83 L MCH 26 L MCHC RDW 18.0 H Plt Count Seg Neuts % (Manual) 87.5 H Lymphocytes % (Manual) 7.5 L Seg Neutrophils # Seg Neutrophils # Man 18.9 H Lymphocytes # (Manual) D-Dimer POC ABG pH POC ABG pCO2 POC ABG pO2 Sodium 135 L Potassium Chloride Carbon Dioxide 21 L BUN Creatinine 0.6 L Glucose 103 H Lactic Acid Calcium 8.3 L Total Creatine Kinase CK-MB (CK-2) CK-MB (CK-2) Rel Index C-Reactive Protein NT-Pro-B Natriuret Pep 1069 H Total Protein Albumin 01/01/18 01/01/18 01/01/18 02:36 03:17 03:31 WBC RBC Hgb Hct MCV MCH MCHC RDW Plt Count Seg Neuts % (Manual) Lymphocytes % (Manual) Seg Neutrophils # Seg Neutrophils # Man Lymphocytes # (Manual) D-Dimer 2358.22 H POC ABG pH 7.474 H POC ABG pCO2 33.2 L POC ABG pO2 73 L Sodium Potassium Chloride Carbon Dioxide BUN Creatinine Glucose Lactic Acid 3.60 H* Calcium Total Creatine Kinase CK-MB (CK-2) CK-MB (CK-2) Rel Index C-Reactive Protein NT-Pro-B Natriuret Pep Total Protein Albumin 01/01/18 01/02/18 01/02/18 14:01 03:44 03:44 WBC RBC 3.14 L Hgb 8.4 L Hct 25.9 L D MCV 82 L MCH 27 L MCHC RDW 17.4 H Plt Count Seg Neuts % (Manual) 91.0 H Lymphocytes % (Manual) 6.0 L Seg Neutrophils # Seg Neutrophils # Man 10.0 H Lymphocytes # (Manual) 0.7 L D-Dimer POC ABG pH POC ABG pCO2 POC ABG pO2 Sodium Potassium Chloride Carbon Dioxide BUN Creatinine 0.5 L Glucose 137 H Lactic Acid Calcium 7.5 L Total Creatine Kinase CK-MB (CK-2) CK-MB (CK-2) Rel Index C-Reactive Protein 20.70 H NT-Pro-B Natriuret Pep Total Protein 5.5 L Albumin 1.7 L 01/04/18 01/05/18 01/05/18 10:03 05:35 05:35 WBC 15.9 H RBC Hgb 9.7 L Hct 31.2 L MCV 82 L MCH 25 L MCHC 31 L RDW 17.8 H Plt Count Seg Neuts % (Manual) 83.0 H Lymphocytes % (Manual) 4.0 L Seg Neutrophils # Seg Neutrophils # Man 13.2 H Lymphocytes # (Manual) 0.6 L D-Dimer POC ABG pH POC ABG pCO2 POC ABG pO2 Sodium 134 L Potassium Chloride Carbon Dioxide 19 L 31 H D BUN Creatinine 0.5 L 0.5 L Glucose 111 H 134 H Lactic Acid Calcium 8.3 L Total Creatine Kinase CK-MB (CK-2) CK-MB (CK-2) Rel Index C-Reactive Protein NT-Pro-B Natriuret Pep Total Protein Albumin 01/05/18 01/06/18 01/07/18 19:56 22:53 00:33 WBC RBC Hgb Hct MCV MCH MCHC RDW Plt Count Seg Neuts % (Manual) Lymphocytes % (Manual) Seg Neutrophils # Seg Neutrophils # Man Lymphocytes # (Manual) D-Dimer POC ABG pH POC ABG pCO2 58.0 H POC ABG pO2 67 L Sodium Potassium Chloride Carbon Dioxide BUN Creatinine Glucose Lactic Acid Calcium Total Creatine Kinase 50 L CK-MB (CK-2) CK-MB (CK-2) Rel Index 7.4 H C-Reactive Protein 2.40 H NT-Pro-B Natriuret Pep Total Protein Albumin 01/07/18 01/07/18 01/07/18 03:43 04:15 08:40 WBC RBC Hgb Hct MCV MCH MCHC RDW Plt Count Seg Neuts % (Manual) Lymphocytes % (Manual) Seg Neutrophils # Seg Neutrophils # Man Lymphocytes # (Manual) D-Dimer POC ABG pH 7.458 H POC ABG pCO2 48.7 H POC ABG pO2 Sodium Potassium 3.4 L Chloride Carbon Dioxide BUN 24 H Creatinine 0.4 L Glucose 156 H Lactic Acid Calcium 7.6 L Total Creatine Kinase 42 L CK-MB (CK-2) 4.8 H CK-MB (CK-2) Rel Index 11.4 H C-Reactive Protein NT-Pro-B Natriuret Pep Total Protein Albumin 01/07/18 01/08/18 01/08/18 08:40 05:12 08:33 WBC 14.8 H RBC 3.48 L 3.59 L Hgb 8.9 L 9.4 L Hct 28.5 L 30.2 L MCV 82 L MCH 26 L 26 L MCHC 31 L 31 L RDW 18.6 H 19.5 H Plt Count Seg Neuts % (Manual) 96 H Lymphocytes % (Manual) 3 L Seg Neutrophils # 13.7 H Seg Neutrophils # Man 14.2 H Lymphocytes # (Manual) 0.4 L D-Dimer POC ABG pH POC ABG pCO2 51.8 H POC ABG pO2 65 L Sodium Potassium Chloride Carbon Dioxide BUN Creatinine Glucose Lactic Acid Calcium Total Creatine Kinase CK-MB (CK-2) CK-MB (CK-2) Rel Index C-Reactive Protein NT-Pro-B Natriuret Pep Total Protein Albumin 01/08/18 01/09/18 01/10/18 08:33 04:50 04:21 WBC RBC Hgb Hct MCV MCH MCHC RDW Plt Count Seg Neuts % (Manual) Lymphocytes % (Manual) Seg Neutrophils # Seg Neutrophils # Man Lymphocytes # (Manual) D-Dimer POC ABG pH POC ABG pCO2 51.5 H 68.7 H POC ABG pO2 59 L 57 L Sodium 146 H D Potassium Chloride Carbon Dioxide 32 H BUN 28 H Creatinine 0.5 L Glucose 155 H Lactic Acid Calcium 7.8 L Total Creatine Kinase CK-MB (CK-2) CK-MB (CK-2) Rel Index C-Reactive Protein NT-Pro-B Natriuret Pep Total Protein Albumin 01/10/18 01/10/18 01/11/18 06:20 06:20 04:13 WBC 15.4 H 13.6 H RBC 3.47 L 3.57 L Hgb 9.1 L 9.4 L Hct 29.6 L 30.9 L MCV MCH 26 L 26 L MCHC 31 L 30 L RDW 20.7 H 21.6 H Plt Count 128 L 112 L Seg Neuts % (Manual) 100.0 H 97.0 H Lymphocytes % (Manual) 0 L 1.0 L Seg Neutrophils # Seg Neutrophils # Man 15.4 H 13.2 H Lymphocytes # (Manual) 0.0 L 0.1 L D-Dimer POC ABG pH POC ABG pCO2 POC ABG pO2 Sodium 151 H Potassium Chloride 109.8 H Carbon Dioxide 34 H BUN 46 H Creatinine 0.7 L Glucose 232 H Lactic Acid Calcium 8.1 L Total Creatine Kinase CK-MB (CK-2) CK-MB (CK-2) Rel Index C-Reactive Protein NT-Pro-B Natriuret Pep Total Protein Albumin 01/11/18 01/11/18 01/11/18 04:13 04:15 05:08 WBC RBC Hgb Hct MCV MCH MCHC RDW Plt Count Seg Neuts % (Manual) Lymphocytes % (Manual) Seg Neutrophils # Seg Neutrophils # Man Lymphocytes # (Manual) D-Dimer POC ABG pH 7.284 L 7.331 L POC ABG pCO2 83.1 H 74.0 H POC ABG pO2 53 L 52 L Sodium 152 H Potassium 5.3 H Chloride 111.1 H Carbon Dioxide 36 H BUN 49 H Creatinine 0.7 L Glucose 307 H Lactic Acid Calcium 8.2 L Total Creatine Kinase CK-MB (CK-2) CK-MB (CK-2) Rel Index C-Reactive Protein NT-Pro-B Natriuret Pep Total Protein Albumin Allied health notes reviewed: nursing
[2018-01-11] MEDS ORDERED: LANTUS SUB-Q SCH (10:00)
[2018-01-11] MEDS ORDERED: MORPHINE IV ONE ×2 (10:00→11:00)
[2018-01-11] MEDS: DIPRIVAN 10 MG/ML 1,000 MG/100 ML BOTTLE IV SCH ×2 (10:04→18:42)
[2018-01-11] MEDS: PROTONIX FEEDTUBE SCH (10:08)
[2018-01-11] MEDS: TYLENOL PO PRN ×3 (10:08→20:32)
[2018-01-11] MEDS: SODIUM CHLORIDE FLUSH SYRINGE 10 ML IV SCH ×2 (10:45→22:00)
[2018-01-11] MEDS: HABITROL TD SCH (10:47)
[2018-01-11] MEDS ORDERED: LOPRESSOR IV ONE ×3 (11:00→15:00)
--- NOTE | 2018-01-11 11:18 | Progress Note ---
Assessment and Plan Assessment: 1) Sepsis: better. Etiology most likely pneumonia. CRP=2.4 2) Acute on chronic respiratory failure: intubated 3) Bilateral multifocal pneumonia/bronchiectasis: ?aspergillosis -Sputum 01/01 normal resp jones. +MOLD sent to [facility]. Corrected report NO Staph seen -BAL 01/08 + Klebsiella pneumoniae. + mold -CTA showed multifocal bilateral consolidation with a small right pleural effusion. Also demonstrated severe centri-lobular emphysema and enlargement mediastinum, numerous large subpleural blebs and extensive bronchiectasis. -HIV neg 4) History for COPD on home oxygen 5) Hep C 6) history of treated latetnt TB in 2000 Plan: -f/u mold Identification -check aspergillus serum antigen -start voriconazole -stop Zosyn for now - day 10 -add ceftriaxone to cover Kleb for 4 more days -F/U AFB - pending -continue airborne isolation until TB is r/o -Quantiferon TB gold STAT - pending Discussed with micro Thank you for your consultation, will follow up with you. Vika Rice MD Infectious Diseases Specialist [facility] M [phone] O [phone] Subjective Date of service: 01/11/18 Principal diagnosis: Acute hypoxic respiratory failure, health care associated pneumonia, sepsis Interval history: Pt still intubated and sedated. New fever -101 overnight. Microbiology: Blood cultures: 01/01 ngtd Respiratory cultures: 01/01 normal resp jones. Corrected report NO Staph seen. +MOLD 01/08 BAL Klebsiella pneumoniae Current Antimicrobials: Zosyn 01/01 Previous Antimicrobials: Vancomycin 01/01 Objective - Exam Narrative Exam: General appearance: sedated on the vent in NAD Eyes: anicteric sclerae, moist conjunctivae; no lid-lag; PERRLA HENT: Atraumatic; oropharynx +ETT +NGT Neck: Trachea midline; supple, no thyromegaly or lymphadenopathy Lungs: distant BS with scattered crackles CV:rrr Abdomen: Soft, non-tender. Extremities: No peripheral edema or extremity lymphadenopathy Skin: Normal temperature, turgor and texture; no rash, ulcers or subcutaneous nodules Psych: sedated. Neuro: sedated Lines: - Constitutional Vitals: Vital Signs Temp Pulse Resp BP Pulse Ox 101.0 F H 170 H 25 H 121/76 88 01/11/18 08:00 01/11/18 10:54 01/11/18 08:23 01/11/18 10:54 01/11/18 08:14 Temperature -Last 24 Hours Temperature 101.0 F Temperature 101 F Temperature 98.5 F Temperature 99.1 F Temperature 98.5 F Temperature 99.6 F Temperature 100.9 F - Labs CBC & Chem 7: 01/11/18 04:13 01/11/18 04:13 Labs: Abnormal lab results 01/11/18 01/11/18 01/11/18 Range/Units 04:13 04:13 04:13 WBC 13.6 H (4.5-11.0) K/mm3 RBC 3.57 L (3.65-5.03) M/mm3 Hgb 9.4 L (11.8-15.2) gm/dl Hct 30.9 L (35.5-45.6) % MCH 26 L (28-32) pg MCHC 30 L (32-34) % RDW 21.6 H (13.2-15.2) % Plt Count 112 L (140-440) K/mm3 Seg Neuts % (Manual) 97.0 H (40.0-70.0) % Lymphocytes % (Manual) 1.0 L (13.4-35.0) % Seg Neutrophils # Man 13.2 H (1.8-7.7) K/mm3 Lymphocytes # (Manual) 0.1 L (1.2-5.4) K/mm3 POC ABG pH (7.35-7.45) POC ABG pCO2 (35-45) POC ABG pO2 (80-105) Sodium 152 H (137-145) mmol/L Potassium 5.3 H (3.6-5.0) mmol/L Chloride 111.1 H (98-107) mmol/L Carbon Dioxide 36 H (22-30) mmol/L BUN 49 H (9-20) mg/dL Creatinine 0.7 L (0.8-1.5) mg/dL Glucose 307 H (75-100) mg/dL Calcium 8.2 L (8.4-10.2) mg/dL Triglycerides 167 H (2-149) mg/dL 01/11/18 01/11/18 Range/Units 04:15 05:08 WBC (4.5-11.0) K/mm3 RBC (3.65-5.03) M/mm3 Hgb (11.8-15.2) gm/dl Hct (35.5-45.6) % MCH (28-32) pg MCHC (32-34) % RDW (13.2-15.2) % Plt Count (140-440) K/mm3 Seg Neuts % (Manual) (40.0-70.0) % Lymphocytes % (Manual) (13.4-35.0) % Seg Neutrophils # Man (1.8-7.7) K/mm3 Lymphocytes # (Manual) (1.2-5.4) K/mm3 POC ABG pH 7.284 L 7.331 L (7.35-7.45) POC ABG pCO2 83.1 H 74.0 H (35-45) POC ABG pO2 53 L 52 L (80-105) Sodium (137-145) mmol/L Potassium (3.6-5.0) mmol/L Chloride (98-107) mmol/L Carbon Dioxide (22-30) mmol/L BUN (9-20) mg/dL Creatinine (0.8-1.5) mg/dL Glucose (75-100) mg/dL Calcium (8.4-10.2) mg/dL Triglycerides (2-149) mg/dL
--- NOTE | 2018-01-11 11:38 | Progress Note ---
Assessment and Plan Assessment and plan: Acute on chronic hypoxic respiratory failure - Bilateral mechanical ventilation. Management per manager bridge - Etiology is secondary to COPD exacerbation and bilateral pneumonia - on IV vancomycin, Zosyn, DuoNeb's, Solu-Medrol, nebulizer - Continue on Isolation Severe COPD with exacerbation - Continue scheduled nebulizers and breathing treatment - Continue empiric steroid and antibiotic - will follow sputum culture, chest x-ray/CTA chest showed bilateral infiltrates - Continue to support respiratory effort - We'll cont on sliding scale of insulin as patient will be on empiric steroids Bilateral pneumonia -Continue antibiotics per ID--Zosyn discontinued and ceftriaxone added to cover for Klebsiella. voriconazole added - POSSIBLE NARCOTIZING PNA, r/o TB -01/01 Culture grew staff Aureus--corrected report that no staph seen -01/08 BAL grew Klebsiella pneumoniae, + fungus -check aspergillus serum antigen Sepsis -Etiology secondary to bilateral pneumonia -Continue abx, trend lactate -Blood cultures no growth to date -Rule out tuberculosis, AFB 3 pending, reported to firm goat pending. -01/08 BAL grew Klebsiella pneumoniae Hypernatremia -Tube feeding preparation changed. -Free water 200 mL scheduled -Follow BMP Lactic acidosis, due to sepsis - IV fluid, treat underlying cause Severe-Moderate Protein calorie Malnutrition - Roofer Metal following History of GERD - pantoprazole for GERD History of hepatitis C - normal LFT Hx of latent TB in 2000 DVT prophylaxis - Heparin Disposition. We'll consult surgery for potential trach/PEG placement. Potential LTAC transfer. The high probability of a clinically significant, sudden or life threatening deterioration of the [pulmonary] system(s) required my full and direct attention , intervention and personal management. The aggregate critical care time was [33 ] minutes. This time is in addition to time spent performing reported procedures but includes the following: [x] Data Review and interpretation [x] Patient assessment and monitoring of vital signs [x] Documentation [x] Medication orders and management History Interval history: No new issues overnight Hospitalist Physical - Constitutional Vitals: Temp Pulse Resp BP Pulse Ox 101.0 F H 170 H 25 H 121/76 88 01/11/18 08:00 01/11/18 10:54 01/11/18 08:23 01/11/18 10:54 01/11/18 08:14 General appearance: Present: no acute distress - EENT Eyes: Present: PERRL, EOM intact ENT: hearing intact, clear oral mucosa, dentition normal - Neck Neck: Present: supple, normal ROM - Respiratory Respiratory effort: normal Respiratory: bilateral: diminished, rhonchi, wheezing - Cardiovascular Rhythm: regular Heart Sounds: Present: S1 & S2. Absent: gallop, rub - Extremities Extremities: no ischemia, No edema, Full ROM - Abdominal General gastrointestinal: soft, non-tender, non-distended, normal bowel sounds - Integumentary Integumentary: Present: clear, warm, dry - Neurologic Neurologic: CNII-XII intact, moves all extremities Results - Labs CBC & Chem 7: 01/11/18 04:13 01/11/18 04:13 Labs: Laboratory Last Values WBC 13.6 K/mm3 (4.5-11.0) H 01/11/18 04:13 RBC 3.57 M/mm3 (3.65-5.03) L 01/11/18 04:13 Hgb 9.4 gm/dl (11.8-15.2) L 01/11/18 04:13 Hct 30.9 % (35.5-45.6) L 01/11/18 04:13 MCV 87 fl (84-94) 01/11/18 04:13 MCH 26 pg (28-32) L 01/11/18 04:13 MCHC 30 % (32-34) L 01/11/18 04:13 RDW 21.6 % (13.2-15.2) H 01/11/18 04:13 Plt Count 112 K/mm3 (140-440) L 01/11/18 04:13 Lymph % (Auto) TNR 01/04/18 17:16 Roberts % (Auto) 2.8 % (0.0-7.3) 01/07/18 08:40 Eos % (Auto) 0.0 % (0.0-4.3) 01/07/18 08:40 Baso % (Auto) TNR 01/04/18 17:16 Lymph # TNR 01/04/18 17:16 Roberts # 0.4 K/mm3 (0.0-0.8) 01/07/18 08:40 Eos # 0.0 K/mm3 (0.0-0.4) 01/07/18 08:40 Baso # 0.1 K/mm3 (0.0-0.1) 01/07/18 08:40 Add Manual Diff Complete 01/11/18 04:13 Total Counted 100 01/11/18 04:13 Seg Neutrophils % Shoe Repairer Helper 01/11/18 04:13 Seg Neuts % (Manual) 97.0 % (40.0-70.0) H 01/11/18 04:13 Band Neutrophils % 2.0 % 01/11/18 04:13 Lymphocytes % (Manual) 1.0 % (13.4-35.0) L 01/11/18 04:13 Reactive Lymphs % (Man) 0 % 01/11/18 04:13 Monocytes % (Manual) 0 % (0.0-7.3) 01/11/18 04:13 Eosinophils % (Manual) 0 % (0.0-4.3) 01/11/18 04:13 Basophils % (Manual) 0 % (0.0-1.8) 01/11/18 04:13 Metamyelocytes % 0 % 01/11/18 04:13 Myelocytes % 0 % 01/11/18 04:13 Promyelocytes % 0 % 01/11/18 04:13 Blast Cells % 0 % 01/11/18 04:13 Nucleated RBC % Not Reportable 01/11/18 04:13 Seg Neutrophils # 13.7 K/mm3 (1.8-7.7) H 01/07/18 08:40 Seg Neutrophils # Man 13.2 K/mm3 (1.8-7.7) H 01/11/18 04:13 Band Neutrophils # 0.3 K/mm3 01/11/18 04:13 Lymphocytes # (Manual) 0.1 K/mm3 (1.2-5.4) L 01/11/18 04:13 Abs React Lymphs (Man) 0.0 K/mm3 01/11/18 04:13 Monocytes # (Manual) 0.0 K/mm3 (0.0-0.8) 01/11/18 04:13 Eosinophils # (Manual) 0.0 K/mm3 (0.0-0.4) 01/11/18 04:13 Basophils # (Manual) 0.0 K/mm3 (0.0-0.1) 01/11/18 04:13 Metamyelocytes # 0.0 K/mm3 01/11/18 04:13 Myelocytes # 0.0 K/mm3 01/11/18 04:13 Promyelocytes # 0.0 K/mm3 01/11/18 04:13 Blast Cells # 0.0 K/mm3 01/11/18 04:13 WBC Morphology Not Reportable 01/11/18 04:13 Hypersegmented Neuts Not Reportable 01/11/18 04:13 Hyposegmented Neuts Not Reportable 01/11/18 04:13 Hypogranular Neuts Not Reportable 01/11/18 04:13 Smudge Cells Not Reportable 01/11/18 04:13 Toxic Granulation Not Reportable 01/11/18 04:13 Toxic Vacuolation Not Reportable 01/11/18 04:13 Dohle Bodies Not Reportable 01/11/18 04:13 Pelger-Huet Anomaly Not Reportable 01/11/18 04:13 Salazar Rods Not Reportable 01/11/18 04:13 Platelet Estimate Appears decreased 01/11/18 04:13 Clumped Platelets Not Reportable 01/11/18 04:13 Plt Clumps, EDTA Not Reportable 01/11/18 04:13 Large Platelets Not Reportable 01/11/18 04:13 Giant Platelets Not Reportable 01/11/18 04:13 Platelet Satelliting Not Reportable 01/11/18 04:13 Plt Morphology Comment Not Reportable 01/11/18 04:13 RBC Morphology Not Reportable 01/11/18 04:13 Dimorphic RBCs Not Reportable 01/11/18 04:13 Polychromasia Not Reportable 01/11/18 04:13 Hypochromasia Not Reportable 01/11/18 04:13 Poikilocytosis Not Reportable 01/11/18 04:13 Anisocytosis 1+ 01/11/18 04:13 Microcytosis Not Reportable 01/11/18 04:13 Macrocytosis Not Reportable 01/11/18 04:13 Spherocytes Not Reportable 01/11/18 04:13 Pappenheimer Bodies Not Reportable 01/11/18 04:13 Sickle Cells Not Reportable 01/11/18 04:13 Target Cells Not Reportable 01/11/18 04:13 Tear Drop Cells Not Reportable 01/11/18 04:13 Ovalocytes Not Reportable 01/11/18 04:13 Stomatocytes 1+ 01/10/18 06:20 Helmet Cells Not Reportable 01/11/18 04:13 [place] Bodies Not Reportable 01/11/18 04:13 [place] Rings Not Reportable 01/11/18 04:13 Adan Cells Not Reportable 01/11/18 04:13 Bite Cells Not Reportable 01/11/18 04:13 Crenated Cell Not Reportable 01/11/18 04:13 Elliptocytes Not Reportable 01/11/18 04:13 Acanthocytes (Spur) Not Reportable 01/11/18 04:13 Rouleaux Not Reportable 01/11/18 04:13 Hemoglobin C Crystals Not Reportable 01/11/18 04:13 Schistocytes Not Reportable 01/11/18 04:13 Malaria parasites Not Reportable 01/11/18 04:13 Abdullahi Bodies Not Reportable 01/11/18 04:13 Hem Pathologist Commnt No 01/11/18 04:13 PT 14.5 Sec. (12.2-14.9) 01/01/18 02:25 INR 1.07 (0.87-1.13) 01/01/18 02:25 APTT 29.7 Sec. (24.2-36.6) 01/01/18 02:25 D-Dimer 2358.22 ng/mlDDU (0-234) H 01/01/18 03:31 POC ABG pH 7.331 (7.35-7.45) L 01/11/18 05:08 POC ABG pCO2 74.0 (35-45) H 01/11/18 05:08 POC ABG pO2 52 (80-105) L 01/11/18 05:08 POC ABG HCO3 39.1 01/11/18 05:08 POC ABG Total CO2 41 01/11/18 05:08 POC ABG O2 Sat 82 01/11/18 05:08 POC ABG Base Excess 13 01/11/18 05:08 FiO2 100 % 01/11/18 05:08 Sodium 152 mmol/L (137-145) H 01/11/18 04:13 Potassium 5.3 mmol/L (3.6-5.0) H 01/11/18 04:13 Chloride 111.1 mmol/L (98-107) H 01/11/18 04:13 Carbon Dioxide 36 mmol/L (22-30) H 01/11/18 04:13 Anion Gap 10 mmol/L 01/11/18 04:13 BUN 49 mg/dL (9-20) H 01/11/18 04:13 Creatinine 0.7 mg/dL (0.8-1.5) L 01/11/18 04:13 Estimated GFR > 60 ml/min 01/11/18 04:13 BUN/Creatinine Ratio 70 % 01/11/18 04:13 Glucose 307 mg/dL (75-100) H 01/11/18 04:13 Lactic Acid 1.80 mmol/L (0.7-2.0) 01/01/18 06:43 Calcium 8.2 mg/dL (8.4-10.2) L 01/11/18 04:13 Magnesium 2.20 mg/dL (1.7-2.3) 01/01/18 02:25 Total Bilirubin 0.30 mg/dL (0.1-1.2) 01/02/18 03:44 AST 17 units/L (5-40) 01/02/18 03:44 ALT 10 units/L (7-56) 01/02/18 03:44 Alkaline Phosphatase 110 units/L (35-129) 01/02/18 03:44 Total Creatine Kinase 42 units/L (55-170) L 01/07/18 08:40 CK-MB (CK-2) 4.8 ng/mL (0.0-4.0) H 01/07/18 08:40 CK-MB (CK-2) Rel Index 11.4 (0-4) H 01/07/18 08:40 Troponin T < 0.010 ng/mL (0.00-0.029) 01/01/18 02:25 C-Reactive Protein 2.40 mg/dL (0.00-1.30) H 01/05/18 19:56 NT-Pro-B Natriuret Pep 1069 pg/mL (0-900) H 01/01/18 02:25 Total Protein 5.5 g/dL (6.3-8.2) L 01/02/18 03:44 Albumin 1.7 g/dL (3.9-5) L 01/02/18 03:44 Albumin/Globulin Ratio 0.4 % 01/02/18 03:44 Triglycerides 167 mg/dL (2-149) H 01/11/18 04:13 Urine Color Yellow (Yellow) 01/01/18 Unknown Urine Turbidity Clear (Clear) 01/01/18 Unknown Urine pH 7.0 (5.0-7.0) 01/01/18 Unknown Ur Specific [place] 1.013 (1.003-1.030) 01/01/18 Unknown Urine Protein <15 mg/dl mg/dL (Negative) 01/01/18 Unknown Urine Glucose (UA) Neg mg/dL (Negative) 01/01/18 Unknown Urine Ketones Neg mg/dL (Negative) 01/01/18 Unknown Urine Blood Neg (Negative) 01/01/18 Unknown Urine Nitrite Neg (Negative) 01/01/18 Unknown Urine Bilirubin Neg (Negative) 01/01/18 Unknown Urine Urobilinogen 4.0 mg/dL (<2.0) 01/01/18 Unknown Ur Leukocyte Esterase Neg (Negative) 01/01/18 Unknown Urine WBC (Auto) 4.0 /HPF (0.0-6.0) 01/01/18 Unknown Urine RBC (Auto) 2.0 /HPF (0.0-6.0) 01/01/18 Unknown Urine Mucus Few /HPF 01/01/18 Unknown Vancomycin Trough 12.0 ug/mL (5.0-20.0) 01/03/18 19:01 HIV 1&2 Antibody Rapid Non react (Non React) 01/08/18 08:33 HIV P24 Antigen Non react (Non React) 01/08/18 08:33
[2018-01-11] MEDS ORDERED: ROCEPHIN/NS 2 GM/100 ML 2 GM/100 ML BAG IV SCH (12:00)
[2018-01-11] MEDS: cefTRIAXone 1 GM in NACL 0.9% 20 ML IV SCH (14:41)
[2018-01-11] MEDS: CARDIZEM PO SCH ×2 (14:41→17:49)
[2018-01-11] MEDS: DELTASONE PO SCH (14:41)
[2018-01-11] MEDS: HumaLOG SUB-Q SCH ×2 (14:43→17:46)
[2018-01-11] MEDS: VORICONAZOLE PO SCH ×2 (14:46→22:41)
[2018-01-11] MEDS ORDERED: LOPRESSOR PO SCH (20:00)
[2018-01-11] MEDS: CALAN IV PRN (20:17)
[2018-01-11] MEDS ORDERED: NACL 0.9% 250ML 250 ML IV ONE (21:36)
[2018-01-12] MEDS: HumaLOG SUB-Q SCH ×3 (00:52→14:51)
[2018-01-12] MEDS: CALAN IV PRN (01:25)
--- NOTE | 2018-01-12 03:17 | XRay Report ---
FINAL REPORT EXAM: XR CHEST 1V AP HISTORY: follow up respiratory failure TECHNIQUE: A portable upright view the chest was obtained and compared to the study of 01/11/2018. FINDINGS: The tip of the ET tube is 5 cm above the clement. The tip of the Dobhoff catheter is in the upper stomach. The lungs reveal generalized emphysematous changes with stable diffuse bilateral airspace disease with slight sparing of left apex. There are bullous changes in the right upper lobe. The heart size is normal. Pleural fluid is not seen. There is a right-sided PICC line with the tip in good position in the distal superior vena cava. IMPRESSION: Emphysema with stable bilateral airspace disease. Satisfactory positioning of all tubes and lines.
[2018-01-12] MEDS: HEPARIN SUB-Q SCH ×2 (06:23→14:51)
[2018-01-12 07:31] LABS: BUN/Creatinine Ratio 82; Blood Urea Nitrogen 82 mg/dL (9-20); Calcium 8.2 mg/dL (8.4-10.2)
[2018-01-12 07:32] LABS: Hemolysis Index 3
[2018-01-12] MEDS: PULMICORT IH SCH (08:04)
[2018-01-12] MEDS: BROVANA NEBU IH SCH (08:04)
[2018-01-12] MEDS: DUONEB *Not for PRN Use IH SCH ×2 (08:05→11:57)
[2018-01-12 08:11] LABS: Hematocrit 31.9 % (35.5-45.6); Hemoglobin 9.7 gm/dl (11.8-15.2); Mean Corpuscular HGB Conc 31 % (32-34); Mean Corpuscular Hemoglobin 26 pg (28-32); Mean Corpuscular Volume 87 fl (84-94); Platelet Count 117 K/mm3 (140-440); Red Blood Count 3.69 M/mm3 (3.65-5.03)
[2018-01-12 08:14] LABS: Red Cell Distribution Width 21.7 % (13.2-15.2)
--- NOTE | 2018-01-12 08:29 | Progress Note ---
Assessment and Plan Assessment: 1) Sepsis: better. Etiology most likely pneumonia. CRP=2.4 2) Acute on chronic respiratory failure: intubated 3) Bilateral multifocal pneumonia/bronchiectasis: ?aspergillosis -Sputum 01/01 normal resp jones. +MOLD sent to [facility]. Corrected report NO Staph seen -BAL 01/08 + Klebsiella pneumoniae. + mold -AFB x 3 negative -Quantiferon TB gold negative -CTA showed multifocal bilateral consolidation with a small right pleural effusion. Also demonstrated severe centri-lobular emphysema and enlargement mediastinum, numerous large subpleural blebs and extensive bronchiectasis. -HIV neg 4) History for COPD on home oxygen 5) Hep C 6) history of treated latetnt TB in 2000 Plan: -stop airborne (AFB x 3 neg and Quantiferon neg) and again stop contact isolation (no evidence of MRSA) -f/u mold Identification and aspergillus serum antigen -contiue voriconazole IV - day 2 -continue ceftriaxone to cover Kleb - day 11 of 14 -if fever continues will resend sputum specimen Discussed with micro lab Thank you for your consultation, will follow up with you. Vika Rice MD Infectious Diseases Specialist [facility] [phone] Subjective Date of service: 01/12/18 Principal diagnosis: Acute hypoxic respiratory failure, health care associated pneumonia, sepsis Interval history: Pt still intubated and sedated. New fever -102 overnight. Microbiology: Blood cultures: 01/01 ngtd Respiratory cultures: 01/01 normal resp jones. Corrected report NO Staph seen. +MOLD 01/08 BAL Klebsiella pneumoniae AFB x 3 negative Current Antimicrobials: ceftriaxone 01/11 voriconazole 01/11 Previous Antimicrobials: Vancomycin 01/01 Zosyn 01/01-01/11 Objective - Exam Narrative Exam: General appearance: sedated on the vent in NAD Eyes: anicteric sclerae, moist conjunctivae; no lid-lag; PERRLA HENT: Atraumatic; oropharynx +ETT +NGT Neck: Trachea midline; supple, no thyromegaly or lymphadenopathy Lungs: distant BS with scattered crackles CV:rrr Abdomen: Soft, non-tender. Extremities: No peripheral edema or extremity lymphadenopathy Skin: Normal temperature, turgor and texture; no rash, ulcers or subcutaneous nodules Psych: sedated. Neuro: sedated Lines: - Constitutional Vitals: Vital Signs Temp Pulse Resp BP Pulse Ox 100.5 F H 123 H 30 H 98/66 88 01/12/18 08:00 01/12/18 08:15 01/12/18 08:15 01/12/18 08:01 01/12/18 08:01 Temperature -Last 24 Hours Temperature 100.5 F Temperature 98.8 F Temperature 98.4 F Temperature 102.5 F Temperature 102.5 F Temperature 98 F Temperature 98.0 F - Labs CBC & Chem 7: 01/12/18 07:00 01/12/18 07:00 Labs: Abnormal lab results 01/11/18 01/11/18 01/11/18 Range/Units 04:13 13:06 17:34 WBC (4.5-11.0) K/mm3 Hgb (11.8-15.2) gm/dl Hct (35.5-45.6) % MCH (28-32) pg MCHC (32-34) % RDW (13.2-15.2) % Plt Count (140-440) K/mm3 POC ABG pCO2 (35-45) POC ABG pO2 (80-105) Sodium (137-145) mmol/L Chloride (98-107) mmol/L Carbon Dioxide (22-30) mmol/L BUN (9-20) mg/dL Glucose (75-100) mg/dL POC Glucose 289 H 332 H (70-105) Calcium (8.4-10.2) mg/dL Triglycerides 167 H (2-149) mg/dL 01/12/18 01/12/18 01/12/18 Range/Units 00:15 04:35 05:54 WBC (4.5-11.0) K/mm3 Hgb (11.8-15.2) gm/dl Hct (35.5-45.6) % MCH (28-32) pg MCHC (32-34) % RDW (13.2-15.2) % Plt Count (140-440) K/mm3 POC ABG pCO2 66.6 H (35-45) POC ABG pO2 50 L (80-105) Sodium (137-145) mmol/L Chloride (98-107) mmol/L Carbon Dioxide (22-30) mmol/L BUN (9-20) mg/dL Glucose (75-100) mg/dL POC Glucose 303 H 267 H (70-105) Calcium (8.4-10.2) mg/dL Triglycerides (2-149) mg/dL 01/12/18 01/12/18 Range/Units 07:00 07:00 WBC 18.3 H (4.5-11.0) K/mm3 Hgb 9.7 L (11.8-15.2) gm/dl Hct 31.9 L (35.5-45.6) % MCH 26 L (28-32) pg MCHC 31 L (32-34) % RDW 21.7 H (13.2-15.2) % Plt Count 117 L (140-440) K/mm3 POC ABG pCO2 (35-45) POC ABG pO2 (80-105) Sodium 155 H (137-145) mmol/L Chloride 112.7 H (98-107) mmol/L Carbon Dioxide 35 H (22-30) mmol/L BUN 82 H (9-20) mg/dL Glucose 248 H (75-100) mg/dL POC Glucose (70-105) Calcium 8.2 L (8.4-10.2) mg/dL Triglycerides (2-149) mg/dL
--- NOTE | 2018-01-12 09:15 | Progress Note ---
Assessment and Plan Acute hypoxic respiratory failure Health care associated pneumonia Right upper lobe cavitary lung disease/bronchiectasis Sepsis/Lactic acidosis Protein calorie malnutrition Diffuse proliferative lung disease Polysubstance abuse -VAP bundle -Supplemental oxygen to keep O2 sats 88-90 -Steroids, antibiotics -VTE prophylaxis -Bronchodilators -Airway clearance - will follow sputum culture - IV fluids -PPI, history of GERD and currently on steroids -Home oxygen evaluation prior to discharge Subjective Date of service: 01/12/18 Principal diagnosis: Acute hypoxic respiratory failure, health care associated pneumonia, sepsis Interval history: F/UP for acute hypoxic respiratory failure on high flow oxygen, health care associated pneumonia, sepsis, bronchiectasis and bullous lung disease Patient seen and examined. Vitals, labs, medications, chart reviewed. Fevers this morning, low grade Discussed with RN/RT Remains hypoxic on full ventilatory support Propofol and fentanyl for agitation/sedation Poor glycemic control Discussed in ICU rounds Objective - Exam Narrative Exam: General appearance: sedated on the vent in NAD Eyes: anicteric sclerae, moist conjunctivae; no lid-lag; PERRLA HENT: Atraumatic; oropharynx +ETT +NGT Neck: Trachea midline; supple, no thyromegaly or lymphadenopathy Lungs: distant BS with scattered crackles CV:rrr Abdomen: Soft, non-tender. Extremities: No peripheral edema or extremity lymphadenopathy Skin: Normal temperature, turgor and texture; no rash, ulcers or subcutaneous nodules Psych: sedated. Neuro: sedated Lines: Vital Signs - 12hr 01/11/18 01/11/18 01/11/18 21:15 21:30 21:45 Temperature Pulse Rate 148 H 119 H 109 H Pulse Rate [ Anterior Bilateral Throughout] Pulse Rate [ From Monitor] Respiratory 25 H 23 21 Rate Respiratory Rate [Anterior Bilateral Throughout] Blood Pressure 78/38 68/38 67/41 O2 Sat by Pulse 90 89 89 Oximetry 01/11/18 01/11/18 01/11/18 22:00 22:03 22:15 Temperature Pulse Rate 104 H 109 H 112 H Pulse Rate [ Anterior Bilateral Throughout] Pulse Rate [ 130 H From Monitor] Respiratory 28 H 23 22 Rate Respiratory Rate [Anterior Bilateral Throughout] Blood Pressure 78/43 78/43 87/61 O2 Sat by Pulse 89 90 91 Oximetry 01/11/18 01/11/18 01/11/18 22:31 22:45 23:00 Temperature Pulse Rate 121 H 118 H 115 H Pulse Rate [ Anterior Bilateral Throughout] Pulse Rate [ From Monitor] Respiratory 24 26 H 27 H Rate Respiratory Rate [Anterior Bilateral Throughout] Blood Pressure 131/84 138/88 101/66 O2 Sat by Pulse 89 89 87 Oximetry 01/11/18 01/11/18 01/11/18 23:15 23:30 23:34 Temperature Pulse Rate 114 H 115 H 109 H Pulse Rate [ Anterior Bilateral Throughout] Pulse Rate [ From Monitor] Respiratory 21 24 Rate Respiratory Rate [Anterior Bilateral Throughout] Blood Pressure 84/56 82/49 82/49 O2 Sat by Pulse 85 83 L 86 Oximetry 01/11/18 01/12/18 01/12/18 23:45 00:00 00:15 Temperature 98.4 F Pulse Rate 123 H 126 H 118 H Pulse Rate [ Anterior Bilateral Throughout] Pulse Rate [ 150 H From Monitor] Respiratory 24 23 23 Rate Respiratory Rate [Anterior Bilateral Throughout] Blood Pressure 87/55 92/55 92/60 O2 Sat by Pulse 86 86 87 Oximetry 01/12/18 01/12/18 01/12/18 00:30 00:45 01:00 Temperature Pulse Rate 130 H 112 H 125 H Pulse Rate [ Anterior Bilateral Throughout] Pulse Rate [ From Monitor] Respiratory 28 H 26 H 26 H Rate Respiratory Rate [Anterior Bilateral Throughout] Blood Pressure 96/62 87/57 94/64 O2 Sat by Pulse 86 86 87 Oximetry 01/12/18 01/12/18 01/12/18 01:15 01:25 01:31 Temperature Pulse Rate 121 H 152 H 126 H Pulse Rate [ Anterior Bilateral Throughout] Pulse Rate [ From Monitor] Respiratory 22 24 Rate Respiratory Rate [Anterior Bilateral Throughout] Blood Pressure 93/62 93/62 80/50 O2 Sat by Pulse 86 84 Oximetry 01/12/18 01/12/18 01/12/18 01:45 02:00 02:15 Temperature Pulse Rate 123 H 116 H 121 H Pulse Rate [ Anterior Bilateral Throughout] Pulse Rate [ 136 H From Monitor] Respiratory 26 H 26 H 25 H Rate Respiratory Rate [Anterior Bilateral Throughout] Blood Pressure 85/55 80/56 79/55 O2 Sat by Pulse 86 86 85 Oximetry 01/12/18 01/12/18 01/12/18 02:31 02:45 03:00 Temperature Pulse Rate 112 H 120 H 113 H Pulse Rate [ Anterior Bilateral Throughout] Pulse Rate [ From Monitor] Respiratory 24 28 H 24 Rate Respiratory Rate [Anterior Bilateral Throughout] Blood Pressure 86/62 85/64 93/58 O2 Sat by Pulse 86 88 89 Oximetry 01/12/18 01/12/18 01/12/18 03:15 03:30 03:45 Temperature Pulse Rate 132 H 126 H 112 H Pulse Rate [ Anterior Bilateral Throughout] Pulse Rate [ From Monitor] Respiratory 27 H 27 H 23 Rate Respiratory Rate [Anterior Bilateral Throughout] Blood Pressure 89/55 99/58 108/51 O2 Sat by Pulse 90 90 90 Oximetry 01/12/18 01/12/18 01/12/18 04:00 04:15 04:30 Temperature 98.8 F Pulse Rate 132 H 132 H 134 H Pulse Rate [ Anterior Bilateral Throughout] Pulse Rate [ 122 H From Monitor] Respiratory 28 H 27 H 26 H Rate Respiratory Rate [Anterior Bilateral Throughout] Blood Pressure 101/59 100/60 109/66 O2 Sat by Pulse 89 88 88 Oximetry 01/12/18 01/12/18 01/12/18 04:45 05:00 05:15 Temperature Pulse Rate 120 H 122 H 125 H Pulse Rate [ Anterior Bilateral Throughout] Pulse Rate [ From Monitor] Respiratory 27 H 28 H 31 H Rate Respiratory Rate [Anterior Bilateral Throughout] Blood Pressure 103/62 92/56 87/66 O2 Sat by Pulse 88 89 89 Oximetry 01/12/18 01/12/18 01/12/18 05:30 05:45 06:00 Temperature Pulse Rate 115 H 123 H 118 H Pulse Rate [ Anterior Bilateral Throughout] Pulse Rate [ From Monitor] Respiratory 26 H 30 H 25 H Rate Respiratory Rate [Anterior Bilateral Throughout] Blood Pressure 97/67 104/59 96/62 O2 Sat by Pulse 88 89 89 Oximetry 01/12/18 01/12/18 01/12/18 06:15 08:00 08:01 Temperature 100.5 F H Pulse Rate 124 H 123 H Pulse Rate [ Anterior Bilateral Throughout] Pulse Rate [ From Monitor] Respiratory 29 H Rate Respiratory Rate [Anterior Bilateral Throughout] Blood Pressure 105/64 98/66 O2 Sat by Pulse 89 88 Oximetry 01/12/18 01/12/18 08:05 08:15 Temperature Pulse Rate Pulse Rate [ 124 H 123 H Anterior Bilateral Throughout] Pulse Rate [ From Monitor] Respiratory Rate Respiratory 29 H 30 H Rate [Anterior Bilateral Throughout] Blood Pressure O2 Sat by Pulse Oximetry Constitutional: appears uncomfortable, other (sedated to RASS -1) Eyes: non-icteric ENT: oropharynx moist, other (mallampatti 2) Neck: supple, no lymphadenopathy, no JVD, other (no thyromegaly) Effort: mildly labored Ascultation: Bilateral: diminished breath sounds, rales, rhonchi Percussion: Bilateral: not dull Cardiovascular: regular rate and rhythm, other (no rubs/murmurs) Gastrointestinal: normoactive bowel sounds, soft, non-tender, non-distended, other (no HSM) Integumentary: rash Extremities: no cyanosis, no edema, pink and warm, pulses normal Neurologic: normal mental status, non-focal exam, pupils equal and round, CN II- XII normal Psychiatric: other (sedated) CBC and BMP: 01/12/18 07:00 01/12/18 07:00 ABG, PT/INR, D-dimer: ABG POC ABG pH 7.350 (7.35-7.45) 01/12/18 04:35 POC ABG pCO2 66.6 (35-45) H 01/12/18 04:35 POC ABG pO2 50 (80-105) L 01/12/18 04:35 POC ABG HCO3 36.8 01/12/18 04:35 POC ABG Total CO2 39 01/12/18 04:35 POC ABG O2 Sat 82 01/12/18 04:35 PT/INR, D-dimer PT 14.5 Sec. (12.2-14.9) 01/01/18 02:25 INR 1.07 (0.87-1.13) 01/01/18 02:25 D-Dimer 2358.22 ng/mlDDU (0-234) H 01/01/18 03:31 Abnormal lab findings: Abnormal Labs 01/01/18 01/01/18 01/01/18 02:25 02:25 02:25 WBC 21.6 H RBC Hgb 10.3 L Hct 32.7 L MCV 83 L MCH 26 L MCHC RDW 18.0 H Plt Count Seg Neuts % (Manual) 87.5 H Lymphocytes % (Manual) 7.5 L Seg Neutrophils # Seg Neutrophils # Man 18.9 H Lymphocytes # (Manual) D-Dimer POC ABG pH POC ABG pCO2 POC ABG pO2 Sodium 135 L Potassium Chloride Carbon Dioxide 21 L BUN Creatinine 0.6 L Glucose 103 H POC Glucose Lactic Acid Calcium 8.3 L Total Creatine Kinase CK-MB (CK-2) CK-MB (CK-2) Rel Index C-Reactive Protein NT-Pro-B Natriuret Pep 1069 H Total Protein Albumin Triglycerides 01/01/18 01/01/18 01/01/18 02:36 03:17 03:31 WBC RBC Hgb Hct MCV MCH MCHC RDW Plt Count Seg Neuts % (Manual) Lymphocytes % (Manual) Seg Neutrophils # Seg Neutrophils # Man Lymphocytes # (Manual) D-Dimer 2358.22 H POC ABG pH 7.474 H POC ABG pCO2 33.2 L POC ABG pO2 73 L Sodium Potassium Chloride Carbon Dioxide BUN Creatinine Glucose POC Glucose Lactic Acid 3.60 H* Calcium Total Creatine Kinase CK-MB (CK-2) CK-MB (CK-2) Rel Index C-Reactive Protein NT-Pro-B Natriuret Pep Total Protein Albumin Triglycerides 01/01/18 01/02/18 01/02/18 14:01 03:44 03:44 WBC RBC 3.14 L Hgb 8.4 L Hct 25.9 L D MCV 82 L MCH 27 L MCHC RDW 17.4 H Plt Count Seg Neuts % (Manual) 91.0 H Lymphocytes % (Manual) 6.0 L Seg Neutrophils # Seg Neutrophils # Man 10.0 H Lymphocytes # (Manual) 0.7 L D-Dimer POC ABG pH POC ABG pCO2 POC ABG pO2 Sodium Potassium Chloride Carbon Dioxide BUN Creatinine 0.5 L Glucose 137 H POC Glucose Lactic Acid Calcium 7.5 L Total Creatine Kinase CK-MB (CK-2) CK-MB (CK-2) Rel Index C-Reactive Protein 20.70 H NT-Pro-B Natriuret Pep Total Protein 5.5 L Albumin 1.7 L Triglycerides 01/04/18 01/05/18 01/05/18 10:03 05:35 05:35 WBC 15.9 H RBC Hgb 9.7 L Hct 31.2 L MCV 82 L MCH 25 L MCHC 31 L RDW 17.8 H Plt Count Seg Neuts % (Manual) 83.0 H Lymphocytes % (Manual) 4.0 L Seg Neutrophils # Seg Neutrophils # Man 13.2 H Lymphocytes # (Manual) 0.6 L D-Dimer POC ABG pH POC ABG pCO2 POC ABG pO2 Sodium 134 L Potassium Chloride Carbon Dioxide 19 L 31 H D BUN Creatinine 0.5 L 0.5 L Glucose 111 H 134 H POC Glucose Lactic Acid Calcium 8.3 L Total Creatine Kinase CK-MB (CK-2) CK-MB (CK-2) Rel Index C-Reactive Protein NT-Pro-B Natriuret Pep Total Protein Albumin Triglycerides 01/05/18 01/06/18 01/07/18 19:56 22:53 00:33 WBC RBC Hgb Hct MCV MCH MCHC RDW Plt Count Seg Neuts % (Manual) Lymphocytes % (Manual) Seg Neutrophils # Seg Neutrophils # Man Lymphocytes # (Manual) D-Dimer POC ABG pH POC ABG pCO2 58.0 H POC ABG pO2 67 L Sodium Potassium Chloride Carbon Dioxide BUN Creatinine Glucose POC Glucose Lactic Acid Calcium Total Creatine Kinase 50 L CK-MB (CK-2) CK-MB (CK-2) Rel Index 7.4 H C-Reactive Protein 2.40 H NT-Pro-B Natriuret Pep Total Protein Albumin Triglycerides 01/07/18 01/07/18 01/07/18 03:43 04:15 08:40 WBC RBC Hgb Hct MCV MCH MCHC RDW Plt Count Seg Neuts % (Manual) Lymphocytes % (Manual) Seg Neutrophils # Seg Neutrophils # Man Lymphocytes # (Manual) D-Dimer POC ABG pH 7.458 H POC ABG pCO2 48.7 H POC ABG pO2 Sodium Potassium 3.4 L Chloride Carbon Dioxide BUN 24 H Creatinine 0.4 L Glucose 156 H POC Glucose Lactic Acid Calcium 7.6 L Total Creatine Kinase 42 L CK-MB (CK-2) 4.8 H CK-MB (CK-2) Rel Index 11.4 H C-Reactive Protein NT-Pro-B Natriuret Pep Total Protein Albumin Triglycerides 01/07/18 01/08/18 01/08/18 08:40 05:12 08:33 WBC 14.8 H RBC 3.48 L 3.59 L Hgb 8.9 L 9.4 L Hct 28.5 L 30.2 L MCV 82 L MCH 26 L 26 L MCHC 31 L 31 L RDW 18.6 H 19.5 H Plt Count Seg Neuts % (Manual) 96 H Lymphocytes % (Manual) 3 L Seg Neutrophils # 13.7 H Seg Neutrophils # Man 14.2 H Lymphocytes # (Manual) 0.4 L D-Dimer POC ABG pH POC ABG pCO2 51.8 H POC ABG pO2 65 L Sodium Potassium Chloride Carbon Dioxide BUN Creatinine Glucose POC Glucose Lactic Acid Calcium Total Creatine Kinase CK-MB (CK-2) CK-MB (CK-2) Rel Index C-Reactive Protein NT-Pro-B Natriuret Pep Total Protein Albumin Triglycerides 01/08/18 01/09/18 01/10/18 08:33 04:50 04:21 WBC RBC Hgb Hct MCV MCH MCHC RDW Plt Count Seg Neuts % (Manual) Lymphocytes % (Manual) Seg Neutrophils # Seg Neutrophils # Man Lymphocytes # (Manual) D-Dimer POC ABG pH POC ABG pCO2 51.5 H 68.7 H POC ABG pO2 59 L 57 L Sodium 146 H D Potassium Chloride Carbon Dioxide 32 H BUN 28 H Creatinine 0.5 L Glucose 155 H POC Glucose Lactic Acid Calcium 7.8 L Total Creatine Kinase CK-MB (CK-2) CK-MB (CK-2) Rel Index C-Reactive Protein NT-Pro-B Natriuret Pep Total Protein Albumin Triglycerides 01/10/18 01/10/18 01/11/18 06:20 06:20 04:13 WBC 15.4 H 13.6 H RBC 3.47 L 3.57 L Hgb 9.1 L 9.4 L Hct 29.6 L 30.9 L MCV MCH 26 L 26 L MCHC 31 L 30 L RDW 20.7 H 21.6 H Plt Count 128 L 112 L Seg Neuts % (Manual) 100.0 H 97.0 H Lymphocytes % (Manual) 0 L 1.0 L Seg Neutrophils # Seg Neutrophils # Man 15.4 H 13.2 H Lymphocytes # (Manual) 0.0 L 0.1 L D-Dimer POC ABG pH POC ABG pCO2 POC ABG pO2 Sodium 151 H Potassium Chloride 109.8 H Carbon Dioxide 34 H BUN 46 H Creatinine 0.7 L Glucose 232 H POC Glucose Lactic Acid Calcium 8.1 L Total Creatine Kinase CK-MB (CK-2) CK-MB (CK-2) Rel Index C-Reactive Protein NT-Pro-B Natriuret Pep Total Protein Albumin Triglycerides 01/11/18 01/11/18 01/11/18 04:13 04:13 04:15 WBC RBC Hgb Hct MCV MCH MCHC RDW Plt Count Seg Neuts % (Manual) Lymphocytes % (Manual) Seg Neutrophils # Seg Neutrophils # Man Lymphocytes # (Manual) D-Dimer POC ABG pH 7.284 L POC ABG pCO2 83.1 H POC ABG pO2 53 L Sodium 152 H Potassium 5.3 H Chloride 111.1 H Carbon Dioxide 36 H BUN 49 H Creatinine 0.7 L Glucose 307 H POC Glucose Lactic Acid Calcium 8.2 L Total Creatine Kinase CK-MB (CK-2) CK-MB (CK-2) Rel Index C-Reactive Protein NT-Pro-B Natriuret Pep Total Protein Albumin Triglycerides 167 H 01/11/18 01/11/18 01/11/18 05:08 13:06 17:34 WBC RBC Hgb Hct MCV MCH MCHC RDW Plt Count Seg Neuts % (Manual) Lymphocytes % (Manual) Seg Neutrophils # Seg Neutrophils # Man Lymphocytes # (Manual) D-Dimer POC ABG pH 7.331 L POC ABG pCO2 74.0 H POC ABG pO2 52 L Sodium Potassium Chloride Carbon Dioxide BUN Creatinine Glucose POC Glucose 289 H 332 H Lactic Acid Calcium Total Creatine Kinase CK-MB (CK-2) CK-MB (CK-2) Rel Index C-Reactive Protein NT-Pro-B Natriuret Pep Total Protein Albumin Triglycerides 01/12/18 01/12/18 01/12/18 00:15 04:35 05:54 WBC RBC Hgb Hct MCV MCH MCHC RDW Plt Count Seg Neuts % (Manual) Lymphocytes % (Manual) Seg Neutrophils # Seg Neutrophils # Man Lymphocytes # (Manual) D-Dimer POC ABG pH POC ABG pCO2 66.6 H POC ABG pO2 50 L Sodium Potassium Chloride Carbon Dioxide BUN Creatinine Glucose POC Glucose 303 H 267 H Lactic Acid Calcium Total Creatine Kinase CK-MB (CK-2) CK-MB (CK-2) Rel Index C-Reactive Protein NT-Pro-B Natriuret Pep Total Protein Albumin Triglycerides 01/12/18 01/12/18 07:00 07:00 WBC 18.3 H RBC Hgb 9.7 L Hct 31.9 L MCV MCH 26 L MCHC 31 L RDW 21.7 H Plt Count 117 L Seg Neuts % (Manual) Lymphocytes % (Manual) Seg Neutrophils # Seg Neutrophils # Man Lymphocytes # (Manual) D-Dimer POC ABG pH POC ABG pCO2 POC ABG pO2 Sodium 155 H Potassium Chloride 112.7 H Carbon Dioxide 35 H BUN 82 H Creatinine Glucose 248 H POC Glucose Lactic Acid Calcium 8.2 L Total Creatine Kinase CK-MB (CK-2) CK-MB (CK-2) Rel Index C-Reactive Protein NT-Pro-B Natriuret Pep Total Protein Albumin Triglycerides Allied health notes reviewed: nursing
[2018-01-12] MEDS ORDERED: D5W 1,000 ML IV SCH (10:00)
[2018-01-12] MEDS: HABITROL TD SCH (10:01)
[2018-01-12] MEDS: DELTASONE PO SCH (10:02)
[2018-01-12] MEDS: PROTONIX FEEDTUBE SCH (10:03)
[2018-01-12] MEDS: cefTRIAXone 1 GM in NACL 0.9% 20 ML IV SCH (10:13)
[2018-01-12] MEDS: SODIUM CHLORIDE FLUSH SYRINGE 10 ML IV SCH (10:24)
[2018-01-12] MEDS: TYLENOL PO PRN (10:30)
[2018-01-12] MEDS: DIPRIVAN 10 MG/ML 1,000 MG/100 ML BOTTLE IV SCH (10:33)
[2018-01-12] MEDS ORDERED: ADRENALIN IV ONE (10:50)
[2018-01-12] MEDS ORDERED: CALCIUM CHLORIDE IV ONE (10:50)
[2018-01-12] MEDS ORDERED: SODIUM BICARBONATE IV ONE (10:50)
[2018-01-12] MEDS ORDERED: ADRENALIN ONE (10:50)
[2018-01-12] MEDS ORDERED: LANTUS SUB-Q ONE (11:00)
[2018-01-12] MEDS ORDERED: NACL 0.9% IV SCH (11:00)
[2018-01-12] MEDS ORDERED: CARDIZEM PO SCH (11:00)
[2018-01-12] MEDS ORDERED: VFEND IV SCH (11:00)
--- NOTE | 2018-01-12 12:05 | Event Note ---
Date: 01/12/18 CODE DEON was called secondary to bradycardia then PEA arrest. ACLS protocol was administered. Patient received several rounds of epinephrine with ROSC for approximately 10 minutes then PEA arrest again. ACLS protocol again instituted and patient received epinephrine. Please see code note for details. Patient unfortunately did not stabilize or have ROSC. Patient 11:28 AM The high probability of a clinically significant, sudden or life threatening deterioration of the [cardiac and pulmonary] system(s) required my full and direct attention, intervention and personal management. The aggregate critical care time was [34] minutes. This time is in addition to time spent performing reported procedures but includes the following: [x] Data Review and interpretation [x] Patient assessment and monitoring of vital signs [x] Documentation [x] Medication orders and management
[2018-01-12 12:14] VITALS: BP 53/31
--- NOTE | 2018-01-12 12:17 | Death Summary ---
Summary - Providers Date of service: 01/12/18 Consults: 01/01/18 06:18 Consult to Physician [CONS] Routine Consulting Provider: DEIRDRE RIOS Reason For Exam: Bilateral pneumonia, hypoxia Place consult to:: [employer] Notified:: yes 01/05/18 16:07 Consult to Physician [CONS] Routine Consulting Provider: RUBIN MONTERROSO Reason For Exam: cavitary pneumonia H/O TB Place consult to:: [place] Notified:: y Comment:: added to day 01/06/18 22:24 Consult to Dietitian/Nutrition [CONS] Routine Physician Instructions: Reason For Exam: Reason for Consult: Evaluate nutritional intake 01/07/18 15:27 Consult to Dietitian/Nutrition [CONS] Routine Physician Instructions: Reason For Exam: ventilated patient Reason for Consult: Write/Manage Tube Feeding Consult to PICC Line RN [CONS] Routine Reason For Exam: Multiple infusions Type Line:: PICC 01/11/18 17:15 Consult to Physician [CONS] Urgent Comment: Consulting Provider: JOHN YAN Physician Instructions: Reason For Exam: cardiology management Attending: JOYCELYN BOSTON - summary Date of admission: 01/01/18 06:20 Date of : 01/12/18 Reason for admission: resp failure Disposition: 62 years old male with history for COPD on home oxygen, asthma, hep C, emphysema and treated latetnt TB in 2000; admitted on 01/01/2018 due to 24 hours history of progressive shortness of breath. Patient reported he had been coughing for about 6 weeks. He denied any sick contacts, recent travels, upper respiratory symptoms. Upon arrival of EMS the day of admission, his saturation was in the 70s but patient refused to come to the hospital. Of note, patient came to the ED on 12/15/2017 was found to have pneumonia and was sent home on oral antibiotics. In the ED, initial temperature 99.7, heart rate 129, respiration 26, O2 sat 79% , blood pressure 153/98. Initial white count 21.6. Hemoglobin 10.3. Platelets 433. Creatinine 0.6. D-dimer was 2356. Lactic acid 3.6. CRP 20. Patient was saturating in the 50s and 60s, patient was put on BiPAP. Chest x- ray showed new left lung infiltrate. Right lung infiltrate improving. CTA showed multifocal bilateral consolidation with a small right pleural effusion. Also demonstrated severe centri-lobular emphysema and enlargement mediastinum, numerous large subpleural blebs and extensive bronchiectasis. He was initially admitted to the intensive care unit and subsequently transferred to the medical floor but unfortunately did not improve and transferred back to the ICU on mechanical ventilation. The patient was admitted with a diagnosis of acute on chronic hypoxemic respiratory failure, healthcare associated pneumonia, right upper lobe cavitary lung disease/ bronchiectasis and sepsis and remained on mechanical ventilation throughout hospitalization. Etiology was felt to be secondary to COPD exacerbation and bilateral pneumonia. Patient was seen by pulmonary and infectious disease consultation. Patient received appropriate IV antibiotics, DuoNeb, IV Solu- Medrol, nebulizer treatments and ventilatory support. 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 AFB 3 and QuantiFERON-TB goal were negative. Unfortunately, patient continued to decline and had a PEA arrest on . Please see code note for details. Patient had brief ROSC but was later pronounced at 11:28 AM. - Final diagnosis (1) Acute respiratory failure with hypoxia Note: Final diagnosis: (2) Hypoxia Note: Final diagnosis: (3) Pneumonia Qualifiers: Pneumonia type: due to unspecified organism Laterality: unspecified laterality Lung location: unspecified part of lung Qualified Code(s): J18.9 - Pneumonia, unspecified organism Note: Final diagnosis: (4) Respiratory distress Note: Final diagnosis: (5) Sepsis Qualifiers: Sepsis type: sepsis due to unspecified organism Qualified Code(s): A41.9 - Sepsis, unspecified organism Note: Final diagnosis:
[2018-01-12 13:47] LABS: Basophils % (Manual) 0 % (0.0-1.8); Eosinophils % (Manual) 0 % (0.0-4.3); RBC Morphology Normal; Total Cells Counted 100
[2018-01-13] MEDS ORDERED: NACL 0.9% IV SCH (10:00)
[2018-01-13] MEDS ORDERED: LANTUS SUB-Q SCH (10:00)
[2018-01-13] MEDS ORDERED: VFEND IV SCH (10:00)
[2018-01-14 17:02] LABS: HIV-1 RNA QN PCR <1.30 Log cps/mL; HIV-1 RNA QN PCR <20 Copies/mL
[2018-01-15] MEDS ORDERED: DELTASONE PO SCH (10:00)
[2018-01-19] MEDS ORDERED: DELTASONE PO SCH (10:00)
[2018-01-23] MEDS ORDERED: DELTASONE PO SCH (10:00)
== END 2018-01-12 16:13 | DRG 853 ==
LOC: ED 01:57 → SUATTDRO 01:57 → CC1 06:20 → 4A 01-04 21:19 → CC1 01-06 21:12
PROVIDERS: ADMIT Internal Medicine; ATTEND Hospitalist
PROC: 4A033R1 Measurement of Arterial Saturation, Peripheral, Percutaneous Approach (ICD-10-PCS; 2018-01-01)
PROC: 5A09357 Assistance with Respiratory Ventilation, Less than 24 Consecutive Hours, Continuous Positive Airway Pressure (ICD-10-PCS; 2018-01-01)
PROC: 5A09357 Assistance with Respiratory Ventilation, Less than 24 Consecutive Hours, Continuous Positive Airway Pressure (ICD-10-PCS; 2018-01-03)
PROC: 5A09357 Assistance with Respiratory Ventilation, Less than 24 Consecutive Hours, Continuous Positive Airway Pressure (ICD-10-PCS; 2018-01-04)
PROC: 5A09357 Assistance with Respiratory Ventilation, Less than 24 Consecutive Hours, Continuous Positive Airway Pressure (ICD-10-PCS; 2018-01-05)
PROC: 5A1955Z Respiratory Ventilation, Greater than 96 Consecutive Hours (ICD-10-PCS; 2018-01-06)
PROC: 0BH17EZ Insertion of Endotracheal Airway into Trachea, Via Natural or Artificial Opening (ICD-10-PCS; 2018-01-06)
PROC: 5A09357 Assistance with Respiratory Ventilation, Less than 24 Consecutive Hours, Continuous Positive Airway Pressure (ICD-10-PCS; 2018-01-06)
PROC: 0B9D8ZX Drainage of Right Middle Lung Lobe, Via Natural or Artificial Opening Endoscopic, Diagnostic (ICD-10-PCS; principal; 2018-01-08)
PROC: 0B9C8ZX Drainage of Right Upper Lung Lobe, Via Natural or Artificial Opening Endoscopic, Diagnostic (ICD-10-PCS; 2018-01-08)
PROC: 02HV33Z Insertion of Infusion Device into Superior Vena Cava, Percutaneous Approach (ICD-10-PCS; 2018-01-08)
DX: A41.9 Sepsis, unspecified organism (principal); J18.9 Pneumonia, unspecified organism; J96.21 Acute and chronic respiratory failure with hypoxia; E43 Unspecified severe protein-calorie malnutrition; J44.1 Chronic obstructive pulmonary disease with (acute) exacerbation; E22.2 Syndrome of inappropriate secretion of antidiuretic hormone; K21.9 Gastro-esophageal reflux disease without esophagitis; B19.20 Unspecified viral hepatitis C without hepatic coma; I46.9 Cardiac arrest, cause unspecified; R62.51 Failure to thrive (child); I48.0 Paroxysmal atrial fibrillation; Z86.11 Personal history of tuberculosis; Z68.20 Body mass index [BMI] 20.0-20.9, adult
CPT/HCPCS: 31500; 36415; 36600; 71045; 71275; 74018; 80048; 80053; 80202; 81001; 82140; 82164; 82550; 82553; 82803; 82962; 83735; 83880; 84478; 84484; 85007; 85025; 85027; 85379; 85610; 85730; 86140; 86403; 87040; 87070; 87076; 87116; 87186; 87205; 87536; 87806; 88112; 88312; 93005; 93010; 93306; 93970; 94002; 94003; 94640; 94644; 94660; 94760; 96365; 96366; 96368; J0171; J0330; J0456; J0696; J1630; J1644; J1815; J2060; J2250; J2270; J2543; J2704; J2920; J2930; J3010; J3370; J3465; J3475; J3480; J7030; J7040; J7050; J7070; J7512; Q9967